=== PATIENT | male | born 1955 | race Caucasian/White ===

== ENCOUNTER 2021-07-05 13:22 | Outpatient (REF) | payer MEDICARE, OTHER, SELFPAY ==
--- NOTE | ~2021-07-05 | US_ITS ---
EXAMINATION: US RETROPERITONEAL LIMITED (AORTA) CLINICAL INFORMATION: History of nicotine dependence. COMPARISON: None TECHNIQUE: Hobbs-scale, color Doppler and spectral Doppler evaluation of the abdominal aorta. FINDINGS: There is atherosclerotic disease with vessel wall calcification. The abdominal aorta is normal in caliber. The measurements of the aorta in maximum AP and transverse dimensions respectively are as follows: Proximal: 2.9 x 3.0 cm. Mid: 2.3 x 2.5 cm. Distal: 2.1 x 2.1 cm. PSV: 111 cm/s. The measurements of the common iliac arteries in maximum AP and TRV dimensions are as follows: Right Common Iliac Artery: 1.5 x 1.7 cm. Left Common Iliac Artery: 1.3 x 1.3 cm. US/US aorta IMPRESSION: Normal caliber abdominal aorta.
== END 2021-07-05 13:23 | disposition home or self-care (01) ==
LOC: HO.HMGCX 13:22
PROVIDERS: Visit Provider Family Medicine
DX: Z87.891 Personal history of nicotine dependence (principal)
CPT/HCPCS: 76775

== ENCOUNTER → 2021-07-06 09:40 | Outpatient (BNVA) | payer MEDICARE, OTHER, SELFPAY | PROVIDERS: PCP Nurse Practitioner Family; Referring Provider Family Medicine; Visit Provider Nurse Practitioner Family | DX: Z12.11 Encounter for screening for malignant neoplasm of colon (principal) | CPT/HCPCS: 99202 ==

== ENCOUNTER 2021-07-30 13:39 | Inpatient (IN) | payer MEDICARE, OTHER, SELFPAY ==
--- NOTE | 2021-07-30 | ECG_ITS ---
Test Reason : AMS Blood Pressure : / mmHG Vent. Rate : 089 BPM Atrial Rate : 089 BPM P-R Int : 142 ms QRS Dur : 088 ms QT Int : 382 ms P-R-T Axes : 070 -28 038 degrees QTc Int : 464 ms Normal sinus rhythm Minimal voltage criteria for LVH, may be normal variant ( Sokolow-Plummer ) Abnormal ECG When compared with ECG of 16-JUN-2019 16:44, MA interval has decreased ST now depressed in Lateral leads Referred By: Generic ED Physician Electronically Signed By:Kedar Santoro
--- NOTE | ~2021-07-30 | CT_ITS ---
EXAMINATION: CT HEAD WITHOUT CONTRAST CLINICAL INFORMATION: Altered mental status COMPARISON: MRI brain 06/23/[address] brain 06/16/2019 TECHNIQUE: Contiguous axial imaging was performed from the skull base to vertex without intravenous administration of contrast. This CT examination was performed using dose optimization techniques as appropriate, variously including the following: *Automated exposure control *Adjustment of mA and/or kV according to patient size (this includes techniques or standardized protocols for targeted exams where dose is matched to indication/reason for exam; i.e. extremities or head) *Use of iterative reconstruction technique DLP: 845 mGy-cm FINDINGS: There is no evidence of acute intracranial hemorrhage or territorial infarction. No abnormal mass effect or midline shift is seen. [place] to white matter differentiation is well preserved. No extra-axial fluid collections are identified. The ventricles are normal in size. There is no abnormal attenuation within the brain parenchyma. The osseous structures and soft tissues are normal. The mastoid air cells and visualized portions of the paranasal sinuses are well aerated. Symmetric persistent prominence of the nasopharyngeal soft tissues bilaterally. CT/CT head/brain wo con IMPRESSION: No acute intracranial pathology.
--- NOTE | ~2021-07-30 | MR_ITS ---
EXAMINATION: MRI BRAIN WITHOUT CONTRAST CLINICAL INFORMATION: Confusion. COMPARISON: CT scan of the head 07/22/2021. TECHNIQUE: Multiplanar MR imaging of the brain was performed without contrast. FINDINGS: Patient motion degrades image quality therefore the diagnostic accuracy of this examination is limited. There are scattered nonspecific foci of T2 FLAIR signal hyperintensity within the periventricular white matter most likely represent a chronic manifestation of small vessel ischemia. No acute territorial infarct. There is a tiny focus of susceptibility artifact within the left cerebellar hemisphere. Intracranial vascular flow voids are grossly maintained. No intracranial mass effect or midline shift. No abnormal extra-axial collection. Lateral and third ventricles are normal. No hydrocephalus. Midline structures including the cervicomedullary junction are normal. No acute bone marrow signal changes. There is no mastoid or middle ear effusion. Mild to moderate paranasal sinus disease primarily affecting the ethmoid air cells and maxillary sinuses. Globes and orbits are symmetric. MR/MR head/brain wo con IMPRESSION: Patient motion degrades image quality therefore the diagnostic accuracy of this examination is limited. There is a tiny age-indeterminate hemorrhage located within the left cerebellar hemisphere. There are scattered chronic small vessel ischemic changes within the periventricular white matter. No evidence of acute territorial infarct.
--- NOTE | ~2021-07-30 | XR_ITS ---
EXAMINATION: XR CHEST CLINICAL INFORMATION: Acute mental status change COMPARISON: 06/16/2019 TECHNIQUE: Frontal view of the chest was obtained. FINDINGS: No significant abnormality is noted involving the heart, lungs, mediastinum, bony thorax or soft tissues. XR/XR chest 1V IMPRESSION: Unremarkable examination.
[2021-07-30 13:43] VITALS: BP 217/107; PULSE 92; RESP 18; TEMP 36.7; O2SAT 94; BMI 23.0
--- NOTE | 2021-07-30 13:57 | ED.AMS ---
HPI - Altered Mental Status General Chief Complaint: Altered Mental Status Stated Complaint: COVID + Confused Sweating Time Seen by Provider: 07/30/21 13:53 Source: patient, old records reviewed and other (friend) Mode of arrival: ambulatory Limitations: altered mental status History of Present Illness HPI narrative: 66 yo male hx of HTN, TIA, HTN encephalopathy back in 2019 requiring admission prior ETOH abuse, COVID positive at home 07/26 we just tested randomly per friend. Vaccinated x 3 per friend. Reports he was normal then found him confused and agitated today. No other history reported. They cannot give any other precipitating events. The patient is very agitated. MD complaint: altered mental status and confusion Onset (ago): unknown (friend notes they last spoke on and he was at baseline) Timing confirmed by: other (friend.) Severity: severe Consistency of symptoms: constant Context: other (recent COVID +) Associated symptoms: denies other symptoms Related Data Home Medications Medication Instructions Recorded Confirmed atorvastatin 80 mg tablet 80 mg PO DAILY 07/06/21 cholecalciferol (vitamin D3) 50 50 mcg PO DAILY 07/06/21 mcg (2,000 unit) tablet (Vitamin D3) citalopram 40 mg tablet 40 mg PO DAILY 07/06/21 doxepin 25 mg capsule 25 mg PO BEDTIME 07/06/21 gabapentin 300 mg capsule 300 mg PO TID 07/06/21 lurasidone 20 mg tablet (Latuda) 20 mg PO DAILY 07/06/21 metoprolol succinate 25 mg 12.5 mg PO DAILY 07/06/21 tablet,extended release 24 hr terazosin 1 mg capsule 1 mg PO DAILY 07/06/21 trazodone 50 mg tablet 50 mg PO BEDTIME 07/06/21 quetiapine 100 mg tablet 1 tab PO BEDTIME 07/30/21 Previous Rx's Medication Instructions Recorded bisacodyl 5 mg tablet,delayed 10 mg PO ONCE 1 Days #2 tab 07/06/21 release (Dulcolax (bisacodyl)) Allergies Allergy/AdvReac Type Severity Reaction Status Date / Time bee pollen [BEE STINGS] Allergy Unknown UNKNOWN Verified 07/06/21 09:45 Iodinated Contrast Media Allergy Unknown UNKNOWN Verified 07/06/21 09:45 [IV CONTRAST] zoster vaccine live Allergy Unknown UNKNOWN Verified 07/06/21 09:45 [SHINGLES VACCINE] codeine Allergy Unknown hives Uncoded 09/01/16 00:00 herpes zoster vaccine Allergy Unknown Unknown Uncoded 07/06/21 09:45 IV dye/contrast Allergy Unknown vomiting Uncoded 09/01/16 00:00 shellfish Allergy Unknown anaphylaxis Uncoded 09/01/16 00:00 Review of Systems Review of Systems: ROS unable to be obtained due to altered mental status [facility] Past Medical History Attestation statement: The following information was validated with the patient. Medical History Anxiety CAD (coronary artery disease) Hypertensive encephalopathy TIA (transient ischemic attack) Surgical History Hx of appendectomy Hx of colonoscopy Hx of left knee surgery Hx of tonsillectomy Family History Family History (Updated 07/06/21 @ 10:07 by Ashley Rajan) Mother Heart disease Father No problems noted. Social History Social History Household Members: None Alcohol intake: former Year quit: 1988 Patient Tobacco Use Status: Former Tobacco user Tobacco use type: Cigarette Substance Use Type: Marijuana Advance Directives: No Advance Directives Information Provided: Yes Physical Exam ED Vital Signs: Vital Signs - 24 hr 07/30/21 13:43 07/30/21 14:31 07/30/21 15:00 Temperature 98.1 F 98.3 F Pulse Rate 92 71 Respiratory Rate 18 18 Blood Pressure 217/107 H 203/94 H 181/93 H Pulse Oximetry 94 99 BMI result Body Mass Index 23.0 Appearance: Alert. Oriented only to self. Mild acute distress. Agitated, pulling at things Eyes: Pupils equal, round and reactive to light. ENT: Pharynx normal. Neck: Normal inspection. Neck supple. Good ROM CVS: tachycardic heart rate and rhythm. Pulses normal. Respiratory: No respiratory distress. Breath sounds normal. Abdomen: Soft and non-tender. Skin: Skin warm and dry. Normal skin color. Normal skin turgor. Extremities: No lower extremity edema. No calf ttp Neuro: Oriented X only self, follows commands, word finding difficulties, gets agitated, moves all extremities, strength intact. Course Course Course Narrative: patient restless and agitated cannot obtain scans - IV ativan ordered BP down 180/90 will hold further lowering and hold for now CT scan pending repeat trop ordered 415pm negative CRP and procalcitonin meningitis seems unlikely - hx of similar presentation back in 2019 dx with HTNive encephalopathy - BP is trending down at this time. signed out to Dr. Ledesma pending repeat troponin MDM - Altered Mental Status MDM Narrative Medical decision making narrative: 66 yo male with hx of HTN, TIA, hypertensive encephalopathy, anxiety, comes in with confusion last known well on per friend. Patient is HTNive and agitated - IV labetolol ordered no prior cocaine abuse. Labs for COVID, CXR, CT head for ICH ordered. Infectious, metabolic workup ordered. Dispo per results and findings. Lab Data Result diagrams: 07/30/21 14:16 07/30/21 14:16 Labs: Lab Results 07/30/21 07/30/21 07/30/21 Range/Units 14:16 14:16 14:16 WBC 11.8 H (4.8-10.8) X10*3/uL RBC 5.18 (4.60-5.80) X10*6/uL Hgb 14.9 (14.0-18.0) g/dl Hct 43.1 (42.0-52.0) % MCV 83.2 (80.0-98.0) fL MCH 28.8 (27.0-33.0) pg MCHC 34.6 (31.0-36.0) g/dl RDW 13.5 (11.0-16.0) % Plt Count 167 (160-400) X10*3/uL MPV 8.3 L (9.4-12.4) fL Immature Gran % (Auto) 0.3 (0.0-0.4) % Neut % (Auto) 88.2 H (45-73) % Lymph % (Auto) 7.4 L (20-40) % Eaton % (Auto) 3.8 (2-11) % Eos % (Auto) 0.1 (0-4) % Baso % (Auto) 0.2 (0-2) % Lymph # (Auto) 0.9 L (1.2-4.9) X10*3/uL [place]aton # (Auto) 0.5 (0.1-1.2) X10*3/uL Eos # (Auto) 0.0 (0.0-0.4) X10*3/uL Baso # (Auto) 0.0 (0.0-0.2) X10*3/uL Abs Immat Gran (auto) 0.04 H (0.00-0.03) X10*3/uL Absolute Neuts (auto) 10.4 H (2.0-8.3) x10*3/uL Absolute Nucleated RBC 0.000 (0.0-0.012) X10*3/uL Nucleated RBC % (auto) 0.0 (0.0-0.2) /100WBC PT (9.9-13.0) SEC INR (0.9-1.1) APTT (24.1-38.0) SEC D-Dimer High Sensitivty NG/ML VBG pH (7.32-7.43) VBG pCO2 mmHg VBG pO2 mmHg VBG HCO3 (22-26) mmol/L VBG O2 Saturation % VBG Base Excess mmol/L Sodium 140 (135-145) mmol/L Potassium 4.0 (3.3-5.1) mmol/L Chloride 106 (96-108) mmol/L Carbon Dioxide 16 L (22-29) mmol/L Anion Gap 22 H (12-20) BUN 19 H (9-16) mg/dL Creatinine 1.02 (0.5-1.4) mg/dL Estim Creat Clear Calc 75.5 Estimated GFR > 60 Random Glucose 136 H (60-115) mg/dL Lactic Acid (0.5-2.0) mmol/L Calcium 9.7 (8.4-10.2) mg/dL Magnesium 1.7 (1.6-2.6) mg/dL Ferritin (20-250) ng/mL Total Bilirubin 1.4 H (0.0-1.0) mg/dL Direct Bilirubin 0.5 (0.0-0.5) mg/dL AST 31 (5-37) U/L ALT 14 (0-40) U/L Alkaline Phosphatase 69 (39-117) U/L Ammonia 21 (13-55) umol/L Lactate Dehydrogenase 265 (118-273) U/L Total Creatine Kinase 932 H (38-174) U/L Troponin I High Sens (<3.5-35.0) ng/L C-Reactive Protein 0.06 (< or = 0.50) mg/dL B-Natriuretic Peptide (<100) pg/mL Total Protein 7.7 (6.5-8.0) g/dL Albumin 4.6 (3.5-5.0) g/dL Lipase 16 (8-78) U/L Procalcitonin ng/mL TSH (0.32-4.0) uIU/mL Ethyl Alcohol mg/dL COVID-19 (MALATHI) (Negative) COVID-19 Clin Com 07/30/21 07/30/21 07/30/21 Range/Units 14:16 14:16 14:16 WBC (4.8-10.8) X10*3/uL RBC (4.60-5.80) X10*6/uL Hgb (14.0-18.0) g/dl Hct (42.0-52.0) % MCV (80.0-98.0) fL MCH (27.0-33.0) pg MCHC (31.0-36.0) g/dl RDW (11.0-16.0) % Plt Count (160-400) X10*3/uL MPV (9.4-12.4) fL Immature Gran % (Auto) (0.0-0.4) % Neut % (Auto) (45-73) % Lymph % (Auto) (20-40) % Eaton % (Auto) (2-11) % Eos % (Auto) (0-4) % Baso % (Auto) (0-2) % Lymph # (Auto) (1.2-4.9) X10*3/uL [place]aton # (Auto) (0.1-1.2) X10*3/uL Eos # (Auto) (0.0-0.4) X10*3/uL Baso # (Auto) (0.0-0.2) X10*3/uL Abs Immat Gran (auto) (0.00-0.03) X10*3/uL Absolute Neuts (auto) (2.0-8.3) x10*3/uL Absolute Nucleated RBC (0.0-0.012) X10*3/uL Nucleated RBC % (auto) (0.0-0.2) /100WBC PT 12.2 (9.9-13.0) SEC INR 1.1 (0.9-1.1) APTT 29.3 (24.1-38.0) SEC D-Dimer High Sensitivty < 150 NG/ML VBG pH (7.32-7.43) VBG pCO2 mmHg VBG pO2 mmHg VBG HCO3 (22-26) mmol/L VBG O2 Saturation % VBG Base Excess mmol/L Sodium (135-145) mmol/L Potassium (3.3-5.1) mmol/L Chloride (96-108) mmol/L Carbon Dioxide (22-29) mmol/L Anion Gap (12-20) BUN (9-16) mg/dL Creatinine (0.5-1.4) mg/dL Estim Creat Clear Calc Estimated GFR Random Glucose (60-115) mg/dL Lactic Acid (0.5-2.0) mmol/L Calcium (8.4-10.2) mg/dL Magnesium (1.6-2.6) mg/dL Ferritin (20-250) ng/mL Total Bilirubin (0.0-1.0) mg/dL Direct Bilirubin (0.0-0.5) mg/dL AST (5-37) U/L ALT (0-40) U/L Alkaline Phosphatase (39-117) U/L Ammonia (13-55) umol/L Lactate Dehydrogenase (118-273) U/L Total Creatine Kinase (38-174) U/L Troponin I High Sens (<3.5-35.0) ng/L C-Reactive Protein (< or = 0.50) mg/dL B-Natriuretic Peptide 180 H (<100) pg/mL Total Protein (6.5-8.0) g/dL Albumin (3.5-5.0) g/dL Lipase (8-78) U/L Procalcitonin ng/mL TSH (0.32-4.0) uIU/mL Ethyl Alcohol mg/dL COVID-19 (MALATHI) Positive A (Negative) COVID-19 Clin Com See Note 07/30/21 07/30/21 07/30/21 Range/Units 14:16 14:16 14:16 WBC (4.8-10.8) X10*3/uL RBC (4.60-5.80) X10*6/uL Hgb (14.0-18.0) g/dl Hct (42.0-52.0) % MCV (80.0-98.0) fL MCH (27.0-33.0) pg MCHC (31.0-36.0) g/dl RDW (11.0-16.0) % Plt Count (160-400) X10*3/uL MPV (9.4-12.4) fL Immature Gran % (Auto) (0.0-0.4) % Neut % (Auto) (45-73) % Lymph % (Auto) (20-40) % Eaton % (Auto) (2-11) % Eos % (Auto) (0-4) % Baso % (Auto) (0-2) % Lymph # (Auto) (1.2-4.9) X10*3/uL [place]aton # (Auto) (0.1-1.2) X10*3/uL Eos # (Auto) (0.0-0.4) X10*3/uL Baso # (Auto) (0.0-0.2) X10*3/uL Abs Immat Gran (auto) (0.00-0.03) X10*3/uL Absolute Neuts (auto) (2.0-8.3) x10*3/uL Absolute Nucleated RBC (0.0-0.012) X10*3/uL Nucleated RBC % (auto) (0.0-0.2) /100WBC PT (9.9-13.0) SEC INR (0.9-1.1) APTT (24.1-38.0) SEC D-Dimer High Sensitivty NG/ML VBG pH (7.32-7.43) VBG pCO2 mmHg VBG pO2 mmHg VBG HCO3 (22-26) mmol/L VBG O2 Saturation % VBG Base Excess mmol/L Sodium (135-145) mmol/L Potassium (3.3-5.1) mmol/L Chloride (96-108) mmol/L Carbon Dioxide (22-29) mmol/L Anion Gap (12-20) BUN (9-16) mg/dL Creatinine (0.5-1.4) mg/dL Estim Creat Clear Calc Estimated GFR Random Glucose (60-115) mg/dL Lactic Acid (0.5-2.0) mmol/L Calcium (8.4-10.2) mg/dL Magnesium (1.6-2.6) mg/dL Ferritin 119 (20-250) ng/mL Total Bilirubin (0.0-1.0) mg/dL Direct Bilirubin (0.0-0.5) mg/dL AST (5-37) U/L ALT (0-40) U/L Alkaline Phosphatase (39-117) U/L Ammonia (13-55) umol/L Lactate Dehydrogenase (118-273) U/L Total Creatine Kinase (38-174) U/L Troponin I High Sens 25.7 (<3.5-35.0) ng/L C-Reactive Protein (< or = 0.50) mg/dL B-Natriuretic Peptide (<100) pg/mL Total Protein (6.5-8.0) g/dL Albumin (3.5-5.0) g/dL Lipase (8-78) U/L Procalcitonin < 0.02 ng/mL TSH 0.76 (0.32-4.0) uIU/mL Ethyl Alcohol mg/dL COVID-19 (MALATHI) (Negative) COVID-19 Clin Com 07/30/21 07/30/21 07/30/21 Range/Units 14:16 14:16 14:20 WBC (4.8-10.8) X10*3/uL RBC (4.60-5.80) X10*6/uL Hgb (14.0-18.0) g/dl Hct (42.0-52.0) % MCV (80.0-98.0) fL MCH (27.0-33.0) pg MCHC (31.0-36.0) g/dl RDW (11.0-16.0) % Plt Count (160-400) X10*3/uL MPV (9.4-12.4) fL Immature Gran % (Auto) (0.0-0.4) % Neut % (Auto) (45-73) % Lymph % (Auto) (20-40) % Eaton % (Auto) (2-11) % Eos % (Auto) (0-4) % Baso % (Auto) (0-2) % Lymph # (Auto) (1.2-4.9) X10*3/uL Eaton # (Auto) (0.1-1.2) X10*3/uL Eos # (Auto) (0.0-0.4) X10*3/uL Baso # (Auto) (0.0-0.2) X10*3/uL Abs Immat Gran (auto) (0.00-0.03) X10*3/uL Absolute Neuts (auto) (2.0-8.3) x10*3/uL Absolute Nucleated RBC (0.0-0.012) X10*3/uL Nucleated RBC % (auto) (0.0-0.2) /100WBC PT (9.9-13.0) SEC INR (0.9-1.1) APTT (24.1-38.0) SEC D-Dimer High Sensitivty NG/ML VBG pH 7.42 (7.32-7.43) VBG pCO2 23 mmHg VBG pO2 41 mmHg VBG HCO3 15 L (22-26) mmol/L VBG O2 Saturation 69.0 % VBG Base Excess -6.5 mmol/L Sodium (135-145) mmol/L Potassium (3.3-5.1) mmol/L Chloride (96-108) mmol/L Carbon Dioxide (22-29) mmol/L Anion Gap (12-20) BUN (9-16) mg/dL Creatinine (0.5-1.4) mg/dL Estim Creat Clear Calc Estimated GFR Random Glucose (60-115) mg/dL Lactic Acid 3.0 H* (0.5-2.0) mmol/L Calcium (8.4-10.2) mg/dL Magnesium (1.6-2.6) mg/dL Ferritin (20-250) ng/mL Total Bilirubin (0.0-1.0) mg/dL Direct Bilirubin (0.0-0.5) mg/dL AST (5-37) U/L ALT (0-40) U/L Alkaline Phosphatase (39-117) U/L Ammonia (13-55) umol/L Lactate Dehydrogenase (118-273) U/L Total Creatine Kinase (38-174) U/L Troponin I High Sens (<3.5-35.0) ng/L C-Reactive Protein (< or = 0.50) mg/dL B-Natriuretic Peptide (<100) pg/mL Total Protein (6.5-8.0) g/dL Albumin (3.5-5.0) g/dL Lipase (8-78) U/L Procalcitonin ng/mL TSH (0.32-4.0) uIU/mL Ethyl Alcohol < 10 mg/dL COVID-19 (MALATHI) (Negative) COVID-19 Clin Com ECG Data ECG #1: Attestation: I personally reviewed and interpreted this ECG as follows: ECG interpretation date: 07/30/21 ECG interpretation time: 13:59 Interpretation: Rate: 89 Rhythm: NSR [place]: left , LVH Normal P waves. Normal VASILE. Normal QRS complex. ST T wave : no RAMIRO, nonspecific subtle lateral ST depression I and aVL, V5-V6 qTC: normal prior studies: changed from 2019 The study has been interpreted contemporaneously by me. . Discharge Plan Discharge Clinical Impression: COVID-19, Encephalopathy acute, Acidosis, lactic Patient Disposition: Still a Patient Prescriptions: No Action quetiapine 100 mg tablet 1 tab PO BEDTIME 0RF doxepin 25 mg capsule 25 mg PO BEDTIME 0RF citalopram 40 mg tablet 40 mg PO DAILY 0RF trazodone 50 mg tablet 50 mg PO BEDTIME 0RF terazosin 1 mg capsule 1 mg PO DAILY 0RF atorvastatin 80 mg tablet 80 mg PO DAILY 0RF Latuda 20 mg tablet 20 mg PO DAILY 0RF cholecalciferol (vitamin D3) [Vitamin D3] 50 mcg (2,000 unit) tablet 50 mcg PO DAILY 0RF gabapentin 300 mg capsule 300 mg PO TID 0RF metoprolol succinate 25 mg tablet extended release 24 hr 12.5 mg PO DAILY 0RF bisacodyl [Dulcolax (bisacodyl)] 5 mg tablet,delayed release (DR/EC) 10 mg PO ONCE 1 Days Qty: 2 0RF Rx Instructions: take 2 tabs at noon the day before your colonoscopy
[2021-07-30 14:24] LABS: MANUAL DIFF FLAG NO
[2021-07-30 14:25] LABS: Basophils Percent Auto 0.2 % (0-2); Eosinophils Percent Auto 0.1 % (0-4); Hematocrit 43.1 % (42.0-52.0); Hemoglobin 14.9 g/dl (14.0-18.0); Imm Gran Abs Auto 0.04 X10*3/uL (0.00-0.03); Imm Gran Pct Auto 0.3 % (0.0-0.4); Lymphocytes Absolute Auto 0.9 X10*3/uL (1.2-4.9); Lymphocytes Percent Auto 7.4 % (20-40); Mean Corpuscular HGB Conc 34.6 g/dl (31.0-36.0); Mean Corpuscular Hemoglobin 28.8 pg (27.0-33.0); Mean Corpuscular Volume 83.2 fL (80.0-98.0); Mean Platelet Volume 8.3 fL (9.4-12.4); Monocytes Absolute Auto 0.5 X10*3/uL (0.1-1.2); Monocytes Percent Auto 3.8 % (2-11); Neutrophils Absolute Auto 10.4 x10*3/uL (2.0-8.3); Neutrophils Percent Auto 88.2 % (45-73); Platelet Count 167 X10*3/uL (160-400); Red Blood Count 5.18 X10*6/uL (4.60-5.80); Red Cell Distribution Width 13.5 % (11.0-16.0); White Blood Count 11.8 X10*3/uL (4.8-10.8)
[2021-07-30 14:27] LABS: Venous Blood Gas Refer to POC result
[2021-07-30 14:28] LABS: VBG Base Excess -6.5 mmol/L; VBG HCO3 15 mmol/L (22-26); VBG pCO2 23 mmHg; VBG pH 7.42 (7.32-7.43); VBG pO2 41 mmHg
[2021-07-30] MEDS: Labetalol HCL 100 MG/20 ML VIAL 10 MG IVPUSH ×2 (14:29→18:10)
[2021-07-30 14:31] VITALS: BP 203/94
[2021-07-30 14:32] LABS: COVID-19 Test Positive (Negative); IDNOW Serial# 9DB6401D
[2021-07-30 14:33] LABS: INTERNATIONAL NORM RATIO 1.1 (0.9-1.1); Prothrombin Time 12.2 SEC (9.9-13.0)
[2021-07-30 14:34] LABS: Ammonia 21 umol/L (13-55)
[2021-07-30 14:36] LABS: Partial Thromboplastin Time 29.3 SEC (24.1-38.0)
[2021-07-30 14:45] LABS: Ethanol < 10 mg/dL
[2021-07-30 14:46] LABS: Alanine Aminotransferase 14 U/L (0-40); Albumin Level 4.6 g/dL (3.5-5.0); Alkaline Phosphatase 69 U/L (39-117); Anion Gap 22 (12-20); Aspartate Amino Transferase 31 U/L (5-37); Bilirubin Direct 0.5 mg/dL (0.0-0.5); Bilirubin Total 1.4 mg/dL (0.0-1.0); Blood Urea Nitrogen 19 mg/dL (9-16); C Reactive Protein 0.06 mg/dL (< or = 0.50); Calcium 9.7 mg/dL (8.4-10.2); Carbon Dioxide 16 mmol/L (22-29); Chloride 106 mmol/L (96-108); Creatinine Clr Calc Pharmacy 75.5; Estimated Glomerular Filt Rate > 60; Glucose Random 136 mg/dL (60-115); Lipase 16 U/L (8-78); Magnesium 1.7 mg/dL (1.6-2.6); Sodium 140 mmol/L (135-145); Total Protein 7.7 g/dL (6.5-8.0)
[2021-07-30 14:47] LABS: B Type Natriuretic Peptide 180 pg/mL (<100); Troponin-I High Sensitivity 25.7 ng/L (<3.5-35.0)
[2021-07-30 14:50] LABS: D Dimer High Sensitivity < 150 NG/ML; Lactate Dehydrogenase 265 U/L (118-273)
[2021-07-30 15:00] VITALS: BP 181/93; PULSE 71; RESP 18; TEMP 36.8; O2SAT 99
[2021-07-30 15:00] LABS: Procalcitonin < 0.02 ng/mL
[2021-07-30 15:01] LABS: Ferritin 119 ng/mL (20-250); TSH reflex Free T4 0.76 uIU/mL (0.32-4.0)
[2021-07-30] MEDS: cefTRIAXone sodium 1 GM in 0.9 % Sodium Chloride 50 ML IV (16:02)
[2021-07-30] MEDS: 0.9 % Sodium Chloride 1,000 ML 999 ML IV (16:02)
[2021-07-30 16:08] VITALS: BP 190/100; PULSE 78
[2021-07-30 16:22] LABS: Reflex Lactate? Lactic Acid Added
--- NOTE | 2021-07-30 16:27 | PHA.MEDREC ---
Pharmacy Consult ? Medication Reconciliation Pharmacy has completed the medication reconciliation. Spoke to patient's primary contact Erlinda ([phone]) who confirmed medication list. Believes he at least took his medications yesterday but was unsure of today.
[2021-07-30] MEDS: Metoprolol Succinate ER 12.5 MG HALFTAB.ER.24H PO (16:28)
[2021-07-30] MEDS: LORazepam 2 MG/ML VIAL 1 MG IVPUSH (16:29)
[2021-07-30 16:52] LABS: ~Lactic Acid-LAB USE ONLY 2.3 mmol/L (0.5-2.0)
[2021-07-30 16:58] LABS: Troponin-I High Sensitivity 32.9 ng/L (<3.5-35.0)
[2021-07-30 17:20] LABS: Appearance Urine CLEAR; Color Urine YELLOW; Glucose Urine UA NEG (NEG); Leukocyte Esterase Urine NEG (NEG); Nitrite Urine NEG (NEG); Specific Gravity - Urine >= 1.030 (1.005-1.025); UACC Culture Trigger NO; Urine Blood 2+ (NEG); Urine Ketones 40 MG/DL (NEG); Urine Protein 1+ MG/DL (NEG-TRACE)
--- NOTE | 2021-07-30 17:21 | P.HPHOSP_ITS ---
History of Present Illness Date of Service: 07/30/21 Chief Complaint: ams 66M brought in by friend for AMS. patient is normally independent in aDLs, oriented times 3. about 4 days ptp, he had rhinorrhea and tested positive for covid. patient had minimal symptoms. on day of presentation he was seen by friend who noted patient was very confused. did not know where he was, his birthday, what year it was. she brought him to ED, his blood pressure was significantly elevated with sbp >200, in 2019 patient had a similar presentation with confusion and hypertension. it quickly resolved, he had refused mri at that point. friend states patient has remote history of ETOH, but does not currently drink ETOH or use drugs. Review of Systems Review of Systems: Yes Unobtainable due to mental condition PMFSH Medical History Anxiety CAD (coronary artery disease) Hypertensive encephalopathy TIA (transient ischemic attack) Family History Mother Heart disease Father No problems noted. Surgical History Hx of appendectomy Hx of colonoscopy Hx of left knee surgery Hx of tonsillectomy Social History Household Members: None Alcohol intake: former Year quit: 1988 Patient Tobacco Use Status: Former Tobacco user Tobacco use type: Cigarette Substance Use Type: Marijuana Advance Directives: No Advance Directives Information Provided: Yes Meds Allergies Allergy/AdvReac Type Severity Reaction Status Date / Time bee pollen [BEE STINGS] Allergy Unknown UNKNOWN Verified 07/06/21 09:45 Iodinated Contrast Media Allergy Unknown UNKNOWN Verified 07/06/21 09:45 [IV CONTRAST] zoster vaccine live Allergy Unknown UNKNOWN Verified 07/06/21 09:45 [SHINGLES VACCINE] codeine Allergy Unknown hives Uncoded 09/01/16 00:00 herpes zoster vaccine Allergy Unknown Unknown Uncoded 07/06/21 09:45 IV dye/contrast Allergy Unknown vomiting Uncoded 09/01/16 00:00 shellfish Allergy Unknown anaphylaxis Uncoded 09/01/16 00:00 Active Medications: Current Medications Atorvastatin Calcium (Atorvastatin Calcium 80 Mg Tablet) 80 mg PO DAILY [facility] Doxepin HCl (Doxepin Hcl 25 Mg Capsule) 25 mg PO BEDTIME [facility] Gabapentin (Gabapentin 300 Mg Capsule) 300 mg PO TID [facility] Hydralazine HCl (Hydralazine Hcl 20 Mg/Ml Vial) 5 mg IVPUSH Q6H PRN; Protocol PRN Reason: sbp>190 Lorazepam (Lorazepam 2 Mg/Ml Vial) 2 mg IVPUSH Q4H PRN PRN Reason: agitation Lurasidone HCl (Lurasidone Hcl 20 Mg Tablet) 20 mg PO DAILY [facility] Metoprolol Succinate (Metoprolol Succinate Er 12.5 Mg Halftab.Er.24h) 12.5 mg PO DAILY [facility]; Protocol Non-Formulary Medication (Citalopram) 40 mg PO DAILY [facility] Non-Formulary Medication (Terazosin) 1 mg PO DAILY [facility] Pharmacy Consult (Consult Rx Perform Med Rec) 1 each MISCELLANE ONCE PRN PRN Reason: Consult order Quetiapine Fumarate (Quetiapine Fumarate 100 Mg Tablet) 100 mg PO BEDTIME [facility] Vitamin D (Cholecalciferol (Vitamin D3) 25 Mcg Tablet) 50 mcg PO DAILY [facility] Home Medications Medication Instructions Recorded Confirmed Last Taken Type atorvastatin 80 mg tablet 80 mg PO DAILY 07/06/21 07/30/21 Unknown History cholecalciferol (vitamin D3) 50 50 mcg PO DAILY 07/06/21 07/30/21 Unknown History mcg (2,000 unit) tablet (Vitamin D3) citalopram 40 mg tablet 40 mg PO DAILY 07/06/21 07/30/21 Unknown History doxepin 25 mg capsule 25 mg PO BEDTIME 07/06/21 07/30/21 Unknown History gabapentin 300 mg capsule 300 mg PO TID 07/06/21 07/30/21 Unknown History lurasidone 20 mg tablet (Latuda) 20 mg PO DAILY 07/06/21 07/30/21 Unknown History metoprolol succinate 25 mg 12.5 mg PO DAILY 07/06/21 07/30/21 Unknown History tablet,extended release 24 hr terazosin 1 mg capsule 1 mg PO DAILY 07/06/21 07/30/21 Unknown History quetiapine 100 mg tablet 1 tab PO BEDTIME 07/30/21 07/30/21 Unknown History Physical Exam Vital Signs and Narrative: Vital Signs: Last Vital Signs Temp 98.3 F 07/30/21 15:00 Pulse 78 07/30/21 16:08 Resp 18 07/30/21 15:00 BP 190/100 H 07/30/21 16:08 Pulse Ox 99 07/30/21 15:00 BMI result Body Mass Index 23.0 General: restless HEENT: atraumatic Neck: normal to visual inspection CVS: S1, S2, RRR Resp: CTA bilateral Chest: non tender GI: soft, non tender, non distended : no CVA tenderness Skin: no rashes Extremities: no edema Neuro: Oriented X1, tremulous, confused, follows simple instructions Psych: cooperative, poor insight Results Labs CBC and Chem 7: 07/30/21 14:16 07/30/21 14:16 Labs: Laboratory Results - last 24 hr 07/30/21 07/30/21 07/30/21 14:16 14:16 14:16 MCV 83.2 MCH 28.8 MCHC 34.6 RDW 13.5 Plt Count 167 MPV 8.3 L Immature Gran % (Auto) 0.3 Neut % (Auto) 88.2 H Lymph % (Auto) 7.4 L [place] % (Auto) 3.8 Eos % (Auto) 0.1 Baso % (Auto) 0.2 Lymph # (Auto) 0.9 L [place] # (Auto) 0.5 Eos # (Auto) 0.0 Baso # (Auto) 0.0 Abs Immat Gran (auto) 0.04 H Absolute Neuts (auto) 10.4 H Absolute Nucleated RBC 0.000 Nucleated RBC % (auto) 0.0 PT INR APTT D-Dimer High Sensitivty VBG pH VBG pCO2 VBG pO2 VBG HCO3 VBG O2 Saturation VBG Base Excess Anion Gap 22 H Estim Creat Clear Calc 75.5 Estimated GFR > 60 Random Glucose 136 H Lactic Acid Lactic Acid F/U @ 2Hr Calcium 9.7 Magnesium 1.7 Ferritin Total Bilirubin 1.4 H Direct Bilirubin 0.5 AST 31 ALT 14 Alkaline Phosphatase 69 Ammonia 21 Lactate Dehydrogenase 265 Total Creatine Kinase 932 H Troponin I High Sens C-Reactive Protein 0.06 B-Natriuretic Peptide Total Protein 7.7 Albumin 4.6 Lipase 16 Procalcitonin TSH Urine Color Urine Appearance Urine pH Ur Specific [place] Urine Protein Urine Glucose (UA) Urine Ketones Urine Blood Urine Nitrite Ur Leukocyte Esterase Ethyl Alcohol COVID-19 ([facility]) COVID-19 Clin Com 07/30/21 07/30/2122 14:16 14:16 14:16 MCV MCH MCHC RDW Plt Count MPV Immature Gran % (Auto) Neut % (Auto) Lymph % (Auto) [place] % (Auto) Eos % (Auto) Baso % (Auto) Lymph # (Auto) [place] # (Auto) Eos # (Auto) Baso # (Auto) Abs Immat Gran (auto) Absolute Neuts (auto) Absolute Nucleated RBC Nucleated RBC % (auto) PT 12.2 INR 1.1 APTT 29.3 D-Dimer High Sensitivty < 150 VBG pH VBG pCO2 VBG pO2 VBG HCO3 VBG O2 Saturation VBG Base Excess Anion Gap Estim Creat Clear Calc Estimated GFR Random Glucose Lactic Acid Lactic Acid F/U @ 2Hr Calcium Magnesium Ferritin Total Bilirubin Direct Bilirubin AST ALT Alkaline Phosphatase Ammonia Lactate Dehydrogenase Total Creatine Kinase Troponin I High Sens C-Reactive Protein B-Natriuretic Peptide 180 H Total Protein Albumin Lipase Procalcitonin TSH Urine Color Urine Appearance Urine pH Ur Specific [place] Urine Protein Urine Glucose (UA) Urine Ketones Urine Blood Urine Nitrite Ur Leukocyte Esterase Ethyl Alcohol COVID-19 ([facility]I) Positive A [employer] See Note 07/30/21 07/30/21 07/30/21 14:16 14:16 14:16 MCV MCH MCHC RDW Plt Count MPV Immature Gran % (Auto) Neut % (Auto) Lymph % (Auto) [place] % (Auto) Eos % (Auto) Baso % (Auto) Lymph # (Auto) [place] # (Auto) Eos # (Auto) Baso # (Auto) Abs Immat Gran (auto) Absolute Neuts (auto) Absolute Nucleated RBC Nucleated RBC % (auto) PT INR APTT D-Dimer High Sensitivty VBG pH VBG pCO2 VBG pO2 VBG HCO3 VBG O2 Saturation VBG Base Excess Anion Gap Estim Creat Clear Calc Estimated GFR Random Glucose Lactic Acid Lactic Acid F/U @ 2Hr Calcium Magnesium Ferritin 119 Total Bilirubin Direct Bilirubin AST ALT Alkaline Phosphatase Ammonia Lactate Dehydrogenase Total Creatine Kinase Troponin I High Sens 25.7 C-Reactive Protein B-Natriuretic Peptide Total Protein Albumin Lipase Procalcitonin < 0.02 TSH 0.76 Urine Color Urine Appearance Urine pH Ur Specific [place] Urine Protein Urine Glucose (UA) Urine Ketones Urine Blood Urine Nitrite Ur Leukocyte Esterase Ethyl Alcohol COVID-19 ([facility]) COVID-19 [employer] Com 07/30/21 07/30/21 07/30/21 14:16 14:16 14:20 MCV MCH MCHC RDW Plt Count MPV Immature Gran % (Auto) Neut % (Auto) Lymph % (Auto) [place] % (Auto) Eos % (Auto) Baso % (Auto) Lymph # (Auto) [place] # (Auto) Eos # (Auto) Baso # (Auto) Abs Immat Gran (auto) Absolute Neuts (auto) Absolute Nucleated RBC Nucleated RBC % (auto) PT INR APTT D-Dimer High Sensitivty VBG pH 7.42 VBG pCO2 23 VBG pO2 41 VBG HCO3 15 L VBG O2 Saturation 69.0 VBG Base Excess -6.5 Anion Gap Estim Creat Clear Calc Estimated GFR Random Glucose Lactic Acid 3.0 H* Lactic Acid F/U @ 2Hr Calcium Magnesium Ferritin Total Bilirubin Direct Bilirubin AST ALT Alkaline Phosphatase Ammonia Lactate Dehydrogenase Total Creatine Kinase Troponin I High Sens C-Reactive Protein B-Natriuretic Peptide Total Protein Albumin Lipase Procalcitonin TSH Urine Color Urine Appearance Urine pH Ur Specific [place] Urine Protein Urine Glucose (UA) Urine Ketones Urine Blood Urine Nitrite Ur Leukocyte Esterase Ethyl Alcohol < 10 COVID-19 ([facility]) COVID-19 Clin [employer] 07/30/21 07/30/21 07/30/21 16:33 16:33 17:12 MCV MCH MCHC RDW Plt Count MPV Immature Gran % (Auto) Neut % (Auto) Lymph % (Auto) [place] % (Auto) Eos % (Auto) Baso % (Auto) Lymph # (Auto) [place] # (Auto) Eos # (Auto) Baso # (Auto) Abs Immat Gran (auto) Absolute Neuts (auto) Absolute Nucleated RBC Nucleated RBC % (auto) PT INR APTT D-Dimer High Sensitivty VBG pH VBG pCO2 VBG pO2 VBG HCO3 VBG O2 Saturation VBG Base Excess Anion Gap Estim Creat Clear Calc Estimated GFR Random Glucose Lactic Acid Lactic Acid F/U @ 2Hr 2.3 H* Calcium Magnesium Ferritin Total Bilirubin Direct Bilirubin AST ALT Alkaline Phosphatase Ammonia Lactate Dehydrogenase Total Creatine Kinase Troponin I High Sens 32.9 C-Reactive Protein B-Natriuretic Peptide Total Protein Albumin Lipase Procalcitonin TSH Urine Color YELLOW Urine Appearance CLEAR Urine pH 6.0 Ur Specific [place] >= 1.030 H Urine Protein 1+ H Urine Glucose (UA) NEG Urine Ketones 40 Urine Blood 2+ H Urine Nitrite NEG Ur Leukocyte Esterase NEG Ethyl Alcohol COVID-19 ([facility]) COVID-19 Clin Com Imaging Radiologist's Impressions: Impressions Chest X-Ray 07/30/21 14:40 IMPRESSION: Unremarkable examination. Head CT 07/30/21 15:26 IMPRESSION: No acute intracranial pathology. Assessment and Plan (1) Encephalopathy acute: Status: Acute Plan 66M presented with ams, htn metabolic encephalopathy differential includes hypertensive emergency with encephalopathy - hydralazine, monitor, goal SBP around 160-180 for now, MRI etoh or med withdrawal - denies etoh, but did respond to ativan, will continue ativan prn, check utox cad statin psych disorder seroquel, latuda, gabapentin, celexa dvt prophylaxis - lvoenox full code patient with ongoing encephalopahty and hypertensive emergency therefore will require atleast 2 midnights in hospital Quality Stroke Does the patient have a stroke diagnosis?: No VTE Prior VTE?: No VTE Risk Level:: Medical - moderate - high VTE Device Contraindication: Treatment Not Indicated VTE Drug Contraindication: N/A - Med Ordered
[2021-07-30 17:28] LABS: Squamous Epithelial Cell Urine TRACE /LPF
[2021-07-30 17:29] LABS: Mucus Urine TRACE /LPF
[2021-07-30 17:34] LABS: Amphetamine Screen Urine Not Detected (Not Detect); Barbiturates, Urine Not Detected (Not Detect); Benzodiazepines Screen Urine Not Detected (Not Detect); Cannabinoid Screen Urine POSITIVE (Not Detect); Cocaine Screen Urine Not Detected (Not Detect); Fentanyl, urine Not Detected (Not Detect); Opiate Screen Urine Not Detected (Not Detect); Phencyclidine Screen Urine Not Detected (Not Detect)
[2021-07-30] MEDS: LORazepam 2 MG/ML VIAL IVPUSH ×2 (18:17→21:04)
[2021-07-30 18:37] LABS: Reflex Lactate? 2 Y
[2021-07-30 19:48] LABS: ~Lactic Acid-LAB USE ONLY 2.4 mmol/L (0.5-2.0)
--- NOTE | 2021-07-30 19:53 | PC.NURSE ---
Notified Rico Braswell and Provider of critical lab for 2.4 lactic
[2021-07-30] MEDS: Gabapentin 300 MG CAPSULE PO (20:39)
[2021-07-30] MEDS: QUEtiapine Fumarate 100 MG TABLET PO (20:39)
[2021-07-30] MEDS: Doxepin HCl 25 MG CAPSULE PO (20:39)
--- NOTE | 2021-07-30 21:13 | PC.NURSE ---
PATIENT WAS PUT IN A HOSPITAL BED ,AND GIVEN A BEDSIDE CAMERA FOR SAFETY .
[2021-07-30 22:29] VITALS: BP 131/110; PULSE 89; RESP 16; TEMP 36.7; O2SAT 97
[2021-07-31 08:19] LABS: Hematocrit 38.2 % (42.0-52.0); Hemoglobin 13.2 g/dl (14.0-18.0); Mean Corpuscular HGB Conc 34.6 g/dl (31.0-36.0); Mean Corpuscular Hemoglobin 28.8 pg (27.0-33.0); Mean Corpuscular Volume 83.4 fL (80.0-98.0); Platelet Count 149 X10*3/uL (160-400); Red Blood Count 4.58 X10*6/uL (4.60-5.80); Red Cell Distribution Width 13.7 % (11.0-16.0); White Blood Count 9.7 X10*3/uL (4.8-10.8)
[2021-07-31 08:47] LABS: Anion Gap 11 (12-20); Blood Urea Nitrogen 15 mg/dL (9-16); Calcium 8.7 mg/dL (8.4-10.2); Carbon Dioxide 21 mmol/L (22-29); Chloride 111 mmol/L (96-108); Creatinine Clr Calc Pharmacy 98.8; Estimated Glomerular Filt Rate > 60; Glucose Fasting 85 mg/dL (60-99); Potassium 3.7 mmol/L (3.3-5.1); Sodium 139 mmol/L (135-145)
[2021-07-31 09:35] VITALS: BP 129/72; PULSE 71; RESP 20; TEMP 36.6; O2SAT 98
[2021-07-31] MEDS: Atorvastatin Calcium 80 MG TABLET PO (09:35)
[2021-07-31] MEDS: Escitalopram Oxalate 20 MG TABLET PO (09:35)
[2021-07-31] MEDS: Gabapentin 300 MG CAPSULE PO ×3 (09:35→22:58)
[2021-07-31] MEDS: Cholecalciferol (Vitamin D3) 25 MCG TABLET 50 MCG PO (09:35)
[2021-07-31 11:31] VITALS: BP 162/72; PULSE 65; RESP 20; O2SAT 98
[2021-07-31] MEDS: Metoprolol Succinate ER 12.5 MG HALFTAB.ER.24H PO (11:31)
[2021-07-31] MEDS: Lurasidone HCl 20 MG TABLET PO (11:32)
[2021-07-31] MEDS: Doxazosin Mesylate 1 MG TABLET PO (11:32)
--- NOTE | 2021-07-31 12:01 | P.PNIM_ITS ---
Subjective Subjective Date of Service: 07/31/21 Interval History: cc: ams interval history:improving mental status Cardiovascular Cardiovascular: Reports no additional cardiovascular complaints Respiratory Respiratory: Reports no additional respiratory complaints Physical Exam Vital Signs: Vital Signs: Last Vital Signs Temp 97.8 F 07/31/21 09:35 Pulse 65 07/31/21 11:31 Resp 20 07/31/21 11:31 BP 162/72 H 07/31/21 11:31 Pulse Ox 98 07/31/21 11:31 BMI result Body Mass Index 23.0 General: AO X 3, no acute distress Resp: CTA bilateral, no accessory muscles used CVS: S1,S2,RRR GI: soft, non tender, non distended Neuro: motor grossly intact, alert Psych: appropriate affect, appropriate insight Objective Data Active Medications Acetaminophen (Acetaminophen 325 Mg Tablet) 650 mg PO Q6H PRN PRN Reason: Pain, Mild (Pain Scale 1-3) Atorvastatin Calcium (Atorvastatin Calcium 80 Mg Tablet) 80 mg PO DAILY [facility] Last Admin: 07/31/21 09:35 Dose: 80 mg Documented by: DIRK Doxazosin Mesylate (Doxazosin Mesylate 1 Mg Tablet) 1 mg PO DAILY [facility] Last Admin: 07/31/21 11:32 Dose: 1 mg Documented by: DIRK Doxepin HCl (Doxepin Hcl 25 Mg Capsule) 25 mg PO BEDTIME [facility] Last Admin: 07/30/21 20:39 Dose: 25 mg Documented by: ABAD Escitalopram Oxalate (Escitalopram Oxalate 20 Mg Tablet) 20 mg PO DAILY [facility] Last Admin: 07/31/21 09:35 Dose: 20 mg Documented by: DIRK Gabapentin (Gabapentin 300 Mg Capsule) 300 mg PO TID [facility] Last Admin: 07/31/21 09:35 Dose: 300 mg Documented by: DIRK Hydralazine HCl (Hydralazine Hcl 20 Mg/Ml Vial) 5 mg IVPUSH Q6H PRN; Protocol PRN Reason: sbp>190 Lorazepam (Lorazepam 2 Mg/Ml Vial) 2 mg IVPUSH Q4H PRN PRN Reason: agitation Last Admin: 07/30/21 21:04 Dose: 2 mg Documented by: ABAD Lurasidone HCl (Lurasidone Hcl 20 Mg Tablet) 20 mg PO DAILY [facility] Last Admin: 07/31/21 11:32 Dose: 20 mg Documented by: DIRK Metoprolol Succinate (Metoprolol Succinate Er 12.5 Mg Halftab.Er.24h) 12.5 mg PO DAILY [facility]; Protocol Last Admin: 07/31/21 11:31 Dose: 12.5 mg Documented by: DIRK Ondansetron HCl (Ondansetron Hcl 4 Mg/2 Ml Vial) 4 mg IVPUSH Q6H PRN PRN Reason: [facility] Pharm[facility] Consult (Consult Rx Perform Med Rec) 1 each MISCELLANE ONCE PRN PRN Reason: Consult order Quetiapine Fumarate (Quetiapine Fumarate 100 Mg Tablet) 100 mg PO BEDTIME [facility] Last Admin: 07/30/21 20:39 Dose: 100 mg Documented by: ABAD Sodium Chloride (0.9 % Sodium Chloride Flush 3 Ml Syringe) 3 ml IVFLUSH QSHIFT [facility] Last Admin: 07/31/21 09:40 Dose: Not Given Documented by: DIRK Non-Admin Reason: Med Not Available Vitamin D (Cholecalciferol (Vitamin D3) 25 Mcg Tablet) 50 mcg PO DAILY [facility] Last Admin: 07/31/21 09:35 Dose: 50 mcg Documented by: DIRK Labs CBC & Chem 7: 07/31/21 07:28 07/31/21 07:28 Labs: Laboratory Results - last 24 hr 07/30/21 07/30/21 07/30/21 14:16 14:16 14:16 MCV 83.2 MCH 28.8 MCHC 34.6 RDW 13.5 Plt Count 167 MPV 8.3 L Immature Gran % (Auto) 0.3 Neut % (Auto) 88.2 H Lymph % (Auto) 7.4 L [place] % (Auto) 3.8 Eos % (Auto) 0.1 Baso % (Auto) 0.2 Lymph # (Auto) 0.9 L [place] # (Auto) 0.5 Eos # (Auto) 0.0 Baso # (Auto) 0.0 Abs Immat Gran (auto) 0.04 H Absolute Neuts (auto) 10.4 H Absolute Nucleated RBC 0.000 Nucleated RBC % (auto) 0.0 PT INR APTT D-Dimer High Sensitivty VBG pH VBG pCO2 VBG pO2 VBG HCO3 VBG O2 Saturation VBG Base Excess Anion Gap 22 H Estim Creat Clear Calc 75.5 Estimated GFR > 60 Random Glucose 136 H Fasting Glucose Lactic Acid Lactic Acid F/U @ 2Hr Lactic Acid F/U @ 4Hr Calcium 9.7 Magnesium 1.7 Ferritin Total Bilirubin 1.4 H Direct Bilirubin 0.5 AST 31 ALT 14 Alkaline Phosphatase 69 Ammonia 21 Lactate Dehydrogenase 265 Total Creatine Kinase 932 H Troponin I High Sens C-Reactive Protein 0.06 B-Natriuretic Peptide Total Protein 7.7 Albumin 4.6 Lipase 16 Procalcitonin TSH Urine Color Urine Appearance Urine pH Ur Specific [place] Urine Protein Urine Glucose (UA) Urine Ketones Urine Blood Urine Nitrite Ur Leukocyte Esterase Urine RBC Urine WBC Ur Squamous Epith Cells Urine Bacteria Urine Mucus Urine Opiates Screen Urine Fentanyl Screen Ur Barbiturates Screen Ur Phencyclidine Scrn Ur Amphetamines Screen U Benzodiazepines Scrn Urine Cocaine Screen U Marijuana (THC) Screen Ethyl Alcohol COVID-19 ([facility]) COVID-19 Clin Com 07/30/21 07/30/21 07/30/21 14:16 14:16 14:16 MCV MCH MCHC RDW Plt Count MPV Immature Gran % (Auto) Neut % (Auto) Lymph % (Auto) [place] % (Auto) Eos % (Auto) Baso % (Auto) Lymph # (Auto) [place] # (Auto) Eos # (Auto) Baso # (Auto) Abs Immat Gran (auto) Absolute Neuts (auto) Absolute Nucleated RBC Nucleated RBC % (auto) PT 12.2 INR 1.1 APTT 29.3 D-Dimer High Sensitivty < 150 VBG pH VBG pCO2 VBG pO2 VBG HCO3 VBG O2 Saturation VBG Base Excess Anion Gap Estim Creat Clear Calc Estimated GFR Random Glucose Fasting Glucose Lactic Acid Lactic Acid F/U @ 2Hr Lactic Acid F/U @ 4Hr Calcium Magnesium Ferritin Total Bilirubin Direct Bilirubin AST ALT Alkaline Phosphatase Ammonia Lactate Dehydrogenase Total Creatine Kinase Troponin I High Sens C-Reactive Protein B-Natriuretic Peptide 180 H Total Protein Albumin Lipase Procalcitonin TSH Urine Color Urine Appearance Urine pH Ur Specific [place] Urine Protein Urine Glucose (UA) Urine Ketones Urine Blood Urine Nitrite Ur Leukocyte Esterase Urine RBC Urine WBC Ur Squamous Epith Cells Urine Bacteria Urine Mucus Urine Opiates Screen Urine Fentanyl Screen Ur Barbiturates Screen Ur Phencyclidine Scrn Ur Amphetamines Screen U Benzodiazepines Scrn Urine Cocaine Screen U Marijuana (THC) Screen Ethyl Alcohol COVID-19 ([facility]ALATHI) Positive A COVID-19 Clin Com See Note 07/30/21 07/30/21 07/30/21 14:16 14:16 14:16 MCV MCH MCHC RDW Plt Count MPV Immature Gran % (Auto) Neut % (Auto) Lymph % (Auto) [place] % (Auto) Eos % (Auto) Baso % (Auto) Lymph # (Auto) [place] # (Auto) Eos # (Auto) Baso # (Auto) Abs Immat Gran (auto) Absolute Neuts (auto) Absolute Nucleated RBC Nucleated RBC % (auto) PT INR APTT D-Dimer High Sensitivty VBG pH VBG pCO2 VBG pO2 VBG HCO3 VBG O2 Saturation VBG Base Excess Anion Gap Estim Creat Clear Calc Estimated GFR Random Glucose Fasting Glucose Lactic Acid Lactic Acid F/U @ 2Hr Lactic Acid F/U @ 4Hr Calcium Magnesium Ferritin 119 Total Bilirubin Direct Bilirubin AST ALT Alkaline Phosphatase Ammonia Lactate Dehydrogenase Total Creatine Kinase Troponin I High Sens 25.7 C-Reactive Protein B-Natriuretic Peptide Total Protein Albumin Lipase Procalcitonin < 0.02 TSH 0.76 Urine Color Urine Appearance Urine pH Ur Specific [place] Urine Protein Urine Glucose (UA) Urine Ketones Urine Blood Urine Nitrite Ur Leukocyte Esterase Urine RBC Urine WBC Ur Squamous Epith Cells Urine Bacteria Urine Mucus Urine Opiates Screen Urine Fentanyl Screen Ur Barbiturates Screen Ur Phencyclidine Scrn Ur Amphetamines Screen U Benzodiazepines Scrn Urine Cocaine Screen U Marijuana (THC) Screen Ethyl Alcohol COVID-19 ([facility]I) COVID-19 Clin Com 07/30/21 07/30/21 07/30/21 14:16 14:16 14:20 MCV MCH MCHC RDW Plt Count MPV Immature Gran % (Auto) Neut % (Auto) Lymph % (Auto) [place] % (Auto) Eos % (Auto) Baso % (Auto) Lymph # (Auto) [place] # (Auto) Eos # (Auto) Baso # (Auto) Abs Immat Gran (auto) Absolute Neuts (auto) Absolute Nucleated RBC Nucleated RBC % (auto) PT INR APTT D-Dimer High Sensitivty VBG pH 7.42 VBG pCO2 23 VBG pO2 41 VBG HCO3 15 L VBG O2 Saturation 69.0 VBG Base Excess -6.5 Anion Gap Estim Creat Clear Calc Estimated GFR Random Glucose Fasting Glucose Lactic Acid 3.0 H* Lactic Acid F/U @ 2Hr Lactic Acid F/U @ 4Hr Calcium Magnesium Ferritin Total Bilirubin Direct Bilirubin AST ALT Alkaline Phosphatase Ammonia Lactate Dehydrogenase Total Creatine Kinase Troponin I High Sens C-Reactive Protein B-Natriuretic Peptide Total Protein Albumin Lipase Procalcitonin TSH Urine Color Urine Appearance Urine pH Ur Specific [place] Urine Protein Urine Glucose (UA) Urine Ketones Urine Blood Urine Nitrite Ur Leukocyte Esterase Urine RBC Urine WBC Ur Squamous Epith Cells Urine Bacteria Urine Mucus Urine Opiates Screen Urine Fentanyl Screen Ur Barbiturates Screen Ur Phencyclidine Scrn Ur Amphetamines Screen U Benzodiazepines Scrn Urine Cocaine Screen U Marijuana (THC) Screen Ethyl Alcohol < 10 COVID-19 ([facility]ALATHI) COVID-19 Rated People 07/30/21 07/30/21 07/30/21 16:33 16:33 17:12 MCV MCH MCHC RDW Plt Count MPV Immature Gran % (Auto) Neut % (Auto) Lymph % (Auto) [place] % (Auto) Eos % (Auto) Baso % (Auto) Lymph # (Auto) [place] # (Auto) Eos # (Auto) Baso # (Auto) Abs Immat Gran (auto) Absolute Neuts (auto) Absolute Nucleated RBC Nucleated RBC % (auto) PT INR APTT D-Dimer High Sensitivty VBG pH VBG pCO2 VBG pO2 VBG HCO3 VBG O2 Saturation VBG Base Excess Anion Gap Estim Creat Clear Calc Estimated GFR Random Glucose Fasting Glucose Lactic Acid Lactic Acid F/U @ 2Hr 2.3 H* Lactic Acid F/U @ 4Hr Calcium Magnesium Ferritin Total Bilirubin Direct Bilirubin AST ALT Alkaline Phosphatase Ammonia Lactate Dehydrogenase Total Creatine Kinase Troponin I High Sens 32.9 C-Reactive Protein B-Natriuretic Peptide Total Protein Albumin Lipase Procalcitonin TSH Urine Color Urine Appearance Urine pH Ur Specific [place] Urine Protein Urine Glucose (UA) Urine Ketones Urine Blood Urine Nitrite Ur Leukocyte Esterase Urine RBC Urine WBC Ur Squamous Epith Cells Urine Bacteria Urine Mucus Urine Opiates Screen Not Detected Urine Fentanyl Screen Not Detected Ur Barbiturates Screen Not Detected Ur Phencyclidine Scrn Not Detected Ur Amphetamines Screen Not Detected U Benzodiazepines Scrn Not Detected Urine Cocaine Screen Not Detected U Marijuana (THC) Screen POSITIVE H Ethyl Alcohol COVID-19 (MALATHI) COVID-19 Rated People 07/30/21 07/30/21 07/31/21 17:12 19:27 07:28 MCV 83.4 MCH 28.8 MCHC 34.6 RDW 13.7 Plt Count 149 L MPV 9.0 L Immature Gran % (Auto) Neut % (Auto) Lymph % (Auto) [place] % (Auto) Eos % (Auto) Baso % (Auto) Lymph # (Auto) [place] # (Auto) Eos # (Auto) Baso # (Auto) Abs Immat Gran (auto) Absolute Neuts (auto) Absolute Nucleated RBC 0.000 Nucleated RBC % (auto) 0.0 PT INR APTT D-Dimer High Sensitivty VBG pH VBG pCO2 VBG pO2 VBG HCO3 VBG O2 Saturation VBG Base Excess Anion Gap Estim Creat Clear Calc Estimated GFR Random Glucose Fasting Glucose Lactic Acid Lactic Acid F/U @ 2Hr Lactic Acid F/U @ 4Hr 2.4 H* Calcium Magnesium Ferritin Total Bilirubin Direct Bilirubin AST ALT Alkaline Phosphatase Ammonia Lactate Dehydrogenase Total Creatine Kinase Troponin I High Sens C-Reactive Protein B-Natriuretic Peptide Total Protein Albumin Lipase Procalcitonin TSH Urine Color YELLOW Urine Appearance CLEAR Urine pH 6.0 Ur Specific [place] >= 1.030 H Urine Protein 1+ H Urine Glucose (UA) NEG Urine Ketones 40 Urine Blood 2+ H Urine Nitrite NEG Ur Leukocyte Esterase NEG Urine RBC 1-4 Urine WBC 1-4 Ur Squamous Epith Cells TRACE Urine Bacteria NONE Urine Mucus TRACE Urine Opiates Screen Urine Fentanyl Screen Ur Barbiturates Screen Ur Phencyclidine Scrn Ur Amphetamines Screen U Benzodiazepines Scrn Urine Cocaine Screen U Marijuana (THC) Screen Ethyl Alcohol COVID-19 ([facility]) COVID-19 Clin Com 07/31/21 07:28 MCV MCH MCHC RDW Plt Count MPV Immature Gran % (Auto) Neut % (Auto) Lymph % (Auto) [place] % (Auto) Eos % (Auto) Baso % (Auto) Lymph # (Auto) [place] # (Auto) Eos # (Auto) Baso # (Auto) Abs Immat Gran (auto) Absolute Neuts (auto) Absolute Nucleated RBC Nucleated RBC % (auto) PT INR APTT D-Dimer High Sensitivty VBG pH VBG pCO2 VBG pO2 VBG HCO3 VBG O2 Saturation VBG Base Excess Anion Gap 11 L Estim Creat Clear Calc 98.8 Estimated GFR > 60 Random Glucose Fasting Glucose 85 Lactic Acid Lactic Acid F/U @ 2Hr Lactic Acid F/U @ 4Hr Calcium 8.7 D Magnesium Ferritin Total Bilirubin Direct Bilirubin AST ALT Alkaline Phosphatase Ammonia Lactate Dehydrogenase Total Creatine Kinase Troponin I High Sens C-Reactive Protein B-Natriuretic Peptide Total Protein Albumin Lipase Procalcitonin TSH Urine Color Urine Appearance Urine pH Ur Specific [place] Urine Protein Urine Glucose (UA) Urine Ketones Urine Blood Urine Nitrite Ur Leukocyte Esterase Urine RBC Urine WBC Ur Squamous Epith Cells Urine Bacteria Urine Mucus Urine Opiates Screen Urine Fentanyl Screen Ur Barbiturates Screen Ur Phencyclidine Scrn Ur Amphetamines Screen U Benzodiazepines Scrn Urine Cocaine Screen U Marijuana (THC) Screen Ethyl Alcohol COVID-19 ([facility]) COVID-19 Clin Com Microbiology Microbiology Results: Microbiology 07/30/21 14:16 Blood Culture - Preliminary Blood - Venous Prelim: GPC Gram Stain only Assessment and Plan (1) Encephalopathy acute: Status: Acute Plan 66M presented with ams, htn metabolic encephalopathy differential includes hypertensive emergency with encephalopathy - much improved, continue prn hydralazine, monitor, goal SBP around 160-180 for now, MRI, c.w home meds of metoprolol, terazosin, will check plasma and urine metanephrines etoh or med withdrawal - denies etoh, but did respond well to ativan, will continue ativan prn, utox with marijuana only ? cad statin psych disorder seroquel, latuda, gabapentin, celexa dvt prophylaxis - lvoenox full code reason for continued hospitalization:improving, but would continue monitoring bp closely as had hypertensive emergency yesterday Quality Stroke Does the patient have a stroke diagnosis?: No VTE Prior VTE?: No VTE Risk Level:: Medical - moderate - high VTE Device Contraindication: Treatment Not Indicated VTE Drug Contraindication: N/A - Med Ordered
[2021-07-31] MEDS: LORazepam 2 MG/ML VIAL IVPUSH (12:14)
--- NOTE | 2021-07-31 12:15 | PC.NURSE ---
Pt agitated, and unwilling to get MRI done without something for anxiety. PRN ativan given. Med not scanned due to pt being in MRI at the time.
[2021-07-31 16:13] VITALS: BP 157/79; PULSE 74; RESP 18; O2SAT 98
[2021-07-31] MEDS: QUEtiapine Fumarate 100 MG TABLET PO (22:57)
[2021-07-31] MEDS: Doxepin HCl 25 MG CAPSULE PO (22:58)
[2021-08-01] VITALS: BP 122/76; PULSE 83; RESP 20; TEMP 36.8; O2SAT 97
[2021-08-01 04:00] VITALS: BP 132/88; PULSE 66; RESP 18; TEMP 37.2; O2SAT 97
[2021-08-01 06:59] LABS: Hematocrit 40.1 % (42.0-52.0); Hemoglobin 13.8 g/dl (14.0-18.0); Mean Corpuscular HGB Conc 34.4 g/dl (31.0-36.0); Mean Corpuscular Hemoglobin 28.9 pg (27.0-33.0); Mean Corpuscular Volume 83.9 fL (80.0-98.0); Mean Platelet Volume 8.7 fL (9.4-12.4); Platelet Count 151 X10*3/uL (160-400); Red Blood Count 4.78 X10*6/uL (4.60-5.80); Red Cell Distribution Width 13.5 % (11.0-16.0); White Blood Count 8.5 X10*3/uL (4.8-10.8)
[2021-08-01 07:24] LABS: Anion Gap 13 (12-20); Blood Urea Nitrogen 16 mg/dL (9-16); Calcium 8.8 mg/dL (8.4-10.2); Carbon Dioxide 21 mmol/L (22-29); Chloride 110 mmol/L (96-108); Estimated Glomerular Filt Rate > 60; Glucose Fasting 85 mg/dL (60-99); Potassium 3.7 mmol/L (3.3-5.1); Sodium 140 mmol/L (135-145)
[2021-08-01 09:35] VITALS: BP 143/78; PULSE 79; RESP 18; TEMP 36.9; O2SAT 98
--- NOTE | 2021-08-01 09:59 | P.CNNE_ITS ---
History of Present Illness Data of Consult Service Date: 08/01/21 Primary Care Provider: Eileen Yu MD [facility] Reason for consult: Cerebellar hemorrhag 66 years old man with underlying history of hypertension came to hospital change in mental status or confusion. He was also having rhinorrhea type of symptoms and was found positive for COVID infection. At this time he was comfortable without any distress or pain. He was noted to be somewhat confused on presentation. His brain CT scan did not reveal any significant abnormality but MRI of brain, according to radiologist, suggested a small left cerebellar hemorrhage prompting this consultation Review of Systems Review of Systems: recent cold or flu-like symptoms as report [facility] Past Medical History Medical History Anxiety CAD (coronary artery disease) Hypertensive encephalopathy TIA (transient ischemic attack) Family History Family History Mother Heart disease Father No problems noted. Surgical History Surgical History Hx of appendectomy Hx of colonoscopy Hx of left knee surgery Hx of tonsillectomy Social History Social History Household Members: None Alcohol intake: former Year quit: 1988 Patient Tobacco Use Status: Former Tobacco user Tobacco use type: Cigarette Substance Use Type: Marijuana Advance Directives: No Advance Directives Information Provided: Yes Meds Allergies Allergy/AdvReac Type Severity Reaction Status Date / Time bee pollen [BEE STINGS] Allergy Unknown UNKNOWN Verified 07/06/21 09:45 Iodinated Contrast Media Allergy Unknown UNKNOWN Verified 07/06/21 09:45 [IV CONTRAST] zoster vaccine live Allergy Unknown UNKNOWN Verified 07/06/21 09:45 [SHINGLES VACCINE] codeine Allergy Unknown hives Uncoded 09/01/16 00:00 herpes zoster vaccine Allergy Unknown Unknown Uncoded 07/06/21 09:45 IV dye/contrast Allergy Unknown vomiting Uncoded 09/01/16 00:00 shellfish Allergy Unknown anaphylaxis Uncoded 09/01/16 00:00 Active Medications: Current Medications Acetaminophen (Acetaminophen 325 Mg Tablet) 650 mg PO Q6H PRN PRN Reason: Pain, Mild (Pain Scale 1-3) Atorvastatin Calcium (Atorvastatin Calcium 80 Mg Tablet) 80 mg PO DAILY [facility] Last Admin: 07/31/21 09:35 Dose: 80 mg Documented by: Doxazosin Mesylate (Doxazosin Mesylate 1 Mg Tablet) 1 mg PO DAILY [facility] Last Admin: 07/31/21 11:32 Dose: 1 mg Documented by: Doxepin HCl (Doxepin Hcl 25 Mg Capsule) 25 mg PO BEDTIME [facility] Last Admin: 07/31/21 22:58 Dose: 25 mg Documented by: Escitalopram Oxalate (Escitalopram Oxalate 20 Mg Tablet) 20 mg PO DAILY [facility] Last Admin: 07/31/21 09:35 Dose: 20 mg Documented by: Gabapentin (Gabapentin 300 Mg Capsule) 300 mg PO TID [facility] Last Admin: 07/31/21 22:58 Dose: 300 mg Documented by: Hydralazine HCl (Hydralazine Hcl 20 Mg/Ml Vial) 5 mg IVPUSH Q6H PRN; Protocol PRN Reason: sbp>190 Lorazepam (Lorazepam 2 Mg/Ml Vial) 2 mg IVPUSH Q4H PRN PRN Reason: agitation Last Admin: 07/31/21 12:14 Dose: 2 mg Documented by: Lurasidone HCl (Lurasidone Hcl 20 Mg Tablet) 20 mg PO DAILY [facility] Last Admin: 07/31/21 11:32 Dose: 20 mg Documented by: Metoprolol Succinate (Metoprolol Succinate Er 12.5 Mg Halftab.Er.24h) 12.5 mg PO DAILY [facility]; Protocol Last Admin: 07/31/21 11:31 Dose: 12.5 mg Documented by: Ondansetron HCl (Ondansetron Hcl 4 Mg/2 Ml Vial) 4 mg IVPUSH Q6H PRN PRN Reason: [email or web address]acy Consult (Consult Rx Perform Med Rec) 1 each MISCELLANE ONCE PRN PRN Reason: Consult order Quetiapine Fumarate (Quetiapine Fumarate 100 Mg Tablet) 100 mg PO BEDTIME [facility] Last Admin: 07/31/21 22:57 Dose: 100 mg Documented by: Sodium Chloride (0.9 % Sodium Chloride Flush 3 Ml Syringe) 3 ml IVFLUSH QSHIFT [facility] Last Admin: 08/01/21 00:00 Dose: 3 ml Documented by: Vitamin D (Cholecalciferol (Vitamin D3) 25 Mcg Tablet) 50 mcg PO DAILY [facility] Last Admin: 07/31/21 09:35 Dose: 50 mcg Documented by: Home Medications Medication Instructions Recorded Confirmed Last Taken Type atorvastatin 80 mg tablet 80 mg PO DAILY 07/06/21 07/30/21 Unknown History cholecalciferol (vitamin D3) 50 50 mcg PO DAILY 07/06/21 07/30/21 Unknown History mcg (2,000 unit) tablet (Vitamin D3) citalopram 40 mg tablet 40 mg PO DAILY 07/06/21 07/30/21 Unknown History doxepin 25 mg capsule 25 mg PO BEDTIME 07/06/21 07/30/21 Unknown History gabapentin 300 mg capsule 300 mg PO TID 07/06/21 07/30/21 Unknown History lurasidone 20 mg tablet (Latuda) 20 mg PO DAILY 07/06/21 07/30/21 Unknown History metoprolol succinate 25 mg 12.5 mg PO DAILY 07/06/21 07/30/21 Unknown History tablet,extended release 24 hr terazosin 1 mg capsule 1 mg PO DAILY 07/06/21 07/30/21 Unknown History quetiapine 100 mg tablet 1 tab PO BEDTIME 07/30/21 07/30/21 Unknown History Physical Exam Vital Signs: Vital Signs: Last Vital Signs Temp 98.4 F 08/01/21 09:35 Pulse 79 08/01/21 09:35 Resp 18 08/01/21 09:35 BP 143/78 H 08/01/21 09:35 Pulse Ox 98 08/01/21 09:35 BMI result Body Mass Index 23.0 Neuro: Other: he was alert and awake with normal spontaneity of speech fluency comprehension and affect. Face was symmetrical. Visual marin are full to threat. Fin tamar-to-nose testing did not reveal any significant abnormality. Plantars were flexors. Deep tendon reflexes were absent. Speech was normal. Results Labs CBC & Chem 7: 08/01/21 06:52 08/01/21 06:52 Labs: Short CBC 08/01/21 Range/Units 06:52 WBC 8.5 (4.8-10.8) X10*3/uL Hgb 13.8 L (14.0-18.0) g/dl Hct 40.1 L (42.0-52.0) % Plt Count 151 L (160-400) X10*3/uL BMP 08/01/21 06:52 Sodium 140 Potassium 3.7 Chloride 110 H Carbon Dioxide 21 L BUN 16 Creatinine 0.82 Calcium 8.[address] did not reveal any significant abnormality. MRI of brain was somewhat degraded by motion but revealed areas of hyperintensity on FLAIR in bilateral posterior white matter and cerebellum. I tiny area of hypo intensity was noted on gradient echo in left cerebellum Microbiology Microbiology Results: Microbiology 07/30/21 14:16 Blood - Venous Blood Culture - Final Coag negative Staphylococcus 07/30/21 14:28 Blood - Venous Blood Culture - Preliminary No growth after 24 hours. Assessment and Plan (1) Hypertensive encephalopathy: Status: Acute 66 years old man who presented with confusion and was also having rhinorrhea. His initial systolic blood pressure was 217. His clinical presentation and brain imaging, mostly white matter signal abnormalities, can be explained based upon hypertensive encephalopathy and reversible vasoconstrictive syndrome. 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 Mainstay of management is blood pressure control. Procedures Date of Service Date of Service: 08/01/21
--- NOTE | 2021-08-01 10:17 | P.DS_ITS ---
DS: Providers Provider Date of Service: 08/01/21 Date of admission: 07/30/21 17:20 Primary care physician: Eileen Yu MD Consults: 08/01/21 08:16 Consult to Neurology Routine Consulting Provider: [facility] Reason for consultation: cerebellar hemmorhage DS: Diagnosis Discharge Diagnosis (1) Hypertensive encephalopathy: Status: Acute DS: Summary Hospital Course Hospital Course: from initial hpi: Chief Complaint: ams 66M brought in by friend for AMS. patient is normally independent in aDLs, oriented times 3. about 4 days ptp, he had rhinorrhea and tested positive for c ovid. patient had minimal symptoms. on day of presentation he was seen by friend who noted patient was very confused. did not know where he was, his birthday, what year it was. she brought him to ED, his blood pressure was significantly elevated with sbp >200, in 2019 patient had a similar presentation with confusion and hypertension. it quickly resolved, he had refused mri at that point. friend states patient has remote history of ETOH, but does not currently drink ETOH or use drugs. hospital course: Patient was admitted for metabolic encephalopathy likely due to hypertensive emergency. He was given labetalol, hydralazine and restarted on his home metoprolol and terazosin. His blood pressure improved over the next couple days and his mental status returned to baseline. He states his blood pressure is usually well controlled, and these hypertensive episodes are rare and episodic. Plasma and urine metanephrines were sent and are still pending, they should be followed up as outpatient. 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 First coronary disease he will continue on statin, for psychiatric disorder continue on Seroquel, Latuda, gabapentin, Celexa. Firs COVID infection, patient has generalized fatigue and myalgias, however, is not hypoxic, he is not in the window to benefit from antiviral so. He will continue his recovery at home. Time Spent with Patient Time attestation: Total time spent providing and/or coordinating discharge services: Discharge coordination time: Greater than 30 minutes Quality: Safe Use of Opioids Does Pt have an Active Cancer Diagnosis on the Problem List?: No Quality: Stroke Does the patient have a stroke diagnosis?: No Physical Exam Vital Signs: Vital Signs: Last Vital Signs Temp 98.4 F 08/01/21 09:35 Pulse 79 08/01/21 09:35 Resp 18 08/01/21 09:35 BP 143/78 H 08/01/21 09:35 Pulse Ox 98 08/01/21 09:35 BMI result Body Mass Index 23.0 General: AO X 3, weak appearing Resp: CTA bilateral, no accessory muscles used CVS: S1,S2,RRR GI: soft, non tender, non distended Neuro: motor grossly intact, alert Psych: appropriate affect, appropriate insight DS: Data Data Completed and Pending Labs on day of discharge: Laboratory Results - last 24 hr 08/01/21 08/01/21 06:52 06:52 WBC 8.5 RBC 4.78 Hgb 13.8 L Hct 40.1 L MCV 83.9 MCH 28.9 MCHC 34.4 RDW 13.5 Plt Count 151 L MPV 8.7 L Absolute Nucleated RBC 0.000 Nucleated RBC % (auto) 0.0 Sodium 140 Potassium 3.7 Chloride 110 H Carbon Dioxide 21 L Anion Gap 13 BUN 16 Creatinine 0.82 Estim Creat Clear Calc 94.0 Estimated GFR > 60 Fasting Glucose 85 Calcium 8.8 Preliminary micro results at discharge 07/30/21 14:28 Blood Culture - Preliminary Blood - Venous No growth after 24 hours. Discharge Plan Discharge Patient Disposition: Home, Self-Care Discharge Diagnosis: hypertensive encephalopathy, covid Referrals: Eileen Yu MD [Primary Care Provider] - 1 Week Discharge Medications: Continued quetiapine 100 mg tablet 1 tab PO BEDTIME 0RF doxepin 25 mg capsule 25 mg PO BEDTIME 0RF citalopram 40 mg tablet 40 mg PO DAILY 0RF terazosin 1 mg capsule 1 mg PO DAILY 0RF atorvastatin 80 mg tablet 80 mg PO DAILY 0RF Latuda 20 mg tablet 20 mg PO DAILY 0RF cholecalciferol (vitamin D3) [Vitamin D3] 50 mcg (2,000 unit) tablet 50 mcg PO DAILY 0RF gabapentin 300 mg capsule 300 mg PO TID 0RF metoprolol succinate 25 mg tablet extended release 24 hr 12.5 mg PO DAILY 0RF Discharge Orders: Discharge Order (Routine); Ordered 08/01/21 Ordered By: Guzman Alaniz Diet: low salt diet Activity on Discharge: As tolerated Stand Alone Forms: Patient Portal Discharge page Care Plan Goals: avoid repeat epsidoes Health Concerns: hypertension, covid Plan of Treatment: take meds as prescribed, follow up labs for pheochromcocytoma pending from hospital, isolation for covid Assessment: see above
[2021-08-01] MEDS: Gabapentin 300 MG CAPSULE PO (10:29)
[2021-08-01] MEDS: Atorvastatin Calcium 80 MG TABLET PO (10:29)
[2021-08-01] MEDS: Lurasidone HCl 20 MG TABLET PO (10:29)
[2021-08-01] MEDS: Cholecalciferol (Vitamin D3) 25 MCG TABLET 50 MCG PO (10:29)
[2021-08-01] MEDS: 0.9 % Sodium Chloride Flush 3 ML SYRINGE IVFLUSH ×2 (10:30)
[2021-08-01] MEDS: Metoprolol Succinate ER 12.5 MG HALFTAB.ER.24H PO (10:30)
[2021-08-01] MEDS: Doxazosin Mesylate 1 MG TABLET PO (10:30)
[2021-08-01] MEDS: Escitalopram Oxalate 20 MG TABLET PO (10:37)
--- NOTE | 2021-08-01 12:31 | HO.PM.IMPN ---
Subjective Subjective Date of Service: 08/01/21 Interval History: cc: ams interval history:achy from covid, but mental status back to baseline Cardiovascular Cardiovascular: Reports no additional cardiovascular complaints Respiratory Respiratory: Reports no additional respiratory complaints Physical Exam Vital Signs: Vital Signs: Last Vital Signs Temp 98.4 F 08/01/21 09:35 Pulse 79 08/01/21 09:35 Resp 18 08/01/21 09:35 BP 143/78 H 08/01/21 09:35 Pulse Ox 98 08/01/21 09:35 BMI result Body Mass Index 23.0 General: AO X 3, weak appearing Resp:? CTA bilateral, no accessory muscles used CVS: S1,S2,RRR GI: soft, non tender, non distended Neuro:? motor grossly intact, alert Psych: appropriate affect, appropriate insight? Objective Data Active Medications Acetaminophen (Acetaminophen 325 Mg Tablet) 650 mg PO Q6H PRN PRN Reason: Pain, Mild (Pain Scale 1-3) Atorvastatin Calcium (Atorvastatin Calcium 80 Mg Tablet) 80 mg PO DAILY [facility] Last Admin: 08/01/21 10:29 Dose: 80 mg Documented by: JT Doxazosin Mesylate (Doxazosin Mesylate 1 Mg Tablet) 1 mg PO DAILY [facility] Last Admin: 08/01/21 10:30 Dose: 1 mg Documented by: JT Doxepin HCl (Doxepin Hcl 25 Mg Capsule) 25 mg PO BEDTIME [facility] Last Admin: 07/31/21 22:58 Dose: 25 mg Documented by: HARVEY Escitalopram Oxalate (Escitalopram Oxalate 20 Mg Tablet) 20 mg PO DAILY [facility] Last Admin: 08/01/21 10:37 Dose: 20 mg Documented by: JT Gabapentin (Gabapentin 300 Mg Capsule) 300 mg PO TID [facility] Last Admin: 08/01/21 10:29 Dose: 300 mg Documented by: JT Hydralazine HCl (Hydralazine Hcl 20 Mg/Ml Vial) 5 mg IVPUSH Q6H PRN; Protocol PRN Reason: sbp>190 Lorazepam (Lorazepam 2 Mg/Ml Vial) 2 mg IVPUSH Q4H PRN PRN Reason: agitation Last Admin: 07/30/21 21:04 Dose: 2 mg Documented by: ABAD Lurasidone HCl (Lurasidone Hcl 20 Mg Tablet) 20 mg PO DAILY [facility] Last Admin: 08/01/21 10:29 Dose: 20 mg Documented by: JT Metoprolol Succinate (Metoprolol Succinate Er 12.5 Mg Halftab.Er.24h) 12.5 mg PO DAILY [facility]; Protocol Last Admin: 08/01/21 10:30 Dose: 12.5 mg Documented by: JT Ondansetron HCl (Ondansetron Hcl 4 Mg/2 Ml Vial) 4 mg IVPUSH Q6H PRN PRN Reason: [facility] Pharm[facility] Consult (Consult Rx Perform Med Rec) 1 each MISCELLANE ONCE PRN PRN Reason: Consult order Quetiapine Fumarate (Quetiapine Fumarate 100 Mg Tablet) 100 mg PO BEDTIME [facility] Last Admin: 07/31/21 22:57 Dose: 100 mg Documented by: HARVEY Sodium Chloride (0.9 % Sodium Chloride Flush 3 Ml Syringe) 3 ml IVFLUSH QSHIFT [facility] Last Admin: 08/01/21 10:30 Dose: 3 ml Documented by: JT Vitamin D (Cholecalciferol (Vitamin D3) 25 Mcg Tablet) 50 mcg PO DAILY [facility] Last Admin: 08/01/21 10:29 Dose: 50 mcg Documented by: JT Labs CBC & Chem 7: 08/01/21 06:52 08/01/21 06:52 Labs: Laboratory Results - last 24 hr 08/01/21 08/01/21 06:52 06:52 MCV 83.9 MCH 28.9 MCHC 34.4 RDW 13.5 Plt Count 151 L MPV 8.7 L Absolute Nucleated RBC 0.000 Nucleated RBC % (auto) 0.0 Anion Gap 13 Estim Creat Clear Calc 94.0 Estimated GFR > 60 Fasting Glucose 85 Calcium 8.8 Microbiology Microbiology Results: Microbiology 07/30/21 14:16 Blood Culture - Final Blood - Venous Coag negative Staphylococcus 07/30/21 14:28 Blood Culture - Preliminary Blood - Venous No growth after 24 hours. Assessment and Plan (1) Encephalopathy acute: Status: Acute Plan 66M presented with ams, htn metabolic encephalopathy likely hypertensive emergency with encephalopathy - resolved continue prn hydralazine c.w home meds of metoprolol, terazosin, will check plasma and urine metanephrines neuro appreciated - mri findings chronic, not clinically significant covid symptomatic treatment, not in window for antivirals, not hypoxic cad statin psych disorder seroquel, latuda, gabapentin, celexa dvt prophylaxis - lovenox full code reason for continued hospitalization:safe dispo planning Quality Stroke Does the patient have a stroke diagnosis?: No VTE Prior VTE?: No VTE Risk Level:: Medical - moderate - high VTE Device Contraindication: Treatment Not Indicated VTE Drug Contraindication: N/A - Med Ordered
[2021-08-04 06:28] LABS: Metanephrine, Free 55 pg/mL (<=57); Normetanephrines, Free 58 pg/mL (<=148); Total Metanephrine, Free 113 pg/mL (<=205)
[2021-08-05 11:26] LABS: Creatinine Random Urine 123 mg/dL (20-320); Metanephrine, Free Rand Ur 157 mcg/g cr (21-153); Normetanephrine, Free Rand Ur 271 mcg/g cr (108-524); Total Metanephrine, Free RU 428 mcg/g cr (149-603)
== END 2021-08-01 15:38 | disposition home or self-care (01) | DRG 177 ==
LOC: HO.ED 16:46 → HO.EDOVER 17:24
PROVIDERS: Emergency Medicine; Admitting Provider Internal Medicine; Emergency Provider Emergency Medicine Emergency Medical Services; PCP Family Medicine; Visit Provider Internal Medicine
DX: U07.1 COVID-19 (principal); G93.41 Metabolic encephalopathy; E87.2 Acidosis; I16.1 Hypertensive emergency; I25.10 Atherosclerotic heart disease of native coronary artery without angina pectoris; F41.9 Anxiety disorder, unspecified; Z86.73 Personal history of transient ischemic attack (TIA), and cerebral infarction without residual deficits; Z87.891 Personal history of nicotine dependence; Z91.041 Radiographic dye allergy status; Z91.013 Allergy to seafood; Z91.030 Bee allergy status; Z88.5 Allergy status to narcotic agent; Z79.899 Other long term (current) drug therapy
CPT/HCPCS: 36415; 70450; 70551; 71045; 80048; 80076; 80307; 81001; 82077; 82140; 82550; 82728; 82803; 83605; 83615; 83690; 83735; 83835; 83880; 84145; 84443; 84484; 85025; 85027; 85379; 85610; 85730; 86140; 87040; 87147; 87205; 87635; 93005; 96361; 96374; 96375; 96376; 99284; 99285; J0696; J2060

== ENCOUNTER 2021-09-26 16:06 | Outpatient (REF) | payer MEDICARE, OTHER, SELFPAY ==
[2021-09-26 18:18] LABS: Anion Gap 12 (12-20); Blood Urea Nitrogen 21 mg/dL (9-16); Calcium 8.7 mg/dL (8.4-10.2); Carbon Dioxide 23 mmol/L (22-29); Chloride 110 mmol/L (96-108); Estimated Glomerular Filt Rate 55; Glucose Random 91 mg/dL (60-115); Potassium 4.6 mmol/L (3.3-5.1); Sodium 140 mmol/L (135-145)
[2021-09-26 18:20] LABS: Creatinine Urine 312.92 mg/dL; Protein/Creatinine Ratio, Ur 0.05 (<0.2); Total Protein Urine Random 17 mg/dL (<12)
== END 2021-09-26 16:07 | disposition home or self-care (01) ==
LOC: HO.LAB 16:06
PROVIDERS: PCP Family Medicine; Visit Provider Internal Medicine Hypertension Specialist
DX: I10 Essential (primary) hypertension (principal)
CPT/HCPCS: 36415; 80048; 84156

== ENCOUNTER → 2021-10-04 09:43 | Outpatient (BNVA) | payer MEDICARE, OTHER, SELFPAY | PROVIDERS: PCP Family Medicine; Visit Provider Urology | DX: C61 Malignant neoplasm of prostate (principal); N40.1 Benign prostatic hyperplasia with lower urinary tract symptoms; N13.8 Other obstructive and reflux uropathy; R33.9 Retention of urine, unspecified | CPT/HCPCS: 99212 ==

== ENCOUNTER 2021-11-04 12:09 | Day surgery (SDC) | payer MEDICARE, OTHER, SELFPAY ==
--- NOTE | 2021-11-03 13:06 | P.CONAN_ITS ---
Documented by User: Clare Brito NP 11/03/21 13:09 HPI - Anesthesia Eval Consult details Narrative: 66yo M for Colonoscopy Cardiac cleared 07/2021 [facility] admission with COVID/htn urgency. Incidental finding of a small left cerebellar hemorrhage. Per neuro consult His clinical presentation and brain imaging, mostly white matter signal abnormalities, can be explained based upon hypertensive encephalopathy and reversible vasoconstrictive syndrome.? As far as the tiny area of abnormality in left cerebellum, I believe it is chronic punctate hemorrhage not contributing to his illness and an incidental finding.? Mainstay of management is blood pressure control. Per tele-eval 11/03/21, pt reports no neuro symptoms, htn better controlled. [facility] Active Problems Active Problems: All Active Problems (Updated 10/19/21 @ 08:45 by Deja Ann RN) COVID-19 (Acute) Encephalopathy acute (Acute) Acidosis, lactic (Acute) Hypertensive encephalopathy (Acute) Prostate cancer (Acute) Past Medical History Medical History (Updated 11/04/21 @ 13:21 by Swapna Mckeon RN) Anxiety CAD (coronary artery disease) Elevated cholesterol Elevated PSA History of prostate cancer HTN (hypertension) Hx of hepatitis C Hx of non-ST elevation myocardial infarction (NSTEMI) Hx of renal calculi Hypertensive encephalopathy PTSD (post-traumatic stress disorder) TIA (transient ischemic attack) Family History Family History Mother Heart disease Father No problems noted. Surgical History Surgical History (Updated 10/19/21 @ 08:57 by Deja Ann RN) H/O heart artery stent History of surgery on wrist Hx of appendectomy Hx of cardiac catheterization Hx of colonoscopy Hx of left knee surgery Hx of tonsillectomy Social History Social History Household Members: None Are you a primary aged or disabled care worker to a significant other at home: No Do you presently have visiting nurse or other home services: No Alcohol intake: former Year quit: 1988 Patient Tobacco Use Status: Former Tobacco user Quit Date: 30 yrs ago Tobacco use type: Cigarette Use of substances other than those prescribed or required for medical reasons: Yes Substance Use Type: Marijuana Substance Use Frequency: Daily Are you DNR?: No Advance Directives: No Advance Directives Information Provided: Yes Meds Allergies Allergy/AdvReac Type Severity Reaction Status Date / Time bee pollen [BEE STINGS] Allergy Severe Anaphylaxis Verified 11/04/21 13:21 Iodinated Contrast Media Allergy Severe Anaphylaxis Verified 11/04/21 13:21 [IV CONTRAST] zoster vaccine live Allergy Intermediate Shortness Verified 11/04/21 13:21 [SHINGLES VACCINE] of Breath codeine Allergy Severe Itching,hiv Uncoded 10/18/21 12:05 es shellfish Allergy Severe anaphylaxis Uncoded 10/18/21 12:05 Home Medications Medication Instructions Recorded Confirmed Last Taken Type atorvastatin 80 mg tablet 80 mg PO DAILY 07/06/21 10/18/21 Unknown History citalopram 40 mg tablet 40 mg PO BEDTIME depressive 07/06/21 10/18/21 Unknown History disorder doxepin 25 mg capsule 25 mg PO BEDTIME 07/06/21 07/30/21 Unknown History gabapentin 300 mg capsule 600 mg PO DAILY@0730 07/06/21 10/18/21 Unknown History lurasidone 20 mg tablet (Latuda) 20 mg PO DAILY 07/06/21 10/18/21 Unknown History metoprolol succinate 25 mg 25 mg PO DAILY 07/06/21 10/18/21 Unknown History tablet,extended release 24 hr terazosin 1 mg capsule 1 mg PO DAILY 07/06/21 10/18/21 Unknown History quetiapine 100 mg tablet 1 tab PO BEDTIME 07/30/21 10/18/21 Unknown History Epi E-Z Pen 10/18/21 Unknown History aspirin 81 mg chewable tablet 81 mg PO DAILY 10/18/21 10/18/21 Unknown History gabapentin 300 mg capsule 900 mg PO BEDTIME 10/18/21 10/18/21 Unknown History Exam Exam Date and Time: November 03, 2021 1306 Pertinent Lab Results Pertinent Lab Results: Laboratory Tests 08/01/21 09/26/21 06:52 16:19 WBC 8.5 Hgb 13.8 L Hct 40.1 L Plt Count 151 L Sodium 140 Potassium 4.6 D Chloride 110 H Carbon Dioxide 23 BUN 21 H Creatinine 1.30 Narrative Narrative: EKG 07/2021 Vent. Rate : 089 BPM ? ? Atrial Rate : 089 BPM ?? P-R Int : 142 ms? QRS Dur : 088 ms ? ? QT Int : 382 ms ? ? ? P-R-T Axes : 070 -28 038 degrees ?? QTc Int : 464 ms ? Normal sinus rhythm Minimal voltage criteria for LVH, may be normal variant ( Sokolow-Plummer ) Abnormal ECG When compared with ECG of 16-JUN-2019 16:44, ID interval has decreased ST now depressed in Lateral leads Assessment and Plan Assessment Anesthesia Assessment: Chart Reviewed Documented by User: Laisha Fisher MD 11/04/21 13:31 [facility] Past Medical History Medical History (Updated 11/04/21 @ 13:21 by Swapna Mckeon RN) Anxiety CAD (coronary artery disease) Elevated cholesterol Elevated PSA History of prostate cancer HTN (hypertension) Hx of hepatitis C Hx of non-ST elevation myocardial infarction (NSTEMI) Hx of renal calculi Hypertensive encephalopathy PTSD (post-traumatic stress disorder) TIA (transient ischemic attack) Family History Family History Mother Heart disease Father No problems noted. Family history of problems with anesthesia: No Surgical History Surgical History (Updated 10/19/21 @ 08:57 by Deja Ann RN) H/O heart artery stent History of surgery on wrist Hx of appendectomy Hx of cardiac catheterization Hx of colonoscopy Hx of left knee surgery Hx of tonsillectomy History of Problems with Anesthesia: No Social History Social History Household Members: None Are you a primary aged or disabled care worker to a significant other at home: No Do you presently have visiting nurse or other home services: No Alcohol intake: former Year quit: 1988 Patient Tobacco Use Status: Former Tobacco user Quit Date: 30 yrs ago Tobacco use type: Cigarette Use of substances other than those prescribed or required for medical reasons: Yes Substance Use Type: Marijuana Substance Use Frequency: Daily Are you DNR?: No Advance Directives: No Advance Directives Information Provided: Yes Meds Allergies Allergy/AdvReac Type Severity Reaction Status Date / Time bee pollen [BEE STINGS] Allergy Severe Anaphylaxis Verified 11/04/21 13:21 Iodinated Contrast Media Allergy Severe Anaphylaxis Verified 11/04/21 13:21 [IV CONTRAST] zoster vaccine live Allergy Intermediate Shortness Verified 11/04/21 13:21 [SHINGLES VACCINE] of Breath codeine Allergy Severe Itching,hiv Uncoded 10/18/21 12:05 es shellfish Allergy Severe anaphylaxis Uncoded 10/18/21 12:05 Home Medications Medication Instructions Recorded Confirmed Last Taken Type atorvastatin 80 mg tablet 80 mg PO DAILY 07/06/21 10/18/21 Unknown History citalopram 40 mg tablet 40 mg PO BEDTIME depressive 07/06/21 10/18/21 Unknown History disorder doxepin 25 mg capsule 25 mg PO BEDTIME 07/06/21 07/30/21 Unknown History gabapentin 300 mg capsule 600 mg PO DAILY@0730 07/06/21 10/18/21 Unknown History lurasidone 20 mg tablet (Latuda) 20 mg PO DAILY 07/06/21 10/18/21 Unknown History metoprolol succinate 25 mg 25 mg PO DAILY 07/06/21 10/18/21 Unknown History tablet,extended release 24 hr terazosin 1 mg capsule 1 mg PO DAILY 07/06/21 10/18/21 Unknown History quetiapine 100 mg tablet 1 tab PO BEDTIME 07/30/21 10/18/21 Unknown History Epi E-Z Pen 10/18/21 Unknown History aspirin 81 mg chewable tablet 81 mg PO DAILY 10/18/21 10/18/21 Unknown History gabapentin 300 mg capsule 900 mg PO BEDTIME 10/18/21 10/18/21 Unknown History Exam Airway Mallampati Class: II TM Dist: >3cm Neck ROM: Full Heart: rrr Lungs: cta Assessment and Plan Assessment Anesthesia Assessment: Anesthesia Plan Discussed and Chart Reviewed Final Anesthetic Review Family History of Problems with Anesthesia: No History of Problems with Anesthesia: No NPO: Yes ASA Class: III Final Preanesthetic Review: No Changes in Pt Med Stat, Meds/Allgs Chart Reviewed and Consent Obtained/Reviewed Patient Risk: Intermediate Procedure Risk: Intermediate Anesthetic Plan Anesthetic Plan: MAC: Disposition: Standard PACU
[2021-11-04 13:09] VITALS: BMI 24.7
--- NOTE | 2021-11-04 13:09 | MHC.SHP ---
Pre-Procedural Eval Section A Date of Service: 11/04/21 The patient is an INPATIENT: No The History & Physical has been completed within 30 days and I have reviewed it.: No Section B Chief Complaint: screening Details of Present Illness: Colon cancer screening Relevant Family History (Specify if Yes): No Relevant Social History: Tobacco Use (former smoker) Present Medications: see Short Stay Collaborative assessment Medical History: Significant History (CAD, hx of prostate cancer) History of Previous Operations: Relevant previous surgery/procedure and date(s) (Hx of appendectomy Hx of colonoscopy Hx of left knee surgery Hx of tonsillectomy) Allergies: Allergies Allergy/AdvReac Type Severity Reaction Status Date / Time bee pollen [BEE STINGS] Allergy Severe Anaphylaxis Verified 10/18/21 12:05 Iodinated Contrast Media Allergy Severe Anaphylaxis Verified 10/18/21 12:05 [IV CONTRAST] zoster vaccine live Allergy Intermediate Shortness Verified 10/18/21 12:05 [SHINGLES VACCINE] of Breath codeine Allergy Severe Itching,hiv Uncoded 10/18/21 12:05 es shellfish Allergy Severe anaphylaxis Uncoded 10/18/21 12:05 Review of Systems Sugical H&P ROS: Negative: Constitution, Cardiovascular, Respiratory and Gastrointestinal Exam Surgical H&P Exam: Normal: Heart, Normal: Lungs, Normal: Extremities and Normal: Abdomen Plan Diagnosis/Plan: Unchanged I have reviewed the history and physical and performed a pertinent physical examination on my patient. No changes have occurred unless specified.
--- NOTE | 2021-11-04 13:23 | P.BOP_ITS ---
Brief Operative Note Date of Service: 11/04/21 Pre-op diagnosis: Colon cancer screening, history of colon polyps Post-op diagnosis: other (Colon polyps, diverticulosis, hemorrhoids) Procedure: COLONOSCOPY TILL CECUM WITH BIOPSIES AND SNARE POLYPECTOMY Consent: Indications for the procedure and potential complications of bleeding, perforation, reaction to medications and missed diagnosis were discussed with the patient and informed consent was obtained. Instrument: Olympus PCF H 190 L variable stiffness pediatric colonoscope Monitoring: Vital signs and clinical assessment, intermittent blood pressure monitoring, continuous EKG monitoring, Pulse oximetry and Carbon Dioxide monitoring were done throughout the procedure. Colon withdrawl time was 19 minutes. Procedure: The patient was placed in the left lateral decubitis position and pre-procedure medications were administered. After a digital rectal examination of the ano-rectum, the video colonoscope was inserted into the rectum and advanced through the colon to the cecum. The colonoscope was slowly withdrawn in a retrograde panoramic fashion and the colon mucosa was carefully examined including a retroflexed view of the rectum. Findings and interventions are described below. Procedure Difficulty: Without difficulty Findings: Terminal Ileum: Not evaluated Cecum: Normal Ascending Colon: Normal Transverse Colon: A 6-7 mm sessile polyp removed by a cold bx. Descending Colon: Normal Sigmoid Colon: A 12-15 mm sessile polyp removed with a hot snare. Moderate diverticulosis Rectum: A few 5-8 mm dimiutive appearing polyps - one removed with a cold bx. Ano-rectum: Small internal hemorrhoids Colon preparation: Good Fair Impression and Post Procedure Diagnosis: Colonoscopy Findings: Three small to medium sized polyps removed Moderate diverticulosis seen in the sigmoid colon Small hemorrhoids on retroflexed exam. Plan: Await pathology results Patient has an appointment on 11/18/21 in the GI Clinic with Wendy Casarez FNP- [facility] . Repeat Colonoscopy interval based on path results - in 3-5 years if polyps are adenomatous and 10 years if polyps are hyperplastic. Above findings were reviewed with the patient and colon polyps and diverticu losis handouts were given in the discharge area Surgeon: Isaiah Noe MD Anesthesia: MAC Was an Lining Cleaner used for this Procedure?: No Lining Cleaner: Amber Butcher Estimated blood loss (mL): 0 Pathology: other ( A. transverse colon polyp B. sigmoid polyp at 22 cm C. rectal polyp) Condition: stable Disposition: PACU
[2021-11-04 13:34] VITALS: BP 137/80; PULSE 62; RESP 17; TEMP 37.2; O2SAT 97
[2021-11-04] MEDS: Lactated Ringers 1,000 ML 100 ML IVCONT (13:36)
--- NOTE | 2021-11-04 13:37 | W.PM.OPN ---
Operative Note Operative Note Date of Service: 11/04/21 Narrative: Pre-op diagnosis: Colon cancer screening, history of colon polyps Post-op diagnosis:?other (Colon polyps, diverticulosis, hemorrhoids) Procedure: COLONOSCOPY TILL CECUM WITH BIOPSIES AND SNARE POLYPECTOMY Consent: Indications for the procedure and potential complications of bleeding, perforation, reaction to medications and missed diagnosis were discussed with the patient and informed consent was obtained. Instrument: Olympus PCF H 190 L variable stiffness pediatric colonoscope Monitoring: Vital signs and clinical assessment, intermittent blood pressure monitoring, continuous EKG monitoring, Pulse oximetry and Carbon Dioxide monitoring were done throughout the procedure. Colon withdrawl time was 19 minutes. Procedure: The patient was placed in the left lateral decubitis position and pre-procedure medications were administered. After a digital rectal examination of the ano-rectum, the video colonoscope was inserted into the rectum and advanced through the colon to the cecum. The colonoscope was slowly withdrawn in a retrograde panoramic fashion and the colon mucosa was carefully examined including a retroflexed view of the rectum. Findings and interventions are described below. Procedure Difficulty: Without difficulty Findings: Terminal Ileum: Not evaluated Cecum:? Normal Ascending Colon:? Normal Transverse Colon:? A 6-7 mm sessile polyp removed by a cold bx. Descending Colon:? Normal Sigmoid Colon:? A 12-15 mm sessile polyp removed with a hot snare.? Moderate diverticulosis Rectum:? A few 5-8 mm dimiutive appearing polyps - one removed with a cold bx. Ano-rectum:? Small internal hemorrhoids Colon preparation:? Good Fair Impression and Post Procedure Diagnosis: Colonoscopy Findings: Three small to medium sized polyps removed Moderate diverticulosis seen in the sigmoid colon Small hemorrhoids on retroflexed exam. Plan: Await pathology results Patient has an appointment on 11/18/21 in the GI Clinic with Wendy Casarez FNP-BC . Repeat Colonoscopy interval based on path results - in 3-5 years if polyps are adenomatous and 10 years if polyps are hyperplastic. Above findings were reviewed with the patient and colon polyps and diverticulosis handouts were given in the discharge area Surgeon: Isaiah Noe MD Anesthesia:?MAC Was an Resident Hall Director used for this Procedure?:?No Resident Hall Director:?Amber Butcher Estimated blood loss (mL):?0 Pathology:?other ( A. transverse colon polyp? B. sigmoid polyp at 22 cm? C. rectal polyp) Condition:?stable Disposition:?PACU
[2021-11-04 14:12] VITALS: BP 143/102; PULSE 83; RESP 16; TEMP 36.3; O2SAT 98
[2021-11-04 14:27] VITALS: BP 165/88; PULSE 79; RESP 20; TEMP 36.3; O2SAT 99
== END 2021-11-04 14:42 | disposition home or self-care (01) ==
PROVIDERS: PCP Family Medicine; Visit Provider Internal Medicine Gastroenterology
PROC: 0DJD8ZZ Inspection of Lower Intestinal Tract, Via Natural or Artificial Opening Endoscopic (ICD-10-PCS; CPT 45378; principal; 2021-11-04 13:50)
DX: Z12.11 Encounter for screening for malignant neoplasm of colon (principal); Z86.010 Personal history of colon polyps; D12.5 Benign neoplasm of sigmoid colon; K63.5 Polyp of colon; K62.1 Rectal polyp; K57.30 Diverticulosis of large intestine without perforation or abscess without bleeding; K64.8 Other hemorrhoids; I25.10 Atherosclerotic heart disease of native coronary artery without angina pectoris; Z98.61 Coronary angioplasty status; I10 Essential (primary) hypertension; Z79.899 Other long term (current) drug therapy; Z79.82 Long term (current) use of aspirin; Z91.041 Radiographic dye allergy status; Z88.8 Allergy status to other drugs, medicaments and biological substances; Z88.7 Allergy status to serum and vaccine; Z85.46 Personal history of malignant neoplasm of prostate; Z86.19 Personal history of other infectious and parasitic diseases; Z87.891 Personal history of nicotine dependence; F12.90 Cannabis use, unspecified, uncomplicated; Z86.16 Personal history of COVID-19
CPT/HCPCS: 45385; 45380; 88305

== ENCOUNTER → 2021-11-29 12:05 | Outpatient (BNVA) | payer MEDICARE, OTHER, SELFPAY | PROVIDERS: PCP Family Medicine; Referring Provider Family Medicine; Visit Provider Nurse Practitioner Family | DX: D36.9 Benign neoplasm, unspecified site (principal); K57.90 Diverticulosis of intestine, part unspecified, without perforation or abscess without bleeding; Z98.890 Other specified postprocedural states | CPT/HCPCS: 99212 ==

== ENCOUNTER 2022-09-20 13:13 | Inpatient (IN) | payer MEDICARE, OTHER, SELFPAY ==
[2022-09-20] VITALS (11 sets, daily range): BP systolic 112–142; BP diastolic 51–96; PULSE 54–82; RESP 15–18; TEMP 36–37; O2SAT 95–99; BMI 27.7
--- NOTE | 2022-09-20 | EEG_ITS ---
This is a 16-channel EEG with an EKG lead. The patient is reported awake and restless during the tracing. Background EEG rhythm is 6 to 7 hertz or slower 10 to 50 microvolt with similar type of pattern seen in anterior and posterior leads. Frequent muscle and lead artifacts were noted. No definite sharp wave spikes or paroxysmal tendency noted. Photic stimulation and hyperventilation were not performed. IMPRESSION: Abnormal EEG suggestive of bihemispheric dysfunction, probably of metabolic etiology with no epileptic discharges noted. MD TATYANA Gray/ABDIRAHMAN / [id number]
--- NOTE | ~2022-09-20 | CT_ITS ---
EXAMINATION: CT HEAD WITHOUT CONTRAST CT CERVICAL SPINE WITHOUT CONTRAST CLINICAL INFORMATION: Fall. Head strike. COMPARISON: CT head 07/30/2021. TECHNIQUE: Cruise Staff Member images were obtained. CT imaging of the head and cervical spine was performed without contrast. Data was reformatted into multiplanar images at the acquisition workstation. This CT examination was performed using dose optimization techniques as appropriate, including one or more of the following: Automated exposure control, iterative reconstruction, and adjustment of technique factors (mA and/or kVp) according to patient size (this includes techniques or standardized protocols for targeted exams where dose is matched to indication/reason for exam). Fleischner Society criteria for the followup of incidental pulmonary nodules was implemented if appropriate. DLP: 1327 mGy-cm. FINDINGS: Head: There is no acute intracranial hemorrhage or abnormal extra-axial collection. There are scattered nonspecific foci of hypoattenuation within the periventricular white matter that most likely represent a chronic manifestation of small vessel ischemia. Hobbs-white matter differentiation is otherwise preserved and there is no evidence of acute territorial infarct. The calvarium and skull base are intact. Mastoid air cells and middle ear cavities are well aerated. No active paranasal sinus disease. Cervical spine: Alignment is normal. Vertebral heights are preserved. No acute cervical spinal fracture. No abnormal prevertebral soft tissue swelling. There is loss of intervertebral disc height with associated sclerotic degenerative endplate changes and hypertrophic disc osteophyte spurring at multiple levels. Advanced degenerative arthrosis of the atlantodental joint. Grossly no canal compromise. There are partially calcified nodules within both lobes of the thyroid gland. The dominant nodule within the left thyroid lobe measures up to 1.8 cm in diameter. Soft tissues of the neck are otherwise unremarkable. Visualized lung apices are clear. CT/CT head/brain wo IV con IMPRESSION: Head: No acute intracranial hemorrhage. There are scattered chronic small vessel ischemic changes within the periventricular white matter. Grossly no evidence of acute territorial infarct. Cervical spine: No acute cervical spine fracture and no posttraumatic spinal subluxation. There is advanced multilevel degenerative spondylosis of the cervical spine. Grossly no evidence of canal compromise. There is a calcified nodule within the left lobe of the thyroid gland that measures up to 1.8 cm in diameter. Based on the recommendations of the ACR Incidental Thyroid Findings Committee (JACR 2015 Feb; 12(2):143-50), further evaluation by thyroid ultrasound is recommended for solitary incidental thyroid nodules greater than or equal to 1.5 cm in largest axial dimension in patients age 35 years and older who do not have limited life expectancy or significant morbidities, unless clinically warranted.
--- NOTE | ~2022-09-20 | CT_ITS ---
EXAMINATION: CT foot left without IV contrast CLINICAL INFORMATION: Better evaluation of complex left foot fracture COMPARISON: Previous x-ray from earlier the same day TECHNIQUE: Axial images through the left foot without IV contrast. Sagittal and coronal reconstructions on the technologist workstation were performed. This CT examination was performed using dose optimization techniques as appropriate, variously including the following: *Automated exposure control *Adjustment of mA and/or kV according to patient size (this includes techniques or standardized protocols for targeted exams where dose is matched to indication/reason for exam; i.e. extremities or head) *Use of iterative reconstruction technique DLP 1 7 2 mg/cm FINDINGS: There is a minimally displaced fracture of the lateral first cuneiform bone intra-articular with the first MTT joint. There may be subluxation at the first MTT joint with slight lateral displacement of the first metatarsal bone with respect to the first cuneiform. There is a Lisfranc fracture dislocation of the second through fifth metatarsal bones. There are comminuted fracture of the base of the second, third and fourth metatarsal bones. These are intra-articular with the MTT joints. There is lateral and slight dorsal subluxation of the second, third and fourth metatarsal bone with respect to the cuneiform bones. There is lateral dislocation of the fifth metatarsal bone with respect to the cuboid bone. There are small ossified densities are questionable for a small avulsion fracture fragments, exact donor site uncertain. There is surrounding soft tissue swelling. No other acute fracture or dislocation. CT/CT foot LT wo IV con IMPRESSION: Lisfranc fracture dislocation of the second through fifth metatarsal bones and MTT joints. Minimally displaced fracture of the first cuneiform bone intra-articular with the first MTT joint and mild subluxation at the first MTT joint .
--- NOTE | ~2022-09-20 | XR_ITS ---
EXAMINATION: XR KNEE, RIGHT CLINICAL INFORMATION: Pain, fall. COMPARISON: None available. TECHNIQUE: Four views of the right knee. FINDINGS: No acute fractures or subluxation. Moderate tricompartmental joint space narrowing with subcortical sclerosis reflecting degenerative osteoarthritis. Moderate chondrocalcinosis. Small joint effusion. Scattered atherosclerotic XR/XR knee RT 4V IMPRESSION: 1. No acute fractures or subluxation. 2. Moderate tricompartmental degenerative osteoarthritis. 3. Moderate chondrocalcinosis. 4. Small joint effusion.
--- NOTE | ~2022-09-20 | CT_ITS ---
EXAMINATION: CT HEAD WITHOUT CONTRAST CT CERVICAL SPINE WITHOUT CONTRAST CLINICAL INFORMATION: Fall. Head strike. COMPARISON: CT head 07/30/2021. TECHNIQUE: Internet Manager images were obtained. CT imaging of the head and cervical spine was performed without contrast. Data was reformatted into multiplanar images at the acquisition workstation. This CT examination was performed using dose optimization techniques as appropriate, including one or more of the following: Automated exposure control, iterative reconstruction, and adjustment of technique factors (mA and/or kVp) according to patient size (this includes techniques or standardized protocols for targeted exams where dose is matched to indication/reason for exam). Fleischner Society criteria for the followup of incidental pulmonary nodules was implemented if appropriate. DLP: 1327 mGy-cm. FINDINGS: Head: There is no acute intracranial hemorrhage or abnormal extra-axial collection. There are scattered nonspecific foci of hypoattenuation within the periventricular white matter that most likely represent a chronic manifestation of small vessel ischemia. Hobbs-white matter differentiation is otherwise preserved and there is no evidence of acute territorial infarct. The calvarium and skull base are intact. Mastoid air cells and middle ear cavities are well aerated. No active paranasal sinus disease. Cervical spine: Alignment is normal. Vertebral heights are preserved. No acute cervical spinal fracture. No abnormal prevertebral soft tissue swelling. There is loss of intervertebral disc height with associated sclerotic degenerative endplate changes and hypertrophic disc osteophyte spurring at multiple levels. Advanced degenerative arthrosis of the atlantodental joint. Grossly no canal compromise. There are partially calcified nodules within both lobes of the thyroid gland. The dominant nodule within the left thyroid lobe measures up to 1.8 cm in diameter. Soft tissues of the neck are otherwise unremarkable. Visualized lung apices are clear. CT/CT cervical spine wo IV con IMPRESSION: Head: No acute intracranial hemorrhage. There are scattered chronic small vessel ischemic changes within the periventricular white matter. Grossly no evidence of acute territorial infarct. Cervical spine: No acute cervical spine fracture and no posttraumatic spinal subluxation. There is advanced multilevel degenerative spondylosis of the cervical spine. Grossly no evidence of canal compromise. There is a calcified nodule within the left lobe of the thyroid gland that measures up to 1.8 cm in diameter. Based on the recommendations of the ACR Incidental Thyroid Findings Committee (JACR 2014; 12(2):143-50), further evaluation by thyroid ultrasound is recommended for solitary incidental thyroid nodules greater than or equal to 1.5 cm in largest axial dimension in patients age 35 years and older who do not have limited life expectancy or significant morbidities, unless clinically warranted.
--- NOTE | ~2022-09-20 | XR_ITS ---
EXAMINATION: XR FOOT, LEFT CLINICAL INFORMATION: Fall. COMPARISON: None available. TECHNIQUE: 3 views of the left foot. FINDINGS: Multiple fractures of the metatarsals and metatarsal tarsal joint with lateral dislocation of the second through fifth metatarsals. Lisfranc ligament disruption. There are are comminuted fractures of the proximal second through fourth metatarsals. Avulsion fracture of the medial proximal first metatarsal. Possible fracture of the cuneiforms at the metatarsal tarsal joint as well. Fractures can be further defined with CT. XR/XR foot LT min 3V IMPRESSION: Lisfranc injury with multiple fractures of the foot and lateral dislocation of the second through fifth metatarsals at the metatarsal tarsal joints. Fracture of the proximal lateral first metatarsal. CT can be helpful for further evaluation.
--- NOTE | 2022-09-20 13:24 | ED_ITS ---
HPI - Extremity Injury (Lower) General Chief Complaint: Fall Stated Complaint: ? Fx R Foot S/P Fall Time Seen by Provider: 09/20/22 15:35 Source: patient and other (friend) Mode of arrival: wheelchair Limitations: no limitations History of Present Illness HPI Narrative: Patient is a 67 year old assigned male at with a history of HTN, CAD, hepatitis C, REBECA, depression, NSTEMI, and prostate cancer presenting to the emergency department today with left foot pain after a syncope episode. Patient states that last night he was sitting on the toilet to urinate, stood up quickly, got light headed, and syncopized. Patient states that when he came to on the floor, he felt a lot of pain in his left foot and right knee. Patient states that he does not remember hitting his head. Patient denies any current dizziness, lightheadedness, abdominal pain, nausea, vomiting, fever, chills, blurry vision, double vision, loss of vision, chest pain, difficulty breathing, shortness of breath, back pain, night sweats, pain with urination, increased urinary frequency, increased urinary urgency, blood in his urine or stool, bowel incontinence, bladder incontinence, bowel retention, bladder retention, or any other complaints at this time. MD complaint: other (right foot injury, left knee injury, syncope) Place: home Severity scale (1-10): 3 Relieving factors: nothing Exacerbating factors: weight bearing and movement Context: fall Other symptoms: none Related Data Home Medications Medication Instructions Recorded Confirmed atorvastatin 80 mg tablet 80 mg PO DAILY 07/06/21 09/20/22 citalopram 40 mg tablet 40 mg PO BEDTIME depressive 07/06/21 09/20/22 disorder doxepin 25 mg capsule 25 mg PO BEDTIME 07/06/21 09/20/22 gabapentin 300 mg capsule 600 mg PO DAILY 07/06/21 09/20/22 metoprolol succinate 25 mg 25 mg PO DAILY 07/06/21 09/20/22 tablet,extended release 24 hr quetiapine 100 mg tablet 1 tab PO BEDTIME 07/30/21 09/20/22 divalproex 500 mg tablet,delayed 500 mg PO BID 09/20/22 09/20/22 release epinephrine 0.3 mg/0.3 mL 0.3 mg IM DAILY PRN Allergic 09/20/22 09/20/22 injection, auto-injector Reaction finasteride 5 mg tablet 5 mg PO DAILY 09/20/22 09/20/22 gabapentin 400 mg capsule 800 mg PO BEDTIME 09/20/22 09/20/22 mirtazapine 45 mg tablet 45 mg PO BEDTIME 09/20/22 09/20/22 Allergies Allergy/AdvReac Type Severity Reaction Status Date / Time bee pollen [BEE STINGS] Allergy Severe Anaphylaxis Verified 09/20/22 13:24 Iodinated Contrast Media Allergy Severe Anaphylaxis Verified 09/20/22 13:24 [IV CONTRAST] zoster vaccine live Allergy Intermediate Shortness Verified 09/20/22 13:24 [SHINGLES VACCINE] of Breath codeine Allergy Severe Itching,hiv Uncoded 10/18/21 12:05 es shellfish Allergy Severe anaphylaxis Uncoded 10/18/21 12:05 Review of Systems Constitutional: Constitutional: Reports no additional constitutional complaints, Denies chills, Denies fever(s) and Denies night sweats Eyes: Eyes: Reports no additional eye complaints, Denies blurry vision, Denies change in vision, Denies diplopia, Denies eye discharge, Denies loss of vision and Denies eye pain ENT: Denies dizziness Cardiovascular: Cardiovascular: Reports no additional cardiovascular complaints, Denies chest pain, Reports syncope (last night), Denies lightheadedness, Denies Loss of Consciousness and Denies dyspnea Respiratory: Respiratory: Reports no additional respiratory complaints and Denies dyspnea Gastrointestinal: Gastrointestinal: Reports no additional gastrointestinal complaints, Denies abdominal pain, Denies melena, Denies hematochezia, Denies change in bowel habits and Denies change in stool character Genitourinary: Genitourinary: Reports no additional male genitourinary complaints, Denies hematuria, Denies oliguria, Denies difficulty urinating, Denies dysuria, Denies urinary frequency, Denies urinary hesitancy, Denies urinary incontinence and Denies urinary urgency Musculoskeletal: Musculoskeletal: Reports no additional musculoskeletal complaints, Denies numbness and Denies tingling Comments: left foot pain, right knee pain Neurologic: Denies dizziness, Reports syncope (last night), Denies loss of vision, Denies numbness and Denies tingling Psychiatric: Psychiatric: Reports no additional psychiatric complaints Endocrine: Endocrine: Reports no additional endocrine complaints Hematologic/Lymphatic: Hematologic/Lymphatic: Reports no additional hematologic/lymphatic complaints Allergic/Immunologic: Allergic/Immunologic: Reports no additional allergic/immunologic complaints PMFSH Past Medical History Attestation statement: The following information was validated with the patient. Source: old records reviewed and nursing notes reviewed Medical History Acidosis, lactic Anxiety BPH without obstruction/lower urinary tract symptoms CAD (coronary artery disease) CAD (coronary artery disease) COVID-19 Depression Diverticulosis Elevated cholesterol Elevated PSA Encephalopathy acute REBECA (generalized anxiety disorder) Hepatitis C History of prostate cancer HLD (hyperlipidemia) HTN (hypertension) HTN (hypertension) Hx of hepatitis C Hx of non-ST elevation myocardial infarction (NSTEMI) Hx of renal calculi Hypertensive encephalopathy Hypertensive encephalopathy NSTEMI (non-ST elevated myocardial infarction) Prostate cancer PTSD (post-traumatic stress disorder) TIA (transient ischemic attack) Tubulovillous adenoma Surgical History H/O heart artery stent History of surgery on wrist Hx of appendectomy Hx of cardiac catheterization Hx of colonoscopy Hx of left knee surgery Hx of tonsillectomy Family History Family History Mother Heart disease Father No problems noted. Social History Social History Household Members: None Are you a primary pet caregiver to a significant other at home: No Do you presently have visiting nurse or other home services: No Alcohol intake: former Year quit: 1988 Patient Tobacco Use Status: Former Tobacco user Quit Date: 30 yrs ago Tobacco use type: Cigarette Substance Use Type: Marijuana Advance Directives: No Advance Directives Information Provided: Yes Physical Exam Vital Signs: Vital Signs: Last Vital Signs Temp 97.2 F 09/20/22 16:34 Pulse 65 09/20/22 16:34 Resp 18 09/20/22 16:50 BP 112/68 09/20/22 16:34 Pulse Ox 97 09/20/22 16:34 O2 Del Method Room Air 09/20/22 16:34 BMI result Body Mass Index 27.7 Const: General: cooperative, no acute distress, alert and awake Nutritional Appearance: well nourished Orientation/consciousness: patient oriented x3 Limitations: no limitations HEENT: Head: Yes normal to inspection and Yes atraumatic Ears: hearing grossly normal bilaterally and external ears normal General nose exam: Normal external nose present, no nasal discharge noted and no epistaxis Face and sinus: Yes normal facial exam, No abrasion and No laceration Mouth: Normal oral and palatal mucosa present, no drooling and no muffled voice Eyes: General: appearance normal, both eyes and all related structures Periorbital: periorbital findings normal Eyelids: Yes eyelids normal Conjunctivae: conjunctivae normal Pupils: Equal, round and reactive pupils present EOM: EOMs intact bilaterally Neck: Neck: Yes normal visual inspection, Yes full ROM and Yes no lymphadenopathy Chest: Chest palpation & inspection: normal inspection of the chest Resp: Effort & Inspection: normal respiratory effort and able to speak in complete sentences GI: Inspection: Yes normal to inspection Neuro: General: patient oriented x3 and moves all extremities Cranial nerves: Yes Equal, round and reactive pupils present Cognition (Neuro): normal cognition Motor exam (neuro): 5/5 motor strength present throughout Sensory Exam: Normal double simultaneous stimulation for sensation Coordination: [id number] test normal Extrem: Other: significant bruising present to the left dorsal foot General: Yes full ROM and Yes capillary refill normal Psych: Appearance: grossly normal Mental Status: mental status grossly normal Affect: normal affect Attitude: cooperative Thought process: Normal thought process present Thought content: Normal thought content present Insight: Good insight present (Psych) Course Course Course Narrative: RME: 67 year old male patient with history of prostate cancer, early stage pancreatic cancer and hypertension presents today after falling this morning at 1am on left foot on way to the bathroom after syncopal episode, unsure of head strike. recurrent syncope for the past 6 months. Left foot, right knee pain. rates pain 8/10. Plan: left foot xray, basic labs, EKG, and orthostatics Medications Administered Discontinued Medications Generic Name Dose Route Start Last Admin Trade Name Freq PRN Reason Stop Dose Admin Sodium Chloride 1,000 mls @ 999 mls/hr 09/20/22 16:00 09/20/22 17:28 Ns IV 09/20/22 17:00 Infused .Q1H1M SHARRI Infusion Morphine Sulfate 4 mg 09/20/22 15:55 09/20/22 16:14 Morphine Sulfate 4 Mg/Ml Cartridge IVPUSH 09/20/22 15:56 4 mg ONCE ONE Administration Protocol Morphine Sulfate 4 mg 09/20/22 18:33 09/20/22 18:40 Morphine Sulfate 4 Mg/Ml Cartridge IVPUSH 09/20/22 18:34 4 mg ONCE ONE Administration Protocol Ondansetron HCl 4 mg 09/20/22 15:55 09/20/22 16:15 Ondansetron Hcl 4 Mg/2 Ml Vial IVPUSH 09/20/22 15:56 4 mg ONCE ONE Administration Medical Decision Making Medical Decision Making [facility] Narrative: Patient is a 67 year old assigned male at with a history of HTN, CAD, hepatitis C, REBECA, depression, NSTEMI, and prostate cancer presenting to the emergency department today after a syncopal episode with left foot pain and right knee pain. Patient's physical exam was as noted in the physical exam portion of this chart. Patient's blood work showed an elevated CR of 2.10 and an elevated BUN of 42. The rest of the patient's labs were grossly unremarkable. Patient's left foot x-ray showed a lisfranc injury with multiple fractures of the foot and lateral dislocation of the 2nd-5th metatarsal as the metatarsal tarsal joint and fracture of the proximal lateral first metatarsal, the radiologist recommended a left foot CT to further evaluate the injury. The left foot CT showed a lisfranc fracture dislocation of the second through fifth metatarsal bones and MTT joints. Minimally displaced fracture of the first cuneiform bone intra-articular with the first MTT joint and mild subluxation at the first MTT joint. Patient's head CT showed no acute process. Patient's C- Spine CT showed no acute process but did show a 1.8cm thyroid nodule that will need outpatient follow up. Patient's right knee XR showed no acute process. I spoke to orthopedics who recommended a posterior short leg splint for the left foot fractures and they will follow up with him in the morning. I spoke to the hospitalist team who agreed to admission. Patient's left foot was splinted with a posterior short leg splint, without incident. Patient's PMS was intact prior to and after splint placement. Patient was given IV fluids and IV morphine while in the department. I explained my physical exam findings as well as all test results to the patient. I answered all questions asked by the patient. Patient verbalized agreement and understanding with this treatment plan and admission. Differential Diagnosis Differential Diagnoses: The differential diagnosis associated with the presentation includes Left foot fracture Right knee injury Fall Syncope Electrolyte abnormality Subdural bleed - ruled out on head CT Epidural bleed - ruled out on head CT Admission/Observation Consideration of admission/observation: Escalation of care including admission/observation considered Patient to be admitted. Consult Healthcare Provider Management of the patient was discussed with: Hospitalist (agreed to admission.) and Hand Hide Stretcher (spoke to the orthopedic team as noted in the MDM portion of this note.) Lab Data [facility] Lab Attestation statement: I reviewed the patient's lab results. My interpretation of the patient's lab results are listed in the MDM portion of this chart. 09/20/22 13:53 09/20/22 13:53 Labs: Lab Results 09/20/22 09/20/22 Range/Units 13:53 13:53 WBC 10.4 (4.8-10.8) X10*3/uL RBC 4.62 (4.60-5.80) X10*6/uL Hgb 13.0 L (14.0-18.0) g/dl Hct 40.0 L (42.0-52.0) % MCV 86.6 (80.0-98.0) fL MCH 28.1 (27.0-33.0) pg MCHC 32.5 (31.0-36.0) g/dl RDW 17.4 H (11.0-16.0) % Plt Count 126 L (160-400) X10*3/uL MPV 8.9 L (9.4-12.4) fL Immature Gran % (Auto) 0.4 (0.0-0.4) % Neut % (Auto) 63.5 (45-73) % Lymph % (Auto) 21.3 (20-40) % Desha % (Auto) 12.8 H (2-11) % Eos % (Auto) 1.5 (0-4) % Baso % (Auto) 0.5 (0-2) % Lymph # (Auto) 2.2 (1.2-4.9) X10*3/uL Desha # (Auto) 1.3 H (0.1-1.2) X10*3/uL Eos # (Auto) 0.2 (0.0-0.4) X10*3/uL Baso # (Auto) 0.1 (0.0-0.2) X10*3/uL Abs Immat Gran (auto) 0.04 H (0.00-0.03) X10*3/uL Absolute Neuts (auto) 6.6 (2.0-8.3) x10*3/uL Absolute Nucleated RBC 0.000 (0.0-0.012) X10*3/uL Nucleated RBC % (auto) 0.0 (0.0-0.2) /100WBC Sodium 142 (135-145) mmol/L Potassium 4.2 (3.3-5.1) mmol/L Chloride 111 H (96-108) mmol/L Anion Gap TNP BUN 42 H (9-16) mg/dL Creatinine 2.10 H (0.5-1.4) mg/dL Estim Creat Clear Calc 37.5 Estimated GFR 31 Random Glucose 105 (60-115) mg/dL Calcium 9.0 (8.4-10.2) mg/dL Magnesium 2.1 (1.6-2.6) mg/dL Total Bilirubin 0.5 (0.0-1.0) mg/dL Direct Bilirubin 0.2 (0.0-0.5) mg/dL AST 41 H (5-37) U/L ALT 34 (0-40) U/L Alkaline Phosphatase 51 (39-117) U/L Total Protein 6.5 (6.5-8.0) g/dL Albumin 3.7 (3.5-5.0) g/dL Independent Interpretation I performed an independent interpretation of an: Plain X-Ray and CT Scan Interpretation: My interpretation is in agreement with the radiologist's impression of these imaging studies. EXAMINATION: XR FOOT, LEFT CLINICAL INFORMATION: Fall.? COMPARISON: None available.? TECHNIQUE: 3 views of the left foot. FINDINGS: Multiple fractures of the metatarsals and metatarsal tarsal joint with lateral dislocation of the second through fifth metatarsals. Lisfranc ligament disruption. There are are comminuted fractures of the proximal second through fourth metatarsals. Avulsion fracture of the medial proximal first metatarsal. Possible fracture of the cuneiforms at the metatarsal tarsal joint as well. Fractures can be further defined with CT. XR/XR foot LT min 3V IMPRESSION: Lisfranc injury with multiple fractures of the foot and lateral dislocation of the second through fifth metatarsals at the metatarsal tarsal joints. Fracture of the proximal lateral first metatarsal. CT can be helpful for further evaluation. Dictated By: Manuelito Aldridge MD Signed By: Electronically signed by Manuelito Aldridge MD 09/20/22 1521 EXAMINATION: XR KNEE, RIGHT? CLINICAL INFORMATION: Pain, fall.? COMPARISON: None available.? TECHNIQUE: Four views of the right knee. FINDINGS: No acute fractures or subluxation. Moderate tricompartmental joint space narrowing with subcortical sclerosis reflecting degenerative osteoarthritis. Moderate chondrocalcinosis. Small joint effusion. Scattered atherosclerotic? XR/XR knee RT 4V IMPRESSION: 1.? No acute fractures or subluxation. 2.? Moderate tricompartmental degenerative osteoarthritis. 3.? Moderate chondrocalcinosis. 4.? Small joint effusion. Dictated By: Margret Qiu Signed By: Electronically signed by Ruben 09/20/22 1709 ------ EXAMINATION: CT HEAD WITHOUT CONTRAST CT CERVICAL SPINE WITHOUT CONTRAST CLINICAL INFORMATION: Fall. Head strike. COMPARISON: CT head 07/30/2021. TECHNIQUE: Footwear Sales Leader images were obtained. CT imaging of the head and cervical spine was performed without contrast. Data was reformatted into multiplanar images at the acquisition workstation. This CT examination was performed using dose optimization techniques as appropriate, including one or more of the following: Automated exposure control, iterative reconstruction, and adjustment of technique factors (mA and/or kVp) according to patient size (this includes techniques or standardized protocols for targeted exams where dose is matched to indication/reason for exam). Fleischner Society criteria for the followup of incidental pulmonary nodules was implemented if appropriate. DLP: 1327 mGy-cm. FINDINGS: Head: There is no acute intracranial hemorrhage or abnormal extra-axial collection. There are scattered nonspecific foci of hypoattenuation within the periventricular white matter that most likely represent a chronic manifestation of small vessel ischemia. Hobbs-white matter differentiation is otherwise preserved and there is no evidence of acute territorial infarct. The calvarium and skull base are intact. Mastoid air cells and middle ear cavities are well aerated. No active paranasal sinus disease. Cervical spine: Alignment is normal. Vertebral heights are preserved. No acute cervical spinal fracture. No abnormal prevertebral soft tissue swelling. There is loss of intervertebral disc height with associated sclerotic degenerative endplate changes and hypertrophic disc osteophyte spurring at multiple levels. Advanced degenerative arthrosis of the atlantodental joint. Grossly no canal compromise. There are partially calcified nodules within both lobes of the thyroid gland. The dominant nodule within the left thyroid lobe measures up to 1.8 cm in diameter. Soft tissues of the neck are otherwise unremarkable. Visualized lung apices are clear. CT/CT cervical spine wo IV con IMPRESSION: Head: No acute intracranial hemorrhage. There are scattered chronic small vessel ischemic changes within the periventricular white matter. Grossly no evidence of acute territorial infarct. ? Cervical spine: No acute cervical spine fracture and no posttraumatic spinal subluxation. There is advanced multilevel degenerative spondylosis of the cervical spine. Grossly no evidence of canal compromise. There is a calcified nodule within the left lobe of the thyroid gland that measures up to 1.8 cm in diameter. Based on the recommendations of the ACR Incidental Thyroid Findings Committee (JACR 2014; 12(2):143-50),? further evaluation by thyroid ultrasound is recommended for solitary incidental thyroid nodules greater than or equal to 1.5 cm in largest axial dimension in patients age 35 years and older who do not have limited life expectancy or significant morbidities, unless clinically warranted. Dictated By: Huey Monroe MD Signed By: Electronically signed by Huey Monroe MD 09/20/22 1817 EXAMINATION: CT foot left without IV contrast CLINICAL INFORMATION: Better evaluation of complex left foot fracture? COMPARISON: Previous x-ray from earlier the same day? TECHNIQUE: Axial images through the left foot without IV contrast. Sagittal and coronal reconstructions on the technologist workstation were performed. This CT examination was performed using dose optimization techniques as appropriate, variously including the following: *Automated exposure control *Adjustment of mA and/or kV according to patient size (this includes techniques or standardized protocols for targeted exams where dose is matched to indication/reason for exam; i.e. extremities or head) *Use of iterative reconstruction technique DLP 1 7 2 mg/cm? FINDINGS: There is a minimally displaced fracture of the lateral first cuneiform bone intra-articular with the first MTT joint. There may be subluxation at the first MTT joint with slight lateral displacement of the first metatarsal bone with respect to the first cuneiform. There is a Lisfranc fracture dislocation of the second through fifth metatarsal bones. There are comminuted fracture of the base of the second, third and fourth metatarsal bones. These are intra-articular with the MTT joints. There is lateral and slight dorsal subluxation of the second, third and fourth metatarsal bone with respect to the cuneiform bones. There is lateral dislocation of the fifth metatarsal bone with respect to the cuboid bone. There are small ossified densities are questionable for a small avulsion fracture fragments, exact donor site uncertain. There is surrounding soft tissue swelling. No other acute fracture or dislocation. CT/CT foot LT wo IV con IMPRESSION: Lisfranc fracture dislocation of the second through fifth metatarsal bones and MTT joints. Minimally displaced fracture of the first cuneiform bone intra-articular with the first MTT joint and mild subluxation at the first MTT joint . Dictated By: Jailyn Melara MD Signed By: Electronically signed by aJilyn Melara MD 09/20/22 5298 Radiology Impression Discussion of test interpretation with radiology: I have reviewed the radiologist's reading. Independent Historian Clinical information obtained from an independent historian. History obtained from or confirmed by: Other (patient's friend at the bed side provided addition al history and confirmed the history provided by the patient.) Procedures Orthopedic Splinting/Casting Injury #1: Side: left Lower Extremity Injury Location: foot Lower Extremity Immobilizer: posterior splint Critical Care Time Critical Care Time Critical Care Time: Yes Total Critical Care Time: 45 Attestation: I spent 45 minutes of Critical Care Time with this patient. This does not i nclude time spent on separately reported billable procedures. Discharge Plan Discharge Clinical Impression: Foot fracture, left, Syncope, Acute kidney injury Patient Disposition: Admitted As Inpatient
--- NOTE | 2022-09-20 13:33 | ECG_ITS ---
Test Reason : SYNCOPE Blood Pressure : / mmHG Vent. Rate : 075 BPM Atrial Rate : 075 BPM P-R Int : 146 ms QRS Dur : 094 ms QT Int : 386 ms P-R-T Axes : 061 -34 068 degrees QTc Int : 431 ms Sinus rhythm with frequent Premature ventricular complexes Left axis deviation Minimal voltage criteria for LVH, may be normal variant ( R in aVL ) Abnormal ECG When compared with ECG of 30-JUL-2021 13:42, Premature ventricular complexes are now Present Referred By: Amber Swenson Electronically Signed By:Kedar Santoro
[2022-09-20 13:58] LABS: MANUAL DIFF FLAG NO
[2022-09-20 13:59] LABS: Basophils Absolute Auto 0.1 X10*3/uL (0.0-0.2); Basophils Percent Auto 0.5 % (0-2); Eosinophils Absolute Auto 0.2 X10*3/uL (0.0-0.4); Eosinophils Percent Auto 1.5 % (0-4); Imm Gran Abs Auto 0.04 X10*3/uL (0.00-0.03); Imm Gran Pct Auto 0.4 % (0.0-0.4); Lymphocytes Absolute Auto 2.2 X10*3/uL (1.2-4.9); Lymphocytes Percent Auto 21.3 % (20-40); Mean Corpuscular HGB Conc 32.5 g/dl (31.0-36.0); Mean Corpuscular Hemoglobin 28.1 pg (27.0-33.0); Mean Corpuscular Volume 86.6 fL (80.0-98.0); Mean Platelet Volume 8.9 fL (9.4-12.4); Monocytes Absolute Auto 1.3 X10*3/uL (0.1-1.2); Monocytes Percent Auto 12.8 % (2-11); Neutrophils Absolute Auto 6.6 x10*3/uL (2.0-8.3); Neutrophils Percent Auto 63.5 % (45-73); Platelet Count 126 X10*3/uL (160-400); Red Blood Count 4.62 X10*6/uL (4.60-5.80); Red Cell Distribution Width 17.4 % (11.0-16.0); White Blood Count 10.4 X10*3/uL (4.8-10.8)
[2022-09-20 14:28] LABS: Alanine Aminotransferase 34 U/L (0-40); Albumin Level 3.7 g/dL (3.5-5.0); Alkaline Phosphatase 51 U/L (39-117); Aspartate Amino Transferase 41 U/L (5-37); Bilirubin Direct 0.2 mg/dL (0.0-0.5); Bilirubin Total 0.5 mg/dL (0.0-1.0); Blood Urea Nitrogen 42 mg/dL (9-16); Chloride 111 mmol/L (96-108); Creatinine Clr Calc Pharmacy 37.5; Estimated Glomerular Filt Rate 31; Glucose Random 105 mg/dL (60-115); Magnesium 2.1 mg/dL (1.6-2.6); Potassium 4.2 mmol/L (3.3-5.1); Sodium 142 mmol/L (135-145); Total Protein 6.5 g/dL (6.5-8.0)
--- OUTSIDE RECORDS SUMMARY | 2022-09-20 16:00 | XMS_ITS | Continuity of Care Document ---
Author Name Unknown Organization [facility] Address [address], [address], [address] [place] [address]- Care Team Providers Care Welding Machine Operator Submerged Arc Name Role Phone Gigi SMITH, Eileen Primary Care Physician Encounter [facility] Date(s): 06/27/22 - 07/27/22 [facility] [address], [address] Floor, [address] [place] [address]- Attending Physician: AdmJose uriostgeui Admitting Physician: Admtr, Ar8 Referring Physician: Admtr, Ar8 Allergies, Adverse Reactions, Alerts Substance Reaction Severity Status codeine Active shellfish Active Contrast Dye Anaphylaxis Active zoster vaccines Active Immunizations Given and Recorded Vaccine Date Status Refusal Reason [id number] bivalent booster vax 01/24/22 Recorded influenza virus vaccine, inactivated 10/18/21 Rafael rded influenza virus vaccine, inactivated 11/30/20 Rafael rded influenza virus vaccine, inactivated 10/16/19 Rafael rded influenza virus vaccine, inactivated 12/23/18 Rafael rded influenza virus vaccine, inactivated 12/11/18 Rafael rded influenza virus vaccine, inactivated 12/10/17 Rafael rded influenza virus vaccine, inactivated 12/08/16 Rafael rded influenza virus vaccine, inactivated 10/11/16 Rafael rded influenza virus vaccine, inactivated 11/22/15 Rafael rded influenza virus vaccine, inactivated 12/25/14 Rafael rded influenza virus vaccine, inactivated 02/20/12 Rafael rded influenza virus vaccine, inactivated 12/30/10 Rafael rded SARS-CoV-2 (COVID-19) mRNA-1273 vaccine 10/18/21 R ecorded SARS-CoV-2 (COVID-19) mRNA-1273 vaccine 10/17/20 R ecorded SARS-CoV-2 (COVID-19) mRNA-1273 vaccine 06/10/20 R ecorded SARS-CoV-2 (COVID-19) mRNA-1273 vaccine 05/13/20 R ecorded pneumococcal 23-valent vaccine 04/23/19 Recorded pneumococcal 23-valent vaccine 04/12/18 Recorded pneumococcal 13-valent vaccine 02/19/17 Recorded tetanus/diphtheria/pertussis, acel(Tdap) 10/11/16 Recorded tetanus/diphtheria/pertussis, acel(Tdap) 12/30/10 Recorded Zoster Vaccine Live 07/28/11 Recorded Medications amLODIPine 10 mg oral tablet 5 mg, 0.5, tablet, By Mouth, Daily, # 15 tablet, Refills 0, Tot. Refills 0, Maintenance, 06/03/22 9:14:00 EDT, Route to Pharmacy Electronically, [facility]/pharmacy #[id number], Partial fill upon patient request if the prescription is for a schedule II opioid drug... Start Date: 06/03/22 Stop Date: 07/03/22 Status: Ordered aspirin 81 mg oral delayed release tablet 81 mg, 1, tablet, By Mouth, Daily, # 30 tablet, Refills 0, Maintenance, 02/03/22 16:05:00 EST, Partial fill upon patient request if the prescription is for a schedule II opioid drug. Start Date: 02/03/22 Status: Ordered atorvastatin 80 mg oral tablet = 80 mg, By Mouth, Daily at bedtime, # 30 tablet, 3 Refills, Maintenance, Tablet, Route to PharmacyElectronically, [id number], [facility] 3 Start Date: 09/11/16 Stop Date: 01/09/17 Status: Ordered citalopram 40 mg oral tablet 20 mg, 0.5, tablet, By Mouth, Daily, # 30 tablet, Refills 0, Maintenance, 09/08/16 12:28:30 EDT Start Date: 09/08/16 Status: Ordered divalproex sodium 500 mg oral enteric coated tablet = 500 mg, By Mouth, Every 12 hours, # 60 tablet, 0 Refills, Maintenance, 06/03/22 9:14:00 EDT, Tablet, [facility]/pharmacy #[id number], Partial fill upon patient request if the prescription is for a schedule II opioid drug., 182, cm, 06/02/22 20:29:00 EDT, Height,... Start Date: 06/03/22 Stop Date: 07/03/22 Status: Ordered gabapentin 300 mg oral capsule 300 mg, 1, capsule, By Mouth, 3 times a day, Refills 0, Maintenance, 06/03/22 8:24:00 EDT, Partial fill upon patient request if the prescription is for a schedule II opioid drug. Start Date: 06/03/22 Status: Ordered metoprolol 25 mg oral tablet, extended release 25 mg, 1, tablet, By Mouth, Daily, # 30 tablet, Refills 11, Tot. Refills 11, Maintenance, 09/16/21 9:39:00 EDT, Route to Pharmacy Electronically, [facility]/pharmacy #[id number], 188, cm, 09/16/21 9:18:00 EDT, Height Start Date: 09/16/21 Stop Date: 09/11/22 Status: Ordered mirtazapine 45 mg oral tablet 1 tablet = 45 mg, By Mouth, Daily at bedtime, # 30 tablet, 0 Refills, Maintenance, 05/30/22 19:53:00 EDT, Tablet, Partial fill upon patient request if the prescription is for a schedule II opioid drug. Start Date: 05/30/22 Status: Ordered QUEtiapine 100 mg oral tablet 100 mg, 1, tablet, By Mouth, Daily at bedtime Start Date: 05/30/22 Status: Ordered Problem List Condition Confirmation Course Effective Dates Status Health St atus Informant NSTEMI (non-ST elevated myocardial infarction) Confirmed Active BPH without obstruction/lower urinary tract symptoms Confirmed Active CAD in [place] artery Confirmed Active Depression Confirmed Active REBECA (generalized anxiety disorder) Confirmed Active HLD (hyperlipidemia) Confirmed Active HTN (hypertension) Confirmed Active Hepatitis C 1 Confirmed Active 1s/p interferon treatment Social History Social History Type Response Smoking Status Former smoker; Other : quit 1988, 1.5-2ppd x 10y; entered on: 01/10/17 Sex Patient Care team information Care Team Personnel Name: Lenny Busch RN Position: [facility] RN Member Role: Primary Care Nurse Name: Humera Guthrie RN Position: [facility] Hospital Cuff Setter Lockstitch Member Role: Primary Care Nurse Name: Amy Aguilar RN Position: [facility] RN Member Role: Primary Care Nurse Name: Macy Monique RN Position: [facility] RN Member Role: Primary Care Nurse Name: Eileen Yu MD Position: Reference Physician Member Role: PCP Address: Address: [address] [place] [address]- Care Team Related Persons Name: COLEMAN GIRALDO Address: home [address] [place] [address] Name: DIAMOND BROOKS Address: [address] [place] [address]
--- OUTSIDE RECORDS SUMMARY | 2022-09-20 16:00 | XMS_ITS | Continuity of Care Document ---
Author Name Unknown Organization [facility] Address [address] [place] [address]- Care Team Providers Care Front Office Representative Name Role Phone Christy WILSON, Melissa Jenkins Primary Care Physician Encounter [facility] [place] Date(s): 06/02/20 - 07/02/20 [facility] [address] [place] [id number] Allergies, Adverse Reactions, Alerts Substance Reaction Severity Status codeine Active shellfish Active Contrast Dye Anaphylaxis Active zoster vaccines Active Medications aspirin 81 mg oral delayed release tablet 81 mg, By Mouth, Daily, # 30 tablet, Refills 11, Tot. Refills 11, Maintenance, 09/11/16 9:48:21, Route to Pharmacy Electronically, [id number], [facility] 3 Start Date: 09/11/16 Stop Date: 09/06/17 Status: Ordered atorvastatin 80 mg oral tablet = 80 mg, By Mouth, Daily at bedtime, # 30 tablet, 3 Refills, Maintenance, Tablet, Route to PharmacyElectronically, [id number], [facility] 3 Start Date: 09/11/16 Stop Date: 01/09/17 Status: Ordered citalopram 40 mg oral tablet 40 mg, 1, tablet, By Mouth, Daily, # 30 tablet, Refills 0, Maintenance, 09/08/16 12:28:30 Start Date: 09/08/16 Status: Ordered gabapentin 300 mg oral capsule 300 mg, 1, capsule, By Mouth, 3 times a day, # 270 capsule, Refills 0, Maintenance, 09/08/16 12:27:57 Start Date: 09/08/16 Status: Ordered Latuda 20 mg oral tablet 1 tablet = 20 mg, By Mouth, Daily, # 30 tablet, 0 Refills, Maintenance, 05/09/19 15:38:00 EST, Tablet, [facility]/pharmacy #[id number], 188, cm, 05/09/19 14:57:00 EST, Height Start Date: 05/09/19 Status: Ordered metoprolol 25 mg oral tablet, extended release 12.5 mg, 0.5, tablet, By Mouth, Daily, pls fill for pt he is out of medication, # 45 tablet, Refills 3, Tot. Refills 3, Maintenance, 04/01/20 13:44:00 EST, Route to Pharmacy Electronically, [facility]/pharmacy #[id number], 188, cm, 05/09/19 14:57:00 EST, Height Start Date: 04/01/20 Stop Date: 03/27/21 Status: Ordered terazosin 1 mg oral capsule 1 mg, 1, capsule, By Mouth, Daily at bedtime, # 30 capsule, Refills 0, Maintenance, 09/08/16 12:28:05 Start Date: 09/08/16 Status: Ordered Problem List Condition Effective Dates Status Health Status Inform ant NSTEMI (non-ST elevated myoc ardial infarction)(Confirmed) Active CAD (coronary artery disease)(Confirmed) Active Hepatitis C(Confirmed) 1 Active 1s/p interferon treatment Social History Social History Type Response Smoking Status Former smoker; Other : quit 1988, 1.5-2ppd x 10y; entered on: 01/10/17 Sex
--- OUTSIDE RECORDS SUMMARY | 2022-09-20 16:00 | XMS_ITS | Continuity of Care Document ---
Author Name Unknown Organization [facility] Address [address] [place] [phone]- Care Team Providers Care Green Marketing Analyst Name Role Phone Christy WILSON, Melissa Jenkisn Primary Care Physician [place] [facility] [id number] Date(s): 01/16/20 - 03/14/20 [facility] [address] [place] [id number] Attending Physician: Gallito Ambriz MD Admitting Physician: Gallito Ambriz MD Referring Physician: Christy WILSON, Melissa Jenkins Allergies, Adverse Reactions, Alerts Substance Reaction Severity Status codeine Active shellfish Active Contrast Dye Anaphylaxis Active zoster vaccines Active Medications aspirin 81 mg oral delayed release tablet 81 mg, By Mouth, Daily, # 30 tablet, Refills 11, Tot. Refills 11, Maintenance, 09/11/16 9:48:21, Route to Pharmacy Electronically, [id number], [facility] 3 Start Date: 09/11/16 Stop Date: 09/06/17 Status: Ordered atorvastatin 80 mg oral tablet = 80 mg, By Mouth, Daily at bedtime, # 30 tablet, 3 Refills, Maintenance, Tablet, Route to PharmacyElectronically, [id number], [facility] 3 Start Date: 09/11/16 Stop [...] 0 Refills, Maintenance, 05/09/19 15:38:00 EST, Tablet, [facility]/pharmacy #[id number], 188, cm, 05/09/19 14:57:00 EST, Height Start Date: 05/09/19 Status: Ordered Melatonin = 20 mg, By Mouth, Daily at bedtime, 0 Refills, Maintenance, 02/13/18 12:00:35 EST Start Date: 02/13/18 Status: Ordered melatonin 3 mg oral tablet 1 tablet = 3 mg, By Mouth, Daily at bedtime, PRN for insomnia, # 60 tablet, 0 Refills, Maintenance,01/10/17 15:29:44, Tablet Start Date: 01/10/17 Status: Ordered metoprolol 25 mg oral tablet, extended release 12.5 mg, 0.5, tablet, By Mouth, Daily, # 45 tablet, Refills 3, Tot. Refills 3, Maintenance, 07/08/19 8:48:00 EDT, Route to Pharmacy Electronically, [facility]/pharmacy #[id number], 188, cm, 05/09/19 14:57:00 EST,Height Start Date: 07/08/19 Stop Date: 07/02/20 Status: Ordered terazosin 1 mg oral capsule [...]
--- OUTSIDE RECORDS SUMMARY | 2022-09-20 16:01 | XMS_ITS | Continuity of Care Document ---
Author Name Unknown Organization [facility] Address [address] [place] [address]- Care Team Providers Care Rod Puller Name Role Phone Eileen Yu MD Primary Care Physician Encounter [facility] ACCT R [id number] Date(s): 09/16/21 - 10/16/21 [facility] [address] [place] [address]- Attending Physician: Jose Tong Admitting Physician: AdmJose uriostegui Referring Physician: Jose Tong Allergies, Adverse Reactions, Alerts Substance Reaction Severity Status codeine Active shellfish Active Contrast Dye Anaphylaxis Active zoster vaccines Active Medications aspirin 81 mg oral delayed release tablet 81 mg, By Mouth, Daily, # 30 tablet, Refills 11, Tot. Refills 11, Maintenance, 09/11/16 9:48:21, Route to Pharmacy Electronically, [id number], [facility] 3 Start Date: 09/11/16 Stop Date: 09/06/17 Status: Ordered atorvastatin 80 mg oral tablet = 80 mg, By Mouth, Daily at bedtime, # 30 tablet, 3 Refills, Maintenance, Tablet, Route to PharmacyElectronically, [id number], [facility] 3 Start Date: 09/11/16 Stop [...] 0 Refills, Maintenance, 05/09/19 15:38:00 EST, Tablet, [facility]/pharmacy #2025, 188, cm, 05/09/19 14:57:00 EST, Height Start Date: 05/09/19 Status: Ordered metoprolol 25 mg oral tablet, extended release 25 mg, 1, tablet, By Mouth, Daily, # 30 tablet, Refills 11, Tot. Refills 11, Maintenance, 09/16/21 9:39:00 EDT, Route to Pharmacy Electronically, [facility]/pharmacy #[id number], 188, cm, 09/16/21 9:18:00 EDT, Height Start Date: 09/16/21 Stop Date: 09/11/22 Status: Ordered terazosin 1 mg oral capsule [...]
--- OUTSIDE RECORDS SUMMARY | 2022-09-20 16:01 | XMS_ITS | Continuity of Care Document ---
Author Name Unknown Organization [facility] Address [address] [place] [address]- Care Team Providers Care Casting Sorter Name Role Phone Christy WILSON, Melissa Jenkins Primary Care Physician Encounter [facility] Date(s): 04/22/21 - 05/22/21 [facility] [address] [place] [address]- [place] Allergies, Adverse Reactions, Alerts Substance Reaction Severity Status codeine Active shellfish Active Contrast Dye Anaphylaxis Active zoster vaccines Active Medications aspirin 81 mg oral delayed release tablet 81 mg, By Mouth, Daily, # 30 tablet, Refills 11, Tot. Refills 11, Maintenance, 09/11/16 9:48:21, Route to Pharmacy Electronically, [id number], [facility] 3 Start Date: 09/11/16 Stop Date: 09/06/17 Status: Ordered atorvastatin 80 mg oral tablet = 80 mg, By Mouth, Daily at bedtime, # 30 tablet, 3 Refills, Maintenance, Tablet, Route to PharmacyElectronically, [id number], [facility] 3 Start Date: 09/11/16 Stop [...] 0 Refills, Maintenance, 05/09/19 15:38:00 EST, Tablet, [facility]/pharmacy #[id number], 188, cm, 05/09/19 14:57:00 EST, Height Start Date: 05/09/19 Status: Ordered metoprolol 25 mg oral tablet, extended release 12.5 mg, 0.5, tablet, By Mouth, Daily, # 45 tablet, Refills 3, Tot. Refills 3, Maintenance, 07/16/20 12:09:00 EDT, Route to Pharmacy Electronically, [facility]/pharmacy #[id number], 188, cm, 06/02/20 12:16:00 EDT, Height Start Date: 07/16/20 Stop Date: 07/11/21 Status: Ordered terazosin 1 mg oral capsule [...]
--- OUTSIDE RECORDS SUMMARY | 2022-09-20 16:01 | XMS_ITS | Continuity of Care Document ---
Author Name Unknown Organization [facility] Address [address] [place] [address]- Care Team Providers Care Electronics Utility Worker Name Role Phone Eileen Yu MD Primary Care Physician Encounter [facility] [place] Date(s): 10/18/21 - 11/17/21 [facility] [address] [place] [address]- Allergies, Adverse Reactions, Alerts Substance Reaction Severity Status codeine Active shellfish Active Contrast Dye Anaphylaxis Active zoster vaccines Active Medications aspirin 81 mg oral delayed release tablet 81 mg, By Mouth, Daily, # 30 tablet, Refills 11, Tot. Refills 11, Maintenance, 09/11/16 9:48:21, Route to Pharmacy Electronically, [id number], [facility] 3 Start Date: 09/11/16 Stop Date: 09/06/17 Status: Ordered atorvastatin 80 mg oral tablet = 80 mg, By Mouth, Daily at bedtime, # 30 tablet, 3 Refills, Maintenance, Tablet, Route to PharmacyElectronically, [id number], [facility] 3 Start Date: 09/11/16 Stop [...] 0 Refills, Maintenance, 05/09/19 15:38:00 EST, Tablet, [facility]/pharmacy #2025, 188, cm, 05/09/19 14:57:00 EST, Height Start Date: 05/09/19 Status: Ordered metoprolol 25 mg oral tablet, extended release 25 mg, 1, tablet, By Mouth, Daily, # 30 tablet, Refills 11, Tot. Refills 11, Maintenance, 09/16/21 9:39:00 EDT, Route to Pharmacy Electronically, [facility]/pharmacy #[id number], 188, cm, 09/16/21 9:18:00 EDT, Height [...] 1.5-2ppd x 10y; entered on: 01/10/17 Sex Care Team Personnel Name: Eileen Yu MD Address: [address] [place] [address]
--- OUTSIDE RECORDS SUMMARY | 2022-09-20 16:01 | XMS_ITS | Continuity of Care Document ---
Author Name Unknown Organization [facility] Address [address] [place] [address]- Care Team Providers Care Incoming Freight Clerk Name Role Phone Christy WILSON, Melissa Jenkins Primary Care Physician Encounter [id number] Date(s): 02/13/20 - 03/14/20 [facility] [address] [place] [id number] Attending Physician: AdmJose uriostegui Admitting Physician: Admtr, Ar8 Referring Physician: Admtr, Ar8 Allergies, Adverse Reactions, Alerts Substance Reaction Severity Status codeine Active shellfish Active Contrast Dye Anaphylaxis Active zoster vaccines Active Medications aspirin 81 mg oral delayed release tablet 81 mg, By Mouth, Daily, # 30 tablet, Refills 11, Tot. Refills 11, Maintenance, 09/11/16 9:48:21, Route to Pharmacy Electronically, [id number], [facility] 3 Start Date: 09/11/16 Stop Date: 09/06/17 Status: Ordered atorvastatin 80 mg oral tablet = 80 mg, By Mouth, Daily at bedtime, # 30 tablet, 3 Refills, Maintenance, Tablet, Route to PharmacyElectronically, [id number], [facility] 3 Start Date: 09/11/16 Stop [...] 0 Refills, Maintenance, 05/09/19 15:38:00 EST, Tablet, [facility]/pharmacy #2025, 188, cm, 05/09/19 14:57:00 EST, [...] 07/08/19 8:48:00 EDT, Route to Pharmacy Electronically, [facility]/pharmacy #2025, 188, cm, 05/09/19 14:57:00 EST,Height [...]
--- OUTSIDE RECORDS SUMMARY | 2022-09-20 16:01 | XMS_ITS | Continuity of Care Document ---
Author Name Unknown Organization [facility] Address [address] [place] [address]- Care Team Providers Care Customer Service And Sales Consultant Name Role Phone Christy WILSON, Melissa Jenkins Primary Care Physician Encounter [facility] [place] Date(s): 06/27/21 - 07/27/21 [facility] [address] [place] [address]- Attending Physician: Jose Tong Admitting Physician: Jose Tong Referring Physician: Jose Tong Allergies, Adverse Reactions, Alerts Substance Reaction Severity Status codeine Active shellfish Active Contrast Dye Anaphylaxis Active zoster vaccines Active Medications aspirin 81 mg oral delayed release tablet 81 mg, By Mouth, Daily, # 30 tablet, Refills 11, Tot. Refills 11, Maintenance, 09/11/16 9:48:21, Route to Pharmacy Electronically, [id number], [facility] 3 Start Date: 09/11/16 Stop Date: 09/06/17 Status: Ordered atorvastatin 80 mg oral tablet = 80 mg, By Mouth, Daily at bedtime, # 30 tablet, 3 Refills, Maintenance, Tablet, Route to PharmacyElectronically, [id number], [facility] 3 Start Date: 09/11/16 Stop Date: [...] 0 Refills, Maintenance, 05/09/19 15:38:00 EST, Tablet, [facility]/pharmacy #2025, 188, cm, 05/09/19 14:57:00 EST, Height Start Date: 05/09/19 Status: Ordered metoprolol 25 mg oral tablet, extended release 12.5 mg, 0.5, tablet, By Mouth, Daily, # 15 tablet, Refills 2, Tot. Refills 2, Maintenance, 07/25/21 13:33:00 EDT, Route to Pharmacy Electronically, [facility]/pharmacy #[id number], 188, cm, 04/07/21 12:23:00 EST, Height Start Date: 07/25/21 Stop Date: 10/23/21 Status: Ordered terazosin 1 mg oral capsule [...]
--- OUTSIDE RECORDS SUMMARY | 2022-09-20 16:01 | XMS_ITS | Continuity of Care Document ---
Author Name Unknown Organization [facility] Address [address] [place] [address]- Care Team Providers Care Shaker Repairer Name Role Phone Eileen Yu MD Primary Care Physician Encounter [facility] [place] ACCT R [id number] Date(s): 09/08/21 - 10/08/21 [facility] [address] [place] [address]- [place] Allergies, Adverse Reactions, Alerts Substance Reaction Severity Status codeine Active shellfish Active Contrast Dye Anaphylaxis Active zoster vaccines Active Medications aspirin 81 mg oral delayed release tablet 81 mg, By Mouth, Daily, # 30 tablet, Refills 11, Tot. Refills 11, Maintenance, 09/11/16 9:48:21, Route to Pharmacy Electronically, [id number], [facility] 3 Start Date: 09/11/16 Stop Date: 09/06/17 Status: Ordered atorvastatin 80 mg oral tablet = 80 mg, By Mouth, Daily at bedtime, # 30 tablet, 3 Refills, Maintenance, Tablet, Route to PharmacyElectronically, [id number], [facility] 3 Start Date: 09/11/16 Stop [...] Refills, Maintenance, 05/09/19 15:38:00 EST, Tablet, [facility]/pharmacy #2025, 188, cm, 05/09/19 14:57:00 EST, Height Start Date: 05/09/19 Status: Ordered metoprolol 25 mg oral tablet, extended release 25 mg, 1, tablet, By Mouth, Daily, # 30 tablet, Refills 11, Tot. Refills 11, Maintenance, 09/16/21 9:39:00 EDT, Route to Pharmacy Electronically, [facility]/pharmacy #[id number], 188, cm, 09/16/21 9:18:00 EDT, [...]
--- OUTSIDE RECORDS SUMMARY | 2022-09-20 16:01 | XMS_ITS | Continuity of Care Document ---
Author Name Unknown Organization [facility] Address [address] [place] [address]- Care Team Providers Care Insurance Healthcare Consultant Name Role Phone Christy WILSON, Melissa Jenkins Primary Care Physician Encounter [facility]CT R [id number] Date(s): 11/06/19 - 03/05/20 [facility] [address] [place] [id number] Attending Physician: Gallito Ambriz MD Admitting Physician: Gallito Ambriz MD Referring Physician: Darshan Solis MD Allergies, Adverse Reactions, Alerts Substance Reaction Severity Status codeine Active shellfish Active Contrast Dye Anaphylaxis Active zoster vaccines Active Medications aspirin 81 mg oral delayed release tablet 81 mg, By Mouth, Daily, # 30 tablet, Refills 11, Tot. Refills 11, Maintenance, 09/11/16 9:48:21, Route to Pharmacy Electronically, [id number], [facility] 3 Start Date: 09/11/16 Stop Date: 09/06/17 Status: Ordered atorvastatin 80 mg oral tablet = 80 mg, By Mouth, Daily at bedtime, # 30 tablet, 3 Refills, Maintenance, Tablet, Route to PharmacyElectronically, [id number], [facility] 3 Start Date: 09/11/16 Stop Date: [...] 0 Refills, Maintenance, 05/09/19 15:38:00 EST, Tablet, [facility]/pharmacy #2025, 188, cm, 05/09/19 14:57:00 EST, Height [...] 07/08/19 8:48:00 EDT, Route to Pharmacy Electronically, [facility]/pharmacy #2025, 188, cm, 05/09/19 14:57:00 EST,Height Start [...]
--- OUTSIDE RECORDS SUMMARY | 2022-09-20 16:01 | XMS_ITS | Continuity of Care Document ---
Author Name Unknown Organization [facility] Address [address] [place] [id number]- Care Team Providers Care Requirements Manager Name Role Phone Christy WILSON, Meilssa Jenkins Primary Care Physician Encounter [facility] ACCT R [id number] Date(s): 01/07/20 - 03/05/20 [facility] [address] [place] [id number] Attending Physician: Gallito Ambriz MD Admitting Physician: Gallito Ambriz MD Referring Physician: Christy WILSON, Melissa Jenkins Allergies, Adverse Reactions, Alerts Substance Reaction Severity Status codeine Active shellfish Active Contrast Dye Anaphylaxis Active zoster vaccines Active Medications aspirin 81 mg oral delayed release tablet 81 mg, By Mouth, Daily, # 30 tablet, Refills 11, Tot. Refills 11, Maintenance, 09/11/16 9:48:21, Route to Pharmacy Electronically, [id number], [facility] Start Date: 09/11/16 Stop Date: 09/06/17 Status: Ordered atorvastatin 80 mg oral tablet = 80 mg, By Mouth, Daily at bedtime, # 30 tablet, 3 Refills, Maintenance, Tablet, Route to PharmacyElectronically, [id number], [facility] Start Date: 09/11/16 Stop [...] 0 Refills, Maintenance, 05/09/19 15:38:00 EST, Tablet, [facility]/pharmacy #[id number], 188, cm, 05/09/19 14:57:00 EST, [...] 07/08/19 8:48:00 EDT, Route to Pharmacy Electronically, [facility]/pharmacy #[id number], 188, cm, 05/09/19 14:57:00 EST,Height [...]
--- OUTSIDE RECORDS SUMMARY | 2022-09-20 16:01 | XMS_ITS | Continuity of Care Document ---
Author Name Unknown Organization [facility] Address [address] [place] [phone]- Care Team Providers Care Business Banker Name Role Phone Christy WILSON, Melissa Jenkins Primary Care Physician Encounter [facility] Date(s): 07/16/20 - 08/15/20 [facility] [address] [place] [id number] Allergies, Adverse Reactions, Alerts Substance Reaction Severity Status codeine Active shellfish Active Contrast Dye Anaphylaxis Active zoster vaccines Active Medications aspirin 81 mg oral delayed release tablet 81 mg, By Mouth, Daily, # 30 tablet, Refills 11, Tot. Refills 11, Maintenance, 09/11/16 9:48:21, Route to Pharmacy Electronically, [id number], [facility] Start Date: 09/11/16 Stop Date: 09/06/17 Status: Ordered atorvastatin 80 mg oral tablet = 80 mg, By Mouth, Daily at bedtime, # 30 tablet, 3 Refills, Maintenance, Tablet, Route to PharmacyElectronically, [id number], [facility] Start Date: 09/11/16 [...] Refills, Maintenance, 05/09/19 15:38:00 EST, Tablet, [facility]/pharmacy #5, 188, cm, 05/09/19 14:57:00 EST, Height Start Date: 05/09/19 Status: Ordered metoprolol 25 mg oral tablet, extended release 12.5 mg, 0.5, tablet, By Mouth, Daily, # 45 tablet, Refills 3, Tot. Refills 3, Maintenance, 07/16/20 12:09:00 EDT, Route to Pharmacy Electronically, [facility]/pharmacy #5, 188, cm, 06/02/20 12:16:00 EDT, Height Start [...]
--- OUTSIDE RECORDS SUMMARY | 2022-09-20 16:01 | XMS_ITS | Continuity of Care Document ---
Author Name Unknown Organization [facility] Address [address] [place] [phone]- Care Team Providers Care Greige Goods Marker Name Role Phone Eileen Yu MD Primary Care Physician Encounter [facility] Date(s): 02/03/22 - 03/05/22 [facility] [address] [place] [id number]- Attending Physician: Jose Tong Admitting Physician: Jose Tong Referring Physician: Jose Tong Allergies, Adverse Reactions, Alerts Substance Reaction Severity Status codeine Active shellfish Active zoster vaccines Active Contrast Dye Anaphylaxis Active Medications aspirin 81 mg oral delayed release tablet 81 mg, By Mouth, Daily, # 30 tablet, Refills 11, Tot. Refills 11, Maintenance, 09/11/16 9:48:21, Route to Pharmacy Electronically, [id number], [facility] Start Date: 09/11/16 Stop Date: 09/06/17 Status: Ordered aspirin 81 mg oral delayed [...] 3 Refills, Maintenance, Tablet, Route to PharmacyElectronically, [id number], [facility] Start Date: [...] 0 Refills, Maintenance, 05/09/19 15:38:00 EST, Tablet, [facility]/pharmacy #2025, 188, cm, 05/09/19 14:57:00 EST, Height Start Date: 05/09/19 Status: Ordered metoprolol 25 mg oral tablet, extended release 25 mg, 1, tablet, By Mouth, Daily, # 30 tablet, Refills 11, Tot. Refills 11, Maintenance, 09/16/21 9:39:00 EDT, Route to Pharmacy Electronically, [facility]/pharmacy #[id number], 188, cm, 09/16/21 9:18:00 EDT, Height Start Date: 09/16/21 Stop Date: 09/11/22 Status: Ordered terazosin 1 mg oral capsule 1 mg, 1, capsule, By Mouth, Daily at bedtime, # 30 capsule, Refills 0, Maintenance, 09/08/16 12:28:05 Start Date: 09/08/16 Status: Ordered Problem List Condition Confirmation Course Effective Dates Status Health St atus Informant NSTEMI (non-ST elevated myocardial infarction) Confirmed Active CAD (coronary artery disease) Confirmed Active Hepatitis C 1 Confirmed Active 1s/p interferon treatment Social History Social History Type Response Smoking Status Former smoker; Other : quit 1988, 1.5-2ppd x 10y; entered on: 01/10/17 Sex Note * Event Display: EKG Non BH Authored Date: * Event Display: MRI Head, Non- BH Authored Date: * Gallito Ambriz MD: PERFORM Event Display: MRI Head, Non- BH Authored Date: [id number] brain mri - no CVA * Event Display: Non BH Cardiovascular Results Authored Date: * Event Display: Non Cardiovascular Results Authored Date: Patient Care team information Care Team Personnel Name: Humera Guthrie RN Position: [facility] Hospital Statistical Assistant Member Role: Primary Care Nurse Name: Macy Monique RN Position: [facility] RN Member Role: Primary Care Nurse Name: Eileen Yu MD Position: Reference Physician Member Role: PCP Address: Address: [address] [place] [address]- Care Team Related Persons Name: COLEMAN GIRALDO Address: [address] [address]
--- OUTSIDE RECORDS SUMMARY | 2022-09-20 16:01 | XMS_ITS | Continuity of Care Document ---
Author Name Unknown Organization [facility] Address [address] [place] [id number]- Care Team Providers Care Instructional Support Assistant Name Role Phone Christy WILSON, Melissa Jenkins Primary Care Physician [place] [facility]s): 06/02/20 - 07/02/20 [facility] [address] [place] [id number] Attending Physician: Admtr, Jose Admitting Physician: Admtr, Ar8 Referring Physician: Admtr, Ar8 Allergies, Adverse Reactions, Alerts Substance Reaction Severity Status codeine Active shellfish Active Contrast Dye Anaphylaxis Active zoster vaccines Active Medications aspirin 81 mg oral delayed release tablet 81 mg, By Mouth, Daily, # 30 tablet, Refills 11, Tot. Refills 11, Maintenance, 09/11/16 9:48:21, Route to Pharmacy Electronically, [id number], [facility] Start Date: 09/11/16 Stop Date: 09/06/17 Status: Ordered atorvastatin 80 mg oral tablet = 80 mg, By Mouth, Daily at bedtime, # 30 tablet, 3 Refills, Maintenance, Tablet, Route to PharmacyElectronically, [id number], [facility] Start Date: 09/11/16 Stop Date: [...] 0 Refills, Maintenance, 05/09/19 15:38:00 EST, Tablet, [facility]/pharmacy #2025, 188, cm, 05/09/19 14:57:00 EST, Height Start Date: 05/09/19 Status: Ordered metoprolol 25 mg oral tablet, extended release 12.5 mg, 0.5, tablet, By Mouth, Daily, pls fill for pt he is out of medication, # 45 tablet, Refills 3, Tot. Refills 3, Maintenance, 04/01/20 13:44:00 EST, Route to Pharmacy Electronically, [facility]/pharmacy #[id number], 188, cm, 05/09/19 [...]
--- OUTSIDE RECORDS SUMMARY | 2022-09-20 16:01 | XMS_ITS | Continuity of Care Document ---
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 Name Role Phone Eileen Yu MD Primary Care Physician [place] [facility] 05[place]22 - 06/03/[address] [id number]- Encounter Diagnosis Altered mental status(Final) - 05/31/22 History of stroke(Final) - 05/31/22 Hypertension(Final) - 05/31/22 Discharge Disposition: A-D/C Home Attending Physician: Maicol Martinez MD Admitting Physician: Dameon Linda MD Referring Physician: Not on Staff, Referring MD Allergies, Adverse Reactions, Alerts Substance Reaction Severity Status codeine Active shellfish Active zoster vaccines Active Contrast Dye Anaphylaxis Active Immunizations Given and Recorded Vaccine Date Status Refusal Reason [id number] bivalent booster vax 01/24/22 Recorded influenza virus [...] amLODIPine 10 mg oral tablet 5 mg, Tablet, By Mouth, 06/03/22 9:00:00 EDT Start Date: 06/03/22 Stop Date: 06/03/22 Status: Completed amLODIPine 10 mg oral tablet 5 mg, 0.5, tablet, By Mouth, Daily, # 15 tablet, Refills 0, Tot. Refills 0, Maintenance, 06/03/22 9:14:00 EDT, Route to Pharmacy Electronically, [facility]/pharmacy #[id number], Partial fill upon patient request [...] 3 Refills, Maintenance, Tablet, Route to PharmacyElectronically, [id number], [facility] 3 Start Date: 09/11/16 Stop Date: 01/09/17 Status: Ordered citalopram 40 mg oral tablet 20 mg, 0.5, tablet, By Mouth, Daily, # 30 tablet, Refills 0, Maintenance, 09/08/16 12:28:30 EDT Start Date: 09/08/16 Status: Ordered divalproex sodium 500 mg oral enteric coated tablet = 500 mg, By Mouth, Every 12 hours, # 60 tablet, 0 Refills, Maintenance, 06/03/22 9:14:00 EDT, Tablet, [facility]/pharmacy #[id number], Partial fill upon patient request [...] opioid drug. Start Date: 06/03/22 Status: Ordered gabapentin 300 mg oral capsule 300 mg, Capsule, By Mouth, 06/03/22 9:00:00 EDT Start Date: 06/03/22 Stop Date: 06/03/22 Status: Completed metoprolol 25 mg oral tablet, extended release 25 mg, 1, tablet, By Mouth, Daily, # 30 tablet, Refills 11, Tot. Refills 11, Maintenance, 09/16/21 9:39:00 EDT, Route to Pharmacy Electronically, [facility]/pharmacy #[id number], 188, cm, 09/16/21 9:18:00 EDT, Height Start Date: 09/16/21 Stop Date: 09/11/22 Status: Ordered metoprolol 25 mg oral tablet, extended release 25 mg, ER Tablet, By Mouth, 06/03/22 9:00:00 EDT Start Date: 06/03/22 Stop Date: 06/03/22 Status: Completed mirtazapine 45 mg oral tablet 1 tablet [...] urinary tract symptoms Confirmed Active CAD in tuscarora artery Confirmed Active Depression Confirmed Active REBECA (generalized anxiety disorder) Confirmed Active HLD (hyperlipidemia) Confirmed Active HTN (hypertension) Confirmed Active Hepatitis C 1 Confirmed Active 1s/p interferon treatment Results Radiology Reports * Exam Date Time Procedure Performing Provider Status 06/01/22 12:[address] Head/Brain W/O Contrast Hemal Viera; Auth (Verified) Notes: (CT Head/Brain W/O Contrast) Reason For Exam: stroke cannot tolerate mri;Aphasia RESULT: CT Head/Brain W/O Contrast CT Head/Brain W/O Contrast INDICATION: Reason: Aphasia; stroke cannot tolerate mri; Clinical Question(s): Infarction; stroke evolution?; TECHNIQUE: Noncontrast head CT using axial technique and reconstructed in axial and coronal planes.Iterative reconstruction techniques are used to optimize dose and image quality. CTDIvol Head: 48.00 mGy, DLP Head: 773 mGy*cm. COMPARISON: 05/30/2022 FINDINGS: Shop Clerk view findings, lines and tubes: None. BRAIN AND EXTRA-AXIAL SPACES: No parenchymal hemorrhage, midline shift, or mass effect. Hobbs-white matter differentiation is wellpreserved. No acute infarct. Negative insular ribbon sign. Atherosclerotic vascular calcification of the carotid arteries but negative hyperdense vessel sign. Mild prominence of the ventricles and sulci consistent with parenchymal volume loss. Mild low-density white matter changes. No subarachnoid hemorrhage. No subdural or epidural collection. CALVARIUM, SKULL BASE, AND SOFT TISSUES: No fractures or suspicious bony lesions. The paranasal sinuses and mastoid air cells are clear. Visualized orbits and globes are intact. The extracranial soft tissues are unremarkable. IMPRESSION: No evidence of acute intracranial abnormality. WSN: [id number] Ordering Physician: Josef Luciano Dictated By: Archie Duran MD Dictated Date/Time: 06/01/22 12:59 p Reviewed By: Archie Duran MD Signed By: Archie Duran MD Signed Date/Time: 06/01/22 12:59 pm Transcribed By: CSBoston Transcribed Date/Time: 06/01/22 12:56 pm * Exam Date Time Procedure Performing Provider Status 05/30/22 5:06 PM Chest Portable Melvin Mills; Caitie (Ve rified) Notes: (Chest Portable) Reason For Exam: Stroke;Other: RESULT: Chest Portable Chest Portable Hx of Present Illness: from urgent care with word finding difficulties, left sided facial droop; Reason: Other:; Stroke; Clinical Question(s): CHF COMPARISON: 09/08/2016. FINDINGS: AP upright, 2 radiographs. LUNGS AND PLEURA: Clear lungs. Normal pulmonary vascularity. No pleural effusion. No pneumothorax. HEART, MEDIASTINUM AND SHYANN: Heart is normal in size. Normal mediastinal and hilar contour. BONES AND SOFT TISSUES: No acute abnormality. IMPRESSION: No acute abnormality. WSN: [id number] Ordering Physician: Nishant De La Garza Dictated By: Sandor Diaz MD Dictated Date/Time: 05/30/22 5:08 pm Reviewed By: Sandor Diaz MD Signed By: Sandor Diaz MD Signed Date/Time: 05/30/22 5:08 pm Transcribed By: BINTA Transcribed Date/Time: 05/30/22 5:07 pm * Exam Date Time Procedure Performing Provider Status 05/30/22 4:[address] Head-Hyper Acute Stroke Ly Bailey; Caitie (Verified) Notes: (CT Head-Hyper Acute Stroke) Reason For Exam: Neuro deficit, acute, stroke suspected;Other: RESULT: CT Head-Hyper Acute Stroke CT Head-Hyper Acute Stroke INDICATION: Neuro deficit, acute, stroke suspected; Clinical Question(s): Hematoma Infarction TECHNIQUE: Noncontrast head CT using axial technique and reconstructed in axial and coronal planes.Iterative reconstruction techniques are used to optimize dose and image quality. COMPARISON: None. FINDINGS: Exam is severely limited by motion artifact. In particular, the images of the lower half of the brain and the posterior fossa are essentially nondiagnostic. Shop Clerk view findings, lines and tubes: None. BRAIN AND EXTRA-AXIAL SPACES: No parenchymal hemorrhage, midline shift, or mass effect. Hobbs-white matter differentiation is wellpreserved. No acute infarct. Mild prominence of the ventricles and sulci consistent with parenchymal volume loss. Mild low-density white matter changes. No subarachnoid hemorrhage. No subdural or epidural collection. CALVARIUM, SKULL BASE, AND SOFT TISSUES: No fractures or suspicious bony lesions. The paranasal sinuses and mastoid air cells are clear. Visualized orbits and globes are intact. The extracranial soft tissues are unremarkable. IMPRESSION: No intracranial hemorrhage is identified, but the exam is severely limited due to motion artifact as above, with the inferior portion of the brain inadequately evaluated. WSN: [id number] Ordering Physician: Nishant De La Garza Dictated By: Archie Duran MD Dictated Date/Time: 05/30/22 4:39 pm Reviewed By: Archie Duran MD Signed By: Archie Duran MD Signed Date/Time: 05/30/22 4:39 pm Transcribed By: BINTA Transcribed Date/Time: 05/30/22 4:38 pm Vital Signs Most recent to oldest [Reference Range]: 1 2 3 Height 182 cm (06/02/22 8:29 PM) 182 cm (05/31/22 3:23 AM) Weight 84.9 kg (05/31/22 3:23 AM) Oxygen Saturation [94-100 %] 99 % (06/03/22 11:00 AM) 97 % (06/03/22 8:00 AM) 100 % (06/03/22 4:00 AM) Pulse Rate [55-90 bpm] 90 bpm (06/03/22 11:00 AM) 92 bpm *H* (06/03/22 9:00 AM) 92 bpm *H* (06/03/22 8:00 AM) Body Mass Index [18.5-24.99 kg/m2] 25.63 kg/m2 *H* (05/31/22 3:23 AM) Blood Pressure [90-138/55-84 mm Hg] 123/72mm Hg (06/03/22 11:00 AM) 114/56mm Hg (06/03/22 10:28 AM) 114/56mm Hg (06/03/22 9:00 AM) Respiratory Rate [16-30 br/min] 18 br/min (06/03/22 11:28 AM) 18 br/min (06/03/22 11:00 AM) 18 br/min (06/03/22 10:28 AM) Temperature [96.8-100.4 DegF] 97.8 DegF (06/03/22 11:00 AM) 98.1 DegF (06/03/22 8:00 AM) 98.4 DegF (06/03/22 4:00 AM) Mode of Delivery (Oxygen) Room air (06/03/22 11:00 AM) Room air (06/03/22 8:00 AM) Room air (06/02/22 5:00 PM) Blood pressure sites Arm, left (06/03/22 11:00 AM) Arm, left (06/03/22 8:00 AM) Arm, left (06/03/22 4:00 AM) Temperature Route Oral (06/03/22 11:00 AM) Oral (06/03/22 8:00 AM) Temporal (06/03/22 4:00 AM) Dry Weight 84.9 kg (05/31/22 3:23 AM) Social History Social History Type Response Smoking Status Former smoker; Other : quit 1988, 1.5-2ppd x 10y; entered on: 01/10/17 Sex History and physical note * Alexei SMITH, Dameon: PERFORM Event Display: History and Physical Hospital Authored Date: Patient: ??LEXUS ALCALA ? Age:??67 Years?Sex:??Male?:??1955?? Chief Complaint/Reason for Consultation Pt is coming from [facility] ,friend reported pt not acting right around 5pm yesterday. Pt w/ + facial droop , speech changes, left sided weakness. History of Present Illness 67-year-old male with past medical history significant for hepatitis C achieving sustained viral response, coronary artery disease with NSTEMI status post drug- eluting stent to distal RCA, hypertension, hyperlipidemia, BPH and depression ?? Last known well time: 5:30 PM 1 day prior to admission 10:30 AM on the day of admission, his friend found him with left-sided weakness. He was brought in urgent care where EMS was immediately activated.,?? Systolic blood pressure peaked in the 240s, POC glucose 149. ?? Acute stroke evaluation in the ER Vital signs: Afebrile, heart rate in the upper limit of normal, hypertensive with peak systolic blood pressure 191, nontachypneic, nonhypoxic Exam: Confused and agitated, aphasic, positive left facial droop His agitation cause delay in getting a CT scan.?? CT angiogram could not be performed due to a dye allergy. ?? Work-up: EKG Normal sinus rhythm Possible Left atrial enlargement Left axis deviation Left ventricular hypertrophy Abnormal ECG When compared with ECG of 10-SEP-2016 14:14, Vent. rate has increased BY?? 34 BPM T wave inversion no longer evident in Inferior leads ?? CBC: Mild leukocytosis Chemistry: Mild metabolic acidosis AST: Normal High-sensitivity troponin: 31???41 Urinalysis: Mild hematuria, no UTI ?? Chest Portable No acute abnormality. ?? CT head hyperacute Pending official read Unofficial read:limited by motion but no large acute findings (?right temporal stroke, difficult toassess??given motion) ?? Interventions performed: Labetalol 10 mg IV x2 Depakote 500 mg p.o. x1 scheduled for every 8 hours Lorazepam 1 mg IV x2 ?? Neurology was able to evaluate the patient and noted that the patient is not a TNK candidate due tobeing outside of the window. Patient admitted to [facility] ?? On my evaluation in the emergency room: Vital signs: Normal except for hypertension 175/87 Patient is currently verbal, answer simple questions, still with limited cognition,??able to followcommands She does have a left facial droop, left arm and leg weakness He is less agitated than reported.?? He is trying to get out of bed.?? When asked why, he says he is not comfortable with his current bed.?? He seemed to feel better I told him that he will have his own bed soon. Review of Systems Unable to complete a 12 point review of systems given the patient's acute??encephalopathy: Limited cognition Objective ? Vital Signs?? Temperature: 98.8 DegF (05/30/22 22:16:00) Temperature Route: Oral (05/30/22 22:16:00) Pulse Rate: 78 bpm (05/30/22 22:16:00) Respiratory Rate: 18 br/min (05/30/22 22:16:00) Systolic Blood Pressure:??175 mm Hg??High (05/30/22 22:16:00) Diastolic Blood Pressure:??87 mm Hg??High (05/30/22 22:16:00) Blood pressure sites: Arm, right (05/30/22 22:16:00) Mean Arterial Pressure: 116 mm Hg (05/30/22 22:16:00) Pulse Pressure: 88 mm Hg (05/30/22 22:16:00) Oxygen Saturation: 99 % (05/30/22 22:16:00) Mode of Delivery (Oxygen): Room air (05/30/22 22:16:00) Early Warning Score: 0 (05/30/22 22:17:26) ? Physical Exam GENERAL:?? Mildly ill-appearing, no acute cardiorespiratory distress HEAD: Normocephalic, atraumatic. EYES: No conjunctival injection. No scleral icterus.?? E. Lopez conjunctiva EARS: No tenderness, no discharge. NOSE: No asymmetry. MOUTH AND THROAT: No oral thrush.?? Moist mucous membranes NECK: No JVP elevation, No masses. Range of motion full. HEART: Regular?rate and regular rhythm, no murmurs, no clicks, no rubs , no gallops. CHEST: Symmetric with respirations. No accessory muscle use, No wheezes, crackles. ABDOMEN: Normoactive bowel sounds. No tenderness or guarding. No increase in liver or spleen size. No masses palpable. GENITOURINARY: No CV angle tenderness. No suprapubic tenderness. No Carlton catheter in place. Rectal exam is deferred. MUSCULOSKELETAL: Range of motion full in all extremities , no obvious deformity , no increased warmth , no effusion VASCULAR: All pulses brisk and equal, Capillary refill time < 2sec LYMPHATIC: No cervical, axillary or inguinal adenopathy. Skin: Dry and thin. No evidence of cellulitis, no other major skin lesions NEUROLOGIC: No deficit on gross motor and sensory exam Alert and oriented to person, place Unable to name objects Able to follow commands Left facial droop EOMs intact Pupils equal reactive to light Left upper extremity/left lower extremity positive drift: Decreased strength Right upper extremity/right lower extremity no drift: Normal strength Withdraws to noxious stimuli Psychiatric: Unable to obtain, agitated but redirectable Assessment/Plan Assessment:??67-year-old male with past medical history significant for hepatitis C achieving sustained viral response, coronary artery disease with NSTEMI status post drug-eluting stent to distal RCA, hypertension, hyperlipidemia, BPH and depression. Greater than 24 hours from his last known well time, he presents with left-sided weakness, left facial droop, aphasia and agitation ?? Stroke (I63.9):??.? Hypertensive urgency (I16.0):? Seizure (R56.9):? Admitted to [facility] with telemetry monitoring No thrombolytic interventions planned per neuro considering patient [place] window Q2h neuro monitoring and BP check for next 24 hours. Ordered MRI brain without contrast.??Ordered for 2 mg IV lorazepam premedication (may??give a second dose )?? If unable to tolerate MRI, repeat CT head in the morning Stat CT head for decline in mental function Ordered ECHO In addition to morning labs: Add lipid panel, A1c Depakote started in the ER Continue 300 mg rectal ASA Keep on aspiration precautions , Seizure precautions Keep the BP on the higher side and only to treat if systolic >180. As needed IV labetalol ordered Hold anticoagulation pending finding out stroke burden size Appreciate neurology consultation PMNR, PT,??speech consult??requested ?? CAD in tuscarora artery (I25.10):? Elevated troponin (R77.8):? Able to say that he has no chest pain EKG without evidence of acute TX Will trend troponin Echocardiogram ordered Continue aspirin ?? Leucocytosis (D72.829):? Likely reactive, without evidence of infection Continue to monitor off antimicrobials ?? Hematuria (R31.9):?? Unclear clinical significance, no evidence of UTI Continue to observe ?? HLD (hyperlipidemia) (E78.5):?? Target LDL less than 70 Continue statin, restart once??able to take p.o.'s ?? BPH without obstruction/lower urinary tract symptoms (N40.0):?? Finasteride + terazosin??restart once able to take p.o.'s ?? REBECA (generalized anxiety disorder) (F41.1):? Depression (F32.A):?? Citalopram + gabapentin + quetiapine + mirtazapine on hold but should restart once able to take p.o.'s Lorazepam??1 mg IV as needed for severe agitation ?? VTE Prophylaxis:?? Pneumoboots pending further imaging ?VTE Prophylaxis Assessment:??VTE Prophylaxis Ordered ?? Code Status:??Full code ?Order Code Status:??Code Status Ordered ?? Ongoing Medical Necessity:?? Neurology work-up ?? Discharge Planning: Anticipate at least 2 night hospital stay ?The above document was completed by performing history, physical examination, reconciling multiple medications, review of laboratory, imaging . ??All assessment and plan could not be discussed with the patient given patient encephalopathy ??This medical encounter is with multiple high complexity comorbidities requiring approximately 70 minutes to complete. ? Histories Allergies Allergies ?(Active and Proposed Allergies Only) Contrast Dye? (Severity: Unknown severity, Onset: Unknown) ?Reactions: Anaphylaxis zoster vaccines? (Severity: Unknown severity, Onset: Unknown) codeine? (Severity: Unknown severity, Onset: Unknown) shellfish? (Severity: Unknown severity, Onset: Unknown) ? Past Medical History/Problem List Active Problems??(8) BPH without obstruction/lower urinary tract symptoms CAD in tus[place]ora artery Depression REBECA (generalized anxiety disorder) Hepatitis C HLD (hyperlipidemia) HTN (hypertension) NSTEMI (non-ST elevated myocardial infarction) ? Past Surgical History No surgery history documented. ? Social History Alcohol Details:??Use: Past. ??Other: quit 1988. 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 Substance Abuse Details:??Use: Current. ??Type: Marijuana. Tobacco Details:??Former smoker, Other: quit 1988, 1.5-2ppd x 10y. ? Family History Mother: Mitral regurgitation Mat. Grandmother: CAD - Coronary artery disease ? Medications Home Medications Aspirin (aspirin 81 mg oral delayed release tablet)?81?Milligram?1?tablet?By Mouth?Daily Atorvastatin (atorvastatin 80 mg oral tablet)?80?Milligram?By Mouth?Daily at bedtime?for 30?Days Citalopram (citalopram 40 mg oral tablet)?40?Milligram?1?tablet?By Mouth?Daily Finasteride (finasteride 5 mg oral tablet)?1?tab(s)?5?Milligram?By Mouth?Daily Gabapentin (gabapentin 300 mg oral capsule)?300?Milligram?1?capsule?By Mouth?3 times a day lurasidone (Latuda 20 mg oral tablet)?1?tab(s)?20?Milligram?By Mouth?Daily Metoprolol (metoprolol 25 mg oral tablet, extended release)?25?Milligram?1?tablet?ByMouth?Daily?for 30?Days Mirtazapine (mirtazapine 45 mg oral tablet)?1?tab(s)?45?Milligram?By Mouth?Daily at bedtime Quetiapine (QUEtiapine 100 mg oral tablet)?100?Milligram?1?tablet?By Mouth?Daily at bedtime?TAKE 1 TABLET BY MOUTH EVERYDAY AT BEDTIME Terazosin (terazosin 1 mg oral capsule)?1?Milligram?1?capsule?By Mouth?Daily at bedtime ? Results ?? Test Name Test Result Date/TimeWBC 12.3 k/mm3 (High) 05/30/2022 16:45 EDT Hgb 13.8 Gm/dL 05/30/2022 16:45 EDT Hct 42.3 % 05/30/2022 16:45 EDT Platelet Count 230 k/mm3 05/30/2022 16:45 EDT Sodium 141 mmol/L 05/30/2022 16:45 EDT Potassium 5.2 mmol/L 05/30/2022 16:45 EDT Chloride 104 mmol/L 05/30/2022 16:45 EDT Bicarbonate Level 20 mmol/L (Low) 05/30/2022 16:45 EDT Anion Gap 17 05/30/2022 16:45 EDT Glucose Level 124 mg/dL (High) 05/30/2022 16:45 EDT BUN 14 mg/dL 05/30/2022 16:45 EDT Creatinine-Blood 1.0 mg/dL 05/30/2022 16:45 EDT Estimated GFR Creatinine 82 ML/MIN/1.73 M2 05/30/2022 16:45 EDT Calcium 10.0 mg/dL 05/30/2022 16:45 EDT AST (SGOT) 18 units/L 05/30/2022 16:45 EDT High Sensitivity Troponin (HSTnT) 41 ng/L (High) 05/30/2022 18:41 EDT High Sensitivity Troponin (HSTnT) 31 ng/L (High) 05/30/2022 16:45 EDT WBC's, Urine NONE SEEN 05/30/2022 18:41 EDT RBC's, Urine 26 /HPF (High) 05/30/2022 18:41 EDT Squamous Epith <1 /HPF 05/30/2022 18:41 EDT EKG study * Event Display: ECG 12-Lead Authored Date: Please click on pdf link to open report * Event Display: ECG 12-Lead Authored Date: Ventricular Rate: 88 BPM Atrial Rate: 88 BPM P-R Interval: 168 ms QRS Duration: 96 ms Q-T Interval: 376 ms QTC Calculation(Bazett): 454 ms P Campton: 56 degrees R Campton: -43 degrees T Campton: 49 degrees Normal sinus rhythm Possible Left atrial enlargement Left axis deviation Left ventricular hypertrophy Abnormal ECG When compared with ECG of 10-SEP-2016 14:14, Vent. rate has increased BY 34 BPM T wave inversion no longer evident in Inferior leads Confirmed by HUMERA KYLE ([id number]) on 05/31/2022 6:24:30 AM [place]: ANABELLA,HUMERA US Heart * Event Display: Echocardiogram - Complete Authored Date: [id number] Transthoracic Echocardiography Report (TTE) Patient Demographics Patient Name LEXUS ALCALA Date of Study 05/31/2022 Corporate Gender Male Facility Race Ethnicity Date of 1955 Height: 71.65 inches Age 67 year(s) Weight: 187.39 pounds Accession Number [id number] BSA: 2.07 m2 Room Number [id number] BMI: 25.66 kg/m2 Referring Physician Dameon Linda MD Interpreting Elzbieta Tom MD Not on Staff Physician Referring MD Mixer Helper Yeimi MARQUEZ Indications CVA. Clinical History Coronary artery disease. NSTEMI Hypertension. Hyperlipidemia. Study Data Type of Study TTE procedure:Echo Complete-Doppler, Colorflow, M-Mode. Study Date05/31/2022 Start Time: 10:16 AM Study [place] [facility] [place] Study Status: ICU/CCU Patient Status: Routine Technical Quality: Technically difficult due to patient terminated exam. Blood Pressure:164/98 mmHg EKG: Normal sinus rhythm Allergies - IV contrast dye. 2D Measurements LV Diastolic Dimension: 4.7 cm LV Systolic Dimension: 4 cm LV Septum Diastolic: 1.54 cm LV PW Diastolic: 1.66 cm AO Root Dimension: 3.6 cm LA ESV (BP):69.5 ml LA ESV Index: 34 ml/m2 LVOT: 2.4 cm Ascending Aorta:3.4 cm Doppler Measurements MV Peak E-Wave: 49.7 cm/s MV Peak A-Wave: 108 cm/s MV E/A Ratio: 0.46 MV P1/2t: 38 msec MV Deceleration Time: 129 msec E' Septal Velocity: 4.13 cm/s MV Area (PHT): 5.79 cm2 E' Lateral Velocity: 9.46 cm/s E/Med E':12.0339 E/Lat E':5.2537 Cardiac Anatomy Left Ventricle/Interventricular Septum Study is incomplete. The left ventricular size is normal. There is moderate concentric left ventricular hypertrophy. Normal LV systolic function in limited images. Ejection fraction is 55-65%. No obvious wall motion abnormalities seen on limited views. Left Atrium/Interatrial Septum The left atrium is mildly dilated. Aortic Valve The aortic valve is poorly visualized. The aortic valve appears mildly calcified. Mitral Valve The mitral valve appears mildly thickened. Aorta The ascending aorta and aortic root are normal in size. Right Ventricle The right ventricle is poorly visualized. Right Atrium The right atrium is poorly visualized. Pulmonic Valve The pulmonic valve is poorly visualized. Tricuspid Valve The tricuspid valve is poorly visualized. Pumonary Artery An accurate pulmonary artery pressure could not be obtained. Venous Structures The inferior vena cava is poorly visualized. Pericardium/Extracardiac There is a small pericardial effusion anteriorly this is not well evaluated due to limited study. Summary Study is incomplete. The left ventricular size is normal. There is moderate concentric left ventricular hypertrophy. Normal LV systolic function in limited images. Ejection fraction is 55-60%. No obvious wall motion abnormalities seen on limited views. There is a small pericardial effusion anteriorly this is not well evaluated due to limited study. Comparison Comparison is made to the study of September 08, 2016. Images not available for review. Signature * Event Display: Echocardiogram - Complete Authored Date: Hospital Progress note * Marycruz Hardwick RN: PERFORM, MODIFY, MODIFY, SIGN, VERIFY Event Display: Progress Note Hospital Authored Date: Patient: LEXUS ALCALA Age: 67 years Sex: Male : 1955 Associated Diagnoses: None Author: Marycruz Hardwick RN Findings Problem Related to Alteration in Neurological : Alteration in Neurological Function/new 06/03/2022 10:00 EDT Alteration in Neuro status Related to Acute Stroke (CVA), Other: ? PRES Syndrome Goals & Outcomes, Neurological Pt is safe with transfers & activities, Pt will be hemodynamically stable, Pt will be Neurologically stable, Pt will become pain free with appropriate intervention, Pt will maintain intact skin integrity, Pt will remain free from injury, Pt will demonstrate safe transfers Interventions, Neurological Assess/monitor neurologic status, Assess/monitor VS per unit standards & prn, Call/Report variances in assessments to provider, Collaborate w/ provider to implement appropriate guidelines, Collaborate with Nutrition, Collaborate with provider re: medication regime, Identify psychosocial issues related to diagnosis/illness, If no bowel movement in 3 days activate bowel regime, [place] alternate means of communication, Keep patient's head & body in good alignment, Maintain HOB at least 30 deg, Maintain patient safety if unsteady gait, Physical assessment per unit standards, Provide emotional support to Pt/caregiver, Assess & monitor for seizure activity BH Goals/Interventions, Neurological Yes Neurological, Problem Start 05/31/2022 19:00 Reviewed plan with, Neurological Patient Patient Progression, Neurological Pt progressing according to plan . Evaluation AO 4. Speech clear. PERRLA. Denies pain, ANTUNEZ, dizziness, visual changes, numbness, tingling. FIGUEROA 5/5. Tele 3, SR. On RA, satting 97-99%. Lungs clear. Abd SNT. LBM 03-31. Voiding in urinal. Can ambulate to BR w/ standby. Gait unsteady. Tele 3, SR. Tele removed for discharge to home. IV removed. Tip intact, dsg applied. D/C'd via wheelchair to home. Left hospital in company of family.. * Cassandra MEDINA, Vandana Hearn: SIGN, VERIFY, PERFORM Event Display: Progress Note Hospital Authored Date: [id number] Patient: LEXUS ALCALA Age: 67 years Sex: Male : 1955 Associated Diagnoses: None Author: Cassandra MEDINA, Vandana Hearn Findings Evaluation The patient is aaox4, forgetful, occasionally anxious, impulsive, voiding with assist to the bathroom, able to reposition self in bed, vss, safety maintained.. Discharge Information Rehabilitation Discharge : Rehab Discharge Index 05/31/2022 17:12 EDT Comments on treatment indicated 67yo M with h/o CAD, Hep C, PTSD per report admitted with reported left sided weakness, AMS, left droop. PT for strength, endurance, balance, and functional mobility. Rec home c services Full chart review completed Yes Hospital course Hospital course Other findings see comment Plan of care PT Gait training, Transfer training, Therapeutic exercise, Functional Activities, Balance training * Michelle SMITH, Maicol: PERFORM Event Display: Progress Note Hospital Authored Date: Patient: ??LEXUS ALCALA ? Age:??67 Years?Sex:??Male?:??1955?? Subjective ??Patient is seen and examined at the bedside Denies any chest pain or any shortness of breath Neurology team has been following up Review of Systems All systems reviewed, negative except for as mentioned above.?? Objective Vital Signs?? Temperature: 97.7 DegF (06/02/22 11:00:00) Temperature Route: Temporal (06/02/22 11:00:00) Heart Rate Monitored: 90 bpm (06/02/22 12:00:00) Respiratory Rate:??14 br/min??Low (06/02/22 12:00:00) Vented: No (06/02/22 12:00:00) Systolic Blood Pressure: 127 mm Hg (06/02/22 10:00:00) Diastolic Blood Pressure: 81 mm Hg (06/02/22 10:00:00) Blood pressure sites: Arm, left (06/02/22 06:00:00) Pulse Pressure: 46 mm Hg (06/02/22 10:00:00) Oxygen Saturation: 98 % (06/02/22 12:00:00) Mode of Delivery (Oxygen): Room air (06/02/22 12:00:00) Early Warning Score: 2 (06/02/22 15:25:15) ? Physical Exam Constitutional: Alert, in no acute distress. Mental Status: Oriented to person, place and time. Head: Normocephalic. Eyes: Pupils are equal, round and reactive to light.?? Ear, Nose and Throat: Oropharynx clear, mucous membranes moist.?? Respiratory: Clear to auscultation and percussion. No wheezing, rales or rhonchi. Cardiovascular: S1 S2 regular. No murmurs, rubs or gallops. Gastrointestinal: Abdomen soft, non-tender, non-distended. Normal bowel sounds.?? Genitourinary: No costovertebral angle tenderness. Neurologic: Cranial nerves II-XII grossly intact. No focal neurological deficits Skin: No rashes or lesions. No petechiae or purpura. Musculoskeletal: No cyanosis or clubbing. No gross deformities. Normal range of motion. No Leg edema?? _ Inpatient Medications Medications (18) Active SCHEDULED: (10) Amlodipine 5 mg Tablet (amLODIPine 10 mg oral tablet) ??7.5 mg, By Mouth, Daily Aspirin 81 mg EC Tablet (aspirin 81 mg oral delayed release tablet) ??81 mg, By Mouth, Daily Citalopram 20 mg Tablet (citalopram 20 mg oral tablet) ??20 mg, By Mouth, Daily Divalproex 500 mg Tablet (Depakote Tablet) ??500 mg, By Mouth, Every 12 hours Enoxaparin 40 mg Inj (Enoxaparin Inj) ??40 mg 0.4 mL, Subcutaneous Injection, Daily Gabapentin 300 mg Capsule (gabapentin 300 mg oral capsule) ??300 mg, By Mouth, 3 times a day Mirtazapine 15 mg Tablet (mirtazapine 15 mg oral tablet) ??45 mg, By Mouth, Daily at bedtime NaCl 0.9% Flush 3ml (NaCL 0.9% Flush) ??3 mL, IV Push, Every 8 hours Quetiapine 100 mg Tablet (QUEtiapine 100 mg oral tablet) ??100 mg, By Mouth, Daily at bedtime Terazosin 1 mg Capsule (terazosin 1 mg oral capsule) ??1 mg, By Mouth, Daily at bedtime CONTINUOUS: (1) NaCL 0.9% (1000 mL) Cont IV 1000 mL (NaCL 0.9% 1000 mL) ??1,000 mL, IV Infusion, 125 mL/hr PRN: (7) Acetaminophen 650 mg Suppository (Acetaminophen Supp) ??650 mg, Rectally, Every 4 hours Bisacodyl 10 mg Suppository (Bisacodyl Supp) ??10 mg 1 supp, Rectally, Daily Labetalol 5 mg/mL Inj (20 mL) (Labetalol Inj) ??10 mg, IV Push Slowly, Every 4 hours Lorazepam 2 mg Inj Syringe (LORazepam Inj) ??1 mg, IV Push Slowly, Every 4 hours Lorazepam 2 mg Inj Syringe (Ativan Inj) ??1 mg, IV Push Slowly, Once NaCl 0.9% Flush 3ml (NaCL 0.9% Flush) ??3 mL, IV Push, Every 8 hours Ondansetron 2mg/mL Inj (2mL Vial) (Ondansetron Inj) ??4 mg, IV Push, Every 6 hours ? Results Abnormal Labs ?? BLOOD COUNT & DIFF ??Abs. Imm Gran ??0.0 k/mm3 () ??06/02/2022 05:49 ??Abs. NRBC ??0.0 k/mm3 () ??06/02/2022 05:49 ??Hgb ??13.4 Gm/dL (Low) ??06/02/2022 05:49 ??Imm Gran ??0.3 % () ??06/02/2022 05:49 ??Lymph % ??13.9 % (Low) ??06/02/2022 05:49 ??MCH ??26.7 pg (Low) ??06/02/2022 05:49 ??MCHC ??32.0 g/dL (Low) ??06/02/2022 05:49 ??MPV ??9.0 femtoliters (Low) ??06/02/2022 05:49 ??Nucleated RBC (Automated) ??0.0 #/100 WBC'S () ??06/02/2022 05:49 ??RDW-SD ??44.2 femtoliters () ??06/02/2022 05:49 ? CARDIAC ??CK, Total ??646 units/L (High) ??06/02/2022 05:49 ? CHEM GENERAL ??Bicarbonate Level ??21 mmol/L (Low) ??06/02/2022 05:49 ??Chloride ??108 mmol/L (High) ??06/02/2022 05:49 ??Creatinine-Blood ??1.4 mg/dL (High) ??06/02/2022 05:49 ??Estimated GFR Creatinine ??53 ML/MIN/1.73 M2 () ??06/02/2022 05:49 ??Magnesium ??2.5 mg/dL (High) ??06/02/2022 05:49 ? Note: Critical results are displayed in red. ? Assessment/Plan Diagnoses Altered mental status ??(R41.82) History of stroke ??(Z86.73) Hypertension ??(I10) 1. ??Stroke ??(I63.9) 2. ??Hypertensive urgency ??(I16.0) 3. ??Seizure ??(R56.9) 4. ??CAD in [place] artery ??(I25.10) 5. ??Elevated troponin ??(R77.8) 6. ??Leucocytosis ??(D72.829) 7. ??Hematuria ??(R31.9) 8. ??HLD (hyperlipidemia) ??(E78.5) 9. ??BPH without obstruction/lower urinary tract symptoms ??(N40.0) 10. ??REBECA (generalized anxiety disorder) ??(F41.1) 11. ??Depression ??(F32.A) ?? 67-year-old male with medical history significant for HTN, HLD, CAD (not on antiplatelets per EMS records), Hep C, NSTEMI, PSTD, and??prostate cancer, who presented??05/30??for evaluation of left weakness, confusion/agitation, and word finding difficulty.??LKW 5:30 PM 05/29?? NIHSS 10.?? CT Head?? non-acute,??though it was??limited by motion (?Right temporal hypodensity).?? OOW for TNK. ECHO demonstrating moderate concentric LV hypertrophy. LVEF: 55-65%. Left atrium mildly dilated. Small pericardial effusion. Neurology team is following up. ? PRES -??hypertensive encephalopathy Need to rule out stroke, Seizure.?? No neuro deficit. Has orthostatic hypotension. Initial CT head and repeat CT head 06/01??negative Patient not able to tolerate MRI Pendin ?? Target SBP less than 160 Continue aspirin, home??atorvastatin Decrease Depakote to 500 mg twice daily?? Reduce Celexa to 20 mg for??suspicion for serotonin syndrome Because of orthostatic hypotension, will give some IV fluid Follow-up with the neurology team for further recommendation Continue neuro checks every 2 hourly for now in the [facility] STAT CT Head for any acute changes Stroke education?? Continue to control??vascular risks: A1c <7.0/ Statin therapy for LDL >70 or >100 with only one vascular risk. prison BP control Follow up with Dr. Luciano? TELEMED ??06/27/22 AT 3PM ? Acute kidney injury We will give some IV fluid Encourage oral hydration Continue to monitor lites, renal function Adjustment of medication per renal function ?? PTSD/Anxiety Seroquel, Celexa and mirtazapine Reduced??dose of Celexa If tolerated may increase gabapentin back to 600 mg dose tomorrow and add back Latuda, QTc 454 ms ?? Mild neutrophilic leukocytosis Improving clinically no evidence of sepsis or infection, can be reactive, monitor for now ?? HTN, uncontrolled Amlodipine with IV labetalol prn to keep SBP<160 mmHg ?? CAD s/p HANNAH to RCA ASA and statin, recent stress test showed old infarction without ischemia ?? BPH Microscopic hematuria Outpatient workup, add CK to rule out other source of hemo-/myoglobinuria ? VTE Prophylaxis:??Lovenox Code Status:??Full Ongoing Medical Necessity:??EYAL, medication adjustment. Dispo: Pending PT, EYAL. ??Likely discharge in next 24 to 48 hours ? (This document has been dictated using Ph[employer] dictation software. Please do not hesitate to contactthe author for clarification of any unintentional errors should it be needed.) ? Note * Marycruz Hardwick RN: PERFORM Event Display: Discharge/Transfer Note Hospital Authored Date: [id number] Nursing Discharge Note Entered On: 06/03/2022 16:59 EDT Performed On: 06/03/2022 13:00 EDT by Marycruz Hardwick RN Nursing Discharge Note 2 Discharge Time : 06/03/2022 12:59 EDT Discharge Level of Care at Discharge : Home/Long-Term/Foster Care Patient Left Unit Via : Wheelchair Patient Accompanied Off Unit with : Responsible adult DC Instructions Provided & Signed by Pt : Yes Patient Understands D/C Instructions : Yes Patient Instructions Discharge Signed : Yes Did Pt have Specialty Bed or Wound Vac : No Mulu MEDINA, Marycruz - 06/03/2022 16:59 EDT * Maicol Martinez MD: PERFORM Event Display: Discharge/Transfer Note Hospital Authored Date: [id number] Patient: ??LEXUS ALCALA ? Age:??67 Years?Sex:??Male?:??1955?? Patient Information Discharge Location: A Primary Care Physician: Eileen Yu MD Admit Date/Time: 05/30/22 19:40 Discharge Disposition Discharge Disposition: Home with Home Health Discharge Diagnosis Stroke (I63.9) Hypertensive urgency (I16.0) Seizure (R56.9) CAD in [place] artery (I25.10) Elevated troponin (R77.8) Leucocytosis (D72.829) Hematuria (R31.9) HLD (hyperlipidemia) (E78.5) BPH without obstruction/lower urinary tract symptoms (N40.0) REBECA (generalized anxiety disorder) (F41.1) Depression (F32.A) Altered mental status (R41.82) History of stroke (Z86.73) Hypertension (I10) _ Discharge Medications Amlodipine (amLODIPine 10 mg oral tablet)?5?Milligram?0.5?tablet?By Mouth?Daily?for 30?Days Aspirin (aspirin 81 mg oral delayed release tablet)?81?Milligram?1?tablet?By Mouth?Daily Atorvastatin (atorvastatin 80 mg oral tablet)?80?Milligram?By Mouth?Daily at bedtime?for 30?Days Citalopram (citalopram 40 mg oral tablet)?20?Milligram?0.5?tablet?By Mouth?Daily Divalproex Sodium (divalproex sodium 500 mg oral enteric coated tablet)?500?Milligram?By Mouth?Every 12 hours?for 30?Days Gabapentin (gabapentin 300 mg oral capsule)?300?Milligram?1?capsule?By Mouth?3 times a day Metoprolol (metoprolol 25 mg oral tablet, extended release)?25?Milligram?1?tablet?ByMouth?Daily?for 30?Days Mirtazapine (mirtazapine 45 mg oral tablet)?1?tab(s)?45?Milligram?By Mouth?Daily at bedtime Quetiapine (QUEtiapine 100 mg oral tablet)?100?Milligram?1?tablet?By Mouth?Daily at bedtime ? Quality Measures Stroke Quality Measures:?? Medications Started Amlodipine (amLODIPine 10 mg oral tablet)?5?Milligram?0.5?tablet?By Mouth?Daily?for 30?Days Divalproex Sodium (divalproex sodium 500 mg oral enteric coated tablet)?500?Milligram?By Mouth?Every 12 hours?for 30?Days ?? Medications Discontinued Latuda Doses Changed Citalopram (citalopram 40 mg oral tablet)?20?Milligram?0.5?tablet?By Mouth?Daily Gabapentin (gabapentin 300 mg oral capsule)?300?Milligram?1?capsule?By Mouth?3 times a day Future Appointments Sunday 3:00 PM EDT ?? With: Josef Luciano MD Where: [facility] Neurology [address] [facility] [address] Floor, [address] [place] [phone] Objective 67-year-old male with medical history significant for HTN, HLD, CAD (not on antiplatelets per EMS records), Hep C, NSTEMI, PSTD, and??prostate cancer, who presented??05/30??for evaluation of left weakness, confusion/agitation, and word finding difficulty.??LKW 5:30 PM 05/29?? NIHSS 10.?? CT Head?? non-acute,??though it was??limited by motion (?Right temporal hypodensity).?? OOW for TNK. ECHO demonstrating moderate concentric LV hypertrophy. LVEF: 55-65%. Left atrium mildly dilated. Small pericardial effusion. Neurology team evaluated during hospital stay. ? PRES -??hypertensive encephalopathy Suspected seizure Suspected serotonin syndrome No neuro deficit. Had orthostatic hypotension. Received IV fluid, now improved. Initial CT head and repeat CT head 06/01??negative Patient not able to tolerate MRI ?? Continue aspirin, home??atorvastatin Depakote 500 mg twice daily?? Reduced Celexa to 20 mg, stopped Latuda??for??suspicion for serotonin syndrome Stroke education?? Continue to control??vascular risks: A1c <7.0/ Statin therapy for LDL >70 or >100 with only one vascular risk. 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 Luciano? TELEMED ??06/27/22 AT 3PM ? Acute kidney injury Patients baseline s. creatinine is around 1-1.1. Had S. creatinine of 1.4. Stable now. Encourage oral hydration PLEASE MONITOR RENAL FUNCTION?? OUTPATIENT. ?? PTSD/Anxiety Seroquel, Celexa and mirtazapine Reduced??dose of Celexa ?? Mild neutrophilic leukocytosis Improved. ?? HTN, uncontrolled Home Metoprolol XL 25 mg Added on Amlodipine 5 mg Please monitor BP as outpatient and adjust BP meds as needed ?? CAD s/p HANNAH to RCA ASA and statin, recent stress test showed old infarction without ischemia ?? BPH Microscopic hematuria Outpatient work-up Continue home finasteride Measurements?? Height: 182 cm (06/02/22) Weight: 84.9 kg (05/31/22) Dry Weight: 84.9 kg (05/31/22) Body Mass Index:??25.63 kg/m2??High (05/31/22) ? Vital Signs?? Temperature: 98.4 DegF (06/03/22 04:00:00) Temperature Route: Temporal (06/03/22 04:00:00) Pulse Rate: 77 bpm (06/03/22 04:00:00) Heart Rate Monitored: 90 bpm (06/02/22 12:00:00) Respiratory Rate: 18 br/min (06/03/22 04:00:00) Vented: No (06/02/22 12:00:00) Systolic Blood Pressure: 128 mm Hg (06/03/22 04:00:00) Diastolic Blood Pressure: 74 mm Hg (06/03/22 04:00:00) Blood pressure sites: Arm, left (06/03/22 04:00:00) Mean Arterial Pressure: 99 mm Hg (06/02/22 20:29:00) Pulse Pressure: 36 mm Hg (06/02/22 20:29:00) Oxygen Saturation: 100 % (06/03/22 04:00:00) Mode of Delivery (Oxygen): Room air (06/02/22 17:00:00) Early Warning Score: 0 (06/03/22 05:06:06) ? . Physical Exam Constitutional: Alert, in no acute distress. Mental Status: Oriented to person, place and time. Head: Normocephalic. Eyes: Pupils are equal, round and reactive to light.?? Ear, Nose and Throat: Oropharynx clear, mucous membranes moist.?? Neck: Supple, Full range of motion. Respiratory: Clear to auscultation and percussion. No wheezing, rales or rhonchi. Cardiovascular: S1 S2 regular. No murmurs, rubs or gallops. Gastrointestinal: Abdomen soft, non-tender, non-distended. Normal bowel sounds.?? Genitourinary: No costovertebral angle tenderness. Neurologic: Cranial nerves II-XII grossly intact. No focal neurological deficits Moves all extremities spontaneously. Sensation intact bilaterally. Skin: No rashes or lesions. No petechiae or purpura. Musculoskeletal: No cyanosis or clubbing. No gross deformities. Normal range of motion. No Leg edema?? Consultants Neurology team Pending Results Add On Lab Order ordered on 05/31/2022 Add On Lab Order ordered on 06/01/2022 Cannabinoid Urine Screen ordered on 05/31/2022 Cocaine Urine Screen ordered on 05/31/2022 Opiate Screen Urine ordered on 05/31/2022 Patient Education Titles Valproate Delayed Release Oral Tablet?? Amlodipine Oral Tablet?? The F.A.S.T. Way to Diagnose a Stroke?? Anatomy of the Brain?? Altered Level of Consciousness?? Follow-Up Appointments Added Follow Up ?Time Frame ?Comments Eileen Yu?1 week Josef Luciano?06/27/2022 15:00?PHONE FOLLOW UP-MD WILL CALL YOU-PLEASE DO NOT COME TO THE OFFICE Patient Instructions During this hospitalization you were??treated for: Suspected seizure Suspected serotonin syndrome ? You will go home with the following NEW medications: Amlodipine (amLODIPine 10 mg oral tablet)?5?Milligram?0.5?tablet?By Mouth?Daily?for 30?Days Divalproex Sodium (divalproex sodium 500 mg oral enteric coated tablet)?500?Milligram?By Mouth?Every 12 hours?for 30?Days ? The following medications were CHANGED : ??Citalopram (citalopram 40 mg oral tablet)?20?Milligram?0.5?tablet?By Mouth?Daily Gabapentin (gabapentin 300 mg oral capsule)?300?Milligram?1?capsule?By Mouth?3 times a day? The following medications were?? STOPPED: ??Latuda ? Activity changes: -?As tolerated. ? Who to follow up with after being discharged from the hospital: -??Please follow up at your primary??care doctor's office in 1 week. Please make appointment with the clinic. - Please follow up with neurologist as outpatient. Please follow-up as scheduled. - Please?? ask your primary care provider??to check your kidney function as outpatient. - I have sent prescription for medications??for??1 month, please??ask your provider to send prescription for further refill as appropriate. ?? Reasons to immediately return to the emergency room or call 911: - You pass out or faint. - You develop any acute weakness or numbness in any part of the body. - You develop any acute??speech difficulty, swallowing problem,??vision problem.?? - You have any other concerns that you think require emergency management. Post Discharge Care Diet: Cardiac diet Code Status: ?? Full Resuscitation Discharge ?06/03/22 9:26:00 EDT Discharge Prescriptions ?ePrescribed, ??06/03/22 9:26:00 EDT Home Health Face to Face *Denotes mandatory marin ?? *I certify that this patient is under my care and that I or an allowed non- physician working with me had a face to face encounter with the patient on this date:??06/03/2022 09:26 ?? *The encounter with the patient was in whole, or in part, for the following medical condition, which is the primary diagnosis(es) for home health care:??Stroke (I63.9) Hypertensive urgency (I16.0) Seizure (R56.9) CAD in [place] artery (I25.10) Elevated troponin (R77.8) Leucocytosis (D72.829) Hematuria (R31.9) HLD (hyperlipidemia) (E78.5) BPH without obstruction/lower urinary tract symptoms (N40.0) REBECA (generalized anxiety disorder) (F41.1) Depression (F32.A) Altered mental status (R41.82) History of stroke (Z86.73) Hypertension (I10) ? *Select the indications for the discipline/s that are being arranged for this patient. Nursing (select all that apply): [_] None [_] Medication management (reconciliation, teaching)?? [_] Chronic disease management?? [_] Wound care and treatment?? [_] Home safety evaluation [_] Administer SQ/IM/IV medications?? [_] Cath care?? [_] Drain care?? [_] Trach or GT care?? Other _ Occupation Therapy (select all that apply): [_] None [_] ADL Management [_] Fall prevention training [_] Energy conservation [_] Cognitive training Other _ Physical Therapy (select all that apply): [_] None [_] Functional mobility training [_] Home exercise program to strengthen [_] Increase ROM?? [x_] Falls prevention training [x_] Home maintenance program for chronic disease Other _ Speech Therapy (select all that apply): [_] None [_] Swallow evaluation and training [_] Speech and language training [_] Cognitive training to process, organize, and/or recall information Other _ ?? *Homebound due to (select all that apply): [x_] Inability to leave home without assistance/supervision [x_] Inability to ambulate without assistance [_] Pain [_] Decreased strength and endurance [_] Unsteady gait [_] Severe SOB and fatigue [_] Impaired transfers [_] Inability to negotiate stairs [_] Limited weight bearing [_] Mental status change? *Physician Signature: Maicol Martinez MD? Results Discharge Labs BLOOD BANK Blood Type A Positive ()?? 05/30/2022 16:11 Antibody Screen Negative ()?? 05/30/2022 16:11 ?? BLOOD COUNT & DIFF WBC 9.1 k/mm3 ()?? 06/02/2022 05:49 RBC 5.01 m/mm3 ()?? 06/02/2022 05:49 Hgb 13.4 Gm/dL (Low)?? 06/02/2022 05:49 Hct 41.9 % ()?? 06/02/2022 05:49 MCV 83.6 femtoliters ()?? 06/02/2022 05:49 MCH 26.7 pg (Low)?? 06/02/2022 05:49 MCHC 32.0 g/dL (Low)?? 06/02/2022 05:49 Platelet Count 178 k/mm3 ()?? 06/02/2022 05:49 RDW-SD 44.2 femtoliters ()?? 06/02/2022 05:49 MPV 9.0 femtoliters (Low)?? 06/02/2022 05:49 Nucleated RBC (Automated) 0.0 #/100 WBC'S ()?? 06/02/2022 05:49 Abs. NRBC 0.0 k/mm3 ()?? 06/02/2022 05:49 Abs. Neut 6.7 k/mm3 ()?? 06/02/2022 05:49 Abs. Lymph 1.3 k/mm3 ()?? 06/02/2022 05:49 Abs. [place] 0.9 k/mm3 ()?? 06/02/2022 05:49 Abs. Eo 0.1 k/mm3 ()?? 06/02/2022 05:49 Abs. Baso 0.0 k/mm3 ()?? 06/02/2022 05:49 Neut % 73.9 % ()?? 06/02/2022 05:49 Lymph % 13.9 % (Low)?? 06/02/2022 05:49 [place] % 10.3 % ()?? 06/02/2022 05:49 Eos % 1.2 % ()?? 06/02/2022 05:49 Baso % 0.4 % ()?? 06/02/2022 05:49 Imm Gran 0.3 % ()?? 06/02/2022 05:49 Abs. Imm Gran 0.0 k/mm3 ()?? 06/02/2022 05:49 ?? CARDIAC CK, Total 646 units/L (High)?? 06/02/2022 05:49 CK MB Confirmation - Quant 13.0 ng/mL (High)?? 06/01/2022 07:36 High Sensitivity Troponin (HSTnT) 35 ng/L (High)?? 05/31/2022 01:39 ? CHEM GENERAL Sodium 139 mmol/L ()?? 06/03/2022 00:18 Potassium 3.6 mmol/L ()?? 06/03/2022 00:18 Chloride 105 mmol/L ()?? 06/03/2022 00:18 Bicarbonate Level 19 mmol/L (Low)?? 06/03/2022 00:18 Anion Gap 15 ()?? 06/03/2022 00:18 Glucose Level 96 mg/dL ()?? 06/01/2022 07:36 Glucose, POC 133 mg/dL (High)?? 05/30/2022 16:09 Hemoglobin A1C (Monitoring) 5.9 % (High)?? 05/31/2022 05:39 BUN 28 mg/dL (High)?? 06/01/2022 07:36 Creatinine-Blood 1.4 mg/dL (High)?? 06/03/2022 00:18 Estimated GFR Creatinine 55 ML/MIN/1.73 M2 ()?? 06/03/2022 00:18 Calcium 9.4 mg/dL ()?? 06/01/2022 07:36 Phosphorus 4.1 mg/dL ()?? 06/02/2022 05:49 Magnesium 2.5 mg/dL (High)?? 06/02/2022 05:49 Protein, Total 6.9 Gm/dL ()?? 06/01/2022 07:36 Albumin 4.6 Gm/dL ()?? 06/01/2022 07:36 AG Ratio 2.0 ()?? 06/01/2022 07:36 Alkaline Phosphatase 63 units/L ()?? 06/01/2022 07:36 AST (SGOT) 46 units/L (High)?? 06/01/2022 07:36 ALT (SGPT) 16 units/L ()?? 06/01/2022 07:36 Bilirubin, Total 0.6 mg/dL ()?? 06/01/2022 07:36 ? LIPID STUDIES Cholesterol 132 mg/dL ()?? 05/31/2022 05:42 Triglycerides 107 mg/dL ()?? 05/31/2022 05:42 HDL Cholesterol 34 mg/dL (Low)?? 05/31/2022 05:42 LDL Cholesterol 77 mg/dL ()?? 05/31/2022 05:42 Non HDL Cholesterol 98 mg/dL ()?? 05/31/2022 05:42 ? TOXICOLOGY/TDM Valproic Level 71.4 mg/L ()?? 06/01/2022 07:36 ? UA/URINALYSIS Appear/Color, Urine YELLOW ()?? 05/30/2022 18:41 Specific [place], Urine 1.027 ()?? 05/30/2022 18:41 pH, Urine 6.5 ()?? 05/30/2022 18:41 Albumin, Urine 2+ (Abnormal)?? 05/30/2022 18:41 Glucose, Urine TRACE (Abnormal)?? 05/30/2022 18:41 Ketones, Urine 3+ (Abnormal)?? 05/30/2022 18:41 Bilirubin, Urine NEGATIVE ()?? 05/30/2022 18:41 Hemoglobin, Urine 2+ (Abnormal)?? 05/30/2022 18:41 Nitrite, Urine NEGATIVE ()?? 05/30/2022 18:41 Leukocyte, Urine NEGATIVE ()?? 05/30/2022 18:41 Urobilinogen NORMAL mg/dL ()?? 05/30/2022 18:41 WBC's, Urine NONE SEEN /HPF ()?? 05/30/2022 18:41 RBC's, Urine 26 /HPF (High)?? 05/30/2022 18:41 Squamous Epith <1 /HPF ()?? 05/30/2022 18:41 Mucus SLIGHT /LPF ()?? 05/30/2022 18:41 Hold Urine Culture Testing available 48 hours from time of collection. ()?? 05/30/2022 18:41 ?? VIROLOGY COVID-19 by RT-PCR NEGATIVE ()?? 05/30/2022 22:11 COVID-19 PCR Specimen Source NASAL ()?? 06/01/2022 05:35 COVID-19 PCR Result NEGATIVE ()?? 06/01/2022 05:35 ? Microbiology ?? COVID-19 (Novel Coronavirus), Rapid PCR?? Completed?? Source: Nasal Body Site: Nose Collected Dt/Tm: 05/30/2022 19:37 Last Updated Dt/Tm: 05/31/2022 00:01 COVID-19 (2019 Novel Coronavirus) PCR?? Completed?? Source: Nasal Body Site: Nose Collected Dt/Tm: 06/01/2022 05:35 Last Updated Dt/Tm: 06/01/2022 14:35 ? 35 minutes spent on discharge * Marycruz Hardwick RN: PERFORM Event Display: Patient Education/Instruction Authored Date: [id number] Inpatient Adult Discharge Instructions [address] [address] Name: LEXUS ALCALA : 1955 Visit: 05/30/2022 19:40:00 Current Date: 06/03/2022 12:13 Account: [id number] Inpatient Adult Discharge Instructions We would like to thank you for allowing us to assist you with your healthcare needs. The following includes patient education materials and information regarding your injury/illness. Our entire staffstrives to provide an excellent experience for our patients and their families. PLEASE ENSURE YOU FOLLOW-UP PER THE INSTRUCTIONS BELOW! ?? YOUR OPINION IS IMPORTANT TO US! Please complete the survey you may receive by mail or email. Your feedback will be used to make improvements to the healthcare experiences of our patients and their families. Surveys are administered by [employer] ?? If further treatment with your primary care physician or another doctor is recommended, it is important for you to keep the appointment. Call your primary care physician or return to the Emergency Department immediately if your condition worsens, fails to improve, or new symptoms develop. If you need to find a doctor, you can call [facility] for a referral at [phone] or toll free at [phone] or log in to [email or web address].. ?? You can view and manage your care through the patient portal or by using a health care bogdan of your choosing. [employer] is a website that allows you to securely view your medical information including your hospital discharge summary, office visit summaries, medications and follow-up visits. You can also request appointments, renew medications, and request access to your medical information using a health care bogdan of your choosing, or just ask a question. You can enroll at [email or web address] or register during your next office visit. You have been discharged from [facility], Patient Care Unit: D5A. If you have any questions regarding these instructions after you leave, please call us and we will be happy to assist you. [facility] Your Care Team Attending Physician Michelle SMITH, Maicol Consulting Providers Aleena SMITH, Lalito; Ayden SMITH, Miya; Lee SMITH, Jude Pavon MD, Maxine Discharging Providers Michelle SMITH, Maicol Reason for Admission Stroke Your Diagnosis Stroke Hematuria Hypertensive urgency Seizure Leucocytosis Elevated troponin CAD in tus[place] artery HLD (hyperlipidemia) BPH without obstruction/lower urinary tract symptoms Depression REBECA (generalized anxiety disorder) Altered mental status History of stroke Hypertension Tests Performed Below is a partial list of the tests performed during your hospitalization. You may have had other tests and procedures not included in this list. Please discuss all test results with your provider. ALT AST Basic Metabolic Panel BUN CBC CBC w/ Differential CK (CREATINE KINASE) CK Total Only CKMB CONFIRMATION/QUANT Comprehensive Metabolic Panel COVID-19 (2019 Novel Coronavirus) PCR COVID-19 (Novel Coronavirus), Rapid PCR Creatinine Electrolytes GLUCOSE POC Hemoglobin A1c, (Diagnostic) High??Sensitivity??Troponin T Lipid Panel Magnesium Level Phosphorus Level Troponin T, High Sensitivity Type and Screen Urinalysis w/hold for Urine Culture Valproic Acid Level CT Head-Hyper Acute Stroke CT Head/Brain W/O Contrast XR Chest Portable Primary Care Provider Eileen Yu MD Advance Directive Health Care Proxy on File No Patient refuses to discuss Discharge Vitals Temperature: 98.1 DegF Height: 182 cm Pulse Rate:??92 bpm??High Weight: 84.9 kg Respiratory Rate: 18 br/min Body Mass Index:??25.63 kg/m2??High Systolic Blood Pressure: 114 mm Hg Body surface area: 2.07 Diastolic Blood Pressure: 56 mm Hg ?? Oxygen Saturation: 97 % ?? Studies Pending All tests and labs ordered during this hospital stay have been completed unless listed below. Please discuss all pending results with your provider listed above in these instructions. ?? Add On Lab Order Cannabinoid Urine Screen Cocaine Urine Screen Opiate Screen Urine What to do next Instructions From Your Doctor During this hospitalization you were??treated for: Suspected seizure Suspected serotonin syndrome ? You will go home with the following NEW medications: Amlodipine (amLODIPine 10 mg oral tablet)?5?Milligram?0.5?tablet?By Mouth?Daily?for 30?Days Divalproex Sodium (divalproex sodium 500 mg oral enteric coated tablet)?500?Milligram?By Mouth?Every 12 hours?for 30?Days ? The following medications were CHANGED : ??Citalopram (citalopram 40 mg oral tablet)?20?Milligram?0.5?tablet?By Mouth?Daily Gabapentin (gabapentin 300 mg oral capsule)?300?Milligram?1?capsule?By Mouth?3 times a day? The following medications were?? STOPPED: ??Latuda ? Activity changes: -?As tolerated. ? Who to follow up with after being discharged from the hospital: -??Please follow up at your primary??care doctor's office in 1 week. Please make appointment with the clinic. - Please follow up with neurologist as outpatient. Please follow-up as scheduled. - Please?? ask your primary care provider??to check your kidney function as outpatient. - I have sent prescription for medications??for??1 month, please??ask your provider to send prescription for further refill as appropriate. ?? Reasons to immediately return to the emergency room or call 911: - You pass out or faint. - You develop any acute weakness or numbness in any part of the body. - You develop any acute??speech difficulty, swallowing problem,??vision problem.?? - You have any other concerns that you think require emergency management. Discharge Orders Diet:??Cardiac diet Code Status:?? Full Resuscitation Scheduled Follow-Up Appointments Sunday 3:00 PM EDT ?? With: Josef Luciano MD Where: [facility] [address] [facility] 3rd Floor, [address] [place] [id number]- You Need to Schedule the Following Appointments Follow Up with??Josef Luciano When??06/27/2022 03:00 PM EDT Why: PHONE FOLLOW UP- WILL CALL YOU-PLEASE DO NOT COME TO THE OFFICE Follow Up with??Eileen Yu When??Within 1 week Where: [address] [place], [place] [id number]- Business (1) Discharge Medications LEXUS ALCALA :1955 Visit Date:05/30/2022 Medications: Please continue your medications until treatment is completed or stopped by your provider. Medications not listed below should be discontinued. Discuss any questions related to medications with your provider. What How Much When Instructions Next Dose New Amlodipine (amLODIPine 10 mg oral tablet) 0.5 tab(s) Oral Daily Duration: 30 Days Pickup at [facility]/pharmacy #[id number] 06-04-22 9AM New Divalproex Sodium (divalproex sodium 500 mg oral enteric coated tablet) 500 Milligram Oral Every 12 hours Duration: 30 Days Pickup at [facility]/pharmacy #[id number] 06-03-22, 9PM Changed Aspirin (aspirin 81 mg oral delayed release tablet) 1 tab(s) Oral Daily 06-04-22 9AM Changed Citalopram (citalopram 40 mg oral tablet) 0.5 tab(s) Oral Daily 06-04-22 9AM Changed Quetiapine (QUEtiapine 100 mg oral tablet) 1 tab(s) Oral Daily at Bedtime 06-03-22, 9PM Unchanged Atorvastatin (atorvastatin 80 mg oral tablet) 80 Milligram Oral Daily at Bedtime Duration: 30 Days 06-03-22 9PM Unchanged Gabapentin (gabapentin 300 mg oral capsule) 1 capsule Oral 3 times a day 06-03-22, 3PM Unchanged Metoprolol (metoprolol 25 mg oral tablet, extended release) 1 tab(s) Oral Daily Duration: 30 Days 06-04-22, 9AM Unchanged Mirtazapine (mirtazapine 45 mg oral tablet) 1 tab(s) Oral Daily at Bedtime 06-03-22, 9PM Pharmacy Information [facility]/pharmacy #[id number]: [address], [place] [id number] [phone] ?? What How Much When Comments Stop Taking Finasteride (finasteride 5 mg oral tablet) 1 tab(s) Oral Daily Stop Taking lurasidone (Latuda 20 mg oral tablet) 1 tab(s) Oral Daily Stop Taking Terazosin (terazosin 1 mg oral capsule) 1 capsule Oral Daily at Bedtime Test Results Below is a partial list of the most recent Laboratory test results done prior to this discharge. You may have had other tests and procedures not included in this list. Please discuss all test resultswith your provider. ALT (05/31/2022) ???ALT (SGPT) - 10 units/L AST (05/31/2022) ???AST (SGOT) - 40 units/L Basic Metabolic Panel (05/30/2022) ???Sodium - 141 mmol/L???Potassium - 5.2 mmol/L???Chloride - 104 mmol/L???Bicarbonate Level - 20 mmol/L???Anion Gap - 17???Glucose Level - 124 mg/dL???BUN - 14 mg/dL???Creatinine-Blood - 1.0 mg/dL???Estimated GFR Creatinine - 82 ML/MIN/1.73 M2???Calcium - 10.0 mg/dL BUN (05/31/2022) ???BUN - 19 mg/dL CBC (06/01/2022) ???WBC - 8.9 k/mm3???RBC - 5.04 m/mm3???Hgb - 13.3 Gm/dL???Hct - 41.9 %???MCV - 83.1 femtoliters???MCH - 26.4 pg???MCHC - 31.7 g/dL???Platelet Count - 206 k/mm3???RDW-SD - 43.9 femtoliters???MPV - 9.1 femtoliters???Nucleated RBC (Automated) - 0.0 #/100 WBC'S???Abs. NRBC - 0.0 k/mm3 CBC w/ Differential (06/02/2022) ???WBC - 9.1 k/mm3???RBC - 5.01 m/mm3???Hgb - 13.4 Gm/dL???Hct - 41.9 %???MCV - 83.6 femtoliters???MCH - 26.7 pg???MCHC - 32.0 g/dL???Platelet Count - 178 k/mm3???RDW-SD - 44.2 femtoliters???MPV - 9.0 femtoliters???Nucleated RBC (Automated) - 0.0 #/100 WBC'S???Abs. NRBC - 0.0 k/mm3???Abs. Neut - 6.7 k/mm3???Abs. Lymph - 1.3 k/mm3???Abs. [place] - 0.9 k/mm3???Abs. Eo - 0.1 k/mm3???Abs. Baso - 0.0 k/mm3???Neut % - 73.9 %???Lymph % - 13.9 %???[place]oke % - 10.3 %???Eos % - 1.2 %???Baso % - 0.4 %???Imm Gran - 0.3 %???Abs. Imm Gran - 0.0 k/mm3 CK (CREATINE KINASE) (06/01/2022) ???CK, Total - 1152 units/L CK Total Only (06/02/2022) ???CK, Total - 646 units/L CKMB CONFIRMATION/QUANT (06/01/2022) ???CK MB Confirmation - Quant - 13.0 ng/mL Comprehensive Metabolic Panel (06/01/2022) ???Sodium - 143 mmol/L???Potassium - 4.7 mmol/L???Chloride - 109 mmol/L???Bicarbonate Level - 22 mmol/L???Anion Gap - 12???Glucose Level - 96 mg/dL???BUN - 28 mg/dL???Creatinine-Blood - 1.1 mg/dL???Estimated GFR Creatinine - 74 ML/MIN/1.73 M2???Calcium - 9.4 mg/dL???Protein, Total - 6.9 Gm/dL???Albu min - 4.6 Gm/dL???AG Ratio - 2.0???Alkaline Phosphatase - 63 units/L???AST (SGOT) - 46 units/L???ALT (SGPT) - 16 units/L???Bilirubin, Total - 0.6 mg/dL COVID-19 (2019 Novel Coronavirus) PCR (06/01/2022) ???COVID-19 PCR Specimen Source - NASAL???COVID-19 PCR Result - NEGATIVE COVID-19 (Novel Coronavirus), Rapid PCR (05/30/2022) ???COVID-19 by RT-PCR - NEGATIVE Creatinine (06/03/2022) ???Creatinine-Blood - 1.4 mg/dL???Estimated GFR Creatinine - 55 ML/MIN/1.73 M2 Electrolytes (06/03/2022) ???Sodium - 139 mmol/L???Potassium - 3.6 mmol/L???Chloride - 105 mmol/L???Bicarbonate Level - 19 mmol/L???Anion Gap - 15 GLUCOSE POC (05/30/2022) ???Glucose, POC - 133 mg/dL Hemoglobin A1c, (Diagnostic) (05/31/2022) ???Hemoglobin A1C (Monitoring) - 5.9 % High??Sensitivity??Troponin T (05/30/2022) ???High Sensitivity Troponin (HSTnT) - 41 ng/L Lipid Panel (05/31/2022) ???Cholesterol - 132 mg/dL???Triglycerides - 107 mg/dL???HDL Cholesterol - 34 mg/dL???LDL Cholesterol - 77 mg/dL???Non HDL Cholesterol - 98 mg/dL Magnesium Level (06/02/2022) ???Magnesium - 2.5 mg/dL Phosphorus Level (06/02/2022) ???Phosphorus - 4.1 mg/dL Troponin T, High Sensitivity (05/31/2022) ???High Sensitivity Troponin (HSTnT) - 35 ng/L Type and Screen (05/30/2022) ???Blood Type - A Positive???Antibody Screen - Negative Urinalysis w/hold for Urine Culture (05/30/2022) ???Appear/Color, Urine - YELLOW???Specific [place], Urine - 1.027???pH, Urine - 6.5???Albumin, Urine - 2+???Glucose, Urine - TRACE???Ketones, Urine - 3+???Bilirubin, Urine - NEGATIVE???Hemoglobin, Urine - 2+???Nitrite, Urine - NEGATIVE???Leukocyte, Urine - NEGATIVE???Urobilinogen - NORMAL???WBC's, Urine - NONE SEEN? ?RBC's, Urine - 26 /HPF? ?Squamous Epith - <1 /HPF? ?Mucus - SLIGHT? ?Hold Urine Culture - Testing available 48 hours from time of collection. Valproic Acid Level (06/01/2022) ???Valproic Level - 71.4 mg/L Allergies (NKA means No Known Allergies) Contrast Dye??(Anaphylaxis) codeine shellfish zoster vaccines Problems Active Problems??(8) BPH without obstruction/lower urinary tract symptoms?? CAD in tus[place]ora artery?? Depression?? REBECA (generalized anxiety disorder)?? Hepatitis C?? HLD (hyperlipidemia)?? HTN (hypertension)?? NSTEMI (non-ST elevated myocardial infarction)?? Education Materials Below is the list of Educational Leaflet Providered with your Discharge Instructions. Valproate Delayed Release Oral Tablet?? Amlodipine Oral Tablet?? The F.A.S.T. Way to Diagnose a Stroke?? Anatomy of the Brain?? Altered Level of Consciousness?? Valuables and Belongings I fully understand and agree that [facility] accepts no responsibility for all my personal property including clothing, toilet articles, radios, jewelry, dentures, hearing aids, rings, money, or any other property that is in my possession or is brought to me after admission. I understand certain valuables may be placed in a hospital safe for a short period of time. I understand that the hospital is not liable for loss or damage due to accident, fire, or other natural occurrence while said property is in the safe. I accept full responsibility for any personal property that I keep with me, and will not hold the hospital responsible in case of loss or disappearance. I acknowledge that i have been encouraged to send valuables and belongings home. ?? No Valuables/Belongings: No valuables/belongings present Review of Valuable and Belonging List: With patient Date for Pt to Sign Valuables/Belongings: 06/02/22 17:38:00 ?? Other Discharge Information ? Pulmonary Rehab Status?? Pulmonary Rehab Discharge Status?? Respiratory Rate: 18 br/min ? Common Emergency Awareness Tips IS IT A STROKE? Act FAST and Check for these signs: FACE Does the face look uneven? ARM Does one arm drift down? SPEECH Does their speech sound strange? TIME Call at any sign of stroke ?? Heart Attack Signs Chest discomfort: Most heart attacks involve discomfort in the center of the chest and lasts more than a few minutes, or goes away and comes back. It can feel like uncomfortable pressure, squeezing, fullness or pain. Discomfort in upper body: Symptoms can include pain or discomfort in one or both arms, back, neck, jaw or stomach. Shortness of breath: With or without discomfort. Other signs: Breaking out in a cold sweat, nausea, or lightheaded. Remember, MINUTES DO MATTER. If you experience any of these heart attack warning signs, call to get immediate medical attention! ?? Smoking can increase your chances of developing chronic health problems and can cause harmful effects to other family members in your house. If you smoke, you are strongly encouraged to quit. Please call [facility] [employer] [facility] at [phone] or [phone] ([phone]) or log in to [email or web address] for referrals to smoking cessation programs. ?? The National Suicide Prevention Hotline is available 25/09 if you or someone you know needs to find a reason to keep living. By calling 2-379-547-Family [employer] (4749) you'll be connected to a skilled, trained counselor at a crisis center in your area. INPATIENT DISCHARGE INSTRUCTIONS SIGNATURE PAGE LEXUS ALCALA Location:[facility] Registration Date and Time:05/30/2022 19:40 EDT Primary Care Physician: Eileen Yu MD, I LEXUS ALCALA, have received the above patient education materials/instructions and have verbalized understanding. If ambulance or transport services are being used I further acknowledge being given a choice of service. ?? If you need to contact me, please call me at this number: . Patient/Mortgage Protection Specialist Name: Patient/Mortgage Protection Specialist Signature: Relationship to Patient: Witness Name/Signature: Date: * Maicol Martinez MD: PERFORM Event Display: Patient Education Leaflets Authored Date: [id number] Valproate Delayed Release Oral Tablet ?? [id number] Valproate Delayed Release Oral Tablet Brands: Depakote Uses This medicine is used for the following purposes: ??? bipolar disorder ??? prevent migraine headaches ??? seizures ?? Instructions Swallow the medicine without crushing or chewing it. You may take with food to prevent stomach upset. It is very important that you take the medicine at about the same time every day. It will work bestif you do this. Store at room temperature away from heat, light, and moisture. Do not keep in the bathroom. It is important that you keep taking each dose of this medicine on time even if you are feeling well. If you forget to take a dose on time, take it as soon as you remember. If it is almost time for thenext dose, do not take the missed dose. Return to your normal schedule. Do not take 2 doses at one time. Drug interactions can change how medicines work or increase risk for side effects. Tell your healthcare providers about all medicines taken. Include prescription and pxel-jym-rxkjwov medicines, vitamins, and herbal medicines. Speak with your doctor or pharmacist before starting or stopping any medicine. Tell your doctor if symptoms do not get better or if they get worse. Parts of this medicine may come out in the stool. This is normal. Keep all appointments for medical exams and tests while on this medicine. ?? Cautions Tell your doctor and pharmacist if you ever had an allergic reaction to a medicine. This medicine is associated with a rare, but serious problem of the liver. Speak to your doctor about the early signs of liver problems and the benefits and risks of using this medicine. Do not use the medication any more than instructed. If possible, avoid using with alcohol, marijuana, or other medicines that can cause dizziness or drowsiness. These include allergy/cold products, muscle relaxers, sleep aids, and pain relievers. Your ability to stay alert or to react quickly may be impaired by this medicine. Do not drive or operate machinery until you know how this medicine will affect you. Family should check on the patient often. Call the doctor if patient becomes more depressed, has thoughts of suicide, or shows changes in behavior. This medicine passes into breast milk. Ask your doctor before . This medicine can cause defects. Speak with your doctor about control methods that should be used while on this medicine. This medicine can hurt a new baby in the womb. If you become while on this medicine, tell your doctor immediately. Your doctor may switch you to a different medicine. Do not share this medicine with anyone who has not been prescribed this medicine. Some patients have serious side effects from this medicine. Ask your pharmacist to show you the information from the Food and Drug Administration (FDA) and discuss it with you. Always refill this medicine before it runs out. ?? Side Effects The following is a list of some common side effects from this medicine. Please speak with your doctor about what you should do if you experience these or other side effects. ??? change in appetite ??? blurry vision ??? diarrhea ??? dizziness or drowsiness ??? hair loss ???nausea ??? ringing in the ears ??? shakiness ??? stomach upset or abdominal pain ??? unsteadiness while walking ??? weight gain ??? weight loss If you have any of the following side effects, you may be getting too much medicine. Please contactyour doctor to let them know about these side effects. ??? difficulty concentrating ??? confusion ??? increased eye blinking or twitching ??? slow heartbeat Call your doctor or get medical help right away if you notice any of these more serious side effects: ??? decreased awareness or responsiveness ??? unusual bruising or discoloration on skin ??? swelling of the legs, feet, and hands ??? fainting ??? fever ??? swelling in the neck or throat ??? hallucinations (unusual thoughts, seeing or hearing things that are not real) ??? fast or irregular heart beats ??? signs of liver damage (such as yellowing of eye or skin, dark urine, or unusual tiredness) ??? shortness of breath ??? red, peeling or blistering skin ??? light colored stool ??? suicidal thoughts ??? severe or persistent vomiting A few people may have an allergic reaction to this medicine. Symptoms can include difficulty breathing, skin rash, itching, swelling, or severe dizziness. If you notice any of these symptoms, seek medical help quickly. ?? Extra Please speak with your doctor, nurse, or pharmacist if you have any questions about this medicine. ?? [email or web address] IMPORTANT NOTE: This document tells you briefly how to take your medicine, but it does not tell youall there is to know about it. Your doctor or pharmacist may give you other documents about your medicine. Please talk to them if you have any questions. Always follow their advice. There is a more complete description of this medicine available in Nauruan. Scan this code on your smartphone or tablet or use the web address below. You can also ask your pharmacist for a printout. If you have any questions, please ask your pharmacist. The display and use of this drug information is subject to Terms of Use. Copyright(c) 2022 [employer]. ?? [employer]. All rights reserved. This information is not intended as a substitute for professional medical care. Always follow your healthcare professional's instructions. ?? * Maicol Martinez MD: PERFORM Event Display: Patient Education Leaflets Authored Date: [id number] Amlodipine Oral Tablet ?? [id number] Amlodipine Oral Tablet Brands: Cint Uses This medicine is used for the following purposes: ??? angina ??? high blood pressure ??? Raynaud's disease ?? Instructions This medicine may be taken with or without food. It is very important that you take the medicine at about the same time every day. It will work bestif you do this. Keep the medicine at room temperature. Avoid heat and direct light. It is important that you keep taking each dose of this medicine on time even if you are feeling well. If you forget to take a dose on time, take it as soon as you remember. If it is almost time for thenext dose, do not take the missed dose. Return to your normal schedule. Do not take 2 doses at one time. Tell your doctor and pharmacist about all your medicines. Include prescription and erkp-lav-moqwhcklckcunbnw, vitamins, and herbal medicines. Keep all appointments for medical exams and tests while on this medicine. ?? Cautions Do not use the medication any more than instructed. If possible, avoid using with marijuana or other medicines that can cause dizziness or drowsiness. These include allergy/cold products, muscle relaxers, sleep aids, and pain relievers. Your ability to stay alert or to react quickly may be impaired by this medicine. Do not drive or operate machinery until you know how this medicine will affect you. Please check with your doctor before drinking alcohol while on this medicine. Tell the doctor or pharmacist if you are , planning to be , or . Do not start or stop any other medicines without first speaking to your doctor or pharmacist. Do not share this medicine with anyone who has not been prescribed this medicine. ?? Side Effects The following is a list of some common side effects from this medicine. Please speak with your doctor about what you should do if you experience these or other side effects. ??? dizziness ??? swelling of the legs, feet, and hands ??? lack of energy and tiredness ??? feeling of heat or flushing ??? low blood pressure Call your doctor or get medical help right away if you notice any of these more serious side effects: ??? worsening chest pain or crushing feeling ??? fainting ??? fast or irregular heart beats ??? jawpain ??? shortness of breath A few people may have an allergic reaction to this medicine. Symptoms can include difficulty breathing, skin rash, itching, swelling, or severe dizziness. If you notice any of these symptoms, seek medical help quickly. ?? Extra Please speak with your doctor, nurse, or pharmacist if you have any questions about this medicine. ?? [email or web address] IMPORTANT NOTE: This document tells you briefly how to take your medicine, but it does not tell youall there is to know about it. Your doctor or pharmacist may give you other documents about your medicine. Please talk to them if you have any questions. Always follow their advice. There is a more complete description of this medicine available in Nauruan. Scan this code on your smartphone or tablet or use the web address below. You can also ask your pharmacist for a printout. If you have any questions, please ask your pharmacist. The display and use of this drug information is subject to Terms of Use. Copyright(c) 2022 [employer]. ?? The [employer]. All rights reserved. This information is not intended as a substitute for professional medical care. Always follow your healthcare professional's instructions. ?? * Maicol Martinez MD: PERFORM Event Display: Patient Education Leaflets Authored Date: [id number] to Diagnose a Stroke ?? The F.A.S.T. Way to Diagnose a Stroke - Video One person dies of stroke every four minutes in the [place]. Will you be prepared to take action in an emergency? Dr. Fei Mahoney teaches you the F.A.S.T. way to diagnose a stroke. To view the video go to this web address: https://bit.Deckerton/7pHo0XC Or, scan this QR code with your smart phone ?? The [employer]. All rights reserved. This information is not intended as a substitute for professional medical care. Always follow your healthcare professional's instructions. ?? * Mary Meyer RN: PERFORM, SIGN, VERIFY Event Display: Patient Education Handout Authored Date: [id number] * WALKER Irvin S: TRANSCRIArchie Gill MD: VERIFY Event Display: Result: Authored Date: [id number] CT Head-Hyper Acute Stroke INDICATION: Neuro deficit, acute, stroke suspected; Clinical Question(s): Hematoma Infarction TECHNIQUE: Noncontrast head CT using axial technique and reconstructed in axial and coronal planes.Iterative reconstruction techniques are used to optimize dose and image quality. COMPARISON: None. FINDINGS: Exam is severely limited by motion artifact. In particular, the images of the lower half of the brain and the posterior fossa are essentially nondiagnostic. Shop Clerk view findings, lines and tubes: None. BRAIN AND EXTRA-AXIAL SPACES: No parenchymal hemorrhage, midline shift, or mass effect. Hobbs-white matter differentiation is wellpreserved. No acute infarct. Mild prominence of the ventricles and sulci consistent with parenchymal volume loss. Mild low-density white matter changes. No subarachnoid hemorrhage. No subdural or epidural collection. CALVARIUM, SKULL BASE, AND SOFT TISSUES: No fractures or suspicious bony lesions. The paranasal sinuses and mastoid air cells are clear. Visualized orbits and globes are intact. The extracranial soft tissues are unremarkable. IMPRESSION: No intracranial hemorrhage is identified, but the exam is severely limited due to motion artifact as above, with the inferior portion of the brain inadequately evaluated. WSN: [id number] Ordering Physician: Nishant De La Garza Dictated By: Archie Duran MD Dictated Date/Time: 05/30/22 4:39 pm Reviewed By: Archie Duran MD Signed By: Archie Duran MD Signed Date/Time: 05/30/22 4:39 pm Transcribed By: BINTA Transcribed Date/Time: 05/30/22 4:38 pm Portable XR Chest Views * WALKER Irvin S: Sandor Gan MD: VERIFY Event Display: Result: Authored Date: [id number] Chest Portable Hx of Present Illness: from urgent care with word finding difficulties, left sided facial droop; Reason: Other:; Stroke; Clinical Question(s): CHF COMPARISON: 09/08/2016. FINDINGS: AP upright, 2 radiographs. LUNGS AND PLEURA: Clear lungs. Normal pulmonary vascularity. No pleural effusion. No pneumothorax. HEART, MEDIASTINUM AND SHYANN: Heart is normal in size. Normal mediastinal and hilar contour. BONES AND SOFT TISSUES: No acute abnormality. IMPRESSION: No acute abnormality. WSN: [id number] Ordering Physician: Nishant De La Garza Dictated By: Sandor Diaz MD Dictated Date/Time: 05/30/22 5:08 pm Reviewed By: Sandor Diaz MD Signed By: Sandor Diaz MD Signed Date/Time: 05/30/22 5:08 pm Transcribed By: BINTA Transcribed Date/Time: 05/30/22 5:[address] Head WO contrast * BHSPowerscribe , CIS S: TRANSCRIBE Archie Duran MD S: VERIFY Event Display: Result: Authored Date: [id number] CT Head/Brain W/O Contrast INDICATION: Reason: Aphasia; stroke cannot tolerate mri; Clinical Question(s): Infarction; stroke evolution?; TECHNIQUE: Noncontrast head CT using axial technique and reconstructed in axial and coronal planes.Iterative reconstruction techniques are used to optimize dose and image quality. CTDIvol Head: 48.00 mGy, DLP Head: 773 mGy*cm. COMPARISON: 05/30/2022 FINDINGS: Shop Clerk view findings, lines and tubes: None. BRAIN AND EXTRA-AXIAL SPACES: No parenchymal hemorrhage, midline shift, or mass effect. Hobbs-white matter differentiation is wellpreserved. No acute infarct. Negative insular ribbon sign. Atherosclerotic vascular calcification of the carotid arteries but negative hyperdense vessel sign. Mild prominence of the ventricles and sulci consistent with parenchymal volume loss. Mild low-density white matter changes. No subarachnoid hemorrhage. No subdural or epidural collection. CALVARIUM, SKULL BASE, AND SOFT TISSUES: No fractures or suspicious bony lesions. The paranasal sinuses and mastoid air cells are clear. Visualized orbits and globes are intact. The extracranial soft tissues are unremarkable. IMPRESSION: No evidence of acute intracranial abnormality. WSN: [id number] Ordering Physician: Josef Luciano Dictated By: Archie Duran MD Dictated Date/Time: 06/01/22 12:59 p Reviewed By: Archie Duran MD Signed By: Archie Duran MD Signed Date/Time: 06/01/22 12:59 pm Transcribed By: BINTA Transcribed Date/Time: 06/01/22 12:56 pm Patient Care team information Care Team Personnel Name: Lenny Busch RN Position: [facility] RN Member Role: Primary Care Nurse Name: Humera Guthrie RN Position: [facility] Hospital Refinery Superintendent Member Role: Primary Care Nurse Name: Gabbi Martinez RN Position: [facility] RN Member Role: Primary Care Nurse Name: Amy Aguilar RN Position: [facility] RN Member Role: Primary Care Nurse Name: Macy Monique RN Position: [facility] SN RN Member Role: Primary Care Nurse Name: Eileen Yu MD Position: Reference Physician Member Role: PCP Address: Address: [address] [place] [address]- Name: *Melonie WINTERS Attending Position: [facility] ED Medicine MD Name: Marium Gillis RN Position: [facility] ED RN W/OE and Tasks Member Role: Patient Care Provider Name: Darshan Syed RN Position: [facility] ED RN W/OE and Tasks Member Role: Patient Care Provider Name: Marie George Position: [facility] ED OA Charge Member Role: ED Associate Name: Shanda Peters Position: [facility] ED TA [facility] Member Role: Patient Care Provider Name: Shanti Mcdonald MD Position: [facility] Resident Member Role: ED Resident Address: Address: [address] [place] [address] [place] [address]- Care Team Related Persons Name: COLEMAN GIRALDO Address: home [address] [place] [address] Name: DIAMOND BROOKS Address: [address] [place] [address]
--- OUTSIDE RECORDS SUMMARY | 2022-09-20 16:01 | XMS_ITS | Continuity of Care Document ---
Author Name Unknown Organization [facility] Address [address] [place] [address]- Care Team Providers Care Clinical Research Manager Name Role Phone Eileen Yu MD Primary Care Physician Encounter [facility] Date(s): 06/29/22 - 07/29/22 [facility] [address] [place] [address]- Attending Physician: Jose Tong Admitting Physician: AdmtrJose Referring Physician: trJose Allergies, Adverse Reactions, Alerts Substance Reaction Severity Status codeine Active shellfish Active Contrast Dye Anaphylaxis Active zoster vaccines Active Immunizations Given and Recorded Vaccine Date Status Refusal Reason [id number] bivalent booster vax 01/24/22 Recorded influenza virus [...] 06/03/22 9:14:00 EDT, Route to Pharmacy Electronically, [facility]/pharmacy #[id number], Partial fill upon patient request if [...] 3 Refills, Maintenance, Tablet, Route to PharmacyElectronically, [id number], [facility] 3 Start Date: 09/11/16 Stop Date: 01/09/17 Status: Ordered citalopram 40 mg oral tablet 20 mg, 0.5, tablet, By Mouth, Daily, # 30 tablet, Refills 0, Maintenance, 09/08/16 12:28:30 EDT Start Date: 09/08/16 Status: Ordered divalproex sodium 500 mg oral enteric coated tablet = 500 mg, By Mouth, Every 12 hours, # 60 tablet, 0 Refills, Maintenance, 06/03/22 9:14:00 EDT, Tablet, [facility]/pharmacy #[id number], Partial fill upon patient request if [...] 09/16/21 9:39:00 EDT, Route to Pharmacy Electronically, [facility]/pharmacy #[id number], 188, cm, 09/16/21 9:18:00 EDT, [...] urinary tract symptoms Confirmed Active CAD in [place] artery Confirmed Active Depression Confirmed Active REBECA (generalized anxiety disorder) Confirmed Active HLD (hyperlipidemia) Confirmed Active HTN (hypertension) Confirmed Active Hepatitis C 1 Confirmed Active 1s/p interferon treatment Social History Social History Type Response Smoking Status Former smoker; Other : quit 1988, 1.5-2ppd x 10y; entered on: 01/10/17 Sex Cardiology * Event Display: EKG Non BH Authored Date: * Event Display: Non BH Cardiovascular Results Authored Date: * Event Display: Non BH Cardiovascular Results Authored Date: Laboratory * Event Display: Non BH Lab Results Authored Date: * Event Display: Non BH Lab Results Authored Date: * Event Display: Non BH Lab Results Authored Date: Radiology * Event Display: MRI Head, Non- BH Authored Date: * Katina SMITH, Gallito Y: PERFORM Event Display: MRI Head, Non- BH Authored Date: brain mri - no CVA Patient Care team information Care Team Personnel Name: Lenny Busch RN Position: [facility] RN Member Role: Primary Care Nurse Name: Humera Guthrie RN Position: [facility] Insulation Blower Member Role: Primary Care Nurse Name: Amy Aguilar RN Position: [facility] RN Member Role: Primary Care Nurse Name: Macy Monique RN Position: [facility] SN RN Member Role: Primary Care Nurse Name: Eileen Yu MD Position: Reference Physician Member Role: PCP Address: Address: [address] [place] [address]- Care Team Related Persons Name: COLEMAN GIRALDO Address: home [address] [place] [address] Name: DIAMOND BROOSK Address: home [address] [place] [address]
--- OUTSIDE RECORDS SUMMARY | 2022-09-20 16:01 | XMS_ITS | Continuity of Care Document ---
Author Name Unknown Organization [facility] Address [address] [place] [address]- Care Team Providers Care Certified Ophthalmic Surgical Assistant Name Role Phone Christy WILSON, Melissa Jenkins Primary Care Physician Encounter [facility] Date(s): 04/07/21 - 07/27/21 [facility] [address] [place] [address]- Attending Physician: Yudelka Tamez NP Admitting Physician: Yudelka Tamez NP Allergies, Adverse Reactions, Alerts Substance Reaction Severity Status codeine Active shellfish Active Contrast Dye Anaphylaxis Active zoster vaccines Active Medications aspirin 81 mg oral delayed release tablet 81 mg, By Mouth, Daily, # 30 tablet, Refills 11, Tot. Refills 11, Maintenance, 09/11/16 9:48:21, Route to Pharmacy Electronically, [id number], [facility] 3 Start Date: 09/11/16 Stop Date: 09/06/17 Status: Ordered atorvastatin 80 mg oral tablet = 80 mg, By Mouth, Daily at bedtime, # 30 tablet, 3 Refills, Maintenance, Tablet, Route to PharmacyElectronically, [id number], [facility] 3 Start Date: 09/11/16 Stop [...] 0 Refills, Maintenance, 05/09/19 15:38:00 EST, Tablet, [facility]/pharmacy #[id number], 188, cm, 05/09/19 14:57:00 EST, Height Start Date: 05/09/19 Status: Ordered metoprolol 25 mg oral tablet, extended release 12.5 mg, 0.5, tablet, By Mouth, Daily, # 15 tablet, Refills 2, Tot. Refills 2, Maintenance, 07/25/21 13:33:00 EDT, Route to Pharmacy Electronically, [facility]/pharmacy #[id number], 188, cm, 04/07/21 12:23:00 EST, Height [...]
--- OUTSIDE RECORDS SUMMARY | 2022-09-20 16:01 | XMS_ITS | Continuity of Care Document ---
Author Name Unknown Organization [facility] Address [address] [place] [address]- Care Team Providers Care Dental Service Technician Name Role Phone Christy WILSON, Melissa Jenkins Primary Care Physician [place] [facility]/01[place]20 - 05/01/20 [facility] [address] [place] [id number] Allergies, Adverse Reactions, Alerts Substance Reaction Severity Status codeine Active shellfish Active Contrast Dye Anaphylaxis Active zoster vaccines Active Medications aspirin 81 mg oral delayed release tablet 81 mg, By Mouth, Daily, # 30 tablet, Refills 11, Tot. Refills 11, Maintenance, 09/11/16 9:48:21, Route to Pharmacy Electronically, [id number], [facility] 3 Start Date: 09/11/16 Stop Date: 09/06/17 Status: Ordered atorvastatin 80 mg oral tablet = 80 mg, By Mouth, Daily at bedtime, # 30 tablet, 3 Refills, Maintenance, Tablet, Route to PharmacyElectronically, [id number], [facility] 3 Start Date: 09/11/16 [...] 0 Refills, Maintenance, 05/09/19 15:38:00 EST, Tablet, [facility]/pharmacy #[id number], 188, cm, 05/09/19 14:57:00 EST, [...] 04/01/20 13:44:00 EST, Route to Pharmacy Electronically, [facility]/pharmacy #[id number], 188, cm, 05/09/19 14:57:00 EST, [...]
--- OUTSIDE RECORDS SUMMARY | 2022-09-20 16:01 | XMS_ITS | Continuity of Care Document ---
Author Name Unknown Organization [facility] Address [address] [place] [address]- Care Team Providers Care Verify Rep Name Role Phone Gigi SMITH, Eileen Primary Care Physician Encounter [facility] Date(s): 08/09/22 - 09/08/22 [facility] [address] [place] [address]- Attending Physician: AdmJose uriostegui Admitting Physician: Admtr, Jose Referring Physician: Admtr, Ar8 Allergies, Adverse Reactions, Alerts Substance Reaction Severity Status codeine Active shellfish Active Contrast Dye Anaphylaxis Active zoster vaccines Active Immunizations Given and Recorded Vaccine Date Status Refusal Reason [id number] bivalent booster vax 01/24/22 Recorded influenza virus [...] 06/03/22 9:14:00 EDT, Route to Pharmacy Electronically, [facility]/pharmacy #[id number], Partial fill upon patient request if [...] 3 Refills, Maintenance, Tablet, Route to PharmacyElectronically, [id number], [facility] 3 Start Date: 09/11/16 Stop Date: 01/09/17 Status: Ordered citalopram 40 mg oral tablet 20 mg, 0.5, tablet, By Mouth, Daily, # 30 tablet, Refills 0, Maintenance, 09/08/16 12:28:30 EDT Start Date: 09/08/16 Status: Ordered divalproex sodium 500 mg oral enteric coated tablet = 500 mg, By Mouth, Every 12 hours, # 60 tablet, 0 Refills, Maintenance, 06/03/22 9:14:00 EDT, Tablet, [facility]/pharmacy #[id number], Partial fill upon patient request if [...] 09/16/21 9:39:00 EDT, Route to Pharmacy Electronically, [facility]/pharmacy #[id number], 188, cm, 09/16/21 9:18:00 EDT, Height [...] urinary tract symptoms Confirmed Active CAD in [place] artery Confirmed Active Depression Confirmed Active REBECA [...] Team Personnel Name: Lenny Busch RN Position: [facility] RN Member Role: Primary Care Nurse Name: Humera Guthrie RN Position: [facility] Hospital Cooky Packer Member Role: Primary Care Nurse Name: Amy Aguilar RN Position: [facility] RN Member Role: Primary Care Nurse Name: Macy Monique RN Position: [facility] SN RN Member Role: Primary Care Nurse Name: Eileen Yu MD Position: Reference Physician Member Role: PCP Address: Address: [address] [place] [address]- [place] Care Team Related Persons Name: COLEMAN GIRALDO Address: [address] [place] [address] Name: DIAMOND BROOKS Address: [address] [place] [address]
--- OUTSIDE RECORDS SUMMARY | 2022-09-20 16:01 | XMS_ITS | Continuity of Care Document ---
Author Name Unknown Organization [facility] ter Address [address] [place] [address]- Care Team Providers Care Mica Miner Name Role Phone Eileen Yu MD Primary Care Physician Encounter [facility] Date(s): 06/03/22 - 07/03/[address] [address] Attending Physician: Not on Staff, Attending MD Admitting Physician: Not on Staff, Admitting MD Referring Physician: Not on Staff, Referring MD Allergies, Adverse Reactions, Alerts Substance Reaction Severity Status codeine Active shellfish Active Contrast Dye Anaphylaxis Active zoster vaccines Active Immunizations Given and Recorded Vaccine Date Status Refusal Reason [id number] bivalent booster vax 01/24/22 Recorded influenza virus [...] 06/03/22 9:14:00 EDT, Route to Pharmacy Electronically, [facility]/pharmacy #[id number], Partial fill upon patient request [...] 3 Refills, Maintenance, Tablet, Route to PharmacyElectronically, [id number], [facility] 3 Start Date: 09/11/16 Stop Date: 01/09/17 Status: Ordered citalopram 40 mg oral tablet 20 mg, 0.5, tablet, By Mouth, Daily, # 30 tablet, Refills 0, Maintenance, 09/08/16 12:28:30 EDT Start Date: 09/08/16 Status: Ordered divalproex sodium 500 mg oral enteric coated tablet = 500 mg, By Mouth, Every 12 hours, # 60 tablet, 0 Refills, Maintenance, 06/03/22 9:14:00 EDT, Tablet, [facility]/pharmacy #[id number], Partial fill upon patient request [...] 09/16/21 9:39:00 EDT, Route to Pharmacy Electronically, [facility]/pharmacy #[id number], 188, cm, 09/16/21 9:18:00 EDT, [...] urinary tract symptoms Confirmed Active CAD in [place] artery Confirmed Active Depression Confirmed Active REBECA (generalized anxiety disorder) Confirmed Active HLD (hyperlipidemia) Confirmed Active HTN (hypertension) Confirmed Active Hepatitis C 1 Confirmed Active 1s/p interferon treatment Social History Social History Type Response Smoking Status Former smoker; Other : quit 1988, 1.5-2ppd x 10y; entered on: 01/10/17 Sex Patient Care team information Care Team Personnel Name: Lenny Busch RN Position: [facility] RN Member Role: Primary Care Nurse Name: Humera Guthrie RN Position: [facility] Hospital Principal Database Developer Member Role: Primary Care Nurse Name: Amy Aguilar RN Position: [facility] RN Member Role: Primary Care Nurse Name: Macy Monique RN Position: [facility] RN Member Role: Primary Care Nurse Name: Eileen Yu MD Position: Reference Physician Member Role: PCP Address: Address: [address] [place] [address]- Care Team Related Persons Name: COLEMAN GIRALDO Address: home [address] [place] [address] Name: DIAMOND BROOKS Address: [address] [place] [address]
--- OUTSIDE RECORDS SUMMARY | 2022-09-20 16:01 | XMS_ITS | Continuity of Care Document ---
Author Name Unknown Organization [facility] Address [address] [place] [address]- Care Team Providers Care Sugar Boiler Name Role Phone Christy WILSON, Melissa Jenkins Primary Care Physician [place] [facility] [place] - 04/28/20 [facility] [address] [place] [id number] Allergies, Adverse Reactions, Alerts Substance Reaction Severity Status codeine Active shellfish Active Contrast Dye Anaphylaxis Active zoster vaccines Active Medications aspirin 81 mg oral delayed release tablet 81 mg, By Mouth, Daily, # 30 tablet, Refills 11, Tot. Refills 11, Maintenance, 09/11/16 9:48:21, Route to Pharmacy Electronically, [id number], [facility] 3 Start Date: 09/11/16 Stop Date: 09/06/17 Status: Ordered atorvastatin 80 mg oral tablet = 80 mg, By Mouth, Daily at bedtime, # 30 tablet, 3 Refills, Maintenance, Tablet, Route to PharmacyElectronically, [id number], [facility] 3 Start Date: 09/11/16 [...] 0 Refills, Maintenance, 05/09/19 15:38:00 EST, Tablet, [facility]/pharmacy #[id number], 188, cm, 05/09/19 14:57:00 EST, [...] 04/01/20 13:44:00 EST, Route to Pharmacy Electronically, [facility]/pharmacy #[id number], 188, cm, 05/09/19 14:57:00 EST, [...]
--- OUTSIDE RECORDS SUMMARY | 2022-09-20 16:01 | XMS_ITS | Continuity of Care Document ---
Author Name Unknown Organization [facility] ter Address [address] [place] [address]- Care Team Providers Care Top Waddy Name Role Phone Christy WILSON, Melissa Jenkins Primary Care Physician Encounter [facility] [id number] Date(s): 05/30/21 - 07/09/[address] [address] Attending Physician: Gallito Ambriz MD Admitting Physician: Gallito Ambriz MD Referring Physician: Gallito Ambriz MD Allergies, Adverse Reactions, Alerts Substance Reaction Severity Status codeine Active shellfish Active Contrast Dye Anaphylaxis Active zoster vaccines Active Medications aspirin 81 mg oral delayed release tablet 81 mg, By Mouth, Daily, # 30 tablet, Refills 11, Tot. Refills 11, Maintenance, 09/11/16 9:48:21, Route to Pharmacy Electronically, [id number], [facility] 3 Start Date: 09/11/16 Stop Date: 09/06/17 Status: Ordered atorvastatin 80 mg oral tablet = 80 mg, By Mouth, Daily at bedtime, # 30 tablet, 3 Refills, Maintenance, Tablet, Route to PharmacyElectronically, [id number], [facility] 3 Start Date: 09/11/16 Stop Date: [...] 0 Refills, Maintenance, 05/09/19 15:38:00 EST, Tablet, [facility]/pharmacy #[id number], 188, cm, 05/09/19 14:57:00 EST, Height Start Date: 05/09/19 Status: Ordered metoprolol 25 mg oral tablet, extended release 12.5 mg, 0.5, tablet, By Mouth, Daily, # 45 tablet, Refills 3, Tot. Refills 3, Maintenance, 07/16/20 12:09:00 EDT, Route to Pharmacy Electronically, [facility]/pharmacy #[id number], 188, cm, 06/02/20 12:16:00 EDT, Height [...]
[2022-09-20] MEDS: Morphine Sulfate 4 MG/ML CARTRIDGE IVPUSH ×2 (16:14→18:40)
[2022-09-20] MEDS: 0.9 % Sodium Chloride 1,000 ML 999 ML IV (16:14)
[2022-09-20] MEDS: ondansetron HCL 4 MG/2 ML VIAL IVPUSH (16:15)
--- NOTE | 2022-09-20 16:38 | PC.NURSE ---
to xray/ct scan. aox4.
--- NOTE | 2022-09-20 16:38 | PHA.MEDREC ---
Pharmacy Consult ? Medication Reconciliation Pharmacy has completed the medication reconciliation.
--- NOTE | 2022-09-20 19:09 | PM.IMHP ---
History of Present Illness Date of Service: 09/20/22 Attending physician on admission: Gian Whipple Chief Complaint: syncope 67-year-old male with history depression/anxiety, PTSD, prostate cancer currently under surveillance, history TIA, history of hepatitis-C treated with interferon, hyperlipidemia, hypertension, coronary artery disease H/O NSTEMI, chronic resting tremor, and BPH presents to the ED earlier today for evaluation of right knee and left foot pain ongoing since the syncopal episode occurred in the middle of the night. The patient states he has had multiple syncopal episodes that occur about monthly ongoing since February after having COVID-19. States he woke up in the middle of the night to urinate and when he turned around he collapsed with loss of consciousness for unknown duration. He was able to crawl to bed and called his friend this morning. He states prior to this syncopal episodes he felt shaky and when he awoke he was confused, stating he felt foggy and had a frontal headache. Denies any nausea or vomiting. Denies any prodrome including visual changes, palpitations, lightheadedness, shortness of breath, or chest pain. No focal weakness or paresthesias. Denies any known history of seizures. He does report he does not drink much water. On arrival, vital stable, no hypotension or tachycardia. No leukocytosis, mild normocytic anemia with H/H 13.0/40.0%. Creatinine 2.10 (baseline 1.3-1.4), BUN 42, electrolytes largely within normal limits. Head CT is negative for any acute intracranial abnormality but shows scattered chronic small vessel ischemic changes in the periventricular white matter. Cervical spine CT is negative for any acute cervical spine fracture or subluxation however does show multilevel advanced degenerative spondylosis of the cervical spine with no canal compromise. Incidentally found 1.8 cm calcified thyroid nodule within the left lobe of the thyroid gland. X-ray of the right knee shows moderate osteoarthritis but no acute fractures or subluxation. There is a small joint effusion. X-ray of the left foot shows Lisfranc injury with multiple fractures of the foot and lateral dislocation of the 2nd through 5th metatarsals at the metatarsal tarsal joint space. Follow-up for CT of the left foot with similar findings as well as showing a minimally displaced fracture of the 1st cuneiform bone intra-articular with the 1st MTP joint and mild subluxation at the 1st MTP joint. In the ED, he has been treated with 1 L IV NS, 4 mg ondansetron, and morphine. ED provider did discuss case with orthopedics recommending posterior short-leg splint which has been applied and will follow in the morning. Review of Systems Review of Systems: General: No fevers, malaise, unintentional weight loss HEENT: No blurred vision, diplopia. Cardiovascular: No chest pain, palpitations, or leg edema Respiratory: No shortness of breath, wheezing, cough GI: No abdominal pain, nausea, vomiting, diarrhea, constipation, melena, hematochezia : No dysuria, hematuria, increased urinary frequency, decreased urinary output MSK: No myalgia, back pain. +right knee pain, +left foot pain Neuro: No headaches, weakness, paresthesias, lightheadedness. +syncope Skin: No rashes or lesions [facility] Medical History Acidosis, lactic Anxiety BPH without obstruction/lower urinary tract symptoms CAD (coronary artery disease) CAD (coronary artery disease) COVID-19 Depression Diverticulosis Elevated cholesterol Elevated PSA Encephalopathy acute REBECA (generalized anxiety disorder) Hepatitis C History of prostate cancer HLD (hyperlipidemia) HTN (hypertension) HTN (hypertension) Hx of hepatitis C Hx of non-ST elevation myocardial infarction (NSTEMI) Hx of renal calculi Hypertensive encephalopathy Hypertensive encephalopathy NSTEMI (non-ST elevated myocardial infarction) Prostate cancer PTSD (post-traumatic stress disorder) TIA (transient ischemic attack) Tubulovillous adenoma Family History Mother Heart disease Father No problems noted. Surgical History H/O heart artery stent History of surgery on wrist Hx of appendectomy Hx of cardiac catheterization Hx of colonoscopy Hx of left knee surgery Hx of tonsillectomy Social History Household Members: None Are you a primary healthcare receptionist to a significant other at home: No Do you presently have visiting nurse or other home services: No Alcohol intake: former Year quit: 1988 Patient Tobacco Use Status: Former Tobacco user Quit Date: 30 yrs ago Tobacco use type: Cigarette Substance Use Type: Marijuana Advance Directives: No Advance Directives Information Provided: Yes Meds Allergies Allergy/AdvReac Type Severity Reaction Status Date / Time bee pollen [BEE STINGS] Allergy Severe Anaphylaxis Verified 09/20/22 13:24 Iodinated Contrast Media Allergy Severe Anaphylaxis Verified 09/20/22 13:24 [IV CONTRAST] zoster vaccine live Allergy Intermediate Shortness Verified 09/20/22 13:24 [SHINGLES VACCINE] of Breath codeine Allergy Severe Itching,hiv Uncoded 10/18/21 12:05 es shellfish Allergy Severe anaphylaxis Uncoded 10/18/21 12:05 Active Medications: Current Medications Acetaminophen (Acetaminophen 325 Mg Tablet) 650 mg PO Q6H PRN PRN Reason: Pain, Mild (Pain Scale 1-3) Docusate Sodium (Docusate Sodium 100 Mg Capsule) 100 mg PO DAILY PRN PRN Reason: Constipation Enoxaparin Sodium (Enoxaparin Sodium 40 Mg/0.4 Ml Syringe) 40 mg SUBCUT Q24H SHARRI Sodium Chloride (Ns) 1,000 mls @ 100 mls/hr IVCONT .Q10H SHARRI Ondansetron HCl (Ondansetron Hcl 4 Mg/2 Ml Vial) 4 mg IVPUSH Q8H PRN PRN Reason: Nausea and Vomiting Pharmacy Consult (Consult Rx Perform Med Rec) 1 each MISCELLANE ONCE PRN PRN Reason: Consult order Home Medications Medication Instructions Recorded Confirmed Last Taken Type atorvastatin 80 mg tablet 80 mg PO DAILY 07/06/21 09/20/22 09/19/22 History citalopram 40 mg tablet 40 mg PO BEDTIME depressive 07/06/21 09/20/22 09/19/22 History disorder doxepin 25 mg capsule 25 mg PO BEDTIME 07/06/21 09/20/22 09/19/22 History gabapentin 300 mg capsule 600 mg PO DAILY 07/06/21 09/20/22 09/20/22 History metoprolol succinate 25 mg 25 mg PO DAILY 07/06/21 09/20/22 09/20/22 History tablet,extended release 24 hr quetiapine 100 mg tablet 1 tab PO BEDTIME 07/30/21 09/20/22 09/19/22 History divalproex 500 mg tablet,delayed 500 mg PO BID 09/20/22 09/20/22 09/20/22 History release epinephrine 0.3 mg/0.3 mL 0.3 mg IM DAILY PRN Allergic 09/20/22 09/20/22 Unknown History injection, auto-injector Reaction finasteride 5 mg tablet 5 mg PO DAILY 09/20/22 09/20/22 09/20/22 History gabapentin 400 mg capsule 800 mg PO BEDTIME 09/20/22 09/20/22 09/19/22 History mirtazapine 45 mg tablet 45 mg PO BEDTIME 09/20/22 09/20/22 09/19/22 History Physical Exam Vital Signs and Narrative: Vital Signs: Last Vital Signs Temp 97.2 F 09/20/22 16:34 Pulse 65 09/20/22 16:34 Resp 18 09/20/22 16:50 BP 112/68 09/20/22 16:34 Pulse Ox 97 09/20/22 16:34 O2 Del Method Room Air 09/20/22 16:34 BMI result Body Mass Index 27.7 Constitutional - Awake and Alert, No apparent distress Eyes - PERRLA, EOMI Neck- no midline or paraspinal ttp. Thyroid feels symmetric without palpable nodules Cardiovascular - S1S2, RRR, No edema Respiratory - Normal lung expansion, Normal respiratory effort, No respiratory distress, CTA bilaterally Gastrointestinal - NT / ND; +BS; No rebound or guarding Extremities - no calf tenderness bilaterally, no swelling Musculoskeletal - Significant swelling and ecchymosis left foot Skin - Warm/Dry Neurological - Alert & oriented x3, CN II-XII in tact, 5/5 strength BUE and BLE Psychological - Appropriate affect Results Labs 09/20/22 13:53 09/20/22 13:53 Labs: Laboratory Results - last 24 hr 09/20/22 09/20/22 13:53 13:53 MCV 86.6 MCH 28.1 MCHC 32.5 RDW 17.4 H Plt Count 126 L MPV 8.9 L Immature Gran % (Auto) 0.4 Neut % (Auto) 63.5 Lymph % (Auto) 21.3 Coal % (Auto) 12.8 H Eos % (Auto) 1.5 Baso % (Auto) 0.5 Lymph # (Auto) 2.2 Coal # (Auto) 1.3 H Eos # (Auto) 0.2 Baso # (Auto) 0.1 Abs Immat Gran (auto) 0.04 H Absolute Neuts (auto) 6.6 Absolute Nucleated RBC 0.000 Nucleated RBC % (auto) 0.0 Anion Gap TNP Estim Creat Clear Calc 37.5 Estimated GFR 31 Random Glucose 105 Calcium 9.0 Magnesium 2.1 Total Bilirubin 0.5 Direct Bilirubin 0.2 AST 41 H ALT 34 Alkaline Phosphatase 51 Total Protein 6.5 Albumin 3.7 Imaging Radiologist's Impressions: Impressions Foot X-Ray 09/20/22 14:00 IMPRESSION: Lisfranc injury with multiple fractures of the foot and lateral dislocation of the second through fifth metatarsals at the metatarsal tarsal joints. Fracture of the proximal lateral first metatarsal. CT can be helpful for further evaluation. Knee X-Ray 09/20/22 16:35 IMPRESSION: 1. No acute fractures or subluxation. 2. Moderate tricompartmental degenerative osteoarthritis. 3. Moderate chondrocalcinosis. 4. Small joint effusion. Cervical Spine CT 09/20/22 17:07 IMPRESSION: Head: No acute intracranial hemorrhage. There are scattered chronic small vessel ischemic changes within the periventricular white matter. Grossly no evidence of acute territorial infarct. Cervical spine: No acute cervical spine fracture and no posttraumatic spinal subluxation. There is advanced multilevel degenerative spondylosis of the cervical spine. Grossly no evidence of canal compromise. There is a calcified nodule within the left lobe of the thyroid gland that measures up to 1.8 cm in diameter. Based on the recommendations of the ACR Incidental Thyroid Findings Committee (JACR 2014; 12(2):143-50), further evaluation by thyroid ultrasound is recommended for solitary incidental thyroid nodules greater than or equal to 1.5 cm in largest axial dimension in patients age 35 years and older who do not have limited life expectancy or significant morbidities, unless clinically warranted. Foot CT 09/20/22 17:07 IMPRESSION: Lisfranc fracture dislocation of the second through fifth metatarsal bones and MTT joints. Minimally displaced fracture of the first cuneiform bone intra-articular with the first MTT joint and mild subluxation at the first MTT joint . Head CT 09/20/22 17:07 IMPRESSION: Head: No acute intracranial hemorrhage. There are scattered chronic small vessel ischemic changes within the periventricular white matter. Grossly no evidence of acute territorial infarct. Cervical spine: No acute cervical spine fracture and no posttraumatic spinal subluxation. There is advanced multilevel degenerative spondylosis of the cervical spine. Grossly no evidence of canal compromise. There is a calcified nodule within the left lobe of the thyroid gland that measures up to 1.8 cm in diameter. Based on the recommendations of the ACR Incidental Thyroid Findings Committee (JACR 2014; 12(2):143-50), further evaluation by thyroid ultrasound is recommended for solitary incidental thyroid nodules greater than or equal to 1.5 cm in largest axial dimension in patients age 35 years and older who do not have limited life expectancy or significant morbidities, unless clinically warranted. Assessment and Plan (1) Syncope: Status: Acute (2) Foot fracture, left: Status: Acute (3) Acute kidney injury: Status: Acute Plan 67-year-old male with history depression/anxiety, PTSD, prostate cancer currently under surveillance, history TIA, history of hepatitis-C treated with interferon, hyperlipidemia, hypertension, coronary artery disease H/O NSTEMI, chronic resting tremor, and BPH admitted for syncope with EYAL. #Syncope -Recurrent syncopal episodes since having COVID-19 in 02/23 -Check EEG -Neuro consult -Consider MRI pending neuro recommendation -seizure precautions -Also check orthostatics given EYAL and dehydration -hold finasteride -EKG showed NSR, rate 75, with PVCs -Monitor on telemetry # acute kidney injury -pre renal likely related to poor oral fluids -given 1 L IVF, continue IV NS -avoid nephrotoxins -follow BMP #Acute left foot fracture -Lisfranc injury with multiple fractures -Immobilize in splint in ED -Pain management using pain scale -Ortho consult # depression/anxiety/PTSD -continue home meds # hypertension -blood pressure soft -hold metoprolol, resume as appropriate -Hold gabapentin, resume as appropriate # BPH -hold finasteride # hyperlipidemia/CAD -no anginal chest pain -continue statin, hold metoprolol as above #Thyroid nodule -Large 1.8cm calcified nodule left thyroid lobe -TSH pending -Needs outpt follow up DVT prophylaxis-Lovenox Full code Patient requires inpatient stay at least 2 midnights for management of EYAL with syncopal episode requiring IV fluid resuscitation, close monitoring of renal function and electrolyte levels and expert consultation Time Spent With Patient Time: Total time managing care of this patient today ____ minutes. Quality Stroke Does the patient have a stroke diagnosis?: No VTE Prior VTE?: No VTE Risk Level:: Medical - moderate - high VTE Device Contraindication: Treatment Not Indicated VTE Drug Contraindication: N/A - Med Ordered
--- NOTE | 2022-09-20 19:48 | PC.NURSE ---
machine error for bp/heart rate- repeated immediately, vs stable, hr 70s on tele. deedee mcgarry made aware pt having frequent pac's- no intervention ordered. denies cp/sob/dizziness. fully conscious- no seizure activity or syncopal episode- resting in bed. reports morphine earlier helped pain decrease.
--- NOTE | 2022-09-20 19:55 | PC.NURSE ---
report given to berto coon.
[2022-09-20 20:07] LABS: TSH reflex Free T4 0.63 uIU/mL (0.32-4.0)
[2022-09-20] MEDS: 0.9 % Sodium Chloride 1,000 ML 100 ML IVCONT (20:08)
[2022-09-20] MEDS: Morphine Sulfate 2 MG/ML CARTRIDGE IVPUSH (20:16)
[2022-09-20] MEDS: Enoxaparin Sodium 40 MG/0.4 ML SYRINGE SUBCUT (21:23)
[2022-09-20] MEDS: Mirtazapine 15 MG TABLET 45 MG PO (21:23)
[2022-09-20] MEDS: QUEtiapine Fumarate 100 MG TABLET PO (21:23)
[2022-09-20] MEDS: oxyCODONE HCl Immed Release 5 MG TABLET PO (21:24)
[2022-09-20] MEDS: Escitalopram Oxalate 20 MG TABLET PO (21:26)
[2022-09-20] MEDS: Divalproex Sodium 500 MG TABLET.DR PO (21:27)
[2022-09-20 21:40] LABS: Carbon Dioxide 17 mmol/L (22-29)
[2022-09-21] VITALS (10 sets, daily range): BP systolic 154–198; BP diastolic 63–78; PULSE 68–83; RESP 14–20; TEMP 36.2–37.4; O2SAT 92–98
[2022-09-21] MEDS: 0.9 % Sodium Chloride 1,000 ML 100 ML IVCONT ×2 (06:01→15:03)
[2022-09-21] MEDS: oxyCODONE HCl Immed Release 5 MG TABLET PO ×2 (06:16→11:43)
[2022-09-21 06:38] LABS: Basophils Absolute Auto 0.1 X10*3/uL (0.0-0.2); Basophils Percent Auto 0.5 % (0-2); Eosinophils Absolute Auto 0.4 X10*3/uL (0.0-0.4); Eosinophils Percent Auto 2.8 % (0-4); Hematocrit 41.8 % (42.0-52.0); Hemoglobin 13.2 g/dl (14.0-18.0); Imm Gran Abs Auto 0.04 X10*3/uL (0.00-0.03); Imm Gran Pct Auto 0.3 % (0.0-0.4); Lymphocytes Percent Auto 44.6 % (20-40); MANUAL DIFF FLAG SCAN; Mean Corpuscular HGB Conc 31.6 g/dl (31.0-36.0); Mean Corpuscular Hemoglobin 28.3 pg (27.0-33.0); Mean Corpuscular Volume 89.7 fL (80.0-98.0); Mean Platelet Volume 9.5 fL (9.4-12.4); Monocytes Absolute Auto 1.6 X10*3/uL (0.1-1.2); Monocytes Percent Auto 10.7 % (2-11); Neutrophils Absolute Auto 6.3 x10*3/uL (2.0-8.3); Neutrophils Percent Auto 41.1 % (45-73); Platelet Count 131 X10*3/uL (160-400); Red Blood Count 4.66 X10*6/uL (4.60-5.80); Red Cell Distribution Width 17.6 % (11.0-16.0); SCAN SMEAR FLAG 1; White Blood Count 15.2 X10*3/uL (4.8-10.8)
[2022-09-21 06:45] LABS: Lymphocytes Absolute Auto 6.8 X10*3/uL (1.2-4.9)
[2022-09-21 07:01] LABS: Anion Gap 13 (12-20); Blood Urea Nitrogen 28 mg/dL (9-16); Calcium 8.3 mg/dL (8.4-10.2); Carbon Dioxide 21 mmol/L (22-29); Chloride 113 mmol/L (96-108); Creatinine Clr Calc Pharmacy 62.5; Estimated Glomerular Filt Rate 57; Glucose Random 87 mg/dL (60-115); Potassium 4.5 mmol/L (3.3-5.1); Sodium 142 mmol/L (135-145)
[2022-09-21 07:31] LABS: SLIDE REVIEW VERIFIED
--- NOTE | 2022-09-21 08:46 | P.PNIM_ITS ---
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 Physical Exam Vital Signs: Vital Signs: Last Vital Signs Temp 97.4 F 09/21/22 07:54 Pulse 72 09/21/22 07:54 Resp 20 09/21/22 07:54 BP 158/71 H 09/21/22 07:54 Pulse Ox 96 09/21/22 07:54 O2 Del Method Room Air 09/21/22 07:54 BMI result Body Mass Index 27.7 Objective Data Active Medications Acetaminophen (Acetaminophen 325 Mg Tablet) 650 mg PO Q6H PRN PRN Reason: Pain, Mild (Pain Scale 1-3) Atorvastatin Calcium (Atorvastatin Calcium 80 Mg Tablet) 80 mg PO DAILY [facility] Divalproex Sodium (Divalproex Sodium 500 Mg Tablet.Dr) 500 mg PO BID [facility] Last Admin: 09/20/22 21:27 Dose: 500 mg Documented By: SERG Docusate Sodium (Docusate Sodium 100 Mg Capsule) 100 mg PO DAILY PRN PRN Reason: Constipation Doxepin HCl (Doxepin Hcl 25 Mg Capsule) 25 mg PO BEDTIME [facility] Last Admin: 09/20/22 21:29 Dose: Not Given Documented By: SERG Non-Admin Reason: Patient Refused Enoxaparin Sodium (Enoxaparin Sodium 40 Mg/0.4 Ml Syringe) 40 mg SUBCUT Q24H [facility] Last Admin: 09/20/22 21:23 Dose: 40 mg Documented By: SERG Escitalopram Oxalate (Escitalopram Oxalate 20 Mg Tablet) 20 mg PO BEDTIME [facility] Last Admin: 09/20/22 21:26 Dose: 20 mg Documented By: SERG Sodium Chloride (Ns) 1,000 mls @ 100 mls/hr IVCONT .Q10H [facility] Last Admin: 09/21/22 06:01 Dose: 100 mls/hr Documented By: SERG Mirtazapine (Mirtazapine 15 Mg Tablet) 45 mg PO BEDTIME [facility] Last Admin: 09/20/22 21:23 Dose: 45 mg Documented By: SERG Morphine Sulfate (Morphine Sulfate 2 Mg/Ml Cartridge) 2 mg IVPUSH Q4H PRN; Pr otocol PRN Reason: Pain, Severe (Pain Scale 7-10) Last Admin: 09/20/22 20:16 Dose: 2 mg Documented By: SERA Ondansetron HCl (Ondansetron Hcl 4 Mg/2 Ml Vial) 4 mg IVPUSH Q8H PRN PRN Reason: Nausea and Vomiting Oxycodone HCl (Oxycodone Hcl Immed Release 5 Mg Tablet) 5 mg PO Q6H PRN PRN Reason: Pain, Moderate(Pain Scale 4-6) Last Admin: 09/21/22 06:16 Dose: 5 mg Documented By: SERG Pharmacy Consult (Consult Rx Perform Med Rec) 1 each MISCELLANE ONCE PRN PRN Reason: Consult order Quetiapine Fumarate (Quetiapine Fumarate 100 Mg Tablet) 100 mg PO BEDTIME [facility] Last Admin: 09/20/22 21:23 Dose: 100 mg Documented By: SERG Labs 09/21/22 06:15 09/21/22 06:15 Labs: Laboratory Results - last 24 hr 09/20/22 09/20/22 09/21/22 13:53 13:53 06:15 MCV 86.6 89.7 MCH 28.1 28.3 MCHC 32.5 31.6 RDW 17.4 H 17.6 H Plt Count 126 L 131 L MPV 8.9 L 9.5 Immature Gran % (Auto) 0.4 0.3 Neut % (Auto) 63.5 41.1 L Lymph % (Auto) 21.3 44.6 H [place] % (Auto) 12.8 H 10.7 Eos % (Auto) 1.5 2.8 Baso % (Auto) 0.5 0.5 Lymph # (Auto) 2.2 6.8 H [place] # (Auto) 1.3 H 1.6 H Eos # (Auto) 0.2 0.4 Baso # (Auto) 0.1 0.1 Abs Immat Gran (auto) 0.04 H 0.04 H Absolute Neuts (auto) 6.6 6.3 Absolute Nucleated RBC 0.000 0.000 Nucleated RBC % (auto) 0.0 0.0 Smear Tech's Comments VERIFIED Anion Gap TNP Estim Creat Clear Calc 37.5 Estimated GFR 31 Random Glucose 105 Calcium 9.0 Magnesium 2.1 Total Bilirubin 0.5 Direct Bilirubin 0.2 AST 41 H ALT 34 Alkaline Phosphatase 51 Total Protein 6.5 Albumin 3.7 TSH 0.63 09/21/22 06:15 MCV MCH MCHC RDW Plt Count MPV Immature Gran % (Auto) Neut % (Auto) Lymph % (Auto) [place] % (Auto) Eos % (Auto) Baso % (Auto) Lymph # (Auto) [place] # (Auto) Eos # (Auto) Baso # (Auto) Abs Immat Gran (auto) Absolute Neuts (auto) Absolute Nucleated RBC Nucleated RBC % (auto) Smear Tech's Comments Anion Gap 13 Estim Creat Clear Calc 62.5 Estimated GFR 57 Random Glucose 87 Calcium 8.3 L D Magnesium Total Bilirubin Direct Bilirubin AST ALT Alkaline Phosphatase Total Protein Albumin TSH Assessment and Plan (1) Syncope: Status: Acute (2) Foot fracture, left: Status: Acute (3) Acute kidney injury: Status: Acute Plan 67-year-old male with history depression/anxiety, PTSD, prostate cancer currently under surveillance, history TIA, history of hepatitis-C treated with interferon, hyperlipidemia, hypertension, coronary artery disease H/O NSTEMI, chronic resting tremor, and BPH admitted for syncope with EYAL. # recurrent Syncopes now believed to be likely micturation related to avoid voi ding in standing position -EEG result pending, Cervical spein MRI when MRI is available # acute kidney injury, improved with iVF 1.26 from 2 -avoid nephrotoxins -follow BMP #Acute left foot fracture -Lisfranc injury with multiple fractures -Immobilize in splint in ED -Pain management using pain scale -Ortho recommend splint, no surgery at this time # depression/anxiety/PTSD -continue home meds # hypertension--BP soft, hold meds -blood pressure soft # BPH -hold finasteride # hyperlipidemia/CAD -no anginal chest pain -continue statin, hold metoprolol as above #Thyroid nodule -Large 1.8cm calcified nodule left thyroid lobe -TSH pending -Needs outpt follow up DVT prophylaxis-Lovenox Full code PT is recommending STR Time Spent With Patient Time: Total time managing care of this patient today ____ minutes. Quality Stroke Does the patient have a stroke diagnosis?: No VTE Prior VTE?: No VTE Risk Level:: Medical - moderate - high VTE Device Contraindication: Treatment Not Indicated VTE Drug Contraindication: N/A - Med Ordered
--- NOTE | 2022-09-21 09:10 | P.HPOP_ITS ---
History of Present Illness History of Present Illness Date of Service: 09/21/22 Chief complaint: syncope,eyal,foot fracture Narrative: Gallito Gong is a 67 year old male depression/anxiety, PTSD, prostate cancer currently under surveillance, history TIA, history of hepatitis-C treated with interferon, hyperlipidemia, hypertension, coronary artery disease H/O NSTEMI, chronic resting tremor, and BPH presents to the ED yesterday for right knee and left foot pain ongoing since the syncopal episode occurred in the middle of the night. X-rays obtained as well as a CT in the ED reveals a left foot Lisfranc injury. The patient was also found to have an EYAL. He was admitted to the medica l service with orthopedic consult for further evaluation and treatment. ? Review of Systems Review of Systems: Yes all other systems are reviewed and are negative PMFSH Past Medical History Medical History Acidosis, lactic Anxiety BPH without obstruction/lower urinary tract symptoms CAD (coronary artery disease) CAD (coronary artery disease) COVID-19 Depression Diverticulosis Elevated cholesterol Elevated PSA Encephalopathy acute REBECA (generalized anxiety disorder) Hepatitis C History of prostate cancer HLD (hyperlipidemia) HTN (hypertension) HTN (hypertension) Hx of hepatitis C Hx of non-ST elevation myocardial infarction (NSTEMI) Hx of renal calculi Hypertensive encephalopathy Hypertensive encephalopathy NSTEMI (non-ST elevated myocardial infarction) Prostate cancer PTSD (post-traumatic stress disorder) TIA (transient ischemic attack) Tubulovillous adenoma Family History Family History Mother Heart disease Father No problems noted. Surgical History Surgical History H/O heart artery stent History of surgery on wrist Hx of appendectomy Hx of cardiac catheterization Hx of colonoscopy Hx of left knee surgery Hx of tonsillectomy Social History Social History Household Members: None Housing: Apartment Are you a primary day care teacher to a significant other at home: No Do you presently have visiting nurse or other home services: No Alcohol intake: former Year quit: 1988 Patient Tobacco Use Status: Former Tobacco user Quit Date: 30 yrs ago Tobacco use type: Cigarette Substance Use Type: Marijuana service: No Meds Allergies Allergy/AdvReac Type Severity Reaction Status Date / Time bee pollen [BEE STINGS] Allergy Severe Anaphylaxis Verified 09/20/22 13:24 Iodinated Contrast Media Allergy Severe Anaphylaxis Verified 09/20/22 13:24 [IV CONTRAST] zoster vaccine live Allergy Intermediate Shortness Verified 09/20/22 13:24 [SHINGLES VACCINE] of Breath codeine Allergy Severe Itching,hiv Uncoded 10/18/21 12:05 es shellfish Allergy Severe anaphylaxis Uncoded 10/18/21 12:05 Active Medications: Current Medications Acetaminophen (Acetaminophen 325 Mg Tablet) 650 mg PO Q6H PRN PRN Reason: Pain, Mild (Pain Scale 1-3) Atorvastatin Calcium (Atorvastatin Calcium 80 Mg Tablet) 80 mg PO DAILY [facility] Divalproex Sodium (Divalproex Sodium 500 Mg Tablet.Dr) 500 mg PO BID [facility] Last Admin: 09/20/22 21:27 Dose: 500 mg Docusate Sodium (Docusate Sodium 100 Mg Capsule) 100 mg PO DAILY PRN PRN Reason: Constipation Doxepin HCl (Doxepin Hcl 25 Mg Capsule) 25 mg PO BEDTIME [facility] Last Admin: 09/20/22 21:29 Dose: Not Given Enoxaparin Sodium (Enoxaparin Sodium 40 Mg/0.4 Ml Syringe) 40 mg SUBCUT Q24H [facility] Last Admin: 09/20/22 21:23 Dose: 40 mg Escitalopram Oxalate (Escitalopram Oxalate 20 Mg Tablet) 20 mg PO BEDTIME [facility] Last Admin: 09/20/22 21:26 Dose: 20 mg Sodium Chloride (Ns) 1,000 mls @ 100 mls/hr IVCONT .Q10H [facility] Last Admin: 09/21/22 06:01 Dose: 100 mls/hr Mirtazapine (Mirtazapine 15 Mg Tablet) 45 mg PO BEDTIME [facility] Last Admin: 09/20/22 21:23 Dose: 45 mg Morphine Sulfate (Morphine Sulfate 2 Mg/Ml Cartridge) 2 mg IVPUSH Q4H PRN; Protocol PRN Reason: Pain, Severe (Pain Scale 7-10) Last Admin: 09/20/22 20:16 Dose: 2 mg Ondansetron HCl (Ondansetron Hcl 4 Mg/2 Ml Vial) 4 mg IVPUSH Q8H PRN PRN Reason: Nausea and Vomiting Oxycodone HCl (Oxycodone Hcl Immed Release 5 Mg Tablet) 5 mg PO Q6H PRN PRN Reason: Pain, Moderate(Pain Scale 4-6) Last Admin: 09/21/22 06:16 Dose: 5 mg Pharmacy Consult (Consult Rx Perform Med Rec) 1 each MISCELLANE ONCE PRN PRN Reason: Consult order Quetiapine Fumarate (Quetiapine Fumarate 100 Mg Tablet) 100 mg PO BEDTIME [facility] Last Admin: 09/20/22 21:23 Dose: 100 mg Home Medications Medication Instructions Recorded Confirmed Last Taken Type atorvastatin 80 mg tablet 80 mg PO DAILY 07/06/21 09/20/22 09/19/22 History citalopram 40 mg tablet 40 mg PO BEDTIME depressive 07/06/21 09/20/22 09/19/22 History disorder doxepin 25 mg capsule 25 mg PO BEDTIME 07/06/21 09/20/22 09/19/22 History gabapentin 300 mg capsule 600 mg PO DAILY 07/06/21 09/20/22 09/20/22 History metoprolol succinate 25 mg 25 mg PO DAILY 07/06/21 09/20/22 09/20/22 History tablet,extended release 24 hr quetiapine 100 mg tablet 1 tab PO BEDTIME 07/30/21 09/20/22 09/19/22 History divalproex 500 mg tablet,delayed 500 mg PO BID 09/20/22 09/20/22 09/20/22 History release epinephrine 0.3 mg/0.3 mL 0.3 mg IM DAILY PRN Allergic 09/20/22 09/20/22 Unknown History injection, auto-injector Reaction finasteride 5 mg tablet 5 mg PO DAILY 09/20/22 09/20/22 09/20/22 History gabapentin 400 mg capsule 800 mg PO BEDTIME 09/20/22 09/20/22 09/19/22 History mirtazapine 45 mg tablet 45 mg PO BEDTIME 09/20/22 09/20/22 09/19/22 History Physical Exam Vital Signs: Vital Signs: Last Vital Signs Temp 97.4 F 09/21/22 07:54 Pulse 72 09/21/22 07:54 Resp 20 09/21/22 07:54 BP 158/71 H 09/21/22 07:54 Pulse Ox 96 09/21/22 07:54 O2 Del Method Room Air 09/21/22 07:54 BMI result Body Mass Index 27.7 Const: General: cooperative, healthy appearing and no acute distress Resp: Effort & Inspection: normal respiratory effort and able to speak in complete sentences Cardio: Rate: regular rate Peripheral pulses: Peripheral pulses 2+ throughout GI: Palpation (GI): Soft to palpation Skin: Lesions: no lesions Rashes: no rashes Extrem: Other: Left lower extremity is in a posterior short leg splint. Able to move all digits. Reports sensation is intact. Capillary refill is brisk. Results Labs 09/21/22 06:15 09/21/22 06:15 Labs: Abnormal lab results 09/20/22 09/20/22 09/21/22 Range/Units 13:53 13:53 06:15 WBC 15.2 H (4.8-10.8) X10*3/uL Hgb 13.0 L 13.2 L (14.0-18.0) g/dl Hct 40.0 L 41.8 L (42.0-52.0) % RDW 17.4 H 17.6 H (11.0-16.0) % Plt Count 126 L 131 L (160-400) X10*3/uL MPV 8.9 L (9.4-12.4) fL Neut % (Auto) 41.1 L (45-73) % Lymph % (Auto) 44.6 H (20-40) % [place] % (Auto) 12.8 H (2-11) % Lymph # (Auto) 6.8 H (1.2-4.9) X10*3/uL [place] # (Auto) 1.3 H 1.6 H (0.1-1.2) X10*3/uL Abs Immat Gran (auto) 0.04 H 0.04 H (0.00-0.03) X10*3/uL Chloride 111 H (96-108) mmol/L Carbon Dioxide 17 L (22-29) mmol/L BUN 42 H (9-16) mg/dL Creatinine 2.10 H (0.5-1.4) mg/dL Calcium (8.4-10.2) mg/dL AST 41 H (5-37) U/L 09/21/22 Range/Units 06:15 WBC (4.8-10.8) X10*3/uL Hgb (14.0-18.0) g/dl Hct (42.0-52.0) % RDW (11.0-16.0) % Plt Count (160-400) X10*3/uL MPV (9.4-12.4) fL Neut % (Auto) (45-73) % Lymph % (Auto) (20-40) % [place] % (Auto) (2-11) % Lymph # (Auto) (1.2-4.9) X10*3/uL [place] # (Auto) (0.1-1.2) X10*3/uL Abs Immat Gran (auto) (0.00-0.03) X10*3/uL Chloride 113 H (96-108) mmol/L Carbon Dioxide 21 L (22-29) mmol/L BUN 28 H (9-16) mg/dL Creatinine (0.5-1.4) mg/dL Calcium 8.3 L D (8.4-10.2) mg/dL AST (5-37) U/L H & H 09/20/22 09/21/22 Range/Units 13:53 06:15 Hgb 13.0 L 13.2 L (14.0-18.0) g/dl Hct 40.0 L 41.8 L (42.0-52.0) % All other labs normal. Assessment and Plan (1) Syncope: Status: Acute (2) Foot fracture, left: Status: Acute NWB LLE Keep splint c/d/i. followup outpatient with [facility] foot and ankle specialists once discharged No additional orthopedic intervention needed at this time (3) Acute kidney injury: Status: Acute Time Spent With Patient Time: Total time managing care of this patient today ____ minutes. Quality Stroke Does the patient have a stroke diagnosis?: No VTE Prior VTE?: No VTE Risk Level:: Medical - moderate - high VTE Device Contraindication: Treatment Not Indicated VTE Drug Contraindication: N/A - Med Ordered Procedures Date of Service Date of Service: 09/21/22
[2022-09-21] MEDS: Atorvastatin Calcium 80 MG TABLET PO (09:51)
[2022-09-21] MEDS: Divalproex Sodium 500 MG TABLET.DR PO ×2 (09:51→21:28)
[2022-09-21] MEDS: Morphine Sulfate 2 MG/ML CARTRIDGE IVPUSH (09:51)
--- NOTE | 2022-09-21 12:33 | MHC.CM.PN ---
IMM 09/21. Pt admitted with syncope, EYAL, and L foot fx. Pt lives alone, is independent/self-care. D/C plan pending further eval, but likely return home with new VNA vs STR. Pts friend can transport. No HCP on file, declined one at this time. PCP: Eileen Bagley vax: x 3 moderna
[2022-09-21] MEDS: HYDROmorphone HCl 0.5 MG/0.5 ML SYRINGE IVPUSH ×2 (12:59→21:35)
--- NOTE | 2022-09-21 14:11 | P.CNNE_ITS ---
History of Present Illness Data of Consult Service Date: 09/21/22 Primary Care Provider: Eileen Yu MD [facility] Reason for consult: Syncope 67 years old man who usually has uncontrolled significantly high hypertension, has been using significant amount of marijuana every day for decades, was brought to hospital after he fell down at home. He said that he woke up in the middle of night, walked over to the restroom and urinated in a standing position. After that he felt dizzy fell down and injured his foot. There was no history of convulsion. Review of Systems Review of Systems: Trauma as described above [facility] Past Medical History Medical History Acidosis, lactic Anxiety BPH without obstruction/lower urinary tract symptoms CAD (coronary artery disease) CAD (coronary artery disease) COVID-19 Depression Diverticulosis Elevated cholesterol Elevated PSA Encephalopathy acute REBECA (generalized anxiety disorder) Hepatitis C History of prostate cancer HLD (hyperlipidemia) HTN (hypertension) HTN (hypertension) Hx of hepatitis C Hx of non-ST elevation myocardial infarction (NSTEMI) Hx of renal calculi Hypertensive encephalopathy Hypertensive encephalopathy NSTEMI (non-ST elevated myocardial infarction) Prostate cancer PTSD (post-traumatic stress disorder) TIA (transient ischemic attack) Tubulovillous adenoma Family History Family History Mother Heart disease Father No problems noted. Surgical History Surgical History H/O heart artery stent History of surgery on wrist Hx of appendectomy Hx of cardiac catheterization Hx of colonoscopy Hx of left knee surgery Hx of tonsillectomy Social History Social History Household Members: None Housing: Apartment Are you a primary primary health care nurse to a significant other at home: No Do you presently have visiting nurse or other home services: No Alcohol intake: former Year quit: 1988 Patient Tobacco Use Status: Former Tobacco user Quit Date: 30 yrs ago Tobacco use type: Cigarette Substance Use Type: Marijuana service: No Meds Allergies Allergy/AdvReac Type Severity Reaction Status Date / Time bee pollen [BEE STINGS] Allergy Severe Anaphylaxis Verified 09/20/22 13:24 Iodinated Contrast Media Allergy Severe Anaphylaxis Verified 09/20/22 13:24 [IV CONTRAST] zoster vaccine live Allergy Intermediate Shortness Verified 09/20/22 13:24 [SHINGLES VACCINE] of Breath codeine Allergy Severe Itching,hiv Uncoded 10/18/21 12:05 es shellfish Allergy Severe anaphylaxis Uncoded 10/18/21 12:05 Active Medications: Current Medications Acetaminophen (Acetaminophen 325 Mg Tablet) 650 mg PO Q6H PRN PRN Reason: Pain, Mild (Pain Scale 1-3) Atorvastatin Calcium (Atorvastatin Calcium 80 Mg Tablet) 80 mg PO DAILY [facility] Last Admin: 09/21/22 09:51 Dose: 80 mg Divalproex Sodium (Divalproex Sodium 500 Mg Tablet.Dr) 500 mg PO BID [facility] Last Admin: 09/21/22 09:51 Dose: 500 mg Docusate Sodium (Docusate Sodium 100 Mg Capsule) 100 mg PO DAILY PRN PRN Reason: Constipation Doxepin HCl (Doxepin Hcl 25 Mg Capsule) 25 mg PO BEDTIME [facility] Last Admin: 09/20/22 21:29 Dose: Not Given Enoxaparin Sodium (Enoxaparin Sodium 40 Mg/0.4 Ml Syringe) 40 mg SUBCUT Q24H [facility] Last Admin: 09/20/22 21:23 Dose: 40 mg Escitalopram Oxalate (Escitalopram Oxalate 20 Mg Tablet) 20 mg PO BEDTIME [facility] Last Admin: 09/20/22 21:26 Dose: 20 mg Hydromorphone HCl (Hydromorphone Hcl 0.5 Mg/0.5 Ml Syringe) 0.5 mg IVPUSH Q4H PRN; Protocol PRN Reason: Pain, Severe (Pain Scale 7-10) Last Admin: 09/21/22 12:59 Dose: 0.5 mg Sodium Chloride (Ns) 1,000 mls @ 100 mls/hr IVCONT .Q10H [facility] Last Admin: 09/21/22 06:01 Dose: 100 mls/hr Mirtazapine (Mirtazapine 15 Mg Tablet) 45 mg PO BEDTIME [facility] Last Admin: 09/20/22 21:23 Dose: 45 mg Ondansetron HCl (Ondansetron Hcl 4 Mg/2 Ml Vial) 4 mg IVPUSH Q8H PRN PRN Reason: Nausea and Vomiting Oxycodone HCl (Oxycodone Hcl Immed Release 5 Mg Tablet) 5 mg PO Q6H PRN PRN Reason: Pain, Moderate(Pain Scale 4-6) Last Admin: 09/21/22 11:43 Dose: 5 mg Pharmacy Consult (Consult Rx Perform Med Rec) 1 each MISCELLANE ONCE PRN PRN Reason: Consult order Quetiapine Fumarate (Quetiapine Fumarate 100 Mg Tablet) 100 mg PO BEDTIME [facility] Last Admin: 09/20/22 21:23 Dose: 100 mg Home Medications Medication Instructions Recorded Confirmed Last Taken Type atorvastatin 80 mg tablet 80 mg PO DAILY 07/06/21 09/20/22 09/19/22 History citalopram 40 mg tablet 40 mg PO BEDTIME depressive 07/06/21 09/20/22 09/19/22 History disorder doxepin 25 mg capsule 25 mg PO BEDTIME 07/06/21 09/20/22 09/19/22 History gabapentin 300 mg capsule 600 mg PO DAILY 07/06/21 09/20/22 09/20/22 History metoprolol succinate 25 mg 25 mg PO DAILY 07/06/21 09/20/22 09/20/22 History tablet,extended release 24 hr quetiapine 100 mg tablet 1 tab PO BEDTIME 07/30/21 09/20/22 09/19/22 History divalproex 500 mg tablet,delayed 500 mg PO BID 09/20/22 09/20/22 09/20/22 History release epinephrine 0.3 mg/0.3 mL 0.3 mg IM DAILY PRN Allergic 09/20/22 09/20/22 Unknown History injection, auto-injector Reaction finasteride 5 mg tablet 5 mg PO DAILY 09/20/22 09/20/22 09/20/22 History gabapentin 400 mg capsule 800 mg PO BEDTIME 09/20/22 09/20/22 09/19/22 History mirtazapine 45 mg tablet 45 mg PO BEDTIME 09/20/22 09/20/22 09/19/22 History Physical Exam Vital Signs: Vital Signs: Last Vital Signs Temp 97.2 F 09/21/22 11:19 Pulse 75 09/21/22 11:19 Resp 20 09/21/22 11:19 BP 165/77 H 09/21/22 11:19 Pulse Ox 98 09/21/22 11:19 O2 Del Method Room Air 09/21/22 11:19 BMI result Body Mass Index 27.7 Neuro: Other: he is alert and awake with normal spontaneity of speech fluency comprehension and somewhat euphoric affect. Face is symmetrical. Visual marin are full. Deep tendon reflexes are on the brisker side specially in his knees. Ankle and foot reflexes could not be tested. Results Labs 09/21/22 06:15 09/21/22 06:15 Labs: Short CBC 09/21/22 Range/Units 06:15 WBC 15.2 H (4.8-10.8) X10*3/uL Hgb 13.2 L (14.0-18.0) g/dl Hct 41.8 L (42.0-52.0) % Plt Count 131 L (160-400) X10*3/uL BMP 09/20/22 09/21/22 13:53 06:15 Sodium 142 142 Potassium 4.2 4.5 Chloride 111 H 113 H Carbon Dioxide 17 L 21 L BUN 42 H 28 H Creatinine 2.10 H 1.26 Calcium 9.0 8.3 L D Liver Function 09/20/22 Range/Units 13:53 Total Bilirubin 0.5 (0.0-1.0) mg/dL Direct Bilirubin 0.2 (0.0-0.5) mg/dL AST 41 H (5-37) U/L ALT 34 (0-40) U/L Alkaline Phosphatase 51 (39-117) U/L Albumin 3.7 (3.5-5.0) g/dL Assessment and Plan (1) Syncope: Status: Acute 67 years old man who probably had micturition syncope resulting from significant drop in blood pressure from his baseline, which usually was quite high. He was educated that he should avoid urinating in a standing position. Otherwise adjustment of blood pressure medicines are recommended with proper treatment for uncontrolled hypertension. Appropriate hydration is recommended as he was also dehydrated when he arrived. (2) Cervical spondylitic cord compression: Status: Acute His examination suggest cord compression probably at cervical level as reported by radiologist on his head CT. If possible, MRI of cervical spine is recommended without contrast. Time Spent With Patient Time: Total time managing care of this patient today ____ minutes. Procedures Date of Service Date of Service: 09/21/22
--- NOTE | 2022-09-21 15:21 | P.CONCA_ITS ---
History of Present Illness History of Present Illness Date of Service: 09/21/22 Requesting physician: Pete Us Chief complaint: syncope,gustavo,foot fracture Narrative: 67-year-old gentleman presenting with syncope and formal leading to left foot fracture. He said he has had multiple episodes since he had COVID-19 infection a year ago. He had neurological issues after that with memory problems and does not remember anything now. He thinks this is related to COVID-19. He has seen Cardiology at [facility] Dr Gallito Ambriz but does not remember what sort of workup he had done before. He is now presenting again with syncope. He is saying he sometimes feels somewhat hot and flushed before he passes out but overall his history is quite weak and limited. He said previously he did have urinary incontinence on occasion or 2. Never had a tongue bite. He is definitely more confused after syncopal episodes. No chest discomfort shortness of breath. EKG reviewed which is showing frequent premature ventricular complexes. He also had acute kidney injury on admission which is recovering. [facility] Past Medical History Medical History Acidosis, lactic Anxiety BPH without obstruction/lower urinary tract symptoms CAD (coronary artery disease) CAD (coronary artery disease) COVID-19 Depression Diverticulosis Elevated cholesterol Elevated PSA Encephalopathy acute REBECA (generalized anxiety disorder) Hepatitis C History of prostate cancer HLD (hyperlipidemia) HTN (hypertension) HTN (hypertension) Hx of hepatitis C Hx of non-ST elevation myocardial infarction (NSTEMI) Hx of renal calculi Hypertensive encephalopathy Hypertensive encephalopathy NSTEMI (non-ST elevated myocardial infarction) Prostate cancer PTSD (post-traumatic stress disorder) TIA (transient ischemic attack) Tubulovillous adenoma Family History Family History Mother Heart disease Father No problems noted. Surgical History Surgical History H/O heart artery stent History of surgery on wrist Hx of appendectomy Hx of cardiac catheterization Hx of colonoscopy Hx of left knee surgery Hx of tonsillectomy Social History Social History Household Members: None Housing: Apartment Are you a primary personal care attendant to a significant other at home: No Do you presently have visiting nurse or other home services: No Alcohol intake: former Year quit: 1988 Patient Tobacco Use Status: Former Tobacco user Quit Date: 30 yrs ago Tobacco use type: Cigarette Substance Use Type: Marijuana service: No Meds Allergies Allergy/AdvReac Type Severity Reaction Status Date / Time bee pollen [BEE STINGS] Allergy Severe Anaphylaxis Verified 09/20/22 13:24 Iodinated Contrast Media Allergy Severe Anaphylaxis Verified 09/20/22 13:24 [IV CONTRAST] zoster vaccine live Allergy Intermediate Shortness Verified 09/20/22 13:24 [SHINGLES VACCINE] of Breath codeine Allergy Severe Itching,hiv Uncoded 10/18/21 12:05 es shellfish Allergy Severe anaphylaxis Uncoded 10/18/21 12:05 Active Medications: Current Medications Acetaminophen (Acetaminophen 325 Mg Tablet) 650 mg PO Q6H PRN PRN Reason: Pain, Mild (Pain Scale 1-3) Atorvastatin Calcium (Atorvastatin Calcium 80 Mg Tablet) 80 mg PO DAILY [facility] Last Admin: 09/21/22 09:51 Dose: 80 mg Divalproex Sodium (Divalproex Sodium 500 Mg Tablet.Dr) 500 mg PO BID [facility] Last Admin: 09/21/22 09:51 Dose: 500 mg Docusate Sodium (Docusate Sodium 100 Mg Capsule) 100 mg PO DAILY PRN PRN Reason: Constipation Doxepin HCl (Doxepin Hcl 25 Mg Capsule) 25 mg PO BEDTIME [facility] Last Admin: 09/20/22 21:29 Dose: Not Given Enoxaparin Sodium (Enoxaparin Sodium 40 Mg/0.4 Ml Syringe) 40 mg SUBCUT Q24H [facility] Last Admin: 09/20/22 21:23 Dose: 40 mg Escitalopram Oxalate (Escitalopram Oxalate 20 Mg Tablet) 20 mg PO BEDTIME [facility] Last Admin: 09/20/22 21:26 Dose: 20 mg Hydromorphone HCl (Hydromorphone Hcl 0.5 Mg/0.5 Ml Syringe) 0.5 mg IVPUSH Q4H PRN; Protocol PRN Reason: Pain, Severe (Pain Scale 7-10) Last Admin: 09/21/22 12:59 Dose: 0.5 mg Sodium Chloride (Ns) 1,000 mls @ 100 mls/hr IVCONT .Q10H [facility] Last Admin: 09/21/22 15:03 Dose: 100 mls/hr Mirtazapine (Mirtazapine 15 Mg Tablet) 45 mg PO BEDTIME [facility] Last Admin: 09/20/22 21:23 Dose: 45 mg Ondansetron HCl (Ondansetron Hcl 4 Mg/2 Ml Vial) 4 mg IVPUSH Q8H PRN PRN Reason: Nausea and Vomiting Oxycodone HCl (Oxycodone Hcl Immed Release 5 Mg Tablet) 5 mg PO Q6H PRN PRN Reason: Pain, Moderate(Pain Scale 4-6) Last Admin: 09/21/22 11:43 Dose: 5 mg Pharmacy Consult (Consult Rx Perform Med Rec) 1 each MISCELLANE ONCE PRN PRN Reason: Consult order Quetiapine Fumarate (Quetiapine Fumarate 100 Mg Tablet) 100 mg PO BEDTIME [facility] Last Admin: 09/20/22 21:23 Dose: 100 mg Home Medications Medication Instructions Recorded Confirmed Last Taken Type atorvastatin 80 mg tablet 80 mg PO DAILY 07/06/21 09/20/22 09/19/22 History citalopram 40 mg tablet 40 mg PO BEDTIME depressive 07/06/21 09/20/22 09/19/22 History disorder doxepin 25 mg capsule 25 mg PO BEDTIME 07/06/21 09/20/22 09/19/22 History gabapentin 300 mg capsule 600 mg PO DAILY 07/06/21 09/20/22 09/20/22 History metoprolol succinate 25 mg 25 mg PO DAILY 07/06/21 09/20/22 09/20/22 History tablet,extended release 24 hr quetiapine 100 mg tablet 1 tab PO BEDTIME 07/30/21 09/20/22 09/19/22 History divalproex 500 mg tablet,delayed 500 mg PO BID 09/20/22 09/20/22 09/20/22 History release epinephrine 0.3 mg/0.3 mL 0.3 mg IM DAILY PRN Allergic 09/20/22 09/20/22 Unknown History injection, auto-injector Reaction finasteride 5 mg tablet 5 mg PO DAILY 09/20/22 09/20/22 09/20/22 History gabapentin 400 mg capsule 800 mg PO BEDTIME 09/20/22 09/20/22 09/19/22 History mirtazapine 45 mg tablet 45 mg PO BEDTIME 07/09/20/22 09/19/22 History Physical Exam Vital Signs: Vital Signs: Last Vital Signs Temp 98.1 F 09/21/22 15:15 Pulse 80 09/21/22 15:15 Resp 18 09/21/22 15:15 BP 171/77 H 09/21/22 15:15 Pulse Ox 95 09/21/22 15:15 O2 Del Method Room Air 09/21/22 15:15 BMI result Body Mass Index 27.7 GENERAL APPEARANCE: in no acute distress, pleasant. NECK: no carotid bruit, no jugular venous distention. SKIN: no suspicious lesions, warm and dry. HEART: no murmurs, regular rate and rhythm. LUNGS: clear to auscultation bilaterally. ABDOMEN: soft, nontender. EXTREMITIES: no edema. PERIPHERAL PULSES: equal. NEUROLOGIC: No gross deficits, AAO X 3 Objective Labs and Meds 09/21/22 06:15 09/21/22 06:15 Lab results: Laboratory Results - last 24 hr 09/20/22 09/21/22 09/21/22 13:53 06:15 06:15 WBC 15.2 H RBC 4.66 Hgb 13.2 L Hct 41.8 L MCV 89.7 MCH 28.3 MCHC 31.6 RDW 17.6 H Plt Count 131 L MPV 9.5 Immature Gran % (Auto) 0.3 Neut % (Auto) 41.1 L Lymph % (Auto) 44.6 H [place] % (Auto) 10.7 Eos % (Auto) 2.8 Baso % (Auto) 0.5 Lymph # (Auto) 6.8 H [place] # (Auto) 1.6 H Eos # (Auto) 0.4 Baso # (Auto) 0.1 Abs Immat Gran (auto) 0.04 H Absolute Neuts (auto) 6.3 Absolute Nucleated RBC 0.000 Nucleated RBC % (auto) 0.0 Smear Tech's Comments VERIFIED Smear Path Review Sodium 142 Potassium 4.5 Chloride 113 H Carbon Dioxide 17 L 21 L Anion Gap 13 BUN 28 H Creatinine 1.26 Estim Creat Clear Calc 62.5 Estimated GFR 57 Random Glucose 87 Calcium 8.3 L D TSH 0.63 Imaging Radiologist's impression: Impressions Foot X-Ray 09/20/22 14:00 IMPRESSION: Lisfranc injury with multiple fractures of the foot and lateral dislocation of the second through fifth metatarsals at the metatarsal tarsal joints. Fracture of the proximal lateral first metatarsal. CT can be helpful for further evaluation. Knee X-Ray 09/20/22 16:35 IMPRESSION: 1. No acute fractures or subluxation. 2. Moderate tricompartmental degenerative osteoarthritis. 3. Moderate chondrocalcinosis. 4. Small joint effusion. Cervical Spine CT 09/20/22 17:07 IMPRESSION: Head: No acute intracranial hemorrhage. There are scattered chronic small vessel ischemic changes within the periventricular white matter. Grossly no evidence of acute territorial infarct. Cervical spine: No acute cervical spine fracture and no posttraumatic spinal subluxation. There is advanced multilevel degenerative spondylosis of the cervical spine. Grossly no evidence of canal compromise. There is a calcified nodule within the left lobe of the thyroid gland that measures up to 1.8 cm in diameter. Based on the recommendations of the ACR Incidental Thyroid Findings Committee (JACR 2014; 12(2):143-50), further evaluation by thyroid ultrasound is recommended for solitary incidental thyroid nodules greater than or equal to 1.5 cm in largest axial dimension in patients age 35 years and older who do not have limited life expectancy or significant morbidities, unless clinically warranted. Foot CT 09/20/22 17:07 IMPRESSION: Lisfranc fracture dislocation of the second through fifth metatarsal bones and MTT joints. Minimally displaced fracture of the first cuneiform bone intra-articular with the first MTT joint and mild subluxation at the first MTT joint . Head CT 09/20/22 17:07 IMPRESSION: Head: No acute intracranial hemorrhage. There are scattered chronic small vessel ischemic changes within the periventricular white matter. Grossly no evidence of acute territorial infarct. Cervical spine: No acute cervical spine fracture and no posttraumatic spinal subluxation. There is advanced multilevel degenerative spondylosis of the cervical spine. Grossly no evidence of canal compromise. There is a calcified nodule within the left lobe of the thyroid gland that measures up to 1.8 cm in diameter. Based on the recommendations of the ACR Incidental Thyroid Findings Committee (JACR 2014; 12(2):143-50), further evaluation by thyroid ultrasound is recommended for solitary incidental thyroid nodules greater than or equal to 1.5 cm in largest axial dimension in patients age 35 years and older who do not have limited life expectancy or significant morbidities, unless clinically warranted. Assessment and Plan (1) Syncope: Status: Acute Plan 67-year-old gentleman presenting for syncope. He has had multiple syncopal episode in the past. He has some memory problems and confusion afterwards but has been experiencing memory problems at baseline. Overall story appears to be related to vasovagal syncope. Given PVCs recommend checking echocardiogram to rule out any cardiomyopathy. Neurology should weigh in about ? seizures. Check orthostatic vital signs and document them. Blood pressure is elevated probably due to pain. He has left foot fracture. Thank you for allowing me to participate in the care of your patient. Please f eel free to contact me if you have any questions. Time Spent With Patient Time: Total time managing care of this patient today ____ minutes. Procedures Date of Service Date of Service: 09/21/22
[2022-09-21 17:58] LABS: Glucose, Whole Blood 100 mg/dL (60-115)
[2022-09-21] MEDS: LORazepam 0.5 MG TABLET PO (18:11)
--- NOTE | 2022-09-21 18:38 | P.EN_ITS ---
Event Note Date of Service: 09/21/22 Event Note: Nursing notified provider of increased tremulousness early this evening and reported word finding difficulty. He has numbness in the toes bilaterally. These symptoms were reported last night on admission and have been longstanding. No focal weakness or paresthesias. No slurred speech or facial droop. Patient is anxious appearing with tremulousness in the upper>lower extremities. He is a&ox3. Does report he has not felt right . He had EEG earlier today that is not yet read. Orthostatics were repeated and were negative. Stop IVF. Low concern for acute CVA as symptoms are not new and there are no focal deficits observed on exam. Tremors have been chronic and patient is not observed to be confused indicative of post ictal state. Pt is notably anxious and lorazepam 0.5mg PO is ordered. Will check vitamin b12 and folic acid given ble neuropathy that is long standing and can follow up outpt for EMG as needed. TSH was normal. Time Spent With Patient Time: Total time managing care of this patient today ____ minutes.
[2022-09-21] MEDS: Mirtazapine 15 MG TABLET 45 MG PO (21:27)
[2022-09-21] MEDS: Escitalopram Oxalate 20 MG TABLET PO (21:28)
[2022-09-21] MEDS: Enoxaparin Sodium 40 MG/0.4 ML SYRINGE SUBCUT (21:28)
[2022-09-21] MEDS: QUEtiapine Fumarate 100 MG TABLET PO (21:28)
[2022-09-21] MEDS: Metoprolol Tartrate 25 MG TABLET PO (21:28)
[2022-09-21] MEDS: Doxepin HCl 25 MG CAPSULE PO (21:28)
[2022-09-22] VITALS (9 sets, daily range): BP systolic 120–200; BP diastolic 72–95; PULSE 56–98; RESP 20; TEMP 36–36.7; O2SAT 94–99
[2022-09-22] MEDS: oxyCODONE HCl Immed Release 5 MG TABLET PO ×2 (00:18→09:03)
--- NOTE | 2022-09-22 04:40 | PC.NURSE ---
Patient had a manual blood pressure of 200/72 at 04:30. Reports no dizziness, lightheadedness, no headache or blurred vision. Patient is awake, alert and oriented x4, calm demeanor and reports minimal pain or denies need for pain medicine. Left lower extremity elevated on pillow. Pedal present by doppler to left dorsal pedal pulse. Doctor Sarabjit notified at 04:32. Ordered to recheck blood pressure in 2 hours.
[2022-09-22] MEDS: HYDROmorphone HCl 0.5 MG/0.5 ML SYRINGE IVPUSH ×2 (06:20→10:49)
--- NOTE | 2022-09-22 06:38 | PC.NURSE ---
BP was retaken at 06:25. BP was 178/78, Dr. Whipple notified. Denies any lightheadedness, headache or blurred vision.
[2022-09-22 07:35] LABS: Folate 10.7 ng/mL (> or = 4.0); Vitamin B12 669 pg/mL (200-900)
[2022-09-22] MEDS: Divalproex Sodium 500 MG TABLET.DR PO ×2 (09:01→19:45)
[2022-09-22] MEDS: Atorvastatin Calcium 80 MG TABLET PO (09:01)
--- NOTE | 2022-09-22 14:24 | MHC.CM.PN ---
PT W/RECURRENT SYNCOPE, LEFT FOOT FX, EYAL RECOMMENDED STR, CM MET WPT WHO PREFERS [facility] [place] IN [place], REFERRAL SENT AND CM WILL CONT TO FOLLOW D/C NEEDS.
[2022-09-22] MEDS: cloNIDine HCL 0.1 MG TABLET PO ×2 (14:45→19:44)
[2022-09-22] MEDS: LORazepam 1 MG TABLET PO (15:00)
--- NOTE | 2022-09-22 16:13 | MHC.CM.PN ---
PREFERRED [facility] OFF[facility] BED FOR SATURDAY 09/23. CM MET W/PT TO COMPLETE A HCP, PT NAMED NAYLA GIRALDO HIS [facility] AND NO ALTERNATE CHOSEN, PT RECEIVED EDUCATIONAL HANDOUT/ORIGINAL AND 2 COPIES, COPY UPLOADED TO [facility] AND PLACED IN CHART W/PT PERMISSION.
[2022-09-22] MEDS: Doxepin HCl 25 MG CAPSULE PO (19:44)
[2022-09-22] MEDS: Mirtazapine 15 MG TABLET 45 MG PO (19:45)
[2022-09-22] MEDS: Enoxaparin Sodium 40 MG/0.4 ML SYRINGE SUBCUT (19:45)
[2022-09-22] MEDS: Escitalopram Oxalate 20 MG TABLET PO (19:45)
[2022-09-22] MEDS: QUEtiapine Fumarate 100 MG TABLET PO (19:45)
[2022-09-23] VITALS (8 sets, daily range): BP systolic 143–194; BP diastolic 80–91; PULSE 66–96; RESP 13–20; TEMP 36.1–36.7; O2SAT 96–99
--- NOTE | 2022-09-23 08:30 | P.DS_ITS ---
DS: Providers Provider Date of Service: 10/28/22 Date of admission: 09/20/22 18:59 Primary care physician: Eileen Yu MD Consults: 09/20/22 19:04 Consult to Neurology Routine Consulting Provider: [facility] Reason for consultation: sycope, ?seizure 09/20/22 19:21 Consult to Orthopedics Routine Consulting Provider: [facility] Reason for consultation: lisfranc injury with multiple fractures left foot 09/21/22 08:44 Consult to Cardiology Routine Consulting Provider: [facility] Cardiovascular Services Reason for consultation: recurrent syncopes, eval before surgery Has provider been notified: Yes DS: Diagnosis Discharge Diagnosis (1) Syncope: Status: Resolved (2) Foot fracture, left: Status: Acute (3) Acute kidney injury: Status: Resolved DS: Summary Hospital Course Hospital Course: Chief complaint: syncope,gustavo,foot fracture Chief Complaint: syncope 67-year-old male with history depression/anxiety, PTSD, prostate cancer currently under surveillance, history TIA, history of hepatitis-C treated with interferon, hyperlipidemia, hypertension, coronary artery disease H/O NSTEMI, chronic resting tremor, and BPH presents to the ED earlier today for evaluation of right knee and left foot pain ongoing since the syncopal episode occurred in the middle of the night.? The patient states he has had multiple syncopal episodes that occur about monthly ongoing since February after having COVID-19.? States he woke up in the middle of the night to urinate and when he turned around he collapsed with loss of consciousness for unknown duration.? He was able to crawl to bed and called his friend this morning.? He states prior to this syncopal episodes he felt shaky and when he awoke he was confused, stating he felt foggy and had a frontal headache.? Denies any nausea or vomiting.? Denies any prodrome including visual changes, palpitations, lightheadedness, shortness of breath, or chest pain.? No focal weakness or paresthesias. Denies any known history of seizures. He does report he does not drink much water. On arrival, vital stable, no hypotension or tachycardia.? No leukocytosis, mild normocytic anemia with H/H 13.0/40.0%.? Creatinine 2.10 (baseline 1.3-1.4), BUN 42, electrolytes largely within normal limits.? Head CT is negative for any acute intracranial abnormality but shows scattered chronic small vessel ischemic changes in the periventricular white matter.? Cervical spine CT is negative for any acute cervical spine fracture or subluxation however does show multilevel advanced degenerative spondylosis of the cervical spine with no canal compromise.? Incidentally found 1.8 cm calcified thyroid nodule within the left lobe of the thyroid gland.? X-ray of the right knee shows moderate osteoarthritis but no acute fractures or subluxation.? There is a small joint effusion.? X-ray of the left foot shows Lisfranc injury with multiple fractures of the foot and lateral dislocation of the 2nd through 5th metatarsals at the metatarsal tarsal joint space.? Follow-up for CT of the left foot with similar findings as well as showing a minimally displaced fracture of the 1st cuneiform bone intra-articular with the 1st MTP joint and mild subluxation at the 1st MTP joint.? In the ED, he has been treated with 1 L IV NS, 4 mg ondansetron, and morphine.? ED provider did discuss case with orthopedics recommending posterior short-leg splint which has been applied and will follow in the morning. Hospital course: # Recurrent Syncopes believed to be likely micturation related, and dehydration related. Neurology is recommending for him to avoid standing to void, and to be well hydrated. No arrythmia was noted in the hospital # acute kidney injury due to pre renal azotemia, dehydration, resolved with IVF #Acute left foot fracture Lisfranc injury with multiple fractures -Immobilize in splint in ED. Ortho recommend conservative management with splint for now and to follow up on outpatient basis. Oxycodone for pain # depression/anxiety/PTSD evaluated by psychiatry team who felt the patient is restless and sjivering suggestive of possible serotonergic overload. decision was made to DC Remeron, Doxepine and Mertazapine with decreasing the dose of Lexapro to 10 mg daily. To continue Depakote and Seroquel. # hypertensive urgency started on Clonidine and Norvasc along the MEtoprolol XL #Thyroid nodule Large 1.8cm calcified nodule left thyroid lobe TSH within normal for further follow up by PCP Dispo: To STR for less than 30 days Discharge plan Discontinue Citalopram, Doxepin, Mertazapine Decrese Gabapentin dosage to 200 mg twice daily Oxycodone for pain PRN Start Amlodipine and Clonidine for blood pressure control Ativan PRN for anxiety To short term rehab for less than 30 days, follow upw with [place] [facility] on September 28, at 1 pm (Dr. Clare Figueredo) Time Spent with Patient Time attestation: Total time managing care of this patient today ____ minutes. Discharge coordination time: Greater than 30 minutes Quality: Safe Use of Opioids Does Pt have an Active Cancer Diagnosis on the Problem List?: No Quality: Stroke Does the patient have a stroke diagnosis?: No Physical Exam Vital Signs: Vital Signs: Last Vital Signs Temp 97.3 F 09/23/22 07:28 Pulse 84 09/23/22 07:28 Resp 18 09/23/22 07:28 BP 188/86 H 09/23/22 07:28 Pulse Ox 96 09/23/22 07:28 O2 Del Method Room Air 09/23/22 07:28 BMI result Body Mass Index 27.7 Discharge Plan Discharge Anticipated Discharge Date/Time: 09/27/22 12:14 Patient Disposition: Xfer SNF Discharge Diagnosis: Syncope, fall, Lisfranc fracture of left Referrals: [facility] [Outside] - 1 Day (SHORT TERM REHAB) Clare Alvarado MD [Physician] - 1 Week (PT HAS AN APPT AT [facility] ON 10/03 AT 10AM) Eileen Yu MD [Primary Care Provider] - 1 Week Discharge Medications: New docusate sodium 100 mg Capsule 100 mg PO DAILY PRN (Reason: Constipation) Qty: 14 0RF lorazepam 1 mg Tablet 1 mg PO Q6H PRN (Reason: Anxiety) Qty: 20 0RF oxycodone 5 mg Tablet 5 mg PO Q6H PRN (Reason: Pain, Moderate(Pain Scale 4-6)) Qty: 20 0RF Rx Instructions: Partial Fill upon patient request. acetaminophen 325 mg Tablet 650 mg PO Q6H PRN (Reason: Pain, Mild (Pain Scale 1-3)) Qty: 30 0RF clonidine HCl 0.1 mg Tablet 0.1 mg PO TID Qty: 90 0RF Protocol: Hold for SBP< HOLD for SBP < : 90 amlodipine 10 mg Tablet 10 mg PO DAILY Qty: 30 0RF Protocol: Hold for SBP< HOLD for SBP < : 90 gabapentin 100 mg Capsule 200 mg PO BID Qty: 60 0RF escitalopram oxalate 10 mg Tablet 10 mg PO DAILY Qty: 30 0RF Continued quetiapine 100 mg tablet 1 tab PO BEDTIME divalproex 500 mg tablet,delayed release (DR/EC) 500 mg PO BID epinephrine 0.3 mg/0.3 mL auto-injector 0.3 mg IM DAILY PRN (Reason: Allergic Reaction) finasteride 5 mg tablet 5 mg PO DAILY atorvastatin 80 mg tablet 80 mg PO DAILY metoprolol succinate 25 mg tablet extended release 24 hr 25 mg PO DAILY Discontinued gabapentin 400 mg capsule 800 mg PO BEDTIME mirtazapine 45 mg tablet 45 mg PO BEDTIME doxepin 25 mg capsule 25 mg PO BEDTIME citalopram 40 mg tablet 40 mg PO BEDTIME gabapentin 300 mg capsule 600 mg PO DAILY Discharge Orders: Discharge Order (Routine); Ordered 09/27/22 Ordered By: Kimberly Ohara Diet: Advance to usual diet Activity on Discharge: As tolerated Stand Alone Forms: Patient Portal Discharge page Care Plan Goals: fall prevention, and recovery from foot fracture Health Concerns: syncopes, fall, foot fracture Plan of Treatment: Discontinue Citalopram, Doxepin, Mertazapine Decrese Gabapentin dosage to 200 mg twice daily Oxycodone for pain PRN Start Amlodipine and Clonidine for blood pressure control Ativan PRN for anxiety To short term rehab for less than 30 days, follow upw with [place] on Oct 03, at 1 pm (Dr. Clare Figueredo) Assessment: as above Discharge Date/Time: 09/27/22 17:00
[2022-09-23] MEDS: cloNIDine HCL 0.1 MG TABLET PO ×3 (08:32→20:28)
[2022-09-23] MEDS: Divalproex Sodium 500 MG TABLET.DR PO ×2 (08:32→20:29)
[2022-09-23] MEDS: Atorvastatin Calcium 80 MG TABLET PO (08:32)
[2022-09-23] MEDS: amLODIPine Besylate 5 MG TABLET PO (09:35)
--- NOTE | 2022-09-23 10:19 | MHC.CM.PN ---
This CM received an angry phone call from pts HCP Erlinda, she reports being concerned with the quality of care the patient has received while being at this hospital. This CM gave Erlinda the number for reporting quality of care concerns. CM will continue to follow.
--- NOTE | 2022-09-23 11:28 | MHC.CM.PN ---
Addendum entered by Smita Chisholm 09/23/22 12:04: CM informed by hospitalist that the pt will not be discharging today due to high blood pressure readings and the need for medication adjustments. [facility] updated. [facility] was called to cancel ride. CM will continue to follow. Original Note: Pt medically cleared for D/C to [facility] for STR. Transportation booked via [facility] for 2pm today.
--- NOTE | 2022-09-23 11:46 | P.PNIM_ITS ---
Subjective Subjective Date of Service: 09/23/22 Interval History: Intermittent periods of agiation, anxiety and even confusion, presently lucid, calm no confusion, BP on high side Physical Exam Vital Signs: Vital Signs: Last Vital Signs Temp 97.3 F 09/23/22 07:28 Pulse 85 09/23/22 09:35 Resp 18 09/23/22 07:28 BP 185/83 H 09/23/22 09:35 Pulse Ox 96 09/23/22 07:28 O2 Del Method Room Air 09/23/22 07:28 BMI result Body Mass Index 27.7 Const: Other: General: AO X 3, no acute distress Resp: CTA bilateral CVS: S1,S2,RRR GI: +BS, NT, no distention Skin: No rash MSK: Left splint in place Neuro: motor grossly intact Psych: appropriate affect Objective Data Active Medications Acetaminophen (Acetaminophen 325 Mg Tablet) 650 mg PO Q6H PRN PRN Reason: Pain, Mild (Pain Scale 1-3) Amlodipine Besylate (Amlodipine Besylate 5 Mg Tablet) 5 mg PO DAILY [facility]; Protocol Last Admin: 09/23/22 09:35 Dose: 5 mg Documented By: LUZ Atorvastatin Calcium (Atorvastatin Calcium 80 Mg Tablet) 80 mg PO DAILY [facility] Last Admin: 09/23/22 08:32 Dose: 80 mg Documented By: LUZ Clonidine HCl (Clonidine Hcl 0.1 Mg Tablet) 0.1 mg PO TID [facility]; Protocol Last Admin: 09/23/22 08:32 Dose: 0.1 mg Documented By: LUZ Divalproex Sodium (Divalproex Sodium 500 Mg Tablet.) 500 mg PO BID [facility] Last Admin: 09/23/22 08:32 Dose: 500 mg Documented By: LUZ Docusate Sodium (Docusate Sodium 100 Mg Capsule) 100 mg PO DAILY PRN PRN Reason: Constipation Doxepin HCl (Doxepin Hcl 25 Mg Capsule) 25 mg PO BEDTIME [facility] Last Admin: 09/22/22 19:44 Dose: 25 mg Documented By: PORTILLO Enoxaparin Sodium (Enoxaparin Sodium 40 Mg/0.4 Ml Syringe) 40 mg SUBCUT Q24H [facility] Last Admin: 09/22/22 19:45 Dose: 40 mg Documented By: PORTILLO Escitalopram Oxalate (Escitalopram Oxalate 20 Mg Tablet) 20 mg PO BEDTIME [facility] Last Admin: 09/22/22 19:45 Dose: 20 mg Documented By: PORTILLO Hydromorphone HCl (Hydromorphone Hcl 0.5 Mg/0.5 Ml Syringe) 0.5 mg IVPUSH Q4H PRN; Protocol PRN Reason: Pain, Severe (Pain Scale 7-10) Last Admin: 09/22/22 10:49 Dose: 0.5 mg Documented By: ANNE Lorazepam (Lorazepam 1 Mg Tablet) 1 mg PO Q6H PRN PRN Reason: Anxiety Last Admin: 09/22/22 15:00 Dose: 1 mg Documented By: ANNE Mirtazapine (Mirtazapine 15 Mg Tablet) 45 mg PO BEDTIME [facility] Last Admin: 09/22/22 19:45 Dose: 45 mg Documented By: PORTILLO Ondansetron HCl (Ondansetron Hcl 4 Mg/2 Ml Vial) 4 mg IVPUSH Q8H PRN PRN Reason: Nausea and Vomiting Oxycodone HCl (Oxycodone Hcl Immed Release 5 Mg Tablet) 5 mg PO Q6H PRN PRN Reason: Pain, Moderate(Pain Scale 4-6) Last Admin: 09/22/22 09:03 Dose: 5 mg Documented By: ANNE Pharmacy Consult (Consult Rx Perform Med Rec) 1 each MISCELLANE ONCE PRN PRN Reason: Consult order Quetiapine Fumarate (Quetiapine Fumarate 100 Mg Tablet) 100 mg PO BEDTIME [facility] Last Admin: 09/22/22 19:45 Dose: 100 mg Documented By: PORTILLO Labs 09/21/22 06:15 09/21/22 06:15 Assessment and Plan (1) Syncope: Status: Acute (2) Foot fracture, left: Status: Acute (3) Acute kidney injury: Status: Acute Plan 67-year-old male with history depression/anxiety, PTSD, history of PRESS at [facility], prostate cancer currently under surveillance, history TIA, history of hepatitis- C treated with interferon, hyperlipidemia, hypertension, coronary artery disease H/O NSTEMI, chronic resting tremor, and BPH admitted for syncope with EYAL. # recurrent Syncopes now believed to be likely micturation related to avoid voiding in standing position, EEG done result pending # acute kidney injury, improved with iVF 1.26 from 2 -avoid nephrotoxins -follow BMP #Acute left foot fracture -Lisfranc injury with multiple fractures -Immobilize in splint in ED -Pain management using pain scale -Ortho recommend splint, no surgery at this time and outpatient follow up with [facility] # depression/anxiety/PTSD -continue home meds # hypertension--Uncotnrolled, is supposed to be on Toprol 25 daily and Norvasc 5, probably needs meds adjustment for better control, high BPs could be contributing to confusion as he has history of PRESS # BPH -hold finasteride # hyperlipidemia/CAD -no anginal chest pain -continue statin, metoprolol #Thyroid nodule -Large 1.8cm calcified nodule left thyroid lobe -TSH is normal at 0.69 -Needs outpt follow up DVT prophylaxis-Lovenox Full code PT is recommending STR Time Spent With Patient Time: Total time managing care of this patient today ____ minutes. Quality Stroke Does the patient have a stroke diagnosis?: No VTE Prior VTE?: No VTE Risk Level:: Medical - moderate - high VTE Device Contraindication: Treatment Not Indicated VTE Drug Contraindication: N/A - Med Ordered
[2022-09-23] MEDS: oxyCODONE HCl Immed Release 5 MG TABLET PO (12:01)
[2022-09-23] MEDS: Metoprolol Succinate ER 25 MG TAB.ER.24H PO (12:02)
[2022-09-23] MEDS: LORazepam 1 MG TABLET PO ×2 (12:02→20:28)
[2022-09-23] MEDS: Acetaminophen 325 MG TABLET 650 MG PO (20:29)
[2022-09-23] MEDS: Doxepin HCl 25 MG CAPSULE PO (20:29)
[2022-09-23] MEDS: QUEtiapine Fumarate 100 MG TABLET PO (20:29)
[2022-09-23] MEDS: Escitalopram Oxalate 20 MG TABLET PO (20:29)
[2022-09-23] MEDS: Mirtazapine 15 MG TABLET 45 MG PO (20:29)
[2022-09-23] MEDS: Enoxaparin Sodium 40 MG/0.4 ML SYRINGE SUBCUT (20:32)
[2022-09-23] MEDS: HYDROmorphone HCl 0.5 MG/0.5 ML SYRINGE IVPUSH (21:01)
[2022-09-23] MEDS: OLANZapine 10 MG VIAL 5 MG IM (21:07)
[2022-09-24] VITALS (9 sets, daily range): BP systolic 118–173; BP diastolic 64–89; PULSE 51–81; RESP 13–20; TEMP 36–36.9; O2SAT 94–100
[2022-09-24] MEDS: cloNIDine HCL 0.1 MG TABLET PO ×3 (08:26→20:10)
[2022-09-24] MEDS: Divalproex Sodium 500 MG TABLET.DR PO ×2 (08:26→20:10)
[2022-09-24] MEDS: Atorvastatin Calcium 80 MG TABLET PO (08:26)
[2022-09-24] MEDS: amLODIPine Besylate 5 MG TABLET PO ×2 (08:26→10:19)
[2022-09-24] MEDS: Metoprolol Succinate ER 25 MG TAB.ER.24H PO (08:26)
--- NOTE | 2022-09-24 09:38 | P.PNIM_ITS ---
Subjective Subjective Date of Service: 09/24/22 Interval History: Seems fine this morning, alert and oriented, cooperative, no distress. Did get Xyprexa overnight Physical Exam Vital Signs: Vital Signs: Last Vital Signs Temp 98.5 F 09/24/22 07:45 Pulse 81 09/24/22 08:26 Resp 20 09/24/22 07:45 BP 173/89 H 09/24/22 08:26 Pulse Ox 96 09/24/22 07:45 O2 Del Method Room Air 09/24/22 07:45 BMI result Body Mass Index 27.7 Const: Other: General: AO X 3, no acute distress Resp: CTA bilateral CVS: S1,S2,RRR GI: +BS, NT, no distention Skin: No rash MSK: Left splint in place Neuro: motor grossly intact Psych: appropriate affect Objective Data Active Medications Acetaminophen (Acetaminophen 325 Mg Tablet) 650 mg PO Q6H PRN PRN Reason: Pain, Mild (Pain Scale 1-3) Last Admin: 09/23/22 20:29 Dose: 650 mg Documented By: PORTILLO Amlodipine Besylate (Amlodipine Besylate 5 Mg Tablet) 5 mg PO DAILY [facility]; Protocol Last Admin: 09/24/22 08:26 Dose: 5 mg Documented By: LUZ Atorvastatin Calcium (Atorvastatin Calcium 80 Mg Tablet) 80 mg PO DAILY [facility] Last Admin: 09/24/22 08:26 Dose: 80 mg Documented By: LUZ Clonidine HCl (Clonidine Hcl 0.1 Mg Tablet) 0.1 mg PO TID [facility]; Protocol Last Admin: 09/24/22 08:26 Dose: 0.1 mg Documented By: LUZ Divalproex Sodium (Divalproex Sodium 500 Mg Tablet.Dr) 500 mg PO BID [facility] Last Admin: 09/24/22 08:26 Dose: 500 mg Documented By: LUZ Docusate Sodium (Docusate Sodium 100 Mg Capsule) 100 mg PO DAILY PRN PRN Reason: Constipation Doxepin HCl (Doxepin Hcl 25 Mg Capsule) 25 mg PO BEDTIME [facility] Last Admin: 09/23/22 20:29 Dose: 25 mg Documented By: PORTILLO Enoxaparin Sodium (Enoxaparin Sodium 40 Mg/0.4 Ml Syringe) 40 mg SUBCUT Q24H [facility] Last Admin: 09/23/22 20:32 Dose: 40 mg Documented By: PORTILLO Escitalopram Oxalate (Escitalopram Oxalate 20 Mg Tablet) 20 mg PO BEDTIME [facility] Last Admin: 09/23/22 20:29 Dose: 20 mg Documented By: PORTILLO Hydromorphone HCl (Hydromorphone Hcl 0.5 Mg/0.5 Ml Syringe) 0.5 mg IVPUSH Q4H [facility]; Protocol PRN Reason: Pain, Severe (Pain Scale 7-10) Last Admin: 09/23/22 21:01 Dose: 0.5 mg Documented By: PORTILLO Metoprolol Succinate (Metoprolol Succinate Er 25 Mg Tab.Er.24h) 25 mg PO DAILY [facility]; Protocol Last Admin: 09/24/22 08:26 Dose: 25 mg Documented By: LUZ Mirtazapine (Mirtazapine 15 Mg Tablet) 45 mg PO BEDTIME [facility] Last Admin: 09/23/22 20:29 Dose: 45 mg Documented By: PORTILLO Ondansetron HCl (Ondansetron Hcl 4 Mg/2 Ml Vial) 4 mg IVPUSH Q8H PRN PRN Reason: Nausea and Vomiting Oxycodone HCl (Oxycodone Hcl Immed Release 5 Mg Tablet) 5 mg PO Q6H PRN PRN Reason: Pain, Moderate(Pain Scale 4-6) Last Admin: 09/23/22 12:01 Dose: 5 mg Documented By: LUZ Pharmacy Consult (Consult Rx Perform Med Rec) 1 each MISCELLANE ONCE PRN PRN Reason: Consult order Quetiapine Fumarate (Quetiapine Fumarate 100 Mg Tablet) 100 mg PO BEDTIME [facility] Last Admin: 09/23/22 20:29 Dose: 100 mg Documented By: PORTILLO Labs 09/21/22 06:15 09/21/22 06:15 Assessment and Plan (1) Syncope: Status: Acute (2) Foot fracture, left: Status: Acute (3) Acute kidney injury: Status: Acute Plan 67-year-old male with history depression/anxiety, PTSD, history of PRESS at [facility], prostate cancer currently under surveillance, history TIA, history of hepatitis- C treated with interferon, hyperlipidemia, hypertension, coronary artery disease H/O NSTEMI, chronic resting tremor, and BPH admitted for syncope with EYAL. # recurrent Syncopes now believed to be likely micturation (vasovagal) related to avoid voiding in standing position, EEG done result pending but episode not believed to syncope # acute kidney injury, improved with iVF 1.26 from 2 -avoid nephrotoxins -follow BMP #Acute left foot fracture -Lisfranc injury with multiple fractures -Immobilize in splint in ED -Pain management using pain scale -Ortho recommend splint, no surgery at this time and outpatient follow up with [facility] # depression/anxiety/PTSD, peirods of confusion, delusion, don't think related to deliriu--Psych consult and for med maagement # hypertension--Uncotnrolled, on toprolol 25, Norvasc adjusted to 10 mg now, continue clonidine as well # BPH -hold finasteride # hyperlipidemia/CAD -no anginal chest pain -continue statin, metoprolol #Thyroid nodule -Large 1.8cm calcified nodule left thyroid lobe -TSH is normal at 0.69 -Needs outpt follow up DVT prophylaxis-Lovenox Full code PT is recommending STR Time Spent With Patient Time: Total time managing care of this patient today ____ minutes. Quality Stroke Does the patient have a stroke diagnosis?: No VTE Prior VTE?: No VTE Risk Level:: Medical - moderate - high VTE Device Contraindication: Treatment Not Indicated VTE Drug Contraindication: N/A - Med Ordered
[2022-09-24] MEDS: ondansetron HCL 4 MG/2 ML VIAL IVPUSH (11:07)
[2022-09-24] MEDS: oxyCODONE HCl Immed Release 5 MG TABLET PO (11:25)
[2022-09-24] MEDS: LORazepam 1 MG TABLET PO (11:25)
[2022-09-24] MEDS: Mirtazapine 15 MG TABLET 45 MG PO (20:10)
[2022-09-24] MEDS: Escitalopram Oxalate 20 MG TABLET PO (20:10)
[2022-09-24] MEDS: QUEtiapine Fumarate 100 MG TABLET PO (20:10)
[2022-09-24] MEDS: Doxepin HCl 25 MG CAPSULE PO (20:10)
[2022-09-24] MEDS: Enoxaparin Sodium 40 MG/0.4 ML SYRINGE SUBCUT (20:10)
[2022-09-25 03:48] VITALS: BP 143/63; PULSE 59; RESP 18; TEMP 36.3; O2SAT 96
--- NOTE | 2022-09-25 07:00 | CA_ITS ---
Transthoracic Echocardiogram Patient (Last, First, Middle): Gallito Gong, Gender: Male Date of : 1955 Age: 67 Procedure Date: 09/25/2022 Procedure Type: Transthoracic Echocardiogram Location: [facility] [place] Height: 185.42 cm Weight: 95.26 kg BSA: 2.20 m2 Heart Rate: bpm BP: 171 / 77 mmHg Exhibits Curator: JULIAN Referring MD: Pete Us MD Cell Room Supervisor: Franck Whitfield MD Symptoms: syncope Study Quality: Fair ECG Rhythm: Sinus with extra beats Conclusions: - 1. Normal LV ejection fraction with LVEF of 55-60% with moderate LVH 2. Mildly dilated left atrium 3. Normal cardiac valvular Dopplers 4. No gross pericardial effusion Findings Left Ventricle Normal left ventricular size and systolic function. There is moderately increased left ventricular wall thickness. The visually estimated ejection fraction is between 55-60%. Spectral Doppler is indicative of an impaired relaxation filling pattern. E/E prime ratio is between 8 and 15 consistent with indeterminate filling pressures. Right Ventricle Normal right ventricular cavity size and systolic function. Atria The left atrium is mildly dilated. There is lipomatous hypertrophy of the interatrial septum. The right atrium is normal in size. Aortic Valve The aortic valve structure and function is likely normal. There is no aortic valve stenosis. There is no aortic valve regurgitation. Mitral Valve Normal mitral valve structure and function. There is trace mitral valve regurgitation. There is no mitral valve stenosis. Pulmonic Valve The pulmonic valve was not well visualized. Tricuspid Valve Likely normal tricuspid valve structure and function. Great Vessels All visible segments of the aorta are normal in size. The pulmonary artery was not well visualized. Venous The inferior vena cava was not well visualized. Pericardium/Pleural There is no evidence of pericardial effusion. Prior Study Comparison Changes noted compared to prior study dated: 07/02/2019. LVH is at least moderate Measurements 2D Linear Measurements IVSd: 1.77 0.6-0.9/0.6-1.0 cm LVIDd: 5.11 3.9-5.3/4.2-5.9 cm LVIDd Index: 2.32 2.4-3.2/2.2-3.1 cm/m2 LVIDs: 3.51 2.0-3.6 cm LVPWd: 1.54 0.7-1.1 cm Ao Root: 3.50 2.1-3.5 cm LA Diam: 4.10 2.7-3.8/3.0-4.0 cm LAIDs Index: 1.86 1.5-2.3 cm/m2 LV Mass: 482.06 67-162/88-224 g LV Mass Index: 219.12 43-95/49-115 g/m2 LVOT Diam: 2.40 3.0+(-)1.3 cm 2D Systolic Function EF 4C: 59.10 >55% Mitral Valve MV Pk E: 0.72 MV PK A: 1.28 MV Decel Time: 202.00 E/A: 0.60 E'Lateral: 6.20 E'Medial: 5.77 E/E' Med: 12.50 E/E' Lat: 11.60 PHT: 59.00 MVA PHT: 3.73 Decel [place]: 3.56 LVOT LVOT Diam: 2.40 LVOT Area: 4.52 Diastolic Function MV Pk E: 0.72 MV Pk A: 1.28 E/A: 0.60 E'Medial: 5.77 E/E' Med: 12.50 E' Laterial: 6.20 E/E' Lat: 11.60 Great Vessels Aorta Ao Root-2D: 3.50 2.0-3.7 cm Ao Asc: 3.40 2.1-3.4 cm Pulmonary Valve PV Pk [place]: 1.14 Peak PV Grad: 5.00 Updated in Other Vendor System with Status of Final Franck Whitfield MD electronically signed on 09/25/2022 4:11:55 PM with status of Final
[2022-09-25 07:21] VITALS: BP 132/76; PULSE 77; RESP 20; TEMP 36.6; O2SAT 98
[2022-09-25] MEDS: Atorvastatin Calcium 80 MG TABLET PO (07:58)
[2022-09-25] MEDS: Docusate Sodium 100 MG CAPSULE PO (07:58)
[2022-09-25] MEDS: amLODIPine Besylate 10 MG TABLET PO (07:58)
[2022-09-25] MEDS: Divalproex Sodium 500 MG TABLET.DR PO ×2 (07:58→20:26)
[2022-09-25] MEDS: Metoprolol Succinate ER 25 MG TAB.ER.24H PO (07:58)
[2022-09-25] MEDS: cloNIDine HCL 0.1 MG TABLET PO ×3 (07:59→20:26)
[2022-09-25 11:19] VITALS: BP 159/72; PULSE 76; RESP 20; TEMP 36.6; O2SAT 96
--- NOTE | 2022-09-25 11:47 | MHC.CM.PN ---
EMR REVIEWED, PER HOSPITALIST PLAN FOR NEURO AND CERVICAL SPINE MRI PRIOR TO D/C, [facility] UPDATED AND CM WILL CONT TO FOLLOW D/C NEEDS.
[2022-09-25 15:20] VITALS: BP 142/69; PULSE 82; RESP 20; TEMP 36.6; O2SAT 96
[2022-09-25 19:43] VITALS: BP 160/80; PULSE 71; RESP 18; TEMP 36.2; O2SAT 98
[2022-09-25] MEDS: Doxepin HCl 25 MG CAPSULE PO (20:26)
[2022-09-25] MEDS: Escitalopram Oxalate 20 MG TABLET PO (20:26)
[2022-09-25] MEDS: Acetaminophen 325 MG TABLET 650 MG PO (20:26)
[2022-09-25] MEDS: QUEtiapine Fumarate 100 MG TABLET PO (20:26)
[2022-09-25] MEDS: Mirtazapine 15 MG TABLET 45 MG PO (20:26)
[2022-09-25] MEDS: Enoxaparin Sodium 40 MG/0.4 ML SYRINGE SUBCUT (20:26)
[2022-09-25 23:32] VITALS: BP 140/77; PULSE 63; RESP 18; TEMP 36.1; O2SAT 97
[2022-09-26] VITALS (7 sets, daily range): BP systolic 113–154; BP diastolic 57–91; PULSE 54–62; RESP 18–20; TEMP 36.2–36.9; O2SAT 97–99
[2022-09-26] MEDS: cloNIDine HCL 0.1 MG TABLET PO ×3 (10:19→21:25)
[2022-09-26] MEDS: Divalproex Sodium 500 MG TABLET.DR PO ×2 (10:19→21:25)
[2022-09-26] MEDS: Metoprolol Succinate ER 25 MG TAB.ER.24H PO (10:19)
[2022-09-26] MEDS: Atorvastatin Calcium 80 MG TABLET PO (10:20)
[2022-09-26] MEDS: amLODIPine Besylate 10 MG TABLET PO (10:20)
[2022-09-26] MEDS: HYDROmorphone HCl 0.5 MG/0.5 ML SYRINGE IVPUSH (10:22)
[2022-09-26 11:12] LABS: Ammonia 32 umol/L (13-55)
--- NOTE | 2022-09-26 11:52 | MHC.CM.PN ---
Addendum entered by Missy Jeronimo RN 09/26/22 12:32: CM RECEIVED MESSAGE FROM HOSPITALIST, PT NOT DISCHARGING TODAY, DONOVAN D/C TOMORROW, CM WILL CONT TO FOLLOW D/C NEEDS. Original Note: IMM 09/26/22, DON[facility] PT MAY BE MEDICALLY CLEARED FOR [facility] PENDING PSYCH CONSULT TO REVIEW/VERIFY MED LIST, ÁNGEL FOR BLS TRANSPORT
--- NOTE | 2022-09-26 11:55 | P.CNPS_ITS ---
History of Present Illness Date of Service: 09/26/2022 Chief Complaint: syncope,eyal,foot fracture Requesting physician: Kimberly Ohara Discussed with referring provider: Yes Sources of Information: patient interviewed, chart reviewed and crisis/core team assessment reviewed HPI Narrative: Mr. Gong is a 67 year-old male who presented to [facility] ED after syncope episode and found to have multiple fractures in left foot and EYAL. Pt seen by ortho, recommended splint no further recommendations. Pt noted to have episodes of shivering, shaking, sweating, reporting feeling restless/anxious. Pt also noted to not be oriented at all times. Psychiatry consult to evaluate these symptoms. Pt is seen in his room. Pt lying in bed in no acute distress. Pt reports feeling anxious at times, increase tremors, sweating. Pt reports this morning is not as bad as other times, but asks this feature writer to touch his chest and feel sweat- which is noticeable by observation. Pt denies visual or auditory hallucinations. He does not report any delusions. He denies suicidal or homicidal ideation. When asked about psychiatric history, pt reports he does not know name of psychiatrist. He states he is not sure who prescribes psychiatric medications. He states he thinks is his PCP. He reports he does not know how long he has been on such medications. He knows this is [facility]. He is not sure about month. He does know the year. Past Psychiatric History: [facility] Past medication trials: depakote, latuda, seroquel, lexapro, doxepin, gabapentin Medical Evaluation Reviewed: Yes [facility] Medical History Acidosis, lactic Anxiety BPH without obstruction/lower urinary tract symptoms CAD (coronary artery disease) CAD (coronary artery disease) COVID-19 Depression Diverticulosis Elevated cholesterol Elevated PSA Encephalopathy acute REBECA (generalized anxiety disorder) Hepatitis C History of prostate cancer HLD (hyperlipidemia) HTN (hypertension) HTN (hypertension) Hx of hepatitis C Hx of non-ST elevation myocardial infarction (NSTEMI) Hx of renal calculi Hypertensive encephalopathy Hypertensive encephalopathy NSTEMI (non-ST elevated myocardial infarction) Prostate cancer PTSD (post-traumatic stress disorder) TIA (transient ischemic attack) Tubulovillous adenoma Surgical History H/O heart artery stent History of surgery on wrist Hx of appendectomy Hx of cardiac catheterization Hx of colonoscopy Hx of left knee surgery Hx of tonsillectomy Diagnostics Vital Signs (24Hr): Vital Signs - 24 hr 09/25/22 15:20 09/25/22 19:43 09/25/22 23:32 Temperature 97.9 F 97.1 F 97 F Pulse Rate 82 71 63 Respiratory Rate 20 18 18 Blood Pressure 142/69 H 160/80 H 140/77 H Pulse Oximetry 96 98 97 Oxygen Delivery Method Room Air Room Air Room Air 09/26/22 03:32 09/26/22 07:16 09/26/22 09:48 Temperature 97.2 F 98.1 F Pulse Rate 58 59 59 Respiratory Rate 18 20 Blood Pressure 136/91 H 154/68 H 154/68 H Pulse Oximetry 98 97 97 Oxygen Delivery Method Room Air Room Air 09/26/22 11:10 Temperature 97.9 F Pulse Rate 58 Respiratory Rate 20 Blood Pressure 139/76 Pulse Oximetry 98 Oxygen Delivery Method Room Air BMI result Body Mass Index 27.7 Labs 09/21/22 06:15 09/21/22 06:15 Labs: Laboratory Results - last 48 hr 09/26/22 10:58 Ammonia 32 Imaging Radiology Impressions: ITS Impressions Foot X-Ray 09/20/22 14:00 IMPRESSION: Lisfranc injury with multiple fractures of the foot and lateral dislocation of the second through fifth metatarsals at the metatarsal tarsal joints. Fracture of the proximal lateral first metatarsal. CT can be helpful for further evaluation. Knee X-Ray 09/20/22 16:35 IMPRESSION: 1. No acute fractures or subluxation. 2. Moderate tricompartmental degenerative osteoarthritis. 3. Moderate chondrocalcinosis. 4. Small joint effusion. Cervical Spine CT 09/20/22 17:07 IMPRESSION: Head: No acute intracranial hemorrhage. There are scattered chronic small vessel ischemic changes within the periventricular white matter. Grossly no evidence of acute territorial infarct. Cervical spine: No acute cervical spine fracture and no posttraumatic spinal subluxation. There is advanced multilevel degenerative spondylosis of the cervical spine. Grossly no evidence of canal compromise. There is a calcified nodule within the left lobe of the thyroid gland that measures up to 1.8 cm in diameter. Based on the recommendations of the ACR Incidental Thyroid Findings Committee (JACR 2014; 12(2):143-50), further evaluation by thyroid ultrasound is recommended for solitary incidental thyroid nodules greater than or equal to 1.5 cm in largest axial dimension in patients age 35 years and older who do not have limited life expectancy or significant morbidities, unless clinically warranted. Foot CT 09/20/22 17:07 IMPRESSION: Lisfranc fracture dislocation of the second through fifth metatarsal bones and MTT joints. Minimally displaced fracture of the first cuneiform bone intra-articular with the first MTT joint and mild subluxation at the first MTT joint . Head CT 09/20/22 17:07 IMPRESSION: Head: No acute intracranial hemorrhage. There are scattered chronic small vessel ischemic changes within the periventricular white matter. Grossly no evidence of acute territorial infarct. Cervical spine: No acute cervical spine fracture and no posttraumatic spinal subluxation. There is advanced multilevel degenerative spondylosis of the cervical spine. Grossly no evidence of canal compromise. There is a calcified nodule within the left lobe of the thyroid gland that measures up to 1.8 cm in diameter. Based on the recommendations of the ACR Incidental Thyroid Findings Committee (JACR 2014; 12(2):143-50), further evaluation by thyroid ultrasound is recommended for solitary incidental thyroid nodules greater than or equal to 1.5 cm in largest axial dimension in patients age 35 years and older who do not have limited life expectancy or significant morbidities, unless clinically warranted. Mental Status Exam Mental Status Exam Narrative: Appearance:tall, wearing hospital gown, in NAD Behavior:cooperative Psychomotor: action tremors, mild myoclonus Speech:clear, regular rate/rhythm/volume, spontaneous TP: mostly linear, no derailment or loose associations TC:sweating, not feeling well Mood: better but now well Affect:somewhat anxious SI:none HI:none Delusions:none Insight/judgment:fair x 2. Memory/cog:alert, oriented to place, somewhat to situation but not sure how long he has been here, not to month. He is oriented to year. attention is fairly intact. Medications Medications Current Medications Acetaminophen (Acetaminophen 325 Mg Tablet) 650 mg PO Q6H PRN PRN Reason: Pain, Mild (Pain Scale 1-3) Last Admin: 09/25/22 20:26 Dose: 650 mg Amlodipine Besylate (Amlodipine Besylate 10 Mg Tablet) 10 mg PO DAILY [facility]; Protocol Last Admin: 09/26/22 10:20 Dose: 10 mg Atorvastatin Calcium (Atorvastatin Calcium 80 Mg Tablet) 80 mg PO DAILY [facility] Last Admin: 09/26/22 10:20 Dose: 80 mg Clonidine HCl (Clonidine Hcl 0.1 Mg Tablet) 0.1 mg PO TID [facility]; Protocol Last Admin: 09/26/22 10:19 Dose: 0.1 mg Divalproex Sodium (Divalproex Sodium 500 Mg Tablet.Dr) 500 mg PO BID [facility] Last Admin: 09/26/22 10:19 Dose: 500 mg Docusate Sodium (Docusate Sodium 100 Mg Capsule) 100 mg PO DAILY PRN PRN Reason: Constipation Last Admin: 09/25/22 07:58 Dose: 100 mg Enoxaparin Sodium (Enoxaparin Sodium 40 Mg/0.4 Ml Syringe) 40 mg SUBCUT Q24H [facility] Last Admin: 09/25/22 20:26 Dose: 40 mg Escitalopram Oxalate (Escitalopram Oxalate 10 Mg Tablet) 10 mg PO DAILY [facility] Hydromorphone HCl (Hydromorphone Hcl 0.5 Mg/0.5 Ml Syringe) 0.5 mg IVPUSH Q4H [facility]; Protocol PRN Reason: Pain, Severe (Pain Scale 7-10) Last Admin: 09/26/22 10:22 Dose: 0.5 mg Lorazepam (Lorazepam 1 Mg Tablet) 1 mg PO Q6H PRN PRN Reason: Anxiety Last Admin: 09/24/22 11:25 Dose: 1 mg Metoprolol Succinate (Metoprolol Succinate Er 25 Mg Tab.Er.24h) 25 mg PO DAILY [facility]; Protocol Last Admin: 09/26/22 10:19 Dose: 25 mg Ondansetron HCl (Ondansetron Hcl 4 Mg/2 Ml Vial) 4 mg IVPUSH Q8H PRN PRN Reason: Nausea and Vomiting Last Admin: 09/24/22 11:07 Dose: 4 mg Pharmacy Consult (Consult Rx Perform Med Rec) 1 each MISCELLANE ONCE PRN PRN Reason: Consult order Quetiapine Fumarate (Quetiapine Fumarate 100 Mg Tablet) 100 mg PO BEDTIME [facility] Last Admin: 09/25/22 20:26 Dose: 100 mg Allergies Allergies Allergy/AdvReac Type Severity Reaction Status Date / Time bee pollen [BEE STINGS] Allergy Severe Anaphylaxis Verified 09/20/22 13:24 Iodinated Contrast Media Allergy Severe Anaphylaxis Verified 09/20/22 13:24 [IV CONTRAST] zoster vaccine live Allergy Intermediate Shortness Verified 09/20/22 13:24 [SHINGLES VACCINE] of Breath codeine Allergy Severe Itching,hiv Uncoded 10/18/21 12:05 es shellfish Allergy Severe anaphylaxis Uncoded 10/18/21 12:05 Assessment & Plan Assessment & Plan (1) Syncope: Status: Acute Code(s): R55 - Syncope and collapse Plan Mr. Gong is a 67 year-old male came to ED due to syncopal episode. Pt found t o have left foot fractures and EYAL. Pt has been noted to have episodes of shivering, sweating, restlessness. He has also been found to have fluctuation in orientation. Of note, pt currently on 3 different antidepressants, including lexapro, remeron and doxepine. Both lexapro and remeron at high doses. Pt showing some degree (not full spectrum) of serotonergic overload including sweatiness, myoclonus, restless/anxious mood, difficulty with balance and confusion. No hyperthermia. Probably exacerbated by opioid pain medication. we discussed stop remeron, and doxepine. Will reduce dose of lexapro to 10mg po daily- pt was taking it at bedtime but it can disrupt sleep. Will continue seroquel. Will also continue depakote 500mg po BID- will check ammonia levels and depakote level tomorrow morning. PLAN 1. d/c remeron, doxepin. Lower dose of lexapro to 10mg po daily. 2. Continue depakote- unclear psychiatric hx. Per significant other, Erlinda Eaton ([phone]), no hx of psychosis, no inpatient psych hospitalizations. Continue seroquel- which will provide some sedation and mood stabilization now that two other antidepressants are being discontinued. Total time managing care of this patient today ____ minutes.
[2022-09-26] MEDS: Gabapentin 100 MG CAPSULE 200 MG PO ×2 (13:40→21:24)
[2022-09-26] MEDS: Cyproheptadine HCl 4 MG TABLET 6 MG PO (13:40)
--- NOTE | 2022-09-26 16:04 | P.PNIM_ITS ---
Subjective Subjective Date of Service: 09/26/22 Interval History: Seen and evaluated complaining of anxieety and restlessness pain under fair control no other overnight events Review of Systems Review of Systems: Yes all other systems are reviewed and are negative Physical Exam Vital Signs: Vital Signs: Last Vital Signs Temp 98.4 F 09/26/22 15:22 Pulse 56 09/26/22 15:22 Resp 20 09/26/22 15:22 BP 137/69 09/26/22 15:22 Pulse Ox 99 09/26/22 15:22 O2 Del Method Room Air 09/26/22 15:22 BMI result Body Mass Index 27.7 Const: Other: General: AO X 3, no acute distress Resp: CTA bilateral CVS: S1,S2,RRR GI: +BS, NT, no distention Skin: No rash MSK: Left splint in place Neuro: motor grossly intact Psych: appropriate affect , mildly anxious Objective Data Active Medications Acetaminophen (Acetaminophen 325 Mg Tablet) 650 mg PO Q6H PRN PRN Reason: Pain, Mild (Pain Scale 1-3) Last Admin: 09/25/22 20:26 Dose: 650 mg Documented By: JJ Amlodipine Besylate (Amlodipine Besylate 10 Mg Tablet) 10 mg PO DAILY [facility]; Protocol Last Admin: 09/26/22 10:20 Dose: 10 mg Documented By: ANNE Atorvastatin Calcium (Atorvastatin Calcium 80 Mg Tablet) 80 mg PO DAILY [facility] Last Admin: 09/26/22 10:20 Dose: 80 mg Documented By: ANNE Clonidine HCl (Clonidine Hcl 0.1 Mg Tablet) 0.1 mg PO TID [facility]; Protocol Last Admin: 09/26/22 15:40 Dose: 0.1 mg Documented By: ANNE Divalproex Sodium (Divalproex Sodium 500 Mg Tablet.Dr) 500 mg PO BID [facility] Last Admin: 09/26/22 10:19 Dose: 500 mg Documented By: ANNE Docusate Sodium (Docusate Sodium 100 Mg Capsule) 100 mg PO DAILY PRN PRN Reason: Constipation Last Admin: 09/25/22 07:58 Dose: 100 mg Documented By: ANNE Enoxaparin Sodium (Enoxaparin Sodium 40 Mg/0.4 Ml Syringe) 40 mg SUBCUT Q24H [facility] Last Admin: 09/25/22 20:26 Dose: 40 mg Documented By: JJ Escitalopram Oxalate (Escitalopram Oxalate 10 Mg Tablet) 10 mg PO DAILY [facility] Gabapentin (Gabapentin 100 Mg Capsule) 200 mg PO BID [facility] Last Admin: 09/26/22 13:40 Dose: 200 mg Documented By: ANNE Lorazepam (Lorazepam 1 Mg Tablet) 1 mg PO Q6H PRN PRN Reason: Anxiety Last Admin: 09/24/22 11:25 Dose: 1 mg Documented By: LUZ Metoprolol Succinate (Metoprolol Succinate Er 25 Mg Tab.Er.24h) 25 mg PO DAILY [facility]; Protocol Last Admin: 09/26/22 10:19 Dose: 25 mg Documented By: ANNE Ondansetron HCl (Ondansetron Hcl 4 Mg/2 Ml Vial) 4 mg IVPUSH Q8H PRN PRN Reason: Nausea and Vomiting Last Admin: 09/24/22 11:07 Dose: 4 mg Documented By: LUZ Pharmacy Consult (Consult Rx Perform Med Rec) 1 each MISCELLANE ONCE PRN PRN Reason: Consult order Quetiapine Fumarate (Quetiapine Fumarate 100 Mg Tablet) 100 mg PO BEDTIME [facility] Last Admin: 09/25/22 20:26 Dose: 100 mg Documented By: JJ Labs 09/21/22 06:15 09/21/22 06:15 Labs: Laboratory Results - last 24 hr 09/26/22 10:58 Ammonia 32 Assessment and Plan (1) Syncope: Status: Acute (2) Foot fracture, left: Status: Acute (3) Acute kidney injury: Status: Acute Plan 67-year-old male with history depression/anxiety, PTSD, history of PR[place] at [facility] [place], prostate cancer currently under surveillance, history TIA, history of hepatitis- C treated with interferon, hyperlipidemia, hypertension, coronary artery disease H/O NSTEMI, chronic resting tremor, and BPH admitted for syncope with EYAL. # recurrent Syncopes believed to be likely micturation (vasovagal) related to avoid voiding in standing position, EEG done result pending but episode not believed to seizure # acute kidney injury, improving with iVF 1.26 from 2 avoid nephrotoxins Follow BMP #Acute left foot fracture Lisfranc injury with multiple fractures Immobilize in splint in ED Pain management using pain scale Ortho recommend splint, no surgery at this time and outpatient follow up with [facility] # depression/anxiety/PTSD, reported confusion, delusion Psych consult and for med management appreciated, will DC Dexepin and Mirtazapine restart low dose Gabapentin # hypertension Better controlled toprolol 25, Norvasc adjusted to 10 mg , continue clonidine as well # BPH finasteride # hyperlipidemia/CAD no anginal chest pain continue statin, metoprolol #Thyroid nodule Large 1.8cm calcified nodule left thyroid lobe TSH is normal at 0.69 Needs outpt follow up DVT prophylaxis-Lovenox Pending clinical clearance post psych medications changes pending safe discharge plan to SNF Time Spent With Patient Time: Total time managing care of this patient today ____ minutes. Quality Stroke Does the patient have a stroke diagnosis?: No VTE Prior VTE?: No VTE Risk Level:: Medical - moderate - high VTE Device Contraindication: Treatment Not Indicated VTE Drug Contraindication: N/A - Med Ordered
[2022-09-26] MEDS: Enoxaparin Sodium 40 MG/0.4 ML SYRINGE SUBCUT (21:24)
[2022-09-26] MEDS: QUEtiapine Fumarate 100 MG TABLET PO (21:25)
[2022-09-26] MEDS: Acetaminophen 325 MG TABLET 650 MG PO (21:25)
[2022-09-27 03:58] VITALS: BP 112/72; PULSE 58; RESP 18; TEMP 36.1; O2SAT 96
[2022-09-27 07:26] VITALS: BP 150/77; PULSE 66; RESP 20; TEMP 36.2; O2SAT 98
[2022-09-27 08:44] LABS: Valproate 55.5 mcg/mL (50.0-100.0)
[2022-09-27] MEDS: Gabapentin 100 MG CAPSULE 200 MG PO (10:14)
[2022-09-27] MEDS: Divalproex Sodium 500 MG TABLET.DR PO (10:14)
[2022-09-27] MEDS: Metoprolol Succinate ER 25 MG TAB.ER.24H PO (10:14)
[2022-09-27] MEDS: cloNIDine HCL 0.1 MG TABLET PO ×2 (10:14→16:34)
[2022-09-27] MEDS: amLODIPine Besylate 10 MG TABLET PO (10:14)
[2022-09-27] MEDS: Atorvastatin Calcium 80 MG TABLET PO (10:15)
[2022-09-27] MEDS: Escitalopram Oxalate 10 MG TABLET PO (10:15)
[2022-09-27 11:15] VITALS: BP 153/78; PULSE 75; RESP 20; TEMP 36.4; O2SAT 98
--- NOTE | 2022-09-27 11:27 | PM.PSYCN ---
History of Present Illness Date of Service: 09/27/2022 Chief Complaint: syncope,eyal,foot fracture Requesting physician: Kimberly Ohara Discussed with referring provider: Yes Sources of Information: patient interviewed, chart reviewed and crisis/core team assessment reviewed HPI Narrative: Interim Hx: Pt presents as much more clear. He reports feeling less anxious, less sweatiness. He reports he is surprise that he did not realized how long he had been here in the hospital. Pt asks appropriate questions about treatment and disposition. Pt does have bilat action tremor, no mild myoclonus today. Pt did receive dose of periactin with good effect. No VH/VH. Much more aware of surrounding and treatment. Past Psychiatric History: [facility] Past medication trials: depakote, latuda, seroquel, lexapro, doxepin, gabapentin Hx of alcohol use but per significant other, no alcohol use in more than 30 years. Review of Systems Review of Systems Trauma as described above Yes all other systems are reviewed and are negative Constitutional: Reports no additional constitutional complaints, Denies chills, Denies fever(s) and Denies night sweats Eyes: Reports no additional eye complaints, Denies blurry vision, Denies change in vision, Denies diplopia, Denies eye discharge, Denies loss of vision and Denies eye pain Denies dizziness Cardiovascular: Reports no additional cardiovascular complaints, Denies chest pain, Reports syncope (last night), Denies lightheadedness, Denies Loss of Consciousness and Denies dyspnea Respiratory: Reports no additional respiratory complaints and Denies dyspnea Gastrointestinal: Reports no additional gastrointestinal complaints, Denies abdominal pain, Denies melena, Denies hematochezia, Denies change in bowel habits and Denies change in stool character Genitourinary: Reports no additional male genitourinary complaints, Denies hematuria, Denies oliguria, Denies difficulty urinating, Denies dysuria, Denies urinary frequency, Denies urinary hesitancy, Denies urinary incontinence and Denies urinary urgency Musculoskeletal: Reports no additional musculoskeletal complaints, Denies numbness and Denies tingling Denies dizziness, Reports syncope (last night), Denies loss of vision, Denies numbness and Denies tingling Psychiatric: Reports no additional psychiatric complaints Endocrine: Reports no additional endocrine complaints Hematologic/Lymphatic: Reports no additional hematologic/lymphatic complaints Allergic/Immunologic: Reports no additional allergic/immunologic complaints [facility] Medical History Acidosis, lactic Anxiety BPH without obstruction/lower urinary tract symptoms CAD (coronary artery disease) CAD (coronary artery disease) COVID-19 Depression Diverticulosis Elevated cholesterol Elevated PSA Encephalopathy acute REBECA (generalized anxiety disorder) Hepatitis C History of prostate cancer HLD (hyperlipidemia) HTN (hypertension) HTN (hypertension) Hx of hepatitis C Hx of non-ST elevation myocardial infarction (NSTEMI) Hx of renal calculi Hypertensive encephalopathy Hypertensive encephalopathy NSTEMI (non-ST elevated myocardial infarction) Prostate cancer PTSD (post-traumatic stress disorder) TIA (transient ischemic attack) Tubulovillous adenoma Surgical History H/O heart artery stent History of surgery on wrist Hx of appendectomy Hx of cardiac catheterization Hx of colonoscopy Hx of left knee surgery Hx of tonsillectomy Diagnostics Vital Signs (24Hr): Vital Signs - 24 hr 09/26/22 15:22 09/26/22 19:31 09/26/22 23:35 Temperature 98.4 F 98.1 F 97.7 F Pulse Rate 56 54 62 Respiratory Rate 20 20 18 Blood Pressure 137/69 135/72 113/57 L Pulse Oximetry 99 97 98 Oxygen Delivery Method Room Air Room Air Room Air 09/27/22 03:58 09/27/22 07:26 09/27/22 11:15 Temperature 96.9 F 97.2 F 97.5 F Pulse Rate 58 66 75 Respiratory Rate 18 20 20 Blood Pressure 112/72 150/77 H 153/78 H Pulse Oximetry 96 98 98 Oxygen Delivery Method Room Air Room Air Room Air BMI result Body Mass Index 27.7 Labs 09/21/22 06:15 09/21/22 06:15 Labs: Laboratory Results - last 48 hr 09/26/22 09/27/22 10:58 06:57 Ammonia 32 Valproic Acid 55.5 Imaging Radiology Impressions: ITS Impressions Foot X-Ray 09/20/22 14:00 IMPRESSION: Lisfranc injury with multiple fractures of the foot and lateral dislocation of the second through fifth metatarsals at the metatarsal tarsal joints. Fracture of the proximal lateral first metatarsal. CT can be helpful for further evaluation. Knee X-Ray 09/20/22 16:35 IMPRESSION: 1. No acute fractures or subluxation. 2. Moderate tricompartmental degenerative osteoarthritis. 3. Moderate chondrocalcinosis. 4. Small joint effusion. Cervical Spine CT 09/20/22 17:07 IMPRESSION: Head: No acute intracranial hemorrhage. There are scattered chronic small vessel ischemic changes within the periventricular white matter. Grossly no evidence of acute territorial infarct. Cervical spine: No acute cervical spine fracture and no posttraumatic spinal subluxation. There is advanced multilevel degenerative spondylosis of the cervical spine. Grossly no evidence of canal compromise. There is a calcified nodule within the left lobe of the thyroid gland that measures up to 1.8 cm in diameter. Based on the recommendations of the ACR Incidental Thyroid Findings Committee (JACR 2014; 12(2):143-50), further evaluation by thyroid ultrasound is recommended for solitary incidental thyroid nodules greater than or equal to 1.5 cm in largest axial dimension in patients age 35 years and older who do not have limited life expectancy or significant morbidities, unless clinically warranted. Foot CT 09/20/22 17:07 IMPRESSION: Lisfranc fracture dislocation of the second through fifth metatarsal bones and MTT joints. Minimally displaced fracture of the first cuneiform bone intra-articular with the first MTT joint and mild subluxation at the first MTT joint . Head CT 09/20/22 17:07 IMPRESSION: Head: No acute intracranial hemorrhage. There are scattered chronic small vessel ischemic changes within the periventricular white matter. Grossly no evidence of acute territorial infarct. Cervical spine: No acute cervical spine fracture and no posttraumatic spinal subluxation. There is advanced multilevel degenerative spondylosis of the cervical spine. Grossly no evidence of canal compromise. There is a calcified nodule within the left lobe of the thyroid gland that measures up to 1.8 cm in diameter. Based on the recommendations of the ACR Incidental Thyroid Findings Committee (JACR 2014; 12(2):143-50), further evaluation by thyroid ultrasound is recommended for solitary incidental thyroid nodules greater than or equal to 1.5 cm in largest axial dimension in patients age 35 years and older who do not have limited life expectancy or significant morbidities, unless clinically warranted. Mental Status Exam Mental Status Exam Narrative: Appearance:tall, wearing hospital gown, in NAD Behavior:cooperative Psychomotor: action tremors, mild myoclonus Speech:clear, regular rate/rhythm/volume, spontaneous TP: mostly linear, no derailment or loose associations TC:feeling better, asking appropriate questions about medical tx and aftercare. Mood: better Affect:brighter, non labile. SI:none HI:none Delusions:none Insight/judgment:fair x 2. Memory/cog:alert, oriented x 3. attention is fairly intact. Medications Medications Current Medications Acetaminophen (Acetaminophen 325 Mg Tablet) 650 mg PO Q6H PRN PRN Reason: Pain, Mild (Pain Scale 1-3) Last Admin: 09/26/22 21:25 Dose: 650 mg Amlodipine Besylate (Amlodipine Besylate 10 Mg Tablet) 10 mg PO DAILY [facility]; Protocol Last Admin: 09/27/22 10:14 Dose: 10 mg Atorvastatin Calcium (Atorvastatin Calcium 80 Mg Tablet) 80 mg PO DAILY [facility] Last Admin: 09/27/22 10:15 Dose: 80 mg Clonidine HCl (Clonidine Hcl 0.1 Mg Tablet) 0.1 mg PO TID [facility]; Protocol Last Admin: 09/27/22 10:14 Dose: 0.1 mg Divalproex Sodium (Divalproex Sodium 500 Mg Tablet.Dr) 500 mg PO BID [facility] Last Admin: 09/27/22 10:14 Dose: 500 mg Docusate Sodium (Docusate Sodium 100 Mg Capsule) 100 mg PO DAILY PRN PRN Reason: Constipation Last Admin: 09/25/22 07:58 Dose: 100 mg Enoxaparin Sodium (Enoxaparin Sodium 40 Mg/0.4 Ml Syringe) 40 mg SUBCUT Q24H [facility] Last Admin: 09/26/22 21:24 Dose: 40 mg Escitalopram Oxalate (Escitalopram Oxalate 10 Mg Tablet) 10 mg PO DAILY [facility] Last Admin: 09/27/22 10:15 Dose: 10 mg Gabapentin (Gabapentin 100 Mg Capsule) 200 mg PO BID [facility] Last Admin: 09/27/22 10:14 Dose: 200 mg Lorazepam (Lorazepam 1 Mg Tablet) 1 mg PO Q6H PRN PRN Reason: Anxiety Last Admin: 09/24/22 11:25 Dose: 1 mg Metoprolol Succinate (Metoprolol Succinate Er 25 Mg Tab.Er.24h) 25 mg PO DAILY [facility]; Protocol Last Admin: 09/27/22 10:14 Dose: 25 mg Ondansetron HCl (Ondansetron Hcl 4 Mg/2 Ml Vial) 4 mg IVPUSH Q8H PRN PRN Reason: Nausea and Vomiting Last Admin: 09/24/22 11:07 Dose: 4 mg Pharmacy Consult (Consult Rx Perform Med Rec) 1 each MISCELLANE ONCE PRN PRN Reason: Consult order Quetiapine Fumarate (Quetiapine Fumarate 100 Mg Tablet) 100 mg PO BEDTIME [facility] Last Admin: 09/26/22 21:25 Dose: 100 mg Allergies Allergies Allergy/AdvReac Type Severity Reaction Status Date / Time bee pollen [BEE STINGS] Allergy Severe Anaphylaxis Verified 09/20/22 13:24 Iodinated Contrast Media Allergy Severe Anaphylaxis Verified 09/20/22 13:24 [IV CONTRAST] zoster vaccine live Allergy Intermediate Shortness Verified 09/20/22 13:24 [SHINGLES VACCINE] of Breath codeine Allergy Severe Itching,hiv Uncoded 10/18/21 12:05 es shellfish Allergy Severe anaphylaxis Uncoded 10/18/21 12:05 Assessment & Plan Assessment & Plan (1) Syncope: Status: Acute Code(s): R55 - Syncope and collapse Plan Mr. Gong is a 67 year-old male came to ED due to syncopal episode. Pt found to have left foot fractures and EYAL. Pt has been noted to have episodes of shivering, sweating, restlessness. He has also been found to have fluctuation in orientation. Of note, pt currently on 3 different antidepressants, including lexapro, remeron and doxepine. Both lexapro and remeron at high doses. Pt showing some degree (not full spectrum) of serotonergic overload including sweatiness, myoclonus, restless/anxious mood, difficulty with balance and confusion. No hyperthermia. Probably exacerbated by opioid pain medication. we discussed stop remeron, and doxepine. Will reduce dose of lexapro to 10mg po daily- pt was taking it at bedtime but it can disrupt sleep. Will give dose of perictin- to block serotonin overload. Will continue seroquel. Will also continue depakote 500mg po BID- will check ammonia levels and depakote level tomorrow morning. PLAN 1. d/c remeron, doxepin. Lower dose of lexapro to 10mg po daily. 2. Continue depakote- unclear psychiatric hx. Per significant other, Erlinda Eaton ([phone]), no hx of psychosis, no inpatient psych hospitalizations. Continue seroquel- which will provide some sedation and mood stabilization now that two other antidepressants are being discontinued. 09/27 pt appears much clear today. Less anxious, no myoclonus but action tremor. Less sweatiness. Continue current medications. Total time managing care of this patient today ____ minutes.
[2022-09-27] MEDS: Acetaminophen 325 MG TABLET 650 MG PO (12:02)
--- NOTE | 2022-09-27 12:43 | MHC.CM.PN ---
PT MEDICALLY CLEARED FOR D/C TO STR AT [facility], PER PT REQUEST FRIEND/HCP [facility] CONTACTED AT 12:38PM AT NUMBER ON FILE AND WAS PROVIDED NAME/ADDRESS/PHONE NUMBER FOR [facility] FOR TRANSPORT AT 5PM, THEY ARE UNABLE TO TRANSPORT EARLIER.
--- NOTE | 2022-09-27 13:19 | PM.DS ---
DS: Providers Provider Date of Service: 09/27/22 Date of admission: 09/20/22 18:59 Primary care physician: Eileen Yu MD Consults: 09/20/22 19:04 Consult to Neurology Routine Consulting Provider: [facility] Reason for consultation: sycope, ?seizure 09/20/22 19:21 Consult to Orthopedics Routine Consulting Provider: [facility] Reason for consultation: lisfranc injury with multiple fractures left foot 09/21/22 08:44 Consult to Cardiology Routine Consulting Provider: [facility] [place] Reason for consultation: recurrent syncopes, eval before surgery Has provider been notified: Yes 09/23/22 12:28 Consult to Psychiatry Routine Consulting Provider: [facility] Reason for consultation: PTSD, anxiety uncontrolled and period delusion 09/25/22 16:42 Consult to Psychiatry Routine Consulting Provider: [facility] Reason for consultation: Psychosis symptoms, not delirium DS: Diagnosis Discharge Diagnosis (1) Syncope: Status: Acute (2) Foot fracture, left: Status: Acute (3) Acute kidney injury: Status: Acute (4) Hypertensive urgency: Status: Acute DS: Summary Hospital Course Hospital Course: Chief complaint: syncope,gustavo,foot fracture Chief Complaint: syncope 67-year-old male with history depression/anxiety, PTSD, prostate cancer currently under surveillance, history TIA, history of hepatitis-C treated with interferon, hyperlipidemia, hypertension, coronary artery disease H/O NSTEMI, chronic resting tremor, and BPH presents to the ED earlier today for evaluation of right knee and left foot pain ongoing since the syncopal episode occurred in the middle of the night.? The patient states he has had multiple syncopal episodes that occur about monthly ongoing since February after having COVID-19.? States he woke up in the middle of the night to urinate and when he turned around he collapsed with loss of consciousness for unknown duration.? He was able to crawl to bed and called his friend this morning.? He states prior to this syncopal episodes he felt shaky and when he awoke he was confused, stating he felt foggy and had a frontal headache.? Denies any nausea or vomiting.? Denies any prodrome including visual changes, palpitations, lightheadedness, shortness of breath, or chest pain.? No focal weakness or paresthesias. Denies any known history of seizures. He does report he does not drink much water. On arrival, vital stable, no hypotension or tachycardia.? No leukocytosis, mild normocytic anemia with H/H 13.0/40.0%.? Creatinine 2.10 (baseline 1.3-1.4), BUN 42, electrolytes largely within normal limits.? Head CT is negative for any acute intracranial abnormality but shows scattered chronic small vessel ischemic changes in the periventricular white matter.? Cervical spine CT is negative for any acute cervical spine fracture or subluxation however does show multilevel advanced degenerative spondylosis of the cervical spine with no canal compromise.? Incidentally found 1.8 cm calcified thyroid nodule within the left lobe of the thyroid gland.? X-ray of the right knee shows moderate osteoarthritis but no acute fractures or subluxation.? There is a small joint effusion.? X-ray of the left foot shows Lisfranc injury with multiple fractures of the foot and lateral dislocation of the 2nd through 5th metatarsals at the metatarsal tarsal joint space.? Follow-up for CT of the left foot with similar findings as well as showing a minimally displaced fracture of the 1st cuneiform bone intra-articular with the 1st MTP joint and mild subluxation at the 1st MTP joint.? In the ED, he has been treated with 1 L IV NS, 4 mg ondansetron, and morphine.? ED provider did discuss case with orthopedics recommending posterior short-leg splint which has been applied and will follow in the morning. Hospital course: # Recurrent Syncopes believed to be likely micturation related, and dehydration related. Neurology is recommending for him to avoid standing to void, and to be well hydrated. No arrythmia was noted in the hospital # acute kidney injury due to pre renal azotemia, dehydration, resolved with IVF #Acute left foot fracture Lisfranc injury with multiple fractures -Immobilize in splint in ED. Ortho recommend conservative management with splint for now and to follow up on outpatient basis. Oxycodone for pain # depression/anxiety/PTSD evaluated by psychiatry team who felt the patient is restless and sjivering suggestive of possible serotonergic overload. decision was made to DC Remeron, Doxepine and Mertazapine with decreasing the dose of Lexapro to 10 mg daily. To continue Depakote and Seroquel. # hypertensive urgency started on Clonidine and Norvasc along the MEtoprolol XL #Thyroid nodule Large 1.8cm calcified nodule left thyroid lobe TSH within normal for further follow up by PCP Dispo: To STR for less than 30 days Discharge plan Discontinue Citalopram, Doxepin, Mertazapine Decrese Gabapentin dosage to 200 mg twice daily Oxycodone for pain PRN Start Amlodipine and Clonidine for blood pressure control Ativan PRN for anxiety To short term rehab for less than 30 days, follow upw with [facility] on September 28, at 1 pm (Dr. Clare Figueredo) Time Spent with Patient Time attestation: Total time managing care of this patient today ____ minutes. Discharge coordination time: Greater than 30 minutes Quality: Safe Use of Opioids Does Pt have an Active Cancer Diagnosis on the Problem List?: No Quality: Stroke Does the patient have a stroke diagnosis?: No Physical Exam Vital Signs: Vital Signs: Last Vital Signs Temp 97.5 F 09/27/22 11:15 Pulse 75 09/27/22 11:15 Resp 20 09/27/22 11:15 BP 153/78 H 09/27/22 11:15 Pulse Ox 98 09/27/22 11:15 O2 Del Method Room Air 09/27/22 11:15 BMI result Body Mass Index 27.7 Const: Other: General: AO X 3, no acute distress Resp: CTA bilateral CVS: S1,S2,RRR GI: +BS, NT, no distention Skin: No rash MSK: Left lower extrimity splint in place Neuro: motor grossly intact Psych: appropriate affect , alert, interactive , no focal weakness DS: Data Data Completed and Pending Labs on day of discharge: Laboratory Results - last 24 hr 09/27/22 06:57 Valproic Acid 55.5 Imaging Chest x-ray: Radiologist's impression: ITS Impressions Foot X-Ray 09/20/22 14:00 IMPRESSION: Lisfranc injury with multiple fractures of the foot and lateral dislocation of the second through fifth metatarsals at the metatarsal tarsal joints. Fracture of the proximal lateral first metatarsal. CT can be helpful for further evaluation. Knee X-Ray 09/20/22 16:35 IMPRESSION: 1. No acute fractures or subluxation. 2. Moderate tricompartmental degenerative osteoarthritis. 3. Moderate chondrocalcinosis. 4. Small joint effusion. Cervical Spine CT 09/20/22 17:07 IMPRESSION: Head: No acute intracranial hemorrhage. There are scattered chronic small vessel ischemic changes within the periventricular white matter. Grossly no evidence of acute territorial infarct. Cervical spine: No acute cervical spine fracture and no posttraumatic spinal subluxation. There is advanced multilevel degenerative spondylosis of the cervical spine. Grossly no evidence of canal compromise. There is a calcified nodule within the left lobe of the thyroid gland that measures up to 1.8 cm in diameter. Based on the recommendations of the ACR Incidental Thyroid Findings Committee (JACR 2014; 12(2):143-50), further evaluation by thyroid ultrasound is recommended for solitary incidental thyroid nodules greater than or equal to 1.5 cm in largest axial dimension in patients age 35 years and older who do not have limited life expectancy or significant morbidities, unless clinically warranted. Foot CT 09/20/22 17:07 IMPRESSION: Lisfranc fracture dislocation of the second through fifth metatarsal bones and MTT joints. Minimally displaced fracture of the first cuneiform bone intra-articular with the first MTT joint and mild subluxation at the first MTT joint . Head CT 09/20/22 17:07 IMPRESSION: Head: No acute intracranial hemorrhage. There are scattered chronic small vessel ischemic changes within the periventricular white matter. Grossly no evidence of acute territorial infarct. Cervical spine: No acute cervical spine fracture and no posttraumatic spinal subluxation. There is advanced multilevel degenerative spondylosis of the cervical spine. Grossly no evidence of canal compromise. There is a calcified nodule within the left lobe of the thyroid gland that measures up to 1.8 cm in diameter. Based on the recommendations of the ACR Incidental Thyroid Findings Committee (JACR 2014; 12(2):143-50), further evaluation by thyroid ultrasound is recommended for solitary incidental thyroid nodules greater than or equal to 1.5 cm in largest axial dimension in patients age 35 years and older who do not have limited life expectancy or significant morbidities, unless clinically warranted. Discharge Plan Discharge Anticipated Discharge Date/Time: 09/27/22 12:14 Patient Disposition: er SNF Discharge Diagnosis: Syncope, fall, Lisfranc fracture of left Referrals: [facility] [Outside] - 1 Day (SHORT TERM REHAB) Eileen Yu MD [Primary Care Provider] - 1 Week Discharge Medications: New docusate sodium 100 mg Capsule 100 mg PO DAILY PRN (Reason: Constipation) Qty: 14 0RF lorazepam 1 mg Tablet 1 mg PO Q6H PRN (Reason: Anxiety) Qty: 20 0RF oxycodone 5 mg Tablet 5 mg PO Q6H PRN (Reason: Pain, Moderate(Pain Scale 4-6)) Qty: 20 0RF Rx Instructions: Partial Fill upon patient request. acetaminophen 325 mg Tablet 650 mg PO Q6H PRN (Reason: Pain, Mild (Pain Scale 1-3)) Qty: 30 0RF clonidine HCl 0.1 mg Tablet 0.1 mg PO TID Qty: 90 0RF Protocol: Hold for SBP< HOLD for SBP < : 90 amlodipine 10 mg Tablet 10 mg PO DAILY Qty: 30 0RF Protocol: Hold for SBP< HOLD for SBP < : 90 gabapentin 100 mg Capsule 200 mg PO BID Qty: 60 0RF escitalopram oxalate 10 mg Tablet 10 mg PO DAILY Qty: 30 0RF Continued quetiapine 100 mg tablet 1 tab PO BEDTIME divalproex 500 mg tablet,delayed release (DR/EC) 500 mg PO BID epinephrine 0.3 mg/0.3 mL auto-injector 0.3 mg IM DAILY PRN (Reason: Allergic Reaction) finasteride 5 mg tablet 5 mg PO DAILY atorvastatin 80 mg tablet 80 mg PO DAILY metoprolol succinate 25 mg tablet extended release 24 hr 25 mg PO DAILY Discontinued gabapentin 400 mg capsule 800 mg PO BEDTIME mirtazapine 45 mg tablet 45 mg PO BEDTIME doxepin 25 mg capsule 25 mg PO BEDTIME citalopram 40 mg tablet 40 mg PO BEDTIME gabapentin 300 mg capsule 600 mg PO DAILY Discharge Orders: Discharge Order (Routine); Ordered 09/27/22 Ordered By: Kimberly Ohara Diet: Advance to usual diet Activity on Discharge: As tolerated Stand Alone Forms: Patient Portal Discharge page Care Plan Goals: fall prevention, and recovery from foot fracture Health Concerns: syncopes, fall, foot fracture Plan of Treatment: Discontinue Citalopram, Doxepin, Mertazapine Decrese Gabapentin dosage to 200 mg twice daily Oxycodone for pain PRN Start Amlodipine and Clonidine for blood pressure control Ativan PRN for anxiety To short term rehab for less than 30 days, follow upw with [facility] on September 28, at 1 pm (Dr. Clare Figueredo) Assessment: as above
--- NOTE | 2022-09-27 14:48 | MHC.CM.PN ---
CM RECEIVED MESSAGE FROM GABINO CM, PT'S FOLLOW-UP APPT W/[facility] RESCHEDULED TO 10/03 AT 10AM W/DR CAROL WISEMAN, APPT ADDED TO DC PACKETS, MESSAGE SENT TO [facility] AND PT'S HCP COLEMAN NOTIFIED AT TIME OF THIS NOTE
[2022-09-27 15:10] VITALS: BP 138/79; PULSE 68; RESP 18; TEMP 35.9; O2SAT 98
== END 2022-09-27 17:00 | disposition skilled nursing facility (03) | DRG 684 ==
LOC: HO.ED 18:31 → HO.EDOVER 19:12 → HO.IMC 19:41
PROVIDERS: Internal Medicine; Physician Assistant; Social Worker; Admitting Provider Physician Assistant; Emergency Provider Emergency Medicine; PCP Family Medicine; Visit Provider Student in an Organized Health Care Education/Training Program
DX: N17.9 Acute kidney failure, unspecified (principal); S93.325A Dislocation of tarsometatarsal joint of left foot, initial encounter; I25.10 Atherosclerotic heart disease of native coronary artery without angina pectoris; E86.0 Dehydration; M47.812 Spondylosis without myelopathy or radiculopathy, cervical region; N40.0 Benign prostatic hyperplasia without lower urinary tract symptoms; I16.0 Hypertensive urgency; W19.XXXA Unspecified fall, initial encounter; E04.1 Nontoxic single thyroid nodule; F32.A Depression, unspecified; D64.9 Anemia, unspecified; F43.10 Post-traumatic stress disorder, unspecified; E78.00 Pure hypercholesterolemia, unspecified; F41.1 Generalized anxiety disorder; I25.2 Old myocardial infarction; Z91.041 Radiographic dye allergy status; Z79.899 Other long term (current) drug therapy
CPT/HCPCS: 36415; 70450; 72125; 73564; 73630; 73700; 80048; 80076; 80164; 82140; 82607; 82746; 82947; 83735; 84443; 85025; 93005; 93306; 95816; 97162; 97530; 99285; J1170; J1650; J2270; J2405; Q9957

== ENCOUNTER 2022-09-20 18:59 | Outpatient (BNV) | payer MEDICARE, OTHER, SELFPAY | END 2022-09-25 07:00 | PROVIDERS: Admitting Provider Physician Assistant; Emergency Provider Emergency Medicine; PCP Family Medicine; Visit Provider Internal Medicine Cardiovascular Disease | DX: I51.7 Cardiomegaly (principal) | CPT/HCPCS: 93306 ==

== ENCOUNTER → 2022-09-20 18:59 | Outpatient (BNV) | payer MEDICARE, OTHER, SELFPAY | PROVIDERS: Admitting Provider Physician Assistant; Emergency Provider Emergency Medicine; PCP Family Medicine; Visit Provider Physician Assistant | DX: R55 Syncope and collapse (principal); S92.902A Unspecified fracture of left foot, initial encounter for closed fracture; N17.9 Acute kidney failure, unspecified | CPT/HCPCS: 99221 ==

== ENCOUNTER → 2022-09-20 18:59 | Outpatient (BNV) | payer MEDICARE, OTHER, SELFPAY | PROVIDERS: Admitting Provider Physician Assistant; Emergency Provider Emergency Medicine; PCP Family Medicine; Visit Provider Social Worker | DX: F41.1 Generalized anxiety disorder (principal); R55 Syncope and collapse | CPT/HCPCS: 99231; 99232 ==

== ENCOUNTER → 2022-09-20 18:59 | Outpatient (BNV) | payer MEDICARE, OTHER, SELFPAY | PROVIDERS: Admitting Provider Physician Assistant; Emergency Provider Emergency Medicine; PCP Family Medicine; Visit Provider Internal Medicine Cardiovascular Disease | DX: R55 Syncope and collapse (principal) | CPT/HCPCS: 93010; 99222 ==

== ENCOUNTER → 2022-09-20 18:59 | Outpatient (BNV) | payer MEDICARE, OTHER, SELFPAY | PROVIDERS: Admitting Provider Physician Assistant; Emergency Provider Emergency Medicine; PCP Family Medicine; Visit Provider Physician Assistant | DX: R55 Syncope and collapse (principal); S92.902A Unspecified fracture of left foot, initial encounter for closed fracture; N17.9 Acute kidney failure, unspecified; I16.0 Hypertensive urgency | CPT/HCPCS: 99223; 99232; 99239; 99499 ==

== ENCOUNTER 2023-05-02 11:30 | Outpatient (REF) | payer MEDICARE, OTHER, SELFPAY ==
[2023-05-02 17:52] LABS: Valproate 58.9 mcg/mL (50.0-100.0)
== END 2023-05-02 11:31 | disposition home or self-care (01) ==
LOC: HO.CHCLDS 11:30
PROVIDERS: Visit Provider Family Medicine
DX: F39 Unspecified mood [affective] disorder (principal); Z79.899 Other long term (current) drug therapy
CPT/HCPCS: 36415; 80164

== ENCOUNTER 2023-05-08 13:48 | Outpatient (AMB) | payer MEDICARE, OTHER, SELFPAY ==
[2023-05-08 13:49] VITALS: BP 130/70; PULSE 90; O2SAT 95; BMI 23.3
--- NOTE | 2023-05-08 13:49 | HO.NEPHOV_ITS ---
HPI HPI Comments History of Present Illness Details 68-year-old man with a history of hypert ension and prostate cancer referred for evaluation of renal insufficiency. Back in September he had a syncopal episode and fell in the bathroom. He was admitted to the hospital with a foot injury. He had acute kidney injury with a creatinine of 2.5. Up start IV hydration and optimizing blood pressure renal function improved creatinine is 1.3. He has been referred for evaluation of the same. History of prostate cancer seen by Dr. Fabrice Higgins in the past and has had no further follow-up. [facility] Medical History (Updated 05/08/23 @ 14:05 by Nhan Vega MD) HTN (hypertension) CAD (coronary artery disease) NSTEMI (non-ST elevated myocardial infarction) HLD (hyperlipidemia) Hepatitis C REBECA (generalized anxiety disorder) Depression BPH without obstruction/lower urinary tract symptoms Diverticulosis Tubulovillous adenoma Elevated cholesterol HTN (hypertension) Hx of non-ST elevation myocardial infarction (NSTEMI) Hx of hepatitis C Hx of renal calculi PTSD (post-traumatic stress disorder) Prostate cancer History of prostate cancer Elevated PSA Hypertensive encephalopathy Acidosis, lactic Encephalopathy acute COVID-19 Anxiety CAD (coronary artery disease) Hypertensive encephalopathy TIA (transient ischemic attack) Surgical History (Updated 05/08/23 @ 13:52 by Alejandra Hernandez) S/P foot surgery, left Hx of cardiac catheterization H/O heart artery stent History of surgery on wrist Hx of left knee surgery Hx of tonsillectomy Hx of appendectomy Hx of colonoscopy Family History Mother Heart disease Father No problems noted. Social History Household Members: None Housing: Apartment Are you a primary intensive care anaesthetist to a significant other at home: No Do you presently have visiting nurse or other home services: No Alcohol intake: former Year quit: 1988 Patient Tobacco Use Status: Former Tobacco user Quit Date: 30 yrs ago Tobacco use type: Cigarette Substance Use Type: Marijuana service: No Vital Signs 05/08/23 13:49 Height 6 ft 1 in Weight 177 lb BMI 23.3 BP 130/70 Blood Pressure Location Rt brachial Position Sitting Pulse 90 Pulse Source Pulse Oximeter Pulse Oximetry (%) 95 Oxygen Delivery Method Room Air Physical Exam Vital Signs: Last Vital Signs Pulse 90 05/08/23 13:49 BP 130/70 05/08/23 13:49 Pulse Ox 95 05/08/23 13:49 Oxygen Delivery Method Room Air 05/08/23 13:49 BMI result Body Mass Index 23.3 Const General: comfortable; No acute distress Orientation/consciousness: patient oriented x3 Eyes General: appearance normal, both eyes and all related structures Visual Abad: normal visual abad by confrontation Neck Neck: Yes supple and Yes no JVD Resp Effort & Inspection: normal respiratory effort and respiratory effort not decreased Auscultation: rhonchi Cardio Palpation: no palpable S3 and no palpable S4 Heart sounds: no rubs GI Inspection: Yes normal to inspection Palpation (GI): Soft to palpation Percussion: Yes normal to percussion Auscultation: normal bowel sounds General: Yes no CVA tenderness Back/Spine/Pelvis Back: no CVA tenderness Skin General skin exam: no petechiae and no purpura Neuro General: patient oriented x3 and no focal motor deficits Extrem General: No clubbing and No edema Assessment & Plan Assessment & Plan (1) HTN (hypertension): Code(s): I10 - Essential (primary) hypertension (2) CKD (chronic kidney disease): Code(s): N18.9 - Chronic kidney disease, unspecified (3) Prostate cancer: Comment: low-grade prostate cancer diagnosed 2017 1 core Deep 3 + 3 Code(s): C61 - Malignant neoplasm of prostate Plan Elderly man with prostate CA and hypertension with CKD. He would acute kidney injury in September 2022 due to hypoperfusion. Acute kidney injury has resolved. He has underlying chronic kidney disease. Baseline creatinine is unknown at this time. Last blood work was about 8 months ago. I have initiated a workup including basic metabolic panel and renal ultrasonogram. Blood pressure is well controlled. Encouraged him to stand low- sodium diet and increase his fluid intake. Continue to avoid nephrotoxic agents including NSAIDs. I have taken liberty of referring for urology follow-up due to the history of prostate CA. Orders: Orders Complete Blood Count Auto Diff Today N18.30 - Chronic kidney disease, stage 3 unspecified, N18.9 - Chronic kidney disease, unspecified PSA,Total (Free>4and<10) Today C61 - Malignant neoplasm of prostate US renal BI Today N18.9 - Chronic kidney disease, unspecified Comprehensive Met. Panel Today N18.9 - Chronic kidney disease, unspecified UA and rflx microscopic Today N18.9 - Chronic kidney disease, unspecified Referrals Urology Referral C61 - Malignant neoplasm of prostate Coding Level of Care Code New Pt Level 4 (65700) Diagnoses HTN (hypertension) I10 CKD (chronic kidney disease) N18.9 Prostate cancer C61 Results Reviewed Nephrology Results: Hgb 13.2 g/dl (14.0-18.0) L 09/21/22 WBC 15.2 X10*3/uL (4.8-10.8) H 09/21/22 Plt Count 131 X10*3/uL (160-400) L 09/21/22 Sodium 142 mmol/L (135-145) 09/21/22 Potassium 4.5 mmol/L (3.3-5.1) 09/21/22 Chloride 113 mmol/L (96-108) H 09/21/22 Carbon Dioxide 21 mmol/L (22-29) L 09/21/22 BUN 28 mg/dL (9-16) H 09/21/22 Creatinine 1.26 mg/dL (0.5-1.4) 09/21/22 Calcium 8.3 mg/dL (8.4-10.2) L 09/21/22
== END 2023-05-08 14:10 | disposition home or self-care (01) ==
PROVIDERS: PCP Family Medicine; Visit Provider Internal Medicine Hypertension Specialist
DX: I12.9 Hypertensive chronic kidney disease with stage 1 through stage 4 chronic kidney disease, or unspecified chronic kidney disease (principal); N18.9 Chronic kidney disease, unspecified; C61 Malignant neoplasm of prostate
CPT/HCPCS: 99204; 99214

== ENCOUNTER 2023-05-08 13:48 | Outpatient (REF) | payer MEDICARE, OTHER, SELFPAY ==
[2023-05-08 14:27] LABS: MANUAL DIFF FLAG NO
[2023-05-08 16:04] LABS: Appearance Urine Clear; Color Urine Dark Yellow; Glucose Urine UA Negative (Negative); Leukocyte Esterase Urine Trace (Negative); Nitrite Urine Negative (Negative); PH 5.5 (5.0-9.0); Specific Gravity - Urine >= 1.030 (1.005-1.025); UMIC TRIGGER UA YES; Urine Blood Negative (Negative); Urine Ketones Trace mg/dL (Negative); Urine Protein 30 (1+) mg/dL (Neg-Trace)
[2023-05-08 16:12] LABS: Basophils Absolute Auto 0.1 X10*3/uL (0.0-0.2); Basophils Percent Auto 0.5 % (0-2); Eosinophils Percent Auto 0.4 % (0-4); Hematocrit 36.7 % (42.0-52.0); Hemoglobin 11.4 g/dl (14.0-18.0); Imm Gran Abs Auto 0.05 X10*3/uL (0.00-0.03); Imm Gran Pct Auto 0.5 % (0.0-0.4); Lymphocytes Absolute Auto 2.3 X10*3/uL (1.2-4.9); Lymphocytes Percent Auto 23.3 % (20-40); Mean Corpuscular HGB Conc 31.1 g/dl (31.0-36.0); Mean Corpuscular Hemoglobin 24.7 pg (27.0-33.0); Mean Corpuscular Volume 79.6 fL (80.0-98.0); Mean Platelet Volume 9.2 fL (9.4-12.4); Monocytes Absolute Auto 1.3 X10*3/uL (0.1-1.2); Monocytes Percent Auto 12.7 % (2-11); Neutrophils Absolute Auto 6.3 x10*3/uL (2.0-8.3); Neutrophils Percent Auto 62.6 % (45-73); Platelet Count 152 X10*3/uL (160-400); Red Blood Count 4.61 X10*6/uL (4.60-5.80); Red Cell Distribution Width 17.8 % (11.0-16.0)
[2023-05-08 16:27] LABS: Bacteria Urine None Seen (None Seen); RBC Urine 0-2 /HPF (0-2); Squamous Epithelial Cell Urine 0-2 /HPF (0-2); WBC Urine 0-5 /HPF (0-5)
[2023-05-08 16:42] LABS: Alanine Aminotransferase 6 U/L (0-40); Albumin Level 3.7 g/dL (3.5-5.0); Alkaline Phosphatase 67 U/L (39-117); Anion Gap 11 (12-20); Aspartate Amino Transferase 14 U/L (5-37); Bilirubin Total 0.4 mg/dL (0.0-1.0); Blood Urea Nitrogen 26 mg/dL (9-16); Calcium 8.8 mg/dL (8.4-10.2); Carbon Dioxide 28 mmol/L (22-29); Chloride 109 mmol/L (96-108); Estimated Glomerular Filt Rate > 60; Glucose Random 84 mg/dL (60-115); Potassium 4.9 mmol/L (3.3-5.1); Sodium 143 mmol/L (135-145); Total Protein 6.7 g/dL (6.5-8.0)
[2023-05-08 17:18] LABS: PSA,Total (Free>4and<10) 0.97 ng/mL (0.00-4.00)
== END 2023-05-08 13:49 | disposition home or self-care (01) ==
LOC: HO.LAB 13:48
PROVIDERS: PCP Family Medicine; Visit Provider Internal Medicine Hypertension Specialist
DX: Z12.5 Encounter for screening for malignant neoplasm of prostate (principal); N18.30 Chronic kidney disease, stage 3 unspecified; C61 Malignant neoplasm of prostate
CPT/HCPCS: 36415; 80053; 81001; 81003; 84153; 85025; 99202

== ENCOUNTER 2023-05-10 09:59 | Outpatient (REF) | payer MEDICARE, OTHER, SELFPAY ==
[2023-05-10 14:06] LABS: Appearance Urine Clear; Color Urine Yellow; Glucose Urine UA Negative (Negative); Leukocyte Esterase Urine Negative (Negative); Nitrite Urine Negative (Negative); Specific Gravity - Urine 1.015 (1.005-1.025); UMIC TRIGGER UA YES; Urine Blood Trace (Negative); Urine Ketones Negative (Negative); Urine Protein Negative (Neg-Trace)
[2023-05-10 14:11] LABS: Bacteria Urine None Seen (None Seen); Hyaline Casts Urine 0-2 /LPF (0-2); Squamous Epithelial Cell Urine 0-2 /HPF (0-2); WBC Urine 0-5 /HPF (0-5)
[2023-05-10 14:53] LABS: Cholesterol 87 mg/dL (<200); HDL Cholesterol 30 mg/dL (>40); LDL Cholesterol Calculated 46 mg/dL (<100); Triglycerides 55 mg/dL (<150)
== END 2023-05-10 10:00 | disposition home or self-care (01) ==
LOC: HO.CHCLDS 09:59
PROVIDERS: Referring Provider Internal Medicine Hypertension Specialist; Visit Provider Family Medicine
DX: E78.2 Mixed hyperlipidemia (principal)
CPT/HCPCS: 36415; 80061; 81001

== ENCOUNTER 2023-05-21 15:23 | Outpatient (REF) | payer MEDICARE, OTHER, SELFPAY ==
--- NOTE | ~2023-05-21 | US_ITS ---
EXAMINATION: US RETROPERITONEAL LIMITED (RENAL ONLY) CLINICAL INFORMATION: Chronic kidney disease, unspecified. COMPARISON: None available. TECHNIQUE: Real-time imaging of the kidneys. FINDINGS: RIGHT KIDNEY: 9.9 x 5.4 x 6.3 cm (SAG x AP x TRV). The kidney is normal in size and contour. Increased echogenicity of the renal parenchyma. Renal cortical thickness is normal. No calculi or focal parenchymal lesions. No hydronephrosis. LEFT KIDNEY: 10.2 x 4.2 x 6.0 cm (SAG x AP x TRV). The kidney is normal in size, contour, and echogenicity. Renal cortical thickness is normal. No hydronephrosis. Multiple benign-appearing cysts measuring up to 1.8 cm. Nonobstructing 3 mm stone. US/US renal BI IMPRESSION: * Increased echogenicity of the right renal parenchyma likely reflects medical renal disease. * Nonobstructing left renal nephrolithiasis. * Benign-appearing left renal cysts. Followup imaging is not routinely recommended for benign appearing cysts.
== END 2023-05-21 15:24 | disposition home or self-care (01) ==
LOC: HO.HMGCX 15:23
PROVIDERS: PCP Family Medicine; Visit Provider Internal Medicine Hypertension Specialist
DX: N18.9 Chronic kidney disease, unspecified (principal)
CPT/HCPCS: 76775

== ENCOUNTER 2023-06-27 15:02 | Outpatient (REF) | payer MEDICARE, OTHER, SELFPAY ==
[2023-06-27 16:34] LABS: Urine Cytology See Pathology rpt
== END 2023-06-27 15:03 | disposition home or self-care (01) ==
LOC: HO.LNP 15:02
PROVIDERS: PCP Family Medicine; Visit Provider Nurse Practitioner Family
DX: C61 Malignant neoplasm of prostate (principal); N40.1 Benign prostatic hyperplasia with lower urinary tract symptoms; R35.0 Frequency of micturition; R31.29 Other microscopic hematuria; R35.1 Nocturia; Z79.899 Other long term (current) drug therapy
CPT/HCPCS: 81003; 88112; 99212

== ENCOUNTER 2023-06-27 15:02 | Outpatient (AMB) | payer MEDICARE, OTHER, SELFPAY ==
--- NOTE | 2023-06-27 14:59 | A.OFFVIS_ITS ---
Intake Visit Reasons: prostate cancer Intake Note: New Patient presents for initial visit for prostate cancer Urology Medications: finasteride Blood Thinner: none Supervisor Communications And Signals Required: No Accompanied by: Self / Same As Patient Allergies bee pollen [BEE STINGS] Allergy (Severe, Verified 06/27/23 15:24) Anaphylaxis Iodinated Contrast Media [IV CONTRAST] Allergy (Severe, Verified 06/27/23 15:24) Anaphylaxis zoster vaccine live [SHINGLES VACCINE] Allergy (Intermediate, Verified 06/27/23 15:24) Shortness of Breath codeine Allergy (Severe, Uncoded 06/27/23 15:24) Itching,hives shellfish Allergy (Severe, Uncoded 06/27/23 15:24) anaphylaxis Medication List - Last Reconciled 06/27/23 by HEATHER Lacey acetaminophen 650 mg (2 x 325 mg) PO Q6H PRN amlodipine 10 mg See Protocol PO DAILY aspirin 1 tab PO QAM atorvastatin 80 mg PO DAILY clonidine HCl 0.1 mg See Protocol PO TID divalproex 500 mg PO BID epinephrine 0.3 mg IM DAILY PRN escitalopram oxalate 10 mg PO DAILY finasteride 5 mg PO DAILY gabapentin 100 mg PO BID metoprolol succinate ER 25 mg PO DAILY olanzapine 10 mg PO BEDTIME quetiapine 50 mg PO BEDTIME tamsulosin 0.4 mg PO BEDTIME 30 days trazodone 50 mg PO BEDTIME HPI Comments Details: Quentin is a very pleasant 68-year-old male patient of Dr. Yu. He has a past medical history of hypertension, coronary artery disease, NSTEMI, hyperlipidemia, hep C, anxiety, depression, BPH, diverticulosis, nephrolithiasis, PTSD, prostate cancer diagnosed in 2016, and TIA. He presents to the office today for follow-up of his prostate cancer. In discussion with the patient today he reports to be doing and feeling well. He was last seen by Dr. Oswald approximately 2 years ago at which time recommendations were made for MRI of the prostate for further assessment evaluation. However in discussion with the patient today he reports he is unsure if he had this performed. Call to [facility] as well as [facility] and no MRI of the prostate has been completed. Discussed most recent PSA results with the patient today. As noted and trended below. PSA 01/20 3.77, 05/21 4.8, 09/20 6.1, 01/21 5.5, 03/24 5.6, 05/26 1.0 When asked he does report compliance with 5 mg of finasteride daily. Discussed significant drop in PSA. When asked he does report noting urinary frequency and episodes of nocturia up to 3 times per night. He otherwise denies incontinence, nocturia, hematuria, dysuria, foul smelling urine, changes to urinary stream, flank pain, fever, and or chills. In office urinalysis results reviewed with the patient today. Microscopic hematuria noted. When asked he does report a previous history of nicotine dependence however quit proximally 30 years ago. Does report smoking recreational marijuana daily. He denies any known previous workplace chemical exposures. He otherwise offers no other issues or concerns at this time. Prostate cancer grade group [address] Higgins Prostate biopsy showed Deep 3 + 3 single core 10% Currently under surveillance protocol Alternative treatment options have been discussed Continue surveillance [facility] Medical History HTN (hypertension) CAD (coronary artery disease) NSTEMI (non-ST elevated myocardial infarction) HLD (hyperlipidemia) Hepatitis C REBECA (generalized anxiety disorder) Depression BPH without obstruction/lower urinary tract symptoms Diverticulosis Tubulovillous adenoma Elevated cholesterol HTN (hypertension) Hx of non-ST elevation myocardial infarction (NSTEMI) Hx of hepatitis C Hx of renal calculi PTSD (post-traumatic stress disorder) Prostate cancer History of prostate cancer Elevated PSA Hypertensive encephalopathy Acidosis, lactic Encephalopathy acute COVID-19 Anxiety CAD (coronary artery disease) Hypertensive encephalopathy TIA (transient ischemic attack) Surgical History S/P foot surgery, left Hx of cardiac catheterization H/O heart artery stent History of surgery on wrist Hx of left knee surgery Hx of tonsillectomy Hx of appendectomy Hx of colonoscopy Family History Mother Heart disease Father No problems noted. Social History Household Members: None Housing: Apartment Are you a primary customer care assistant to a significant other at home: No Do you presently have visiting nurse or other home services: No Alcohol intake: former Year quit: 1988 Patient Tobacco Use Status: Former Tobacco user Quit Date: 30 yrs ago Tobacco use type: Cigarette Substance Use Type: Marijuana service: No Review of Systems Const Reports no additional complaints Eyes Reports no additional complaints ENT Reports no additional complaints Card Reports as per HPI Resp Reports as per HPI GI Reports as per HPI Reports as per HPI Musc Reports no additional complaints Neuro Reports as per HPI Psych Reports as per HPI Endo Reports no additional complaints Stuart/Lymph Reports no additional complaints Aller/Immun Reports no additional complaints Physical Exam Const General: cooperative, healthy appearing, comfortable, no acute distress, well developed, alert and awake Orientation/consciousness: patient oriented x3 Limitations: no limitations HEENT Head: Yes normal to inspection, Yes normocephalic and Yes atraumatic Ears: hearing grossly normal bilaterally Eyes General: appearance normal, both eyes and all related structures Neck Neck: Yes normal visual inspection and Yes trachea midline Chest Chest palpation & inspection: normal inspection of the chest Resp Effort & Inspection: normal respiratory effort and able to speak in complete sentences Cardio Rate: regular rate GI Inspection: Yes normal to inspection General: Yes no CVA tenderness Back/Spine/Pelvis Back: no CVA tenderness Skin General skin exam: no rashes or lesions noted Neuro General: patient oriented x3 Extrem General: Yes normal to inspection Psych Appearance: grossly normal and well kempt Mental Status: mental status grossly normal Speech and movement: Normal speech and movement present and Clear speech present Affect: normal affect Attitude: cooperative Thought process: Normal thought process present Thought content: Normal thought content present Insight: Fair insight present (Psych) Judgement: Fair judgement present (Psych) Results AMB Urinalysis, Automated UA Leukoctes 0 Tarik/uL Last Edit by mNectar on 06/27/23 15:16 UA Nitrite Negative Last Edit by mNectar on 06/27/23 15:16 UA Urobilinogen 0.2 mg/dL Last Edit by mNectar on 06/27/23 15:16 UA Protein 15 mg/dL Last Edit by mNectar on 06/27/23 15:16 UA pH 6.5 Last Edit by mNectar on 06/27/23 15:16 UA Blood 25 Hussein/uL Last Edit by mNectar on 06/27/23 15:16 UA Specific [place] 1.015 Last Edit by Lalo Mayes on 06/27/23 15:16 UA Ketone Positive Last Edit by Lalo Mayes on 06/27/23 15:16 UA Bilirubin 0 mg/dL Last Edit by Lalo Mayes on 06/27/23 15:16 UA Glucose 0 mg/dL Last Edit by Lalo Mayes on 06/27/23 15:16 Results Reviewed Results Reviewed: Laboratory Last Values Urine pH (Auto) 6.5 06/27/23 15:02 Specific [place] (Auto) 1.015 06/27/23 15:02 Urine Protein (Auto) 15 mg/dL 06/27/23 15:02 Glucose (UA)(Auto) 0 mg/dL 06/27/23 15:02 Urine Ketones (Auto) Positive 06/27/23 15:02 Urine Blood (Auto) 25 Hussein/uL 06/27/23 15:02 Urine Nitrite (Auto) Negative 06/27/23 15:02 Urine Bilirubin (Auto) 0 mg/dL 06/27/23 15:02 Urine Urobilinogen (Auto) 0.2 mg/dL 06/27/23 15:02 Leukocyte Esterase (Auto) 0 Tarik/uL 06/27/23 15:02 Assessment & Plan Assessment & Plan (1) Urinary frequency: Code(s): R35.0 - Frequency of micturition Category: Medical (2) Microscopic hematuria: Code(s): R31.29 - Other microscopic hematuria Category: Medical (3) Prostate cancer: Comment: low-grade prostate cancer diagnosed 2017 1 core [place] 3 + 3 Code(s): C61 - Malignant neoplasm of prostate Category: Medical Plan In office urinalysis results reviewed with the patient today; as noted above; will send for urine cytology Recent PSA results reviewed and trended with the patient today; as noted above. Continue finasteride as discussed and prescribed. Start Flomax as discussed and prescribed. Discussed importance of limiting fluids 2-3 hours prior to bed to assist with decreasing episodes of nocturia. Will obtain retroperitoneal ultrasound for assessment evaluation. Discussed at length potential causes of microscopic hematuria Discussed further microscopic hematuria workup to include CT urogram, urine cytology, in office cystoscopy versus surveillance monitoring; risks and benefits of these interventions were discussed at length. Follow-up in 1-2 months with imaging to be completed prior and PVR at next office visit; or sooner with any issues, concerns, and or questions. Orders: Orders AMB Urinalysis Automated Today Z13.9 - Encounter for screening, unspecified US retroperitoneal comp Today R35.0 - Frequency of micturition Urine Cytology Today C61 - Malignant neoplasm of prostate Medications: New tamsulosin 0.4 mg PO BEDTIME 30 caps 1RF 30 days N40.1 - Benign prostatic hyperplasia with lower urinary tract symptoms, R35.1 - Nocturia Patient Instructions: The patient had an opportunity to ask questions regarding the treatment plan. All questions were answered. Physical exam, labs, and imaging were discussed and reviewed in detail. As well as risks, benefits, and discussion of treatment choices. No major barriers to understanding were identified. The patient expressed understanding and agreement with the above treatment plan. The patient was made aware they should contact our office by phone for worsening of their current condition, the appearance of new symptoms, or with any ques tions or concerns. Compliance is encouraged with any medications and follow up testing that is ordered. It is a privilege to be allowed the opportunity to participate in? your urological care.? Again, if you have any questions or concerns If you have any questions or concerns please do not hesitate to contact me. The office is [phone]. This note is constructed using voice recognition software. While every effort has been made to ensure accuracy vessel traffic officer errors may have been included. Yours sincerely, HEATHER Lacey Coding Level of Care Code Est Pt Level 4 (87588) Diagnoses Urinary frequency R35.0 Microscopic hematuria R31.29 Prostate cancer C61
== END 2023-06-27 15:29 | disposition home or self-care (01) ==
PROVIDERS: PCP Family Medicine; Visit Provider Nurse Practitioner Family
DX: R35.0 Frequency of micturition (principal); R31.29 Other microscopic hematuria; C61 Malignant neoplasm of prostate
CPT/HCPCS: 99214

== ENCOUNTER 2023-08-06 13:13 | Outpatient (REF) | payer MEDICARE, OTHER, SELFPAY ==
[2023-08-06 14:39] LABS: Appearance Urine Clear; Color Urine Yellow; Glucose Urine UA Negative (Negative); Leukocyte Esterase Urine Negative (Negative); Nitrite Urine Negative (Negative); PH 7.5 (5.0-9.0); UMIC TRIGGER UA YES; Urine Blood Trace (Negative); Urine Ketones Negative (Negative); Urine Protein Negative (Neg-Trace)
[2023-08-06 14:44] LABS: Bacteria Urine None Seen (None Seen); Hyaline Casts Urine 0-2 /LPF (0-2); Squamous Epithelial Cell Urine 0-2 /HPF (0-2); WBC Urine 0-5 /HPF (0-5)
[2023-08-06 14:53] LABS: MANUAL DIFF FLAG NO
[2023-08-06 14:58] LABS: Basophils Percent Auto 0.8 % (0-2); Eosinophils Absolute Auto 0.1 X10*3/uL (0.0-0.4); Eosinophils Percent Auto 2.2 % (0-4); Hematocrit 36.9 % (42.0-52.0); Hemoglobin 11.4 g/dl (14.0-18.0); Imm Gran Abs Auto 0.01 X10*3/uL (0.00-0.03); Imm Gran Pct Auto 0.2 % (0.0-0.4); Lymphocytes Absolute Auto 1.5 X10*3/uL (1.2-4.9); Lymphocytes Percent Auto 31.2 % (20-40); Mean Corpuscular HGB Conc 30.9 g/dl (31.0-36.0); Mean Corpuscular Hemoglobin 24.2 pg (27.0-33.0); Mean Corpuscular Volume 78.3 fL (80.0-98.0); Monocytes Absolute Auto 0.5 X10*3/uL (0.1-1.2); Monocytes Percent Auto 10.1 % (2-11); Neutrophils Absolute Auto 2.7 x10*3/uL (2.0-8.3); Neutrophils Percent Auto 55.5 % (45-73); Red Blood Count 4.71 X10*6/uL (4.60-5.80); Red Cell Distribution Width 17.6 % (11.0-16.0); White Blood Count 4.9 X10*3/uL (4.8-10.8)
[2023-08-06 15:17] LABS: Alanine Aminotransferase 7 U/L (0-40); Albumin Level 3.6 g/dL (3.5-5.0); Alkaline Phosphatase 50 U/L (39-117); Amylase 39 U/L (28-100); Anion Gap 13 (12-20); Aspartate Amino Transferase 16 U/L (5-37); Bilirubin Total 0.4 mg/dL (0.0-1.0); Blood Urea Nitrogen 23 mg/dL (9-16); Calcium 8.7 mg/dL (8.4-10.2); Carbon Dioxide 25 mmol/L (22-29); Chloride 110 mmol/L (96-108); Estimated Glomerular Filt Rate 58; Glucose Random 114 mg/dL (60-115); Lipase 15 U/L (8-78); Potassium 4.7 mmol/L (3.3-5.1); Sodium 143 mmol/L (135-145); Total Protein 6.4 g/dL (6.5-8.0)
[2023-08-06 15:19] LABS: Platelet Count 84 X10*3/uL (160-400)
[2023-08-06 15:20] LABS: Mean Platelet Volume 9.8 fL (9.4-12.4)
[2023-08-06 15:26] LABS: Valproate 89.4 mcg/mL (50.0-100.0)
[2023-08-06 15:27] LABS: PSA,Total (Free>4and<10) 0.83 ng/mL (0.00-4.00)
[2023-08-06 15:36] LABS: TSH reflex Free T4 1.46 uIU/mL (0.32-4.0)
== END 2023-08-06 13:14 | disposition home or self-care (01) ==
LOC: HO.CHCLDS 13:13
PROVIDERS: Internal Medicine Hypertension Specialist; Visit Provider Family Medicine
DX: Z51.81 Encounter for therapeutic drug level monitoring (principal); Z79.899 Other long term (current) drug therapy; C61 Malignant neoplasm of prostate; Z12.5 Encounter for screening for malignant neoplasm of prostate
CPT/HCPCS: 36415; 80053; 80164; 81001; 82150; 83690; 84153; 84443; 85025

== ENCOUNTER 2023-08-07 11:40 | Outpatient (REF) | payer MEDICARE, OTHER, SELFPAY ==
[2023-08-07 12:13] LABS: Ammonia 16 umol/L (13-55)
== END 2023-08-07 11:41 | disposition home or self-care (01) ==
LOC: HO.LAB 11:40
PROVIDERS: PCP Family Medicine; Visit Provider Family Medicine
DX: D69.6 Thrombocytopenia, unspecified (principal); Z51.81 Encounter for therapeutic drug level monitoring
CPT/HCPCS: 36415; 82140

== ENCOUNTER 2023-08-22 15:32 | Outpatient (REF) | payer MEDICARE, OTHER, SELFPAY ==
--- NOTE | ~2023-08-22 | US_ITS ---
EXAMINATION: US PELVIS LIMITED (BLADDER) CLINICAL INFORMATION: Frequency of micturition. COMPARISON: Renal ultrasound 05/21/2023. TECHNIQUE: Real-time imaging of the bladder. FINDINGS: BLADDER: Well distended. Bilateral ureteral jets are demonstrated. Prevoid bladder volume is 199.5 mL. There is no postvoid residual. ADDITIONAL FINDINGS: Prostate volume 29.5 mL, enlarged. Echogenic foci within the prostate are characteristic of calcifications. US/US bladder IMPRESSION: 1. Enlarged prostate with calcifications. 2. No significant postvoid bladder volume.
== END 2023-08-22 15:33 | disposition home or self-care (01) ==
LOC: HO.HMGCX 15:32
PROVIDERS: PCP Family Medicine; Visit Provider Nurse Practitioner Family
DX: R35.0 Frequency of micturition (principal)
CPT/HCPCS: 76857

== ENCOUNTER 2023-09-27 13:22 | Outpatient (AMB) | payer MEDICARE, OTHER, SELFPAY ==
--- NOTE | 2023-09-27 13:27 | MHC.OFFVIS ---
Intake Visit Reasons: 2m/US(set) Intake Note: Patient is Present for Follow Up Urology Medication: Finasteride, Tamsulosin Antibiotic Allergies: None Blood Thinners: Aspirin PVR: 23 [place] Required: No Allergies bee pollen [BEE STINGS] Allergy (Severe, Verified 09/27/23 14:04) Anaphylaxis Iodinated Contrast Media [IV CONTRAST] Allergy (Severe, Verified 09/27/23 14:04) Anaphylaxis zoster vaccine live [SHINGLES VACCINE] Allergy (Intermediate, Verified 09/27/23 14:04) Shortness of Breath codeine Allergy (Severe, Uncoded 09/27/23 14:04) Itching,hives shellfish Allergy (Severe, Uncoded 09/27/23 14:04) anaphylaxis Medication List - Last Reconciled 09/27/23 by HEATHER Lacey acetaminophen 650 mg (2 x 325 mg) PO Q6H PRN amlodipine 10 mg See Protocol PO DAILY aspirin 1 tab PO QAM atorvastatin 80 mg PO DAILY clonidine HCl 0.1 mg See Protocol PO TID divalproex 500 mg PO BID epinephrine 0.3 mg IM DAILY PRN escitalopram oxalate 10 mg PO DAILY finasteride 5 mg PO DAILY gabapentin 100 mg PO BID metoprolol succinate ER 25 mg PO DAILY olanzapine 10 mg PO BEDTIME quetiapine 50 mg PO BEDTIME tamsulosin 0.4 mg PO BEDTIME 30 days trazodone 50 mg PO BEDTIME HPI Comments Details: Quentin is a very pleasant 68-year-old male patient of Dr. Yu. He has a past medical history of hypertension, coronary artery disease, NSTEMI, hyperlipidemia, hep C, anxiety, depression, BPH, diverticulosis, nephrolithiasis, PTSD, prostate cancer diagnosed in 2017, and TIA. He presents to the office today for follow-up of his prostate cancer and his lower urinary tract symptoms. Of note, patient was seen three months ago at which time a bladder ultrasound was ordered for further assessment evaluation and the patient was started on tamsulosin. Recent bladder ultrasound results reviewed with the patient today. Bladder is well distended. Bilateral ureteral jets are demonstrated. Pre void bladder volume is approximately 200 mL. There is no postvoid residual. Prostate volume approximately 30 mLs. He reports never receiving Flomax from the pharmacy. Therefore, he continues with lower urinary tract symptoms of urinary urgency, urinary frequency, and episodes of incontinence if not near a bathroom. Recent PSA results reviewed with the patient today as noted and trended below: PSA 01/20 3.77, 05/21 4.8, 09/20 6.1, 01/21 5.5, 03/24 5.6, 05/26 1.0, 08/26 0.8 When asked he does report compliance with 5 mg of finasteride daily. He otherwise denies incontinence, nocturia, hematuria, dysuria, foul smelling urine, changes to urinary stream, flank pain, fever, and or chills. In office urinalysis results reviewed with the patient today. During last office visit microscopic hematuria was noted therefore urine was sent for cytology. These results reviewed with the patient today. 06/26 Negative for high-grade urothelial carcinoma. He otherwise offers no other issues or concerns at this time. Prostate cancer grade group [address] Higgins Prostate biopsy showed Deep 3 + 3 single core 10% Currently under surveillance protocol Alternative treatment options have been discussed Continue surveillance [facility] Medical History HTN (hypertension) CAD (coronary artery disease) NSTEMI (non-ST elevated myocardial infarction) HLD (hyperlipidemia) Hepatitis C REBECA (generalized anxiety disorder) Depression BPH without obstruction/lower urinary tract symptoms Diverticulosis Tubulovillous adenoma Elevated cholesterol HTN (hypertension) Hx of non-ST elevation myocardial infarction (NSTEMI) Hx of hepatitis C Hx of renal calculi PTSD (post-traumatic stress disorder) Prostate cancer History of prostate cancer Elevated PSA Hypertensive encephalopathy Acidosis, lactic Encephalopathy acute COVID-19 Anxiety CAD (coronary artery disease) Hypertensive encephalopathy TIA (transient ischemic attack) Surgical History S/P foot surgery, left Hx of cardiac catheterization H/O heart artery stent History of surgery on wrist Hx of left knee surgery Hx of tonsillectomy Hx of appendectomy Hx of colonoscopy Family History Mother Heart disease Father No problems noted. Social History Household Members: None Housing: Apartment Are you a primary critical care paramedic to a significant other at home: No Do you presently have visiting nurse or other home services: No Alcohol intake: former Year quit: 1988 Patient Tobacco Use Status: Former Tobacco user Tobacco use type: Cigarette Substance Use Type: Marijuana service: No Review of Systems Const Reports no additional complaints Eyes Reports no additional complaints ENT Reports no additional complaints Card Reports as per HPI Resp Reports as per HPI GI Reports as per HPI Reports as per HPI Musc Reports no additional complaints Neuro Reports as per HPI Psych Reports as per HPI Endo Reports no additional complaints Stuart/Lymph Reports no additional complaints Aller/Immun Reports no additional complaints Physical Exam Const General: cooperative, healthy appearing, comfortable, no acute distress, well developed, alert and awake Orientation/consciousness: patient oriented x3 Limitations: no limitations HEENT Head: Yes normal to inspection, Yes normocephalic and Yes atraumatic Ears: hearing grossly normal bilaterally Eyes General: appearance normal, both eyes and all related structures Neck Neck: Yes normal visual inspection and Yes trachea midline Chest Chest palpation & inspection: normal inspection of the chest Resp Effort & Inspection: normal respiratory effort and able to speak in complete sentences Cardio Rate: regular rate GI Inspection: Yes normal to inspection General: Yes no CVA tenderness Back/Spine/Pelvis Back: no CVA tenderness Skin General skin exam: no rashes or lesions noted Neuro General: patient oriented x3 Extrem General: Yes normal to inspection Psych Appearance: grossly normal and well kempt Mental Status: mental status grossly normal Speech and movement: Normal speech and movement present and Clear speech present Affect: normal affect Attitude: cooperative Thought process: Normal thought process present Thought content: Normal thought content present Insight: Fair insight present (Psych) Judgement: Fair judgement present (Psych) Office Procedures Post Void Residual Post Residual Void Post Void Residual (PVR): 23 [id number] Void Residual by ultrasound Results AMB Urinalysis, Automated UA Leukoctes 0 Tarik/uL Last Edit by VAL Branch on 09/27/23 13:46 UA Nitrite Negative Last Edit by VAL Branch on 09/27/23 13:46 UA Urobilinogen 0.2 mg/dL Last Edit by VAL Branch on 09/27/23 13:46 UA Protein 0 mg/dL Last Edit by VAL Branch on 09/27/23 13:46 UA pH 6.0 Last Edit by SHUKRI BranchA on 09/27/23 13:46 UA Blood 0 Hussein/uL Last Edit by Skye Trejo RMA on 09/27/23 13:46 UA Specific [place] 1.000 Last Edit by Skye Trejo, RMA on 09/27/23 13:46 UA Ketone Negative Last Edit by Skye Trejo RMA on 09/27/23 13:46 UA Bilirubin 0 mg/dL Last Edit by Skye Trejo RMA on 09/27/23 13:46 UA Glucose 0 mg/dL Last Edit by Skye Trejo A on 09/27/23 13:46 Results Reviewed Results Reviewed: Laboratory Last Values Urine pH (Auto) 6.0 09/27/23 13:31 Specific [place] (Auto) 1.000 09/27/23 13:31 Urine Protein (Auto) 0 mg/dL 09/27/23 13:31 Glucose (UA)(Auto) 0 mg/dL 09/27/23 13:31 Urine Ketones (Auto) Negative 09/27/23 13:31 Urine Blood (Auto) 0 Hussein/uL 09/27/23 13:31 Urine Nitrite (Auto) Negative 09/27/23 13:31 Urine Bilirubin (Auto) 0 mg/dL 09/27/23 13:31 Urine Urobilinogen (Auto) 0.2 mg/dL 09/27/23 13:31 Leukocyte Esterase (Auto) 0 Tarik/uL 09/27/23 13:31 Assessment & Plan Assessment & Plan (1) Urinary frequency: Code(s): R35.0 - Frequency of micturition Category: Medical (2) Prostate cancer: Comment: low-grade prostate cancer diagnosed 2017 1 core [place] 3 + 3 Code(s): C61 - Malignant neoplasm of prostate Category: Medical Plan In office urinalysis results reviewed with the patient today; as noted above PVR 23 mL Recent PSA results reviewed and trended with the patient today; as noted above. Continue finasteride as discussed and prescribed. Start Flomax as discussed and prescribed script resent. Recent bladder ultrasound results reviewed with the patient today; as noted above Discussed at length potential causes for lower urinary tract symptoms patient is experiencing. Follow-up in 1-3 months; or sooner with any issues, concerns, and or questions. Orders: Orders AMB Urinalysis Automated Today Z13.9 - Encounter for screening, unspecified AMB Post Void Residual by ultrasound Today R35.0 - Frequency of micturition Medications: Refilled tamsulosin 0.4 mg PO BEDTIME 30 caps 1RF 30 days N40.1 - Benign prostatic hyperplasia with lower urinary tract symptoms, R35.1 - Nocturia Patient Instructions: The patient had an opportunity to ask questions regarding the treatment plan. All questions were answered. Physical exam, labs, and imaging were discussed and reviewed in detail. As well as risks, benefits, and discussion of treatment choices. No major barriers to understanding were identified. The patient expressed understanding and agreement with the above treatment plan. The patient was made aware they should contact our office by phone for worsening of their current condition, the appearance of new symptoms, or with any questions or concerns. Compliance is encouraged with any medications and follow up testing that is ordered. It is a privilege to be allowed the opportunity to participate in? your urological care.? Again, if you have any questions or concerns If you have any questions or concerns please do not hesitate to contact me. The office is [phone]. This note is constructed using voice recognition software. While every effort has been made to ensure accuracy partition notcher errors may have been included. Yours sincerely, HEATHER Lacey Coding Level of Care Code Est Pt Level 3 (64728) Complex EM visit Add On G2211 Diagnoses Urinary frequency R35.0 Prostate cancer C61 CPT Codes Post Residual Void - PVR CPT Code: 89586-[place] Void Residual by ultrasound ([id number])
== END 2023-09-27 14:02 | disposition home or self-care (01) ==
PROVIDERS: PCP Family Medicine; Visit Provider Nurse Practitioner Family
DX: R35.0 Frequency of micturition (principal); C61 Malignant neoplasm of prostate; Z13.9 Encounter for screening, unspecified
CPT/HCPCS: 99213; G2211

== ENCOUNTER → 2023-09-27 13:22 | Outpatient (BNVA) | payer MEDICARE, OTHER, SELFPAY | PROVIDERS: PCP Family Medicine; Visit Provider Nurse Practitioner Family | DX: R35.0 Frequency of micturition (principal); C61 Malignant neoplasm of prostate | CPT/HCPCS: 51798; 81003; 99212 ==

== ENCOUNTER 2024-01-08 13:21 | Outpatient (AMB) | payer MEDICARE, OTHER, SELFPAY ==
--- NOTE | 2024-01-08 13:15 | MHC.OFFVIS ---
Intake Visit Reasons: 3m follow up Intake Note: Patient is present for 3m f/u Urology Medication:tamsulosin,finasteride, Antibiotic Allergy:none Blood Thinner:aspirin Algorithm Design Engineer Required: No Allergies bee pollen [BEE STINGS] Allergy (Severe, Verified 01/08/24 16:08) Anaphylaxis Iodinated Contrast Media [IV CONTRAST] Allergy (Severe, Verified 01/08/24 16:08) Anaphylaxis zoster vaccine live [SHINGLES VACCINE] Allergy (Intermediate, Verified 01/08/24 16:08) Shortness of Breath codeine Allergy (Severe, Uncoded 01/08/24 16:08) Itching,hives shellfish Allergy (Severe, Uncoded 01/08/24 16:08) anaphylaxis Medication List - Last Reconciled 01/08/24 by HEATHER Lacey acetaminophen 650 mg (2 x 325 mg) PO Q6H PRN amlodipine 10 mg See Protocol PO DAILY aspirin 1 tab PO QAM atorvastatin 80 mg PO DAILY clonidine HCl 0.1 mg See Protocol PO TID divalproex 500 mg PO BID epinephrine 0.3 mg IM DAILY PRN escitalopram oxalate 10 mg PO DAILY finasteride 5 mg PO DAILY gabapentin 100 mg PO BID metoprolol succinate ER 25 mg PO DAILY mirabegron ER (Myrbetriq) 25 mg PO DAILY 30 days olanzapine 10 mg PO BEDTIME quetiapine 50 mg PO BEDTIME trazodone 50 mg PO BEDTIME HPI Comments Details: Quentin is a very pleasant 68-year-old male patient of Dr. Yu. He has a past medical history of hypertension, coronary artery disease, NSTEMI, hyperlipidemia, hep C, anxiety, depression, BPH, diverticulosis, nephrolithiasis, PTSD, prostate cancer diagnosed in 2016, and TIA. He presents to the office today for follow-up of his prostate cancer and his lower urinary tract symptoms. In discussion with the patient today he reports no improvement in lower urinary tract symptoms with 0.4 mg of Flomax daily. He reports compliance with finasteride as prescribed. Previous workup has included a bladder ultrasound 08/26 the bladder is well distended. Bilateral ureteral jets are demonstrated. Pre void bladder volume is approximately 200 mL. There is no postvoid residual. Prostate volume approximately 30 mLs. He discusses continuing to experienced episodes of urinary urgency and frequency as well as stress/urge incontinence if not near a bathroom. We discussed at length potential causes of mixed urinary incontinence. PSAs are as follows: PSA 01/20 3.77, 05/21 4.8, 09/20 6.1, 01/21 5.5, 03/24 5.6, 05/26 1.0, 08/26 0.8 He otherwise denies nocturia, hematuria, dysuria, foul smelling urine, changes to urinary stream, flank pain, fever, and or chills. In office urinalysis results reviewed with the patient today. Patient with a history of microscopic hematuria previously at which time urine was sent for urine cytology 06/26 Negative for high-grade urothelial carcinoma. No microscopic hematuria noted on UA today. He otherwise offers no other issues or concerns at this time. Prostate cancer grade group [address] Higgins Prostate biopsy showed Howard 3 + 3 single core 10% Currently under surveillance protocol Alternative treatment options have been discussed Continue surveillance [facility] Medical History HTN (hypertension) CAD (coronary artery disease) NSTEMI (non-ST elevated myocardial infarction) HLD (hyperlipidemia) Hepatitis C REBECA (generalized anxiety disorder) Depression BPH without obstruction/lower urinary tract symptoms Diverticulosis Tubulovillous adenoma Elevated cholesterol HTN (hypertension) Hx of non-ST elevation myocardial infarction (NSTEMI) Hx of hepatitis C Hx of renal calculi PTSD (post-traumatic stress disorder) Prostate cancer History of prostate cancer Elevated PSA Hypertensive encephalopathy Acidosis, lactic Encephalopathy acute COVID-19 Anxiety CAD (coronary artery disease) Hypertensive encephalopathy TIA (transient ischemic attack) Surgical History S/P foot surgery, left Hx of cardiac catheterization H/O heart artery stent History of surgery on wrist Hx of left knee surgery Hx of tonsillectomy Hx of appendectomy Hx of colonoscopy Family History Mother Heart disease Father No problems noted. Social History Household Members: None Housing: Apartment Are you a primary care transition manager to a significant other at home: No Do you presently have visiting nurse or other home services: No Alcohol intake: former Year quit: 1988 Patient Tobacco Use Status: Former Tobacco user Tobacco use type: Cigarette Substance Use Type: Marijuana service: No Review of Systems Const Reports no additional complaints Eyes Reports no additional complaints ENT Reports no additional complaints Card Reports as per HPI Resp Reports as per HPI GI Reports as per HPI Reports as per HPI Musc Reports no additional complaints Neuro Reports as per HPI Psych Reports as per HPI Endo Reports no additional complaints Stuart/Lymph Reports no additional complaints Aller/Immun Reports no additional complaints Physical Exam Const General: cooperative, healthy appearing, comfortable, no acute distress, well developed, alert and awake Orientation/consciousness: patient oriented x3 Limitations: no limitations HEENT Head: Yes normal to inspection, Yes normocephalic and Yes atraumatic Ears: hearing grossly normal bilaterally Eyes General: appearance normal, both eyes and all related structures Neck Neck: Yes normal visual inspection and Yes trachea midline Chest Chest palpation & inspection: normal inspection of the chest Resp Effort & Inspection: normal respiratory effort and able to speak in complete sentences Cardio Rate: regular rate GI Inspection: Yes normal to inspection General: Yes no CVA tenderness Back/Spine/Pelvis Back: no CVA tenderness Skin General skin exam: no rashes or lesions noted Neuro General: patient oriented x3 Extrem General: Yes normal to inspection Psych Appearance: grossly normal and well kempt Mental Status: mental status grossly normal Speech and movement: Normal speech and movement present and Clear speech present Affect: normal affect Attitude: cooperative Thought process: Normal thought process present Thought content: Normal thought content present Insight: Fair insight present (Psych) Judgement: Fair judgement present (Psych) Results AMB Urinalysis, Automated UA Leukoctes 0 Tarik/uL Last Edit by BETHANIE Navarro on 01/08/24 13:44 UA Nitrite Last Edit by BETHANIE Navarro on 01/08/24 13:44 UA Urobilinogen 0.2 mg/dL Last Edit by BETHANIE Navarro on 01/08/24 13:44 UA Protein 0 mg/dL Last Edit by BETHANIE Navarro on 01/08/24 13:44 UA pH 6.0 Last Edit by BETHANIE Navarro on 01/08/24 13:44 UA Blood 0 Hussein/uL Last Edit by BETHANIE Navarro on 01/08/24 13:44 UA Specific [place] 1.010 Last Edit by BETHANIE Navarro on 01/08/24 13:44 UA Ketone Negative Last Edit by BETHANIE Navarro on 01/08/24 13:44 UA Bilirubin 0 mg/dL Last Edit by BETHANIE Navarro on 01/08/24 13:44 UA Glucose 0 mg/dL Last Edit by BETHANIE Navarro on 01/08/24 13:44 Results Reviewed Results Reviewed: Laboratory Last Values Urine pH (Auto) 6.0 01/08/24 13:43 Specific [place] (Auto) 1.010 01/08/24 13:43 Urine Protein (Auto) 0 mg/dL 01/08/24 13:43 Glucose (UA)(Auto) 0 mg/dL 01/08/24 13:43 Urine Ketones (Auto) Negative 01/08/24 13:43 Urine Blood (Auto) 0 Hussein/uL 01/08/24 13:43 Urine Bilirubin (Auto) 0 mg/dL 01/08/24 13:43 Urine Urobilinogen (Auto) 0.2 mg/dL 01/08/24 13:43 Leukocyte Esterase (Auto) 0 Tarik/uL 01/08/24 13:43 Assessment & Plan Assessment & Plan (1) Prostate cancer: Comment: low-grade prostate cancer diagnosed 2016 1 core Deep 3 + 3 Code(s): C61 - Malignant neoplasm of prostate Category: Medical (2) Urinary frequency: Code(s): R35.0 - Frequency of micturition Category: Medical Plan In office urinalysis results reviewed with the patient today; as noted above Continue finasteride as discussed and prescribed. Stop Flomax. Start Myrbetriq as discussed and prescribed. Discussed possible near future in office cystoscopy and or urodynamics for further assessment evaluation. Discussed bladder triggers/irritants. Discussed at length potential causes for lower urinary tract symptoms patient is experiencing. Will obtain PSA Follow-up in 1-3 months with PSA and PVR; or sooner with any issues, concerns, and or questions. Orders: Orders Prostate Specific Antigen Today C61 - Malignant neoplasm of prostate AMB Urinalysis Automated Today Z13.9 - Encounter for screening, unspecified Medications: New mirabegron ER (Myrbetriq) 25 mg PO DAILY 30 days 30 tabs 3RF N30.10 - Interstitial cystitis (chronic) without hematuria, N32.81 - Overactive bladder, R35.1 - Nocturia, R39.15 - Urgency of urination Discontinued tamsulosin Discontinued Reason: Doctor's Order 0.4 mg PO BEDTIME 30 days 30 caps 1RF N40.1 - Benign prostatic hyperplasia with lower urinary tract symptoms, R35.1 - Nocturia Patient Instructions: The patient had an opportunity to ask questions regarding the treatment plan. All questions were answered. Physical exam, labs, and imaging were discussed and reviewed in detail. As well as risks, benefits, and discussion of treatment choices. No major barriers to understanding were identified. The patient expressed understanding and agreement with the above treatment plan. The patient was made aware they should contact our office by phone for worsening of their current condition, the appearance of new symptoms, or with any questions or concerns. Compliance is encouraged with any medications and follow up testing that is ordered. It is a privilege to be allowed the opportunity to participate in? your urological care.? Again, if you have any questions or concerns If you have any questions or concerns please do not hesitate to contact me. The office is [phone]. This note is constructed using voice recognition software. While every effort has been made to ensure accuracy various exceptionalities teacher errors may have been included. Yours sincerely, HEATHER Lacey Coding Level of Care Code Est Pt Level 4 (22859) Complex EM visit Add On G2211 Diagnoses Prostate cancer C61 Urinary frequency R35.0
== END 2024-01-08 13:58 | disposition home or self-care (01) ==
PROVIDERS: PCP Family Medicine; Visit Provider Nurse Practitioner Family
DX: C61 Malignant neoplasm of prostate (principal); R35.0 Frequency of micturition; Z13.9 Encounter for screening, unspecified
CPT/HCPCS: 99214; G2211

== ENCOUNTER → 2024-01-08 13:21 | Outpatient (BNVA) | payer MEDICARE, OTHER, SELFPAY | PROVIDERS: PCP Family Medicine; Visit Provider Nurse Practitioner Family | DX: C61 Malignant neoplasm of prostate (principal); R35.0 Frequency of micturition | CPT/HCPCS: 81003; 99212 ==

== ENCOUNTER 2024-06-25 13:04 | Outpatient (REF) | payer MEDICARE, OTHER, SELFPAY ==
--- OUTSIDE RECORDS SUMMARY | 2024-06-25 15:31 | XMS_ITS | Encounter Summary ---
Author Organization [employer] Address [address] [facility] 7 [place] [address] Care Team Providers Care Cda Teacher Name Role Phone Eileen Yu MD Primary Care Provider [phone] Reason for Visit * Reason Onset Date Comments Error 02/22/2023 Encounter Details Date Type Department Care Team ([facility] Contact Info) Description 02/22/2023 Telephone [facility] MED & PEDS [address] [place], [place] [id number] Eileen Yu MD [address] [place] [address] Error Social History Tobacco Use Types Packs/Day Years Used Date Smoking Tobacco: Never Passive Smoke Exposure: Never Smokeless Tobacco: Never Alcohol Use Standard Drinks/Week Comments Defer 0 (1 standard drink = 0.6 oz pur e alcohol) Depression Answer Date Recorded Patient Health Questionnaire-9 Score 0 08/22/2022 Housing Stability Answer Date Recorded What is your housing situation today? I have cezar schmidt 12/19/[address] you li ve. Do you have problems with any of the following? None of the above 12/19/2022 Food Insecurity Answer Date Recorded Within the past 12 months, y ou worried that your food would run out before you got money to buy more: Never True 12/19/2022 Within the past 12 months,th e food you bought just didn't last and you didn't have enough money to get more: Never True Transportation Answer Date Recorded In the past 12 months, has l ack of transportation kept you from medical appts, meetings, work or from getting things needed for daily living? No 12/19/2022 Utilities Answer Date Recorded In the past 12 months, has t he electric, gas, oil or water company threatened to shut off services in your home? No 12/19/2022 Depression Answer Date Recorded Patient Health Questionnaire-2 Score 0 08/22/2022 Sex and Gender Information Value Date Recorded Sex Assigned at Male 01/02/2022 10:26 AM EDT Legal Sex Male 10:26 AM EDT Gender Identity Male 01/02/2022 10:26 AM EDT Sexual Orientation Don't know 03/28/2022 10 :29 AM EST Sexual Orientation Straight 03/28/2022 10 :29 AM EST documented as of this encounter Plan of Treatment Not on file documented as of this encounter Visit Diagnoses Not on filedocumented in this encounter Additional Health Concerns Assessment Noted Time PHQ-9 Depression Total Score: 0 08/23/19 23 2:01 PM EDT documented as of this encounter Care Teams Cda Teacher Relationship Specialty Start Date End Date Eileen Yu MD [address] [place] [id number] PCP - General Family Medicine 04/15/21 documented as of this encounter
--- OUTSIDE RECORDS SUMMARY | 2024-06-25 15:31 | XMS_ITS | Encounter Summary ---
Author Organization [employer] Address [address] [facility] [address] [place] [address] Care Team Providers Care Duct Installer Name Role Phone Eileen Yu MD Primary Care Provider [phone] Reason for Visit * Reason Onset Date Comments Lab Orders 06/25/2024 Encounter Details Date Type Department Care Team ([facility] Contact Info) Description 06/25/2024 Telephone [facility] CH[facility] MED & PEDS [address] [place], [place] [phone] Eileen Yu MD [address] [place], [place] [phone] Lab Orders Social History Tobacco Use Types Packs/Day Years [...] AM EST documented as of this encounter Miscellaneous Notes * Telephone Encounter - Odessa Abraham [place] - 06/25/2024 11:38 AM EDT Pt was seen in the office today. Called and LVM for pt. Per Dr Saavedra pt needs to go to the lab togive a urine sample due to the one given in the office was not enough to send out. documented in this encounter Plan of Treatment Not on file documented as of this encounter Goals Goal Patient Goal Type Associated Problems Recent Progress Patient-Stated? Author Patient will adhere to medication regimen General Esther Aldridge documented as of this encounter Visit Diagnoses Not on filedocumented in this encounter Additional Health Concerns Assessment Noted Time PHQ-9 Depression Total Score: 0 08/23/19 2:01 PM EDT documented as of this encounter Care Teams Duct Installer Relationship Specialty Start Date End Date Eileen Yu MD [address] [place] [address] PCP - General Family Medicine 04/15/21 documented as of this encounter
--- OUTSIDE RECORDS SUMMARY | 2024-06-25 15:31 | XMS_ITS | Encounter Summary ---
Author Organization [employer] Address [address] [facility] [address] [place] [address] Care Team Providers Care Water Hauler Name Role Phone Eileen Yu MD Primary Care Provider [phone] Encounter Details Date Type Department Care Team (Latest Contact Info) Description 06/25/2024 Travel Social History Tobacco Use Types Packs/Day Years [...] Patient will adhere to medication regimen General No Esther Gonzales documented as of this encounter Visit Diagnoses Not on filedocumented in this encounter Additional Health Concerns Assessment Noted Time PHQ-9 Depression Total Score: 0 08/23/19 23 2:01 PM EDT documented as of this encounter Care Teams Water Hauler Relationship Specialty Start Date End Date Eileen Yu MD [address] [place] [address] PCP - General Family Medicine 04/15/21 documented as of this encounter
--- OUTSIDE RECORDS SUMMARY | 2024-06-25 15:31 | XMS_ITS | Encounter Summary ---
Author Organization [employer] Address [address] [facility] [address] [place] [address] Care Team Providers Care Production Technologist Name Role Phone Eileen Yu MD Primary Care Provider [phone] Encounter Details Date Type Department Care Team (Late st Contact Info) Description 01/17/2023 Abstract [facility] MED[facility] [address] [place] [address] Eileen Yu MD [address] [place], [place] [phone] Social History Tobacco Use Types Packs/Day Years Used Date Smoking Tobacco: Never Passive Smoke Exposure: Never Smokeless Tobacco: Never Alcohol Use Standard Drinks/Week Comments Defer 0 (1 standard drink = 0.6 oz pur e alcohol) Depression Answer Date Recorded Patient Health Questionnaire-9 Score 0 08/22/2022 Housing Stability Answer Date Recorded What is your housing situation today? I have cezarcarolyn schmidt 12/19/[address] you [...] on file documented as of this encounter Procedures Procedure Name Priority Date/Time Associated Diagnosis Comments COLONOSCOPY Routine 11/04/2021 documented in this encounter Results * Hm Colonoscopy (11/04/2021) Colonoscopy Normal Normal Narrative Marley Davis - 11/04/2021 Repeat colonoscopy in 1-2 years Historical Provider HEALTH MAINTENANCE Final Result documented in this encounter Visit Diagnoses Not on filedocumented in this encounter Additional Health Concerns Assessment Noted Time PHQ-9 Depression Total Score: 0 08/23/19 23 2:01 PM EDT documented as of this encounter Care Teams Production Technologist Relationship Specialty Start Date End Date Eileen Yu MD [address] [place] [address] PCP - General Family Medicine 04/15/21 documented as of this encounter
--- OUTSIDE RECORDS SUMMARY | 2024-06-25 15:31 | XMS_ITS | Clinical Summary ---
Author Organization [facility] Address [address] [place] [address] [address] [place] [address] Phone Care Team Providers Care Museum Technician Name Role Phone Eileen Yu MD Primary Care Provider [phone] Allergies Active Allergy Reactions Criticality Noted Date Comments Bee Venom 09/16/2020 Codeine 09/16/2020 Iodinated Contrast Media Anaphylaxis High 10/27/2021 Shellfish-Derived Products Zoster Vaccine Live Hives 09/17/2020 Respiratory distress Medications gabapentin (NEURONTIN) 300 MG capsule Take 300 mg by mouth in the morning and 300 mg in the evening and 300 mg before bedtime. Active citalopram (CeleXA) 40 MG tablet Take 40 mg by mouth 1 (one) time each day Active aspirin (ST CHELO) 81 MG EC tablet Take 81 mg by mouth 1 (one) time each day Active atorvastatin (LIPITOR) 80 MG tablet Take 80 mg by mouth 1 (one) time each day Active lurasidone (LATUDA) 20 MG tablet Take 20 mg by mouth 1 (one) time each day with breakfast Active metoprolol tartrate 25 MG tablet Take 25 mg by mouth 1 (one) time each day Active QUEtiapine (SEROquel) 100 MG tablet Take 100 mg by mouth every night Active terazosin (HYTRIN) 1 MG capsule Take 1 mg by mouth every night Active Multiple Vitamins-Minera ls (multivitamin with minerals) tablet Take 1 tablet by mouth 1 (one) time each day Active Active Problems Problem Noted Date Diagnosed Date Essential (primary) hypertension 09/26/2021 Resolved Problems Problem Noted Date Diagnosed Date Resolved Date Acute non-ST segment elevati on myocardial infarction 10/05/2022 10/05/2022 10/05/2022 Viral hepatitis C 10/05/2022 10/05/2022 10/05/2022 Overview (10/05/2022): s/p interferon treatment Coronary arteriosclerosis 09/17/2020 10/05/2022 Overview (10/05/2022): RCA angioplasty / stent 2016 Gastroesophageal reflux disease 09/17/2020 10/05/2022 History of hepatitis C 09/17/2020 10/05/202210/05 Overview (10/05/2022): Treated w/ interferon History of malignant neoplasm of prostate 09/17/2020 10/05/2022 10/05/2022 Overview (10/05/2022): Deep 6 on core Bx 08/2016 Hypercholesterolemia 09/17/2020 10/05/2022 023 Panic disorder (episodic paroxysmal anxiety) 10/05/2022 10/05/2022 Posttraumatic stress disorder 09/17/2020 10/05/2022 10/05/2022 Old myocardial infarction 09/17/2020 10/05/2022 Overview (10/05/2022): 2017 s/p PCTA RCA and stent Recurrent major depressive episodes, moderate 09/18/19 21 10/05/2022 10/05/2022 Transient cerebral ischemia 09/17/2020 10/05/2022 10/05/2022 Overview (10/05/2022): Admitted to [facility] 06/16/19 Immunizations Immunization Administration Dates Next Due Pneumococcal Polysaccharide 04/23/2019 Tdap 12/30/2010 Zoster 07/28/2011 Social History Tobacco Use Types Packs/Day Years Used Date Smoking Tobacco: Former Cigarettes Smokeless Tobacco: Never Tobacco Cessation:Counseling Given: Not Answered Alcohol Use Standard Drinks/Week Comments Never 0 (1 standard drink = 0.6 oz pur e alcohol) Sex and Gender Information Value Date Recorded Sex Assigned at Not on file Legal Sex Male 3:57 PM EDT Gender Identity Not on file Sexual Orientation Not on file Last Filed Vital Signs Vital Sign Reading Time Taken Comments Blood Pressure 152/80 02/02/2022 3:01 PM EST Pulse 76 02/02/2022 3:01 PM EST Temperature - - Respiratory Rate - - Oxygen Saturation 99% 02/02/2022 3:01 PM EST Inhaled Oxygen Concentration - - Weight 94.1 kg (207 lb 6.4 oz) 02/02/2022 3:01 P M EST Height 190.5 cm (6' 3 ) 10/27/2021 4:11 PM EDT Body Mass Index 25.92 10/27/2021 4:11 PM EDT Plan of Treatment Health Maintenance Due Date Last Done Comments Colorectal Cancer Screening: Annual FOBT 2002 Colorectal Cancer Screening: Colonoscopy 2002 Colorectal Cancer Screening: Sigmoidoscopy 2002 Pneumococcal Vaccine: 50+ Ye ars (2 of 2 - PCV) 04/23/2020 04/23/2019 Influenza Vaccine (Season Ended) 2024 Hepatitis B Vaccine Aged Out No longe r eligible based on patient's age [place] [id number] Medicare [facility] [place] Medicare [facility] [place] Care Teams Museum Technician Relationship Specialty Start Date End Date Eileen Yu MD PCP - General Family Medicine 09/13/21
--- OUTSIDE RECORDS SUMMARY | 2024-06-25 15:31 | XMS_ITS | Clinical Summary ---
Author Organization [employer] Address [address] [place] [address] 7 [place] [address] Care Team Providers Care Band Sawing Machine Operator Name Role Phone Eileen Yu MD Primary Care Provider [phone] Allergies Active Allergy Reactions Criticality Noted Date Comments Bee Pollen Anaphylaxis High 09/20/2022 Bee Venom Anaphylaxis High 03/28/2022 Codeine Itching 03/28/2022 Hydrochlorothiazide 04/29/2013 Other reaction(s): Increased frequency of urination Iodinated Contrast Media Anaphylaxis High 10/27/2021 Lisinopril Cough 12/18/2013 Metronidazole 05/20/2012 Other reaction(s): Burning sensation Shellfish-Derived Products Anaphylaxis,Unknown High 03/28/2022 Zoster Vac Recomb Adjuvanted Shortness of breath High 03/28/2022 Medications * This document contains information received from the source organization and may not represent a complete record from that organization. docusate sodium (Colace) 100 MG capsule Take 1 capsule (100 mg) by mouth if needed in the morning and at bedtime for constipation. 180 capsule 1 Active tamsulosin (Flomax) 0.4 MG 24 hr capsule Active divalproex (Depakote) 250 MG EC tablet 2 tablets BID for 1 week, then decrease to 1 tablet BID and then 1 tablet daily and then discontinue valproic acid.Do not crush, chew, or split. 60 tablet Active EPINEPHrine (EpiPen 2-Tyrone) 0.3 MG/0.3ML injection syringe INJECT 0.3ML BY INTRAMUSCULAR ROUTE ONCE NEEDED FOR ANAPHYLAXIS 2 each Active mirabegron ER (Myrbetriq) 50 MG 24 hr tablet Take 1 tablet (50 mg) by mouth at bedtime. Do not crush, chew, or split. 30 tablet 11 024 2024 Active solifenacin (VESIcare) 5 MG tablet Take 1 tablet (5 mg) by mouth Once per day. Swallow tablet whole; do not crush, chew, or split. 30 tablet 11 024 2024 Active finasteride (Proscar) 5 MG tablet TAKE ONE TABLET EVERY MORNING 90 tablet 1 Active aspirin (Aspirin Low Dose) 81 MG chewable tablet CHEW ONE TABLET EVERY MORNING 90 tablet Active atorvastatin (Lipitor) 80 MG tabletIndications :Mixed hyperlipidemia TAKE ONE TABLET EVERY NIGHT AT BEDTIME 90 tablet Active traZODone (Desyrel) 50 MG tablet TAKE ONE TABLET EVERY NIGHT AT BEDTIME 90 tablet Active gabapentin (Neurontin) 100 MG capsule Take 1 capsule (100 mg) by mouth 2 times daily. 60 capsule 2 Active OLANZapine zydis (ZyPREXA) 20 MG disintegrating tablet TAKE ONE TABLET EVERY NIGHT AT BEDTIME 30 tablet Active cloNIDine (Catapres) 0.1 MG tablet TAKE ONE TABLET EVERY NIGHT AT BEDTIME 30 tablet Active amLODIPine (Norvasc) 10 MG tablet TAKE 1 TABLET EVERY MORNING 90 tablet 1 Active escitalopram (Lexapro) 10 MG tablet TAKE ONE TABLET EVERY MORNING 90 tablet 1 Active metoprolol succinate XL (Toprol-XL) 25 MG 24 hr tablet TAKE ONE TABLET EVERY MORNING 90 tablet 1 Active nitrofurantoin, macrocrystal-mono hydrate, (Macrobid) 100 MG capsuleIndication s:Urinary tract infection with hematuria, site unspecified Take 1 capsule (100 mg) by mouth 2 times daily for 7 days. 14 capsule 025 2024 Active escitalopram (Lexapro) 10 MG tablet TAKE ONE TABLET EVERY MORNING 90 tablet 1 024 2024 Discontinued amLODIPine (Norvasc) 10 MG tablet TAKE ONE EVERY MORNING 90 tablet 1 024 2024 Discontinued metoprolol succinate XL (Toprol XL) 25 MG 24 hr tablet Take 1 tablet (25 mg) by mouth Once per day. Do not crush or chew. 90 tablet 1 024 2024 Discontinued cloNIDine (Catapres) 0.1 MG tablet Take 1 tablet (0.1 mg) by mouth at bedtime. 30 tablet 025 2024 Discontinued OLANZapine zydis (ZyPREXA) 20 MG disintegrating tablet Take 1 tablet (20 mg) by mouth at bedtime. 30 tablet 025 2024 Discontinued Active Problems Problem Noted Date Diagnosed Date Encounter for therapeutic drug level monitoring 05/21/2023 Diabetes due to undrl condition w oth diabetic n euro comp 05/21/2023 Assessment & Plan (05/21/2023 11:59 PM EDT): Continue treatment plan. On valproic acid therapy 05/21/2023 Assessment & Plan (05/21/2023 11:58 PM EDT): Discussed the importance of monitoring valproic acid levels and platelets, with a plan to recheck levels and ensure the patient takes the medication as directed, especially in relation to blood work timing. Labs: TSH w/ reflex to FT4 Mood disorder 04/27/2023 Assessment & Plan (08/06/2023 3:24 AM EDT): Pt is experiencing increased shakiness, anxiety and irritability. Prescribed: Olanzapine zydis (ZyPREXA ZYDIS) 20 MG disintegrating tablet -Referred to Behavioralist -Notified pt of the importance of obtaining a psychiatrist to mange his meds properly. Assessment & Plan (05/22/2023 12:01 AM EDT): Ordered Valproic acid to reassess if we have to increase dosage or leave as is. Assessment & Plan (04/27/2023 11:22 AM EST): Patient comes in for F/U on new medication. He has been sleeping better. I have increased Depakote and ordered Valproic Acid he will get done on Sunday. He will be called with test results and at that time we will assess if we have to increase dose of new medication or leave as is. Labs: valproic acid Cannabis dependence, continuous use 04/25/2023 Foot fracture, left 02/15/2023 02/15/2023 Hypertensive encephalopathy 02/15/202302/02 Hypertensive urgency 02/15/2023 02/15/2023 Tubulovillous adenoma 02/15/2023 02/15/2023 Syncope 02/15/2023 02/15/2023 Assessment & Plan (04/05/2023 11:49 AM EST): Recommended patient to speak with therapist since it would benefit with current medications and conditions: patient accepted. Therefore, patient will be redirected to Behavior Health for further assistance. In addition, patient requested another medications, however, will hold off to make any changes at this time. Advised to notify office if prescribed medication makes symptoms worse. In addition, patient will be referred to Neurology. Follow up in 1-2 months. Prostate cancer 02/15/2023 02/15/2023 Diverticulosis 02/15/2023 02/15/2023 Cervical spondylitic cord compression 02/15/2023 02/15/2023 Acute kidney injury 02/15/2023 02/15/2023 Memory deficits 02/15/2023 Assessment & Plan (04/05/2023 11:50 AM EST): Patient presented visit requesting a new referral for Neurologist. Therefore, patient will be provided with a referral to Neurology. Assessment & Plan (02/15/2023 12:07 PM EST): Patient that presented visit with complaints of memory deficits will have a decrease of medication. In addition, patient will be referred to Neurology. Recommended to follow up within 1-2 months. Encounter for medication adjustment 02/15/2023 Skin rash 08/22/2022 Assessment & Plan (08/22/2022 2:32 PM EDT): DDx Actinic Keratosis. Patient with history of skin cancer with scaly rash present upon examination. Likely AK's. Will refer to derm for removal. Hypophosphatemia 07/04/2022 Assessment & Plan (07/04/2022 8:58 AM EDT): BP controlled, doing well with change in medication. Reports saw neurologist who told him that likely culprit of his AMS was med interactions. Still does not have followup with psychiatrist. Hold off any further medication changes without input from psychiatry. Acute non-ST elevation myocardial infarction (NS [place]) 06/12/2022 Assessment & Plan (12/24/2022 7:34 PM EDT): ?? Referral placed to re-establish care with Cards - Dr. Ambriz at [facility] BPH without obstruction/lower urinary tract symp toms 06/12/2022 Assessment & Plan (04/05/2023 11:48 AM EST): Patient that presented visit with complaints of BPH will be referred to Urology. Assessment & Plan (12/24/2022 7:36 PM EDT): ?? Continues with finasteride 5mg daily ?? Referral to re-establish with Urology placed on 12/24/22 REBECA (generalized anxiety disorder) 06/12/2022 Hepatitis C virus infection 06/12/2022 Overview (06/12/2022): s/p interferon treatment HLD (hyperlipidemia) 06/12/2022 Transient alteration of awareness 06/12/2022 Assessment & Plan (12/24/2022 7:45 PM EDT): ?? Pt/friend will confirm if still active with Neurology. If not, plan to call PCP office for referral. CAD (coronary artery disease) 09/17/2020 Overview (12/24/2022): ?? RCA angioplasty / stent 2017 Panic disorder 09/17/2020 PTSD (post-traumatic stress disorder) 09/17/2020 Transient cerebral ischemia 09/17/2020 Overview (06/12/2022): Admitted to [facility] 06/16/19 Recurrent major depressive episodes, moderate Assessment & Plan (12/24/2022 7:41 PM EDT): With associated diagnoses of PTSD and panic disorder Current medication regimen includes: ?? Escitalopram 10mg daily ?? Depakote 500mg BID ?? Quetiapine 25mg in the AM and 125mg at bedtime Medications discontinued during hospitalization with suspected serotonergic overload: mirtazapine, doxepin, and citalopram -Self-discontinued lorazepam following discharge from rehab ?? Pt previously following with psychiatrist (Dr. Rosas). He will call office to confirm if still active patient. If not, will inform PCP office if new referral needed. ?? Denies SI/HI/thoughts of self harm Old [place] (myocardial infarction) 09/17/2020 Overview (06/12/2022): 2017 s/p PCTA RCA and stent Essential hypertension 09/17/2020 Assessment & Plan (05/21/2023 11:55 PM EDT): Uncontrolled: Patient attributed high reading to recent caffeine consumption. Advised to continue treatment regiment and continue monitoring. F/U in a couple of weeks to reassess. Assessment & Plan (12/24/2022 7:35 PM EDT): Current med regimen: ?? Amlodipine 10mg daily ?? Clonidine 0.1mg TID PRN hypertension (hold for SBP <90 mmHg - reports have been using 1-2x/day) ?? Metoprolol succinate XL 25mg daily -Metoprolol sent to pharmacy, did not have upon discharge from rehab. Hopefully will be able to slowly decrease clonidine use as metoprolol levels become therapeutic -Referral to re-establish with cardiology - Dr. Ambriz at [facility] 12/24/22 -ED/urgent care precautions reviewed Encounters Date Type Department Care Team Description 06/25/2024 9:40 AM EDT Office Visit [facility] [address] [place] [address] Lenore Saavedra MD Urinary frequency (Primary Dx); Urinary tract infection with hematuria, site unspecified 06/25/2024 Telephone [facility] [address] [place] [address] Eileen Yu MD Lab Orders 06/25/2024 Travel 06/25/2024 Refill [facility] [address] [place] [address] Eileen Yu MD 06/24/2024 Telephone [facility] [address] [place] [address] Eileen Yu MD Nurse Triage 06/05/2024 Telephone [facility] [address] [place] [address] Eileen Yu MD 05/28/2024 Refill [facility] [address] [place] [address] Willard Thomas MD 05/16/2024 Population Health Risk Score Community [facility] () Department [address] [place] [id number] Provider, Population Health Generic 05/13/2024 Patient Outreach [facility] [address] [place] [address] Eileen Yu MD Pre-visit Planning ([facility]OH unable to reach [facility] ) 04/30/2024 Refill [facility] [address] [place] [address] Eileen Yu MD 04/25/2024 Refill [facility] [address] [place] [address] Eileen Yu MD Mixed hyperlipidemia 04/03/2024 Telephone [facility] [address] [place] [address] Eileen Yu MD chronic conditions tracking 03/28/2024 Refill [facility] [address] [place] [address] Eileen Yu MD from Last 3 Months Immunizations Name Administration Dates Next Due INFLUENZA INJECTABLE QUADRIV ALANT CCIIV4 MDCK Multi-dose vial 12/11/2018 Influenza High-dose Quadriva lent Preservative Free 10/18/2021,11/30/2020,10/16/2019,12/23 Influenza Quadrivalent Adjuvanted 11/21/2022 Influenza injectable quadriv alent IIV4 with preservative 12/08/2016 Influenza injectable quadriv alent preservative free 12/10/2017,10/11/2016,11/22/2015 Influenza, IIV3, injectable 10/18/2021,0 11/30/2020,10/16/2019,12/23,12/11/2018,12/10/2017,12/08/2016 ,10/11/2016,11/22/2015,12/25/2014,02/02,12/30/2010 Influenza, Unspecified 11/19/2012,12/16/2002, Influenza, seasonal, injecta ble, preservative free 12/25/2014 Influenza, seasonal, intrade rmal, preservative free 02/20/2012 Moderna Covid-19 Vaccine 12+ 10/17/2020,06/11/19 21,05/13/2020 Pneumococcal Conjugate PCV 13 02/19/2017 Pneumococcal Polysaccharide PPSV23 04/23/2019, RSV Adjuvant 03/02/2023 Tdap 10/11/2016,12/30/2010 Zoster, live 07/28/2011 Social History Tobacco Use Types Packs/Day Years Used Date Smoking Tobacco: Never Passive Smoke Exposure: Never Smokeless Tobacco: Never Tobacco Cessation:Counseling Given: Not Answered Alcohol Use Standard Drinks/Week Comments Defer 0 [...] Orientation Straight 03/28/2022 10 :29 AM EST Last Filed Vital Signs Vital Sign Reading Time Taken Comments Blood Pressure 150/88 06/25/2024 9:45 AM EDT Pulse 98 06/25/2024 9:45 AM EDT Temperature 36.3 ??C (97.4 ??F) 06/25/2024 9:45 AM ED T Respiratory Rate 20 06/25/2024 9:45 AM EDT Oxygen Saturation 97% 06/25/2024 9:45 AM EDT Inhaled Oxygen Concentration - - Weight 79.4 kg (175 lb) 06/25/2024 9:45 AM EDT Height 185.4 cm (6' 1 ) 06/25/2024 9:45 AM EDT Body Mass Index 23.09 06/25/2024 9:45 AM EDT Plan of Treatment Health Maintenance Due Date Last Done Comments CT Colonography 1953 Dental Oral Exam 1953 Dental Prophylaxis 1953 Dental X-Ray: Bitewings 1953 Dental X-Ray: Full Mouth 1953 FIT DNA/Cologuard 1953 FIT 1953 FOBT 1953 Sigmoidoscopy 1953 Derm Melanoma Skin Check 1953 Diabetes: Foot Exam 1963 Eye Exam 1963 Alcohol/Substance Use Screening 1965 Zoster Vaccines (2 of 3) 09/22/2011 07/28/2011 Diabetes: Hemoglobin A1C 07/19/2021 04/21/2021 Diabetes: Urine Protein Screening 09/08/2022 09/08/2021, 04/21/2021 Depression Screening 08/23/2023 08/22/2022, 08/23/19 SDOH Screening 08/23/2023 08/22/2022 Colonoscopy 11/05/2023 11/04/2021 Colorectal Cancer Screening 11/05/2023 Lipid Panel 05/09/2024 05/10/2023, 07/0 09/2021, 04/21/2021 Tobacco Screening 06/25/2025 06/25/2024 DTaP/Tdap/Td Vaccines (3 - Td or Tdap) 10/11/2026 10/11/2016, 12/30/2010 Hepatitis A Vaccines Completed 10/15/2012, 05/17/2012, 04/19/2012 Hepatitis B Vaccines Completed 10/15/2012, 05/17/2012, 04/19/2012 Pneumococcal Vaccine: 50+ Years Completed 04/23/2019, 04/12/2018, 02/19/2017, Additional history exists RSV Patients and Patients Aged 60 years or older Completed 03/02/2023 COVID-19 Vaccine Completed 11/21/2023, , 01/24/2022, Additional history exists Influenza Vaccine Completed 11/21/2023, , 10/18/2021, Additional history exists HIB Vaccines Aged Out No longer eligi ble based on patient's age to complete this topic HPV Vaccines Aged Out No longer eligi ble based on patient's age to complete this topic IPV Vaccines Aged Out No longer eligi ble based on patient's age to complete this topic Meningococcal Vaccine Aged Out No alejandra tamar eligible based on patient's age to complete this topic RSV under 20 months Aged Out No longe r eligible based on patient's age to complete this topic Rotavirus Vaccines Aged Out No longer eligible based on patient's age to complete this topic Goals Goal Patient Goal Type Associated Problems Recent Progress Patient-Stated? Author Patient will adhere to medication regimen General No Esther Gonzales Procedures Procedure Name Priority Date/Time Associated Diagnosis Comments POCT URINALYSIS DIPSTICK Routine 06/25/2024 11:06 AM EDT Urinary frequency LIPID PANEL, STANDARD Routine 05/10/2023 10:02 AM EST HM COLONOSCOPY Routine 11/04/2021 ALBUMIN, RANDOM URINE W/CREATININE Routine 09/08/2021 11:20 AM EDT HEMOGLOBIN A1C Routine 04/21/2021 10:47 AM EST from Last 3 Months or Most Recently Relevant to Health Maintenance Results * (ABNORMAL) POCT Urinalysis (06/25/2024 11:06 AM EDT) Color, UA Light Yellow Clarity, UA Turbid Glucose, UA Negative Bilirubin, UA Negative Ketones, UA Negative Spec Grav, UA 1.020 Blood, UA Positive(A) Negative, None Detected Comment:large pH, UA 7.0 Protein, UA Many Comment:100mg/dL Urobilinogen, UA 0.2 Leukocytes, UA Many(A) Negative, Rare, Trace Comment:large Nitrite, UA Negative Negative, None Detected Appearance, UA turbid QC Media Lot # [id number] Lot# Expiration Date Urine 06/25/2024 11:0 6 AM EDT Lenore Saavedra MD POINT OF CARE TEST ENTER/EDIT ORDERABLES Final Result * (ABNORMAL) Lipid Panel, Standard (05/10/2023 10:02 AM EST) Triglycerides 55 <150 mg/dL [facility] Comment:Desirable Triglyceri de: less than 150 mg/dLBorderline High Triglyceride 150-199 mg/dLHigh Triglyceride: 200-499 mg/dLVery High Triglyceride: greater than or equal to 5OO mg/dL Cholesterol 87 <200 mg/dL [facility] Comment:Desirable Cholestero l: less than 200 mg/dLBorderline High Cholesterol: 200-239 mg/dLHigh Cholesterol: greater than 239 mg/dL LDL Cholesterol Calculated 46 <100 mg/dL [facility] Comment:Desirable LDL: less than 100 mg/dLNear Optimal/Above Optimal LDL: 110- 129 mg/dLBorderline High LDL: 130-159 mg/dLHigh LDL: 160-189 mg/dLVery High LDL: greater than or equal to 190 mg/dL HDL Cholesterol 30(L) >40 mg/dL [facility] Comment:Desirable HDL: great er than 40 mg/dL Note: This HDL assay may give artificially low results in patients with liver disease. 05/10/2023 10:0 2 AM EST 05/10/2023 1:55 PM EST Eileen Yu MD LAB BLOOD ORDERABLES Final Re sult [facility] [address] [place] [phone] * Hm Colonoscopy (11/04/2021) Colonoscopy Normal Normal Narrative Marley Davis - 11/04/2021 Repeat colonoscopy in 1-2 years Historical Provider HEALTH MAINTENANCE Final Result * ALBUMIN, RANDOM URINE W/CREATININE (09/08/2021 11:20 AM EDT) Microalbumin Urine 0.3 See Note: mg/dL [facility] Comment: Reference Range: ?? Reference Range Not established Microalb/Creat Ratio 3 <30 mcg/mg creat [facility] Comment: ?? The ADA defines abnormalities in albumin excretion as follows: ?? Albuminuria Category ?Result (mcg/mg creatinine) ?? Normal to Mildly increased ?? <30 Moderately increased ? 30-299 ?? Severely increased ? > OR = 300 ?? The ADA recommends that at least two of three specimens collected within a 3-6 month period be abnormal before considering a patient to be within a diagnostic category. Creatinine, Urine 93 20 - 320 mg/dL [facility] 09/08/2021 11:2 0 AM EDT us Eileen Yu MD LAB URINE ORDERABLES Final Re sult Performing Organization Address [facility] de Phone Number [facility] [address] * HEMOGLOBIN A1c (04/21/2021 10:47 AM EST) Hemoglobin A1c 5.5 <5.7 % of total Hgb [facility] Comment: For the purpose of screening for the presence of diabetes: ?? <5.7% ? Consistent with the absence of diabetes 5.7-6.4% ?Consistent with increased risk for diabetes ? (prediabetes) > or =6.5% ??Consistent with diabetes ?? This assay result is consistent with a decreased risk of diabetes. ?? Currently, no consensus exists regarding use of hemoglobin A1c for diagnosis of diabetes in children. ?? According to [place] Diabetes Association (ADA) guidelines, hemoglobin A1c <7.0% represents optimal control in non- diabetic patients. Different metrics may apply to specific patient populations. ?? Standards of Medical Care in Diabetes(ADA). ?? 04/21/2021 10:4 7 AM EST us Eileen Yu MD LAB BLOOD ORDERABLES Final Re sult Performing Organization Address [facility] de Phone Number [facility] [address] from Last 3 Months or Most Recently Relevant to Health [place] [id number] MEDICARE [facility] FULL Care Teams Band Sawing Machine Operator Relationship Specialty Start Date End Date Eileen Yu MD [address] [place] [phone] PCP - General Family Medicine 04/15/21
--- OUTSIDE RECORDS SUMMARY | 2024-06-25 15:31 | XMS_ITS | Encounter Summary ---
Author Organization [employer] Address [address] [facility] [address] [place] [address] Care Team Providers Care Loop Sewer Name Role Phone Eileen Yu MD Primary Care Provider [phone] Reason for Visit * Reason Comments Med Refill Encounter Details Date Type Department Care Team ([facility] Contact Info) Description 06/25/2024 Refill [facility] [address] [place], [place] [phone] Eileen Yu MD [address] [place], [place] [phone] Social History Tobacco Use Types Packs/Day Years [...] documented as of this encounter Care Teams Loop Sewer Relationship Specialty Start Date End Date Eileen Yu MD [address] [place] [address] PCP - General Family Medicine 04/15/21 documented as of this encounter
--- OUTSIDE RECORDS SUMMARY | 2024-06-25 15:31 | XMS_ITS | Encounter Summary ---
Author Organization [employer] Address [address] [facility] [address] [place] [address] Care Team Providers Care Video Games Mechanic Name Role Phone Eileen Yu MD Primary Care Provider [phone] Encounter Details Date Type Department Care Team ([facility] st Contact Info) Description 01/09/2023 Abstract [facility] [address] [place] [address] Eileen Yu MD [address] [place], [place] [phone] Social History Tobacco Use Types Packs/Day Years [...] documented as of this encounter Care Teams Video Games Mechanic Relationship Specialty Start Date End Date Eileen Yu MD [address] [place] [phone] PCP - General Family Medicine 04/15/21 documented as of this encounter
--- OUTSIDE RECORDS SUMMARY | 2024-06-25 15:31 | XMS_ITS | Encounter Summary ---
Author Organization [employer] Address [address] [facility] 7 [place] [address] Care Team Providers Care Machine Packager Name Role Phone Eileen Yu MD Primary Care Provider [phone] Encounter Details Date Type Department Care Team ([facility] Contact Info) Description 06/25/2024 9:40 AM EDT Office Visit [facility] CHC MED & PEDS [address] [place], [place] [phone] Lenore Saavedra MD 505 [place], [place] [phone] Urinary frequency (Primary Dx); Urinary tract infection with hematuria, site unspecified Social History Tobacco Use Types Packs/Day Years [...] AM EST documented as of this encounter Last Filed Vital Signs Vital Sign Reading [...] Mass Index 23.09 06/25/2024 9:45 AM EDT documented in this encounter Progress Notes * Lenore Saavedra MD - 06/25/2024 9:40 AM EDT Subjective Patient ID: Gallito Gong is a 69 y.o. male who presents for urinry frequency x 3 days. is a 69 y/o patient of here for Urinary frequency x 3 days.No associated symptoms except frequency and maybe hematuria.Not A.Has hx of early prostate cancer ( not treatment. LastPSA normal 10 months ago. Patient has been in the [employer] and exposed to lots of toxic fumes and radiation in his life for which this is a bit concerning. Patient denies any penile discharge, abdominal pain, fever, chills, nausea, vomiting, weight loss, bone pain, etc. Urinary Frequency This is a new problem. The current episode started yesterday. The problem occurs every urination. The problem has been unchanged. The pain is at a severity of 0/10. The patient is experiencing no pain. There has been no fever. He is Not sexually active. There is No history of pyelonephritis. Associated symptoms include frequency, hematuria and urgency. Pertinent negatives include no chills, discharge, flank pain, nausea, sweats or vomiting. He has tried nothing for the symptoms. The treatment provided no relief. There is no history of catheterization, kidney stones, recurrent UTIs, a single kidney or a urological procedure. Review of Systems Constitutional: Negative for chills. Gastrointestinal: Negative for nausea and vomiting. Genitourinary: Positive for frequency, hematuria and urgency. Negative for decreased urine volume, difficulty urinating, dysuria, flank pain, penile pain, penile swelling, scrotal swelling and testicular pain. Musculoskeletal: Negative for arthralgias and back pain. Objective BP (!) 150/88 (BP Location: Left arm, Patient Position: Sitting, BP Cuff Size: Adult) Pulse 98 Temp 97.4 ??F (36.3 ??C) (Oral) Resp 20 Ht 6' 1 (1.854 m) Wt 175 lb (79.4 kg) SpO2 97% BMI 23.09 kg/m?? Physical Exam Vitals reviewed. Constitutional: Appearance: Normal appearance. He is normal weight. Cardiovascular: Rate and Rhythm: Normal rate and regular rhythm. Heart sounds: Normal heart sounds. Pulmonary: Effort: Pulmonary effort is normal. No respiratory distress. Breath sounds: Normal breath sounds. Abdominal: Palpations: Abdomen is soft. Skin: Capillary Refill: Capillary refill takes less than 2 seconds. Neurological: Mental Status: He is oriented to person, place, and time. Psychiatric: Mood and Affect: Mood normal. Assessment/Plan Diagnoses and all orders for this visit: Urinary frequency Comments: Urine dip done today shows leukocyte Estrace and microscopic hematuria. Urine culture sent and patient will be treated. Orders: - POCT Urinalysis - Culture, Urine, Routine Urinary tract infection with hematuria, site unspecified Comments: Macrobid twice daily x 7 days started. Advised to hydrate well and drink cranberry juice. Urine culture and urine cytology sent. Call with results. Follow up with PCP set up. Return to clinic sooner if needed. Referred to urology if urine cytology positive. Orders: - nitrofurantoin, macrocrystal-monohydrate, (Macrobid) 100 MG capsule; Take 1 capsule (100 mg) by mouth 2 times daily for 7 days. - Cytology, urine; Future documented in this encounter Plan of Treatment Scheduled Orders Name Type Priority Associated Diagnoses Orde r Schedule Culture, Urine, Routine Microbiology Routine Urinary frequency Ordered: 06/25/2024 Cytology, urine Pathology and Cytology Routine Urinary tract infection with hematuria, site unspecified Expected: 06/25/2024 (Approximate), Expires: 06/25/2025 documented as of this encounter Goals Goal Patient Goal Type Associated Problems Recent Progress Patient-Stated? Author Patient will adhere to medication regimen General Esther Aldridge documented as of this encounter Procedures Procedure Name Priority Date/Time Associated Diagnosis Comments POCT URINALYSIS DIPSTICK Routine 06/25/2024 11:06 AM EDT Urinary frequency documented in this encounter Results * (ABNORMAL) POCT Urinalysis (06/25/2024 11:06 [...] Media Lot # [id number] Lot# Expiration Date ,025 Urine 06/25/2024 11:0 6 AM EDT us Lenore Saavedra MD POINT OF CARE TEST ENTER/EDIT ORDERABLES Final Result documented in this encounter Visit Diagnoses Diagnosis Urinary frequency- Primary Urinary tract infection with hematuria, site unspecified documented in this encounter Additional Health Concerns Assessment Noted Time PHQ-9 Depression Total Score: 0 06/20/20 23 2:01 PM EDT documented as of this encounter Care Teams Machine Packager Relationship Specialty Start Date End Date Eileen Yu MD [address] [place] [address] PCP - General Family Medicine 04/15/21 documented as of this encounter
--- OUTSIDE RECORDS SUMMARY | 2024-06-25 15:31 | XMS_ITS | Encounter Summary ---
Author Organization [employer] Address [address] [facility] 7t [place] [address] Care Team Providers Care Spring Intern Name Role Phone Eileen Yu MD Primary Care Provider [phone] Reason for Visit * Reason Onset Date Comments Nurse Triage 06/24/2024 Encounter Details Date Type Department Care Team ([facility] Contact Info) Description 06/24/[address] [facility] MEDICINE [address] [place] [address] Eileen Yu MD [address] [place] [address] Nurse Triage Social History Tobacco Use Types Packs/Day Years [...] encounter Miscellaneous Notes * Telephone Encounter - Maggie Jones RN - 06/24/2024 4:29 PM EDT called pt to triage, spoke to pt. pt states 2 days duration of urinary frequency, urgency, light blood, and incontinence. pt denies fever, back pain, strong odor, or other associated symptoms. given appt tomorrow with [facility] at 9:40 for exam. advised home care: rest, fluids, monitor temperature, and call back if worsening or new concerns. pt understands and agrees with plan. insurance verified. Protocol Used: Urinary Symptoms (Adult) Protocol-Based Disposition: See in Office or Video Visit Today or Tomorrow Video visit offer not recorded Positive Triage Question: * Patient wants to be seen * All higher-acuity triage questions were negative Care Advice Discussed: * Reassurance and Education - Urinary Incontinence * Pads and Underwear for Incontinence * Caffeine, Alcohol, and Foods * Skin Care * Reasons To Call Back - You become worse * Reasons To Call Back - Fever occurs - Pain or burning with urination - Unable to urinate and bladder feels full - You become worse * Telephone Encounter - Kellie White - 06/24/2024 1:31 PM EDT TC from pt returning call * Telephone Encounter - Susan Santa RN - 06/24/2024 12:56 PM EDT Call returned to patient. No answer, Voicemail left with [facility] contact information. Patient to f/u PRN. Message also sent to team nurses for status check. * Telephone Encounter - Patience Villegas - 06/24/2024 12:52 PM EDT Tc from pt returning phone call. * Telephone Encounter - Susan Santa RN - 06/24/2024 11:57 AM EDT Call returned to patient. No answer, voicemail left with [facility] contact information requesting call back. Will also forward to team for follow up. * Telephone Encounter - Shane Spears - 06/24/2024 10:46 AM EDT Symptoms: Urine - Blood In, Urine Symptoms Outcome: Schedule an urgent appointment (within 1 hour) or talk to a nurse or provider soon Reason: Caller denied all higher acuity questions The caller accepted this outcome. Contact pt at [phone] documented in this encounter Plan of Treatment [...] documented as of this encounter Care Teams Spring Intern Relationship Specialty Start Date End Date Eileen Yu MD [address] [place] [address] PCP - General Family Medicine 04/15/21 documented as of this encounter
--- OUTSIDE RECORDS SUMMARY | 2024-06-25 15:31 | XMS_ITS | Encounter Summary ---
Author Organization [employer] Address [address] [facility] 7t [place] [address] Care Team Providers Care Radio Interference Supervisor Name Role Phone Eileen Yu MD Primary Care Provider [phone] Encounter Details Date Type Department Care Team ([facility] st Contact Info) Description 03/24/2022 Telephone [facility] CHC MED & PEDS [address] [place], [place] [phone] Eileen Yu MD 505 [place] [address] Social History Tobacco Use Types Packs/Day Years Used Date Smoking Tobacco: Never Assessed Sex and Gender Information Value Date Recorded [...] Diagnoses Not on filedocumented in this encounter Care Teams Radio Interference Supervisor Relationship Specialty Start Date End Date Eileen Yu MD [address] [place] [address] PCP - General Family Medicine 04/15/21 documented as of this encounter
--- OUTSIDE RECORDS SUMMARY | 2024-06-25 15:31 | XMS_ITS | Encounter Summary ---
Author Organization [facility] Address [address] [place] [address] Phone Care Team Providers Care Patient Access Specialist Name Role Phone Eileen Yu MD Primary Care Provider [phone] Encounter Details Date Type Department Care Team (Late st Contact Info) Description 10/25/2021 Documentation Only [facility] [address] [place] [address] Nhan Vega MD Social History Tobacco Use Types Packs/Day Years Used Date Smoking Tobacco: Former Cigarettes Smokeless Tobacco: Never Alcohol Use Standard Drinks/Week Comments Never 0 (1 standard drink = 0.6 oz pur e alcohol) Sex and Gender Information Value Date Recorded Sex Assigned at Not on file Legal Sex Male 3:57 PM EDT Gender Identity Not on file Sexual Orientation Not on file COVID-19 Exposure Response Date Recorded In the last 10 days, have yo u been in contact with someone who was confirmed or suspected to have Coronavirus/COVID-19? No / Unsure 10/04/2021 7:48 AM EDT documented as of this encounter Plan of Treatment Not on file documented as of this encounter Visit Diagnoses Not on filedocumented in this encounter Care Teams Patient Access Specialist Relationship Specialty Start Date End Date Eileen Yu MD PCP - General Family Medicine 09/13/21 documented as of this encounter
--- OUTSIDE RECORDS SUMMARY | 2024-06-25 15:31 | XMS_ITS | Encounter Summary ---
Author Organization [employer] Address [address] [facility] 7t [place] [address] Care Team Providers Care High School Counselor Name Role Phone Eileen Yu MD Primary Care Provider [phone] Encounter Details Date Type Department Care Team (Latest Contact Info) Description 05/29/2018 Abstract [facility] CONVERSIONS Dental, Provider, DDS Social History Tobacco Use Types Packs/Day Years [...] on filedocumented in this encounter Care Teams High School Counselor Relationship Specialty Start Date End Date Eileen Yu MD [address] [place] [address] PCP - General Family Medicine 04/15/21 documented as of this encounter
--- OUTSIDE RECORDS SUMMARY | 2024-06-25 15:31 | XMS_ITS | Encounter Summary ---
Author Organization [employer] Address [address] [facility] 7t [place] [address] Care Team Providers Care Rip And Groove Machine Operator Name Role Phone Eileen Yu MD Primary Care Provider [phone] Reason for Visit * Reason Comments Med Refill Encounter Details Date Type Department Care Team ([facility] Contact Info) Description 07/20/2023 Refill [facility] CHC MED & PEDS [address] [place] [address] Muriel Mello FNP 505 [place] [address] Social History Tobacco Use Types Packs/Day Years [...] documented as of this encounter Care Teams Rip And Groove Machine Operator Relationship Specialty Start Date End Date Eileen Yu MD [address] [place] [address] PCP - General Family Medicine 04/15/21 documented as of this encounter
--- OUTSIDE RECORDS SUMMARY | 2024-06-25 15:31 | XMS_ITS | Encounter Summary ---
Author Organization [employer] Address [address] [facility] 7 [place] [address] Care Team Providers Care Lump Inspector Name Role Phone Eileen Yu MD Primary Care Provider [phone] Reason for Visit * Reason Comments Med Refill Encounter Details Date Type Department Care Team ([facility] Contact Info) Description 12/10/2023 Refill [facility] CHC MED & PEDS [address] [place], [place] [phone] Lenore Saavedra MD [address] [place], [place] [phone] Social History Tobacco Use Types Packs/Day Years [...] documented as of this encounter Care Teams Lump Inspector Relationship Specialty Start Date End Date Eileen Yu MD [address] [place] [address] PCP - General Family Medicine 04/15/21 documented as of this encounter
--- OUTSIDE RECORDS SUMMARY | 2024-06-25 15:31 | XMS_ITS | Encounter Summary ---
Author Organization [employer] Address [address] [facility] 7t [place] [address] Care Team Providers Care Zigzag Stitcher Name Role Phone Eileen Yu MD Primary Care Provider [phone] Reason for Visit * Reason Comments Med Refill Encounter Details Date Type Department Care Team ([facility] Contact Info) Description 11/07/2023 Refill [facility] CHC MED & PEDS [address] [place], [place] [phone] Eileen Yu MD [address] [place], [place] [phone] Social History Tobacco Use Types Packs/Day Years [...] documented as of this encounter Care Teams Zigzag Stitcher Relationship Specialty Start Date End Date Eileen Yu MD [address] [place] [address] PCP - General Family Medicine 04/15/21 documented as of this encounter
--- OUTSIDE RECORDS SUMMARY | 2024-06-25 15:31 | XMS_ITS | Encounter Summary ---
Author Organization [employer] Address [address] [place] [address] [address] [place] [address] Care Team Providers Care Shoe Caser Name Role Phone Eileen Yu MD Primary Care Provider [phone] Encounter Details Date Type Department Care Team ([facility] st Contact Info) Description 02/06/2022 [facility] Information Management [address] [place] [address] Eileen Yu MD [address] [place], [place] [phone] Social History Tobacco Use Types Packs/Day Years [...] on filedocumented in this encounter Care Teams Shoe Caser Relationship Specialty Start Date End Date Eileen Yu MD [address] [place] [address] PCP - General Family Medicine 04/15/21 documented as of this encounter
--- OUTSIDE RECORDS SUMMARY | 2024-06-25 15:31 | XMS_ITS | Encounter Summary ---
Author Organization [employer] Address [address] [facility] 7t [place] [address] Care Team Providers Care Statistical Financial Analyst Name Role Phone Eileen Yu MD Primary Care Provider [phone] Reason for Visit * Reason Onset Date Comments Assistance Request 12/21/2022 Encounter Details Date Type Department Care Team ([facility] Contact Info) Description 12/21/2022 Telephone [facility] CHC MED & PEDS [address] [place], [place] [phone] Eileen Yu MD 505 [place], [place] [phone] Assistance Request Social History Tobacco Use Types Packs/Day Years [...] encounter Miscellaneous Notes * Telephone Encounter - Winnie Souza - 12/21/2022 11:25 AM EDT Tc from pt requesting wheelchair assistance to get out and in to the car for tomorrows 12/22/2022 appt on [facility] at 2:00PM documented in this encounter Plan of Treatment Not on file documented as of this encounter Visit Diagnoses Not on filedocumented in this encounter Additional Health Concerns Assessment Noted Time PHQ-9 Depression Total Score: 0 08/23/19 23 2:01 PM EDT documented as of this encounter Care Teams Statistical Financial Analyst Relationship Specialty Start Date End Date Eileen Yu MD [address] [place] [address] PCP - General Family Medicine 04/15/21 documented as of this encounter
== END 2024-06-25 13:05 | disposition home or self-care (01) ==
LOC: HO.CHCLNP 13:04
PROVIDERS: Visit Provider Pediatrics
DX: R35.0 Frequency of micturition (principal)
CPT/HCPCS: 87086; 87088; 87186

== ENCOUNTER 2024-06-26 13:21 | Outpatient (REF) | payer MEDICARE, OTHER, SELFPAY ==
[2024-06-26 14:12] LABS: Urine Cytology See Pathology rpt
[2024-06-26 14:17] LABS: Appearance Urine Clear; Color Urine Yellow; Glucose Urine UA Negative (Negative); Leukocyte Esterase Urine Trace (Negative); Nitrite Urine Negative (Negative); PH 7.5 (5.0-9.0); UMIC TRIGGER UA YES; Urine Blood Negative (Negative); Urine Ketones Negative (Negative); Urine Protein Negative (Neg-Trace)
[2024-06-26 15:41] LABS: Bacteria Urine None Seen (None Seen); Hyaline Casts Urine 0-2 /LPF (0-2); RBC Urine 0-2 /HPF (0-2); Squamous Epithelial Cell Urine 0-2 /HPF (0-2)
--- OUTSIDE RECORDS SUMMARY | 2024-06-26 15:42 | XMS_ITS | Encounter Summary ---
Author Organization [email or web address] Address 75 [facility] 7t [place] [address] Care Team Providers Care Admissions Assistant Name Role Phone Eileen Yu MD Primary Care Provider [phone] Reason for Visit * Reason Comments Med Refill Encounter Details Date Type Department Care Team ([facility] Contact Info) Description 11/07/2023 Refill [facility] CHC MED & PEDS [address] [place], [place] [phone] Eileen Yu MD [address] [place], [place] [phone] Social History Tobacco Use Types Packs/Day Years [...] documented as of this encounter Care Teams Admissions Assistant Relationship Specialty Start Date End Date Eileen Yu MD [address] [place] [address] PCP - General Family Medicine 04/15/21 documented as of this encounter
--- OUTSIDE RECORDS SUMMARY | 2024-06-26 15:42 | XMS_ITS | Encounter Summary ---
Author Organization [employer] Address 75 [facility] 7t [place] [address] Care Team Providers Care Slot Operations Director Name Role Phone Eileen Yu MD Primary Care Provider [phone] Encounter Details Date Type Department Care Team (Late st Contact Info) Description 01/17/2023 Abstract [facility] MEDICINE [address] [place] [address] Eileen Yu MD [address] [place], [place] [phone] Social History Tobacco Use Types Packs/Day Years [...] documented as of this encounter Care Teams Slot Operations Director Relationship Specialty Start Date End Date Eileen Yu MD [address] [place] [address] PCP - General Family Medicine 04/15/21 documented as of this encounter
--- OUTSIDE RECORDS SUMMARY | 2024-06-26 15:42 | XMS_ITS | Encounter Summary ---
Author Organization [employer] Address 75 [facility] 7t [place] [address] Care Team Providers Care Residential Gas Heat Technician Name Role Phone Eileen Yu MD Primary Care Provider [phone] Reason for Visit * Reason Onset Date Comments Assistance Request 12/21/2022 Encounter Details Date Type Department Care Team ([facility] Contact Info) Description 12/21/2022 Telephone [facility] CHC MED & PEDS [address] [place], [place] [phone] Eileen Yu MD [address] [place], [place] [phone] Assistance Request Social History Tobacco Use Types [...] the car for tomorrows 12/22/2022 appt on [facility] at 2:00PM documented in this encounter Plan of Treatment Not on file documented as of this encounter Visit Diagnoses Not on filedocumented in this encounter Additional Health Concerns Assessment Noted Time PHQ-9 Depression Total Score: 0 08/23/19 23 2:01 PM EDT documented as of this encounter Care Teams Residential Gas Heat Technician Relationship Specialty Start Date End Date Eileen Yu MD [address] [place] [address] PCP - General Family Medicine 04/15/21 documented as of this encounter
--- OUTSIDE RECORDS SUMMARY | 2024-06-26 15:42 | XMS_ITS | Encounter Summary ---
Author Organization [employer] Address 75 [facility] 7t [place] [address] Care Team Providers Care Corporate Vp Advertising & Online Name Role Phone Eileen Yu MD Primary Care Provider [phone] Reason for Visit * Reason Comments Med Refill Encounter Details Date Type Department Care Team ([facility] Contact Info) Description 07/20/2023 Refill [facility] CHC MED & PEDS [address] [place] [address] Muriel Mello FNP [address] [place] [address] Social History Tobacco Use Types Packs/Day Years [...] documented as of this encounter Care Teams Corporate Vp Advertising & Online Relationship Specialty Start Date End Date Eileen Yu MD [address] [place] [address] PCP - General Family Medicine 04/15/21 documented as of this encounter
--- OUTSIDE RECORDS SUMMARY | 2024-06-26 15:42 | XMS_ITS | Encounter Summary ---
Author Organization [employer] Address 75 [facility] 7t [place] [address] Care Team Providers Care Professor Of German Name Role Phone Eileen Yu MD Primary Care Provider [phone] Reason for Visit * Reason Onset Date Comments Nurse Triage 06/24/2024 Encounter Details Date Type Department Care Team ([facility] Contact Info) Description 06/24/2024 Telephone [facility] MEDICINE [address] [place] [address] Eileen Yu MD [address] [place] [address] Nurse Triage Social History Tobacco Use Types [...] other associated symptoms. given appt tomorrow with [facility] at 9:40 for exam. advised [...] to patient. No answer, Voicemail left with [facility] contact information. Patient to f/u PRN. Message also sent to team nurses for status check. * Telephone Encounter - Patience Villegas - 06/24/2024 12:52 PM EDT Tc from pt returning phone call. * Telephone Encounter - Susan Santa RN - 06/24/2024 11:57 AM EDT Call returned to patient. No answer, voicemail left with [facility] contact information requesting call back. Will also forward to team for follow up. * Telephone Encounter - Shane Spears - 06/24/2024 10:46 AM EDT Symptoms: Urine - Blood In, Urine Symptoms Outcome: Schedule an urgent appointment (within 1 hour) or talk to a nurse or provider soon Reason: Caller denied all higher acuity questions The caller accepted this outcome. Contact pt at [phone] documented in this encounter Plan of Treatment [...] documented as of this encounter Care Teams Professor Of German Relationship Specialty Start Date End Date Eileen Yu MD [address] [place] [address] PCP - General Family Medicine 04/15/21 documented as of this encounter
--- OUTSIDE RECORDS SUMMARY | 2024-06-26 15:42 | XMS_ITS | Encounter Summary ---
Author Organization [employer] Address [address] [place] [address] [address] [place] [address] Care Team Providers Care Cash Room Clerk Name Role Phone Eileen Yu MD Primary Care Provider Encounter Details Date Type Department Care Team ([facility] st Contact Info) Description 02/06/2022 [facility] Information Management [address] [place] [address] Eileen Yu MD [address] [place], [place] [phone] Social History Tobacco Use Types Packs/Day Years [...] on filedocumented in this encounter Care Teams Cash Room Clerk Relationship Specialty Start Date End Date Eileen Yu MD [address] [place] [address] PCP - General Family Medicine 04/15/21 documented as of this encounter
--- OUTSIDE RECORDS SUMMARY | 2024-06-26 15:42 | XMS_ITS | Encounter Summary ---
Author Organization [employer] Address 75 [facility] 7t [place] [address] Care Team Providers Care Adjunct Physics Instructor Name Role Phone Eileen Yu MD Primary Care Provider [phone] Encounter Details Date Type Department Care Team ([facility] st Contact Info) Description 03/24/2022 Telephone [facility] CHC MED & PEDS [address] [place], [place] [phone] Eileen Yu MD [address] [place] [address] Social History Tobacco Use Types Packs/Day Years [...] on filedocumented in this encounter Care Teams Adjunct Physics Instructor Relationship Specialty Start Date End Date Eileen Yu MD [address] [place] [address] PCP - General Family Medicine 04/15/21 documented as of this encounter
--- OUTSIDE RECORDS SUMMARY | 2024-06-26 15:42 | XMS_ITS | Clinical Summary ---
Author Organization [facility] Address [address] [place] [address] [address] [place] [address] Phone Care Team Providers Care Baker Bench Name Role Phone Eileen Yu MD Primary Care Provider [phone] Allergies Active Allergy Reactions Criticality Noted Date [...] 09/17/2020 10/05/2022 10/05/2022 Overview (10/05/2022): Admitted to [facility] 06/16/19 Immunizations Immunization Administration Dates Next [...] patient[place] [id number] Medicare [facility] [place] [facility] [place] Care Teams Baker Bench Relationship Specialty Start Date End Date Eileen Yu MD PCP - General Family Medicine 09/13/21
--- OUTSIDE RECORDS SUMMARY | 2024-06-26 15:42 | XMS_ITS | Encounter Summary ---
Author Organization [employer] Address [address] [facility] 7 [place] [address] Care Team Providers Care Talent Sourcer Name Role Phone Eileen Yu MD Primary Care Provider [phone] Reason for Visit * Reason Comments Med Refill Encounter Details Date Type Department Care Team ([facility] Contact Info) Description 12/10/2023 Refill [facility] CHC MED & PEDS [address] [place], [place] [phone] Lenore Saavedra MD 505 [place], [place] [phone] Social History Tobacco Use Types Packs/Day Years [...] documented as of this encounter Care Teams Talent Sourcer Relationship Specialty Start Date End Date Eileen Yu MD [address] [place] [address] PCP - General Family Medicine 04/15/21 documented as of this encounter
--- OUTSIDE RECORDS SUMMARY | 2024-06-26 15:42 | XMS_ITS | Clinical Summary ---
Author Organization [employer] Address [address] [place] [address] 7 [place] [address] Care Team Providers Care Body Builder Name Role Phone Eileen Yu MD Primary Care Provider [phone] Allergies Active Allergy Reactions Criticality Noted Date [...] care with Cards - Dr. 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 Denies SI/HI/thoughts of self harm Old CA (myocardial infarction) 09/17/2020 Overview (06/12/2022): 2017 s/p [...] re-establish with cardiology - Dr. Ambriz at [facility] 12/24/22 -ED/urgent care precautions reviewed Encounters Date Type Department Care Team Description 06/25/2024 9:40 AM EDT Office Visit [facility] MED & PEDS [address] [place] [address] Lenore Saavedra MD Urinary frequency (Primary Dx); Urinary tract infection with hematuria, site unspecified 06/25/2024 Telephone [facility] MED & PEDS [address] [place] [address] Eileen Yu MD Lab Orders 06/25/2024 Travel 06/25/2024 Refill [facility] P[facility] [address] [place] [address] Eileen Yu MD 06/24/2024 Telephone [facility] [address] [place] [address] Eileen Yu MD Nurse Triage 06/05/2024 Telephone [facility] [address] [place] [address] Eileen Yu MD 05/28/2024 Refill [facility] PEDS [address] [place] [address] Willard Thomas MD 05/16/2024 Population Health Risk Score Community [facility] () Department [address] [place] [id number] Provider, Population Health Generic 05/13/2024 Patient Outreach [facility] MED & PEDS [address] [place] [address] Eileen Yu MD Pre-visit Planning (SDOH unable to reach [facility] ) 04/30/2024 Refill [facility] PED[facility] [address] [place] [address] Eileen Yu MD 04/25/2024 Refill [facility] [address] [place] [address] Eileen Yu MD Mixed hyperlipidemia 04/03/2024 Telephone [facility] [address] [place] [address] Eileen Yu MD chronic conditions tracking 03/28/2024 Refill [facility] P[facility] [address] [place] [address] Eileen Yu MD from Last 3 Months [...] Procedure Name Priority Date/Time Associated Diagnosis Comments URINALYSIS, COMPLETE Routine 06/26/2024 1:00 PM EDT POCT URINALYSIS DIPSTICK Routine 06/25/2024 11:06 AM EDT Urinary frequency CULTURE, URINE, ROUTINE Routine 06/25/2024 10:00 AM EDT Urinary frequency LIPID PANEL, STANDARD Routine 05/10/2023 10:02 AM EST HM COLONOSCOPY Routine 11/04/2021 ALBUMIN, RANDOM URINE W/CREATININE Routine 09/08/2021 11:20 AM EDT HEMOGLOBIN A1C Routine 04/21/2021 10:47 AM EST from Last 3 Months or Most Recently Relevant to Health Maintenance Results * (ABNORMAL) Urinalysis Complete (06/26/2024 1:00 PM EDT) Color Urine Yellow [facility] Appearance Urine Clear [facility] PH 7.5 5.0 - 9.0 [facility] Glucose Urine UA Negative Negative mg/dL [facility] Urine Blood Negative Negative [facility] Specific [place] - Urine 1.010 1.005 - 1.025 [facility] Urine Protein Negative Neg-Trace mg/dL [facility] Urine Ketones Negative Negative mg/dL [facility] Nitrite Urine Negative Negative [facility] Leukocyte Esterase Urine Trace(A) Negative [facility] 06/26/2024 1:00 PM EDT 06/26/2024 2:08 PM EDT us Generic External Data Provider LAB URINE ORDERAB LES Final Result [facility] [address] [place] [address] [phone] * (ABNORMAL) POCT Urinalysis (06/25/2024 11:06 AM [...] Date Urine 06/25/2024 11:0 6 AM EDT us Lenore Saavedra MD POINT OF CARE TEST ENTER/EDIT ORDERABLES Final Result * (ABNORMAL) Lipid Panel, Standard (05/10/2023 10:02 AM EST) Triglycerides 55 <150 mg/dL [facility] Comment:Desirable Triglyceri de: less than 150 mg/dLBorderline High Triglyceride 150-199 mg/dLHigh Triglyceride: 200-499 mg/dLVery High Triglyceride: greater than or equal to 5OO mg/dL Cholesterol 87 <200 mg/dL [facility] Comment:Desirable Cholestero l: less than 200 mg/dLBorderline High Cholesterol: 200-239 mg/dLHigh Cholesterol: greater than 239 mg/dL LDL Cholesterol Calculated 46 <100 mg/dL [facility] Comment:Desirable LDL: less than 100 mg/dLNear Optimal/Above Optimal LDL: 110- 129 mg/dLBorderline High LDL: 130-159 mg/dLHigh LDL: 160-189 mg/dLVery High LDL: greater than or equal to 190 mg/dL HDL Cholesterol 30(L) >40 mg/dL [facility] Comment:Desirable HDL: great er than 40 mg/dL Note: This HDL assay may give artificially low results in patients with liver disease. 05/10/2023 10:0 2 AM EST 05/10/2023 1:55 PM EST us Eileen Yu MD LAB BLOOD ORDERABLES Final Re sult Performing Organization Address [facility] Co de Phone Number [facility] [address] [place] [address] [phone] * Hm Colonoscopy (11/04/2021) Colonoscopy Normal [...] LAB SYSTEM 09/08/2021 11:2 0 AM EDT Eileen Yu MD LAB URINE ORDERABLES Final Re sult [facility] [address] * HEMOGLOBIN A1c (04/21/2021 10:47 AM EST) Hemoglobin A1c 5.5 <5.7 % of total Hgb [facility] Comment: For the purpose of [...] of diabetes in children. ?? According to [place] Diabetes Association (ADA) guidelines, hemoglobin A1c <7.0% represents optimal control in non- diabetic patients. Different metrics may apply to specific patient populations. ?? Standards of Medical Care in Diabetes(ADA). ?? 04/21/2021 10:4 7 AM EST us Eileen Yu MD LAB BLOOD ORDERABLES Final Re sult [facility] [address] from Last 3 Months or Most Recently Relevant to [place] [address] [place] [id number] [facility] , [address] [place] [address] [facility] Care Teams Body Builder Relationship Specialty Start Date End Date Eileen Yu MD [address] [place] [address] PCP - General Family Medicine 04/15/21
--- OUTSIDE RECORDS SUMMARY | 2024-06-26 15:42 | XMS_ITS | Encounter Summary ---
Author Organization [employer] Address [address] [facility] 7t [place] [address] Care Team Providers Care Cable Splicer Assistant Name Role Phone Eileen Yu MD Primary Care Provider [phone] Reason for Visit * Reason Comments Med Refill Encounter Details Date Type Department Care Team ([facility] Contact Info) Description 06/25/2024 Refill [facility] CHC MED & PEDS [address] [place], [place] [phone] Eileen Yu MD 505 [place], [place] [phone] Social History Tobacco Use Types Packs/Day Years [...] documented as of this encounter Care Teams Cable Splicer Assistant Relationship Specialty Start Date End Date Eileen Yu MD [address] [place] [address] PCP - General Family Medicine 04/15/21 documented as of this encounter
--- OUTSIDE RECORDS SUMMARY | 2024-06-26 15:42 | XMS_ITS | Encounter Summary ---
Author Organization [facility] Address [address] [place] [address] Phone Care Team Providers Care Restaurant Team Member Name Role Phone Eileen Yu MD Primary Care Provider [phone] Encounter Details Date Type Department Care Team (Late st Contact Info) Description 10/25/2021 Documentation Only [facility] [address] [place] [address] Nhan Vega MD Social History Tobacco [...] on filedocumented in this encounter Care Teams Restaurant Team Member Relationship Specialty Start Date End Date Eileen Yu MD PCP - General Family Medicine 09/13/21 documented as of this encounter
--- OUTSIDE RECORDS SUMMARY | 2024-06-26 15:42 | XMS_ITS | Encounter Summary ---
Author Organization [employer] Address [address] [facility] 7t [place] [address] Care Team Providers Care Bootmaker Name Role Phone Eileen Yu MD Primary Care Provider [phone] Encounter Details Date Type Department Care Team [...] documented as of this encounter Care Teams Bootmaker Relationship Specialty Start Date End Date Eileen Yu MD [address] [place] [address] PCP - General Family Medicine 04/15/21 documented as of this encounter
--- OUTSIDE RECORDS SUMMARY | 2024-06-26 15:42 | XMS_ITS | Encounter Summary ---
Author Organization [employer] Address [address] [facility] 7t [place] [address] Care Team Providers Care Dental Equipment Technician Name Role Phone Eileen Yu MD Primary Care Provider [phone] Reason for Visit * Reason Onset Date Comments Lab Orders 06/25/2024 Encounter Details Date Type Department Care Team ([facility] Contact Info) Description 06/25/2024 Telephone [facility] CHC MED & PEDS [address] [place], [place] [phone] Eileen Yu MD [address] [place], [place] [phone] Lab Orders Social History Tobacco Use Types [...] documented as of this encounter Care Teams Dental Equipment Technician Relationship Specialty Start Date End Date Eileen Yu MD [address] [place] [address] PCP - General Family Medicine 04/15/21 documented as of this encounter
--- OUTSIDE RECORDS SUMMARY | 2024-06-26 15:42 | XMS_ITS | Encounter Summary ---
Author Organization [employer] Address [address] [facility] 7t [place] [address] Care Team Providers Care Tank Car Inspector Name Role Phone Eileen Yu MD Primary Care Provider [phone] Encounter Details Date Type Department Care Team ([facility] st Contact Info) Description 01/09/2023 Abstract [facility] [address] [place] [address] Eileen Yu MD [address] [place], [place] [phone] Social History Tobacco Use Types Packs/Day Years [...] documented as of this encounter Care Teams Tank Car Inspector Relationship Specialty Start Date End Date Eileen uY MD [address] [place] [address] PCP - General Family Medicine 04/15/21 documented as of this encounter
--- OUTSIDE RECORDS SUMMARY | 2024-06-26 15:42 | XMS_ITS | Encounter Summary ---
Author Organization [employer] Address 75 [facility] 7t [place] [address] Care Team Providers Care Rocket Motor Tester Name Role Phone Eileen Yu MD Primary Care Provider [phone] Encounter Details Date Type Department Care Team (Latest Contact Info) Description 05/29/2018 Abstract [facility] CONVERSIONS Dental, Provider, DDS Social History Tobacco [...] on filedocumented in this encounter Care Teams Rocket Motor Tester Relationship Specialty Start Date End Date Eileen Yu MD [address] [place] [address] PCP - General Family Medicine 04/15/21 documented as of this encounter
--- OUTSIDE RECORDS SUMMARY | 2024-06-26 15:42 | XMS_ITS | Encounter Summary ---
Author Organization [employer] Address [address] [facility] 7 [place] [address] Care Team Providers Care Solar Manager Name Role Phone Eileen Yu MD Primary Care Provider [phone] Reason for Visit * Reason Onset Date Comments Error 02/22/2023 Encounter Details Date Type Department Care Team ([facility] Contact Info) Description 02/22/2023 Telephone [facility] CHC MED & PEDS [address] [place], [place] [phone] Eileen Yu MD 505 [place] [address] Error Social History Tobacco Use Types Packs/Day [...] documented as of this encounter Care Teams Solar Manager Relationship Specialty Start Date End Date Eileen Yu MD [address] [place] [address] PCP - General Family Medicine 04/15/21 documented as of this encounter
--- OUTSIDE RECORDS SUMMARY | 2024-06-26 15:42 | XMS_ITS | Encounter Summary ---
Author Organization [employer] Address [address] [place] [address] 7 [place] [address] Care Team Providers Care Photolith Operator Name Role Phone Eileen Yu MD Primary Care Provider [phone] Encounter Details Date Type Department Care Team ([facility] Contact Info) Description 06/25/2024 9:40 AM EDT Office Visit [facility] CHC MED & PEDS [address] [place], [place] [phone] Lenore Saavedra MD [address] [place] [address] Urinary frequency (Primary Dx); Urinary tract infection [...] documented in this encounter Plan of Treatment Pending Results Name Type Priority Associated Diagnoses Date /Time Culture, Urine, Routine Microbiology Routine Urinary frequency 06/25/2024 10:00 AM EDT Scheduled Orders Name Type Priority Associated Diagnoses Orde r Schedule Cytology, urine Pathology and Cytology Routine Urinary [...] Routine 06/25/2024 10:00 AM EDT Urinary frequency documented in this [...] documented as of this encounter Care Teams Photolith Operator Relationship Specialty Start Date End Date Eileen Yu MD [address] [place] [address] PCP - General Family Medicine 04/15/21 documented as of this encounter
== END 2024-06-26 13:22 | disposition home or self-care (01) ==
LOC: HO.CHCLNP 13:21
PROVIDERS: Internal Medicine Hypertension Specialist; Visit Provider Pediatrics
DX: R39.0 Extravasation of urine (principal); R31.9 Hematuria, unspecified
CPT/HCPCS: 81001; 88112

== ENCOUNTER 2024-07-30 15:13 | Outpatient (REF) | payer MEDICARE, OTHER, SELFPAY ==
--- OUTSIDE RECORDS SUMMARY | 2024-07-30 15:55 | XMS_ITS | Encounter Summary ---
Author Organization [employer] Address [address] [facility] 7t [place] [address] Care Team Providers Care Returns Supervisor Name Role Phone Eileen Yu MD Primary Care Provider [phone] Reason for Visit * Reason Onset Date Comments Error 02/22/2023 Encounter Details Date Type Department Care Team ([facility] Contact Info) Description 02/22/2023 Telephone [facility] CHC MED & PEDS [address] [place], [place] [phone] Eileen Yu MD 505 [place], [place] [phone] Error Social History Tobacco Use Types Packs/Day [...] documented as of this encounter Care Teams Returns Supervisor Relationship Specialty Start Date End Date Eileen Yu MD [address] [place] [address] PCP - General Family Medicine 04/15/21 documented as of this encounter
[2024-07-30 18:10] LABS: PSA,Total (Free>4and<10) 1.63 ng/mL (0.00-4.00)
== END 2024-07-30 15:14 | disposition home or self-care (01) ==
LOC: HO.CHCLDS 15:13
PROVIDERS: Visit Provider Student in an Organized Health Care Education/Training Program
DX: R31.9 Hematuria, unspecified (principal); Z12.5 Encounter for screening for malignant neoplasm of prostate
CPT/HCPCS: 36415; 84153

== ENCOUNTER 2024-07-31 13:14 | Outpatient (REF) | payer MEDICARE, OTHER, SELFPAY ==
--- OUTSIDE RECORDS SUMMARY | 2024-07-31 13:18 | XMS_ITS | Encounter Summary ---
Author Organization [employer] Address [address] [facility] 7t [place] [address] Care Team Providers Care Photo Intern Name Role Phone Eileen Yu MD Primary Care Provider Reason for Visit * Reason Onset Date Comments Error 02/22/2023 Encounter Details Date Type Department Care Team ([facility] Contact Info) Description 02/22/2023 Telephone [facility] CHC MED & PEDS [address] [place], [place] [phone] Eileen Yu MD 505 [place], [place] [phone] Error Social History Tobacco Use Types Packs/Day [...] documented as of this encounter Care Teams Photo Intern Relationship Specialty Start Date End Date Eileen Yu MD [address] [place] [address] PCP - General Family Medicine 04/15/21 documented as of this encounter
[2024-07-31 14:21] LABS: Appearance Urine Cloudy; Color Urine Yellow; Glucose Urine UA Negative (Negative); Leukocyte Esterase Urine Large (3+) (Negative); Nitrite Urine Negative (Negative); UMIC TRIGGER UACC YES; Urine Blood Small (1+) (Negative); Urine Ketones Negative (Negative); Urine Protein Negative (Neg-Trace)
[2024-07-31 14:28] LABS: Bacteria Urine 3+ (None Seen); Hyaline Casts Urine 0-2 /LPF (0-2); RBC Urine 0-2 /HPF (0-2); Squamous Epithelial Cell Urine 0-2 /HPF (0-2); UACC Culture Trigger YES; WBC Urine >50 /HPF (0-5)
== END 2024-07-31 13:15 | disposition home or self-care (01) ==
LOC: HO.CHCLNP 13:14
PROVIDERS: PCP Student in an Organized Health Care Education/Training Program; Visit Provider Student in an Organized Health Care Education/Training Program
DX: R31.9 Hematuria, unspecified (principal)
CPT/HCPCS: 81001; 87086; 87088; 87186

== ENCOUNTER 2024-08-07 10:24 | Outpatient (REF) | payer MEDICARE, OTHER, SELFPAY ==
--- OUTSIDE RECORDS SUMMARY | 2024-08-07 12:15 | XMS_ITS | Encounter Summary ---
Author Organization [employer] Address 75 [facility] 7t [place] [address] Care Team Providers Care Gambling Box Person Name Role Phone Eileen Yu MD Primary Care Provider [phone] Reason for Visit * Reason Onset Date Comments Error 02/22/2023 Encounter Details Date Type Department Care Team ([facility] Contact Info) Description 02/22/2023 Telephone [facility] CHC MED & PEDS 505 [place], [place] [phone] Eileen Yu MD 505 [place], [place] [phone] Error Social History Tobacco Use Types Packs/Day [...] documented as of this encounter Care Teams Gambling Box Person Relationship Specialty Start Date End Date Eileen Yu MD [address] [place] [address] PCP - General Family Medicine 04/15/21 documented as of this encounter
[2024-08-07 14:31] LABS: Urine Cytology See Pathology rpt
[2024-08-07 14:58] LABS: Appearance Urine Clear; Color Urine Yellow; Glucose Urine UA Negative (Negative); Leukocyte Esterase Urine Small (1+) (Negative); Nitrite Urine Negative (Negative); UMIC TRIGGER UA YES; Urine Blood Negative (Negative); Urine Ketones Negative (Negative); Urine Protein Negative (Neg-Trace)
[2024-08-07 15:05] LABS: Bacteria Urine None Seen (None Seen); Hyaline Casts Urine 0-2 /LPF (0-2); RBC Urine 0-2 /HPF (0-2); Squamous Epithelial Cell Urine 0-2 /HPF (0-2)
== END 2024-08-07 10:25 | disposition home or self-care (01) ==
LOC: HO.CHCLDS 10:24
PROVIDERS: Internal Medicine Hypertension Specialist; Visit Provider Nurse Practitioner Family
DX: R89.6 Abnormal cytological findings in specimens from other organs, systems and tissues (principal)
CPT/HCPCS: 81001; 88112

== ENCOUNTER 2024-12-29 09:40 | Outpatient (REF) | payer MEDICARE, OTHER, SELFPAY ==
--- OUTSIDE RECORDS SUMMARY | 2024-12-29 11:01 | XMS_ITS | Encounter Summary ---
Author Organization [employer] Address [address] [facility] 7[address] [place] [address] Care Team Providers Care Cash Surrender Calculator Name Role Phone Eileen Yu MD Primary Care Provider [phone] Reason for Visit * Reason Onset Date Comments Error 02/22/2023 Encounter Details Date Type Department Care Team ([facility] Contact Info) Description 02/22/2023 Telephone [facility] CHC MED & PEDS [address] [place], [place] [phone] Eileen Yu MD [address] [place], [place] [phone] Error Social History Tobacco Use Types Packs/Day [...] as of this encounter Plan of Treatment Upcoming Encounters Date Type Department Care Team (Late st Contact Info) Description 01/05/2025 2:00 PM EST Office Visit [facility] CHC MED & PEDS [address] [place] [address] Eileen Yu MD [address] [place] [address] documented as of this encounter Visit Diagnoses Not on filedocumented in this encounter Additional Health Concerns Assessment Noted Time PHQ-9 Depression Total Score: 0 08/23/19 23 2:01 PM EDT documented as of this encounter Care Teams Cash Surrender Calculator Relationship Specialty Start Date End Date Eileen Yu MD [address] [place] [address] PCP - General Family Medicine 04/15/21 documented as of this encounter
--- OUTSIDE RECORDS SUMMARY | 2024-12-29 11:01 | XMS_ITS | Encounter Summary ---
Author Organization [employer] Address 75 [facility] 7t [place] [address] Care Team Providers Care Media Relations Director Name Role Phone Eileen Yu MD Primary Care Provider [phone] Encounter Details Date Type Department Care Team (Late st Contact Info) Description 01/17/2023 Abstract [facility] MEDICINE [address] [place] [address] Eileen Yu MD [address] [place], [place] [phone] Social History Tobacco Use Types Packs/Day Years [...] t he electric, gas, oil or water [employer] threatened to shut off services in your [...] Description 01/05/2025 2:00 PM EST Office Visit [facility] CHC MED & PEDS [address] [place], [place] [phone] Eileen Yu MD 505 [place] [address] documented as of this encounter Procedures Procedure Name Priority Date/Time Associated Diagnosis Comments HM COLONOSCOPY Routine 11/04/2021 documented in this encounter [...] documented as of this encounter Care Teams Media Relations Director Relationship Specialty Start Date End Date Eileen Yu MD [address] [place] [address] PCP - General Family Medicine 04/15/21 documented as of this encounter
--- OUTSIDE RECORDS SUMMARY | 2024-12-29 11:01 | XMS_ITS | Encounter Summary ---
Author Organization [employer] Address 75 [facility] 7 [place] [address] Care Team Providers Care Facing Grinder Name Role Phone Eileen Yu MD Primary Care Provider [phone] Reason for Visit * Reason Comments Med Refill Encounter Details Date Type Department Care Team ([facility] Contact Info) Description 08/04/2024 Refill [facility] CHC MED & PEDS [address] [place], [place] [phone] Lenore Saavedra MD 505 [place], [place] [phone] Social History Tobacco Use Types Packs/Day Years [...] Description 01/05/2025 2:00 PM EST Office Visit [facility] CHC MED & PEDS 505 [place] [address] Eileen Yu MD 505 [place] [address] documented as of this encounter Goals Goal Patient Goal Type Associated Problems Recent Progress Patient-Stated? Author Patient will adhere to medication regimen General No Esther Gonzales documented as of this encounter Visit Diagnoses Not on filedocumented in this encounter Additional Health Concerns Assessment Noted Time PHQ-9 Depression Total Score: 0 08/23/19 23 2:01 PM EDT documented as of this encounter Care Teams Facing Grinder Relationship Specialty Start Date End Date Eileen Yu MD [address] [place] [address] PCP - General Family Medicine 04/15/21 documented as of this encounter
--- OUTSIDE RECORDS SUMMARY | 2024-12-29 11:01 | XMS_ITS | Encounter Summary ---
Author Organization [employer] Address 75 [facility] 7t [place] [address] Care Team Providers Care Dairy Nutrition Consultant Name Role Phone Eileen Yu MD Primary Care Provider Reason for Visit * Reason Onset Date Comments Assistance Request 12/21/2022 Encounter Details Date Type Department Care Team ([facility] Contact Info) Description 12/21/2022 Telephone [facility] CHC MED & PEDS [address] [place], [place] [phone] Eileen Yu MD 505 [place], [place] [phone] Assistance Request Social History Tobacco Use Types [...] the car for tomorrows 12/22/2022 appt on [facility] at 2:00PM documented in this encounter Plan of Treatment Upcoming Encounters Date Type Department Care Team (Late st Contact Info) Description 01/05/2025 2:00 PM EST Office Visit [facility] MED & PEDS [address] [place] [address] Eileen Yu MD [address] [place] [address] documented as of this encounter Visit Diagnoses Not on filedocumented in this encounter Additional Health Concerns Assessment Noted Time PHQ-9 Depression Total Score: 0 08/23/19 23 2:01 PM EDT documented as of this encounter Care Teams Dairy Nutrition Consultant Relationship Specialty Start Date End Date Eileen Yu MD 230 [place] [address] PCP - General Family Medicine 04/15/21 documented as of this encounter
--- OUTSIDE RECORDS SUMMARY | 2024-12-29 11:01 | XMS_ITS | Encounter Summary ---
Author Organization [employer] Address [address] [facility] 7t [place] [address] Care Team Providers Care Power Transformer Inspector Name Role Phone Eileen Yu MD Primary Care Provider [phone] Reason for Visit * Reason Comments Med Refill Encounter Details Date Type Department Care Team ([facility] Contact Info) Description 07/20/2023 Refill [facility] [address] [place], [place] [phone] Muriel Mello FNP [address] [place] [address] Social History Tobacco Use Types Packs/Day Years [...] Description 01/05/2025 2:00 PM EST Office Visit [facility] [address] [place] [address] Eileen Yu MD [address] [place] [address] documented as of this encounter Goals Goal Patient Goal Type Associated Problems Recent Progress Patient-Stated? Author Patient will adhere to medication regimen General No Esther Gonzales documented as of this encounter Visit Diagnoses Not on filedocumented in this encounter Additional Health Concerns Assessment Noted Time PHQ-9 Depression Total Score: 0 08/23/19 23 2:01 PM EDT documented as of this encounter Care Teams Power Transformer Inspector Relationship Specialty Start Date End Date Eileen Yu MD [address] [place] [address] PCP - General Family Medicine 04/15/21 documented as of this encounter
--- OUTSIDE RECORDS SUMMARY | 2024-12-29 11:01 | XMS_ITS | Encounter Summary ---
Author Organization [employer] Address [address] [facility] [address] [place] [address] Care Team Providers Care Keysmith Name Role Phone Eileen Yu MD Primary Care Provider [phone] Encounter Details Date Type Department Care Team ([facility] st Contact Info) Description 01/09/2023 Abstract [facility] [address] [place] [address] Eileen Yu MD [address] [place], [place] [phone] Social History Tobacco Use Types Packs/Day Years [...] Description 01/05/2025 2:00 PM EST Office Visit [facility]EDS [address] [place] [address] Eileen Yu MD 505 [place] [address] documented as of this encounter Visit Diagnoses Not on filedocumented in this encounter Additional Health Concerns Assessment Noted Time PHQ-9 Depression Total Score: 0 08/23/19 23 2:01 PM EDT documented as of this encounter Care Teams Keysmith Relationship Specialty Start Date End Date Eileen Yu MD [address] [place] [address] PCP - General Family Medicine 04/15/21 documented as of this encounter
--- OUTSIDE RECORDS SUMMARY | 2024-12-29 11:02 | XMS_ITS | Clinical Summary ---
Author Organization [employer] Address [address] [facility] 7t [place] [address] Care Team Providers Care Engineering Assistant Name Role Phone Eileen Yu MD Primary Care Provider [phone] Allergies Active Allergy Reactions Criticality Noted Date Comments Bee Pollen Anaphylaxis High 09/20/2022 Bee Venom Anaphylaxis High 03/28/2022 Codeine Itching 03/28/2022 Hydrochlorothiazide 04/29/2013 Other reaction(s): Increased frequency of urination Iodinated Contrast Media Anaphylaxis,Unknown High Lisinopril Cough 12/18/2013 Metronidazole 05/20/2012 Other reaction(s): Burning sensation Shellfish Protein-Containing Drug Products Anaphylaxis,Unknown High 03/28/2022 Zoster Vac Recomb Adjuvanted Shortness of breath High 03/28/2022 Medications * This document contains information received from the source organization and may not represent a complete record from that organization. docusate sodium (Colace) 100 MG capsule Take 1 capsule (100 mg) by mouth if needed in the morning and at bedtime for constipation. 180 capsule 1 05/09/19 24 Active tamsulosin (Flomax) 0.4 MG 24 hr capsule 07/27/19 24 Active divalproex (Depakote) 250 MG EC tablet 2 tablets BID for 1 week, then decrease to 1 tablet BID and then 1 tablet daily and then discontinue valproic acid.Do not crush, chew, or split. 60 tablet 08/09/19 24 Active mirabegron ER (Myrbetriq) 50 MG 24 hr tablet Take 1 tablet (50 mg) by mouth at bedtime. Do not crush, chew, or split. 30 tablet 11 02/15/20 24 025 Active solifenacin (VESIcare) 5 MG tablet Take 1 tablet (5 mg) by mouth Once per day. Swallow tablet whole; do not crush, chew, or split. 30 tablet 02/15/20 24 025 Active amLODIPine (Norvasc) 10 MG tablet TAKE 1 TABLET EVERY MORNING 90 tablet 1 06/26/19 25 Active escitalopram (Lexapro) 10 MG tablet TAKE ONE TABLET EVERY MORNING 90 tablet 1 06/26/19 25 Active metoprolol succinate XL (Toprol-XL) 25 MG 24 hr tablet TAKE ONE TABLET EVERY MORNING 90 tablet 1 06/26/19 25 Active finasteride (Proscar) 5 MG tablet TAKE ONE TABLET EVERY MORNING 90 tablet 1 08/23/19 25 Active EPINEPHrine (EpiPen 2-Tyrone) 0.3 MG/0.3ML injection syringe INJECT 0.3ML BY INTRAMUSCULAR ROUTE ONCE NEEDED FOR ANAPHYLAXIS 2 each 09/23/19 25 Active traZODone (Desyrel) 50 MG tablet TAKE ONE TABLET EVERY NIGHT AT BEDTIME 90 tablet 10/30/19 25 Active cloNIDine (Catapres) 0.1 MG tablet TAKE ONE TABLET EVERY NIGHT AT BEDTIME 90 tablet 10/30/19 25 Active OLANZapine zydis (ZyPREXA) 20 MG disintegrating tablet TAKE ONE TABLET EVERY NIGHT AT BEDTIME 90 tablet 10/30/19 25 Active Aspirin Low Dose 81 MG chewable tablet TAKE ONE TABLET EVERY MORNING 90 tablet 10/30/19 25 Active gabapentin (Neurontin) 100 MG capsule TAKE ONE CAPSULE TWICE DAILY IN THE MORNING AND AT BEDTIME 60 capsule 2 11/06/19 25 Active atorvastatin (Lipitor) 80 MG tabletIndications: Mixed hyperlipidemia TAKE ONE TABLET EVERY NIGHT AT BEDTIME 90 tablet 1 11/11/19 25 Active meloxicam (Mobic) 15 MG tabletIndications: Left foot pain Take 1 tablet (15 mg) by mouth Once per day. 30 tablet 11/29/19 25 026 Active Active Problems Problem Noted Date Diagnosed Date GERD without esophagitis 07/03/2024 Recurrent major depressive disorder, in partial remission 07/03/2024 Encounter for therapeutic drug level monitoring 05/21/2023 [...] Labs: valproic acid Cannabis dependence, continuous use (CMS/[facility]) Foot fracture, left 02/15/2023 02/15/2023 Hypertensive encephalopathy [...] Follow up in 1-2 months. Prostate cancer (CMS/HCC) 02/15/20232022 Diverticulosis 02/15/2023 02/15/2023 Cervical spondylitic cord compression [...] Assessment & Plan (12/24/2022 7:34 PM EDT): Referral placed to re-establish care with Cards - Dr. Ambriz at [facility] BPH without obstruction/lower urinary tract symp toms 06/12/2022 Assessment & Plan (04/05/2023 11:48 AM EST): Patient that presented visit with complaints of BPH will be referred to Urology. Assessment & Plan (12/24/2022 7:36 PM EDT): Continues with finasteride 5mg daily Referral to re-establish with Urology placed on 12/24/22 Generalized anxiety disorder with panic attacks 06/12/2022 Hepatitis C virus infection 06/12/2022 Overview (06/12/2022): s/p interferon treatment HLD (hyperlipidemia) 06/12/2022 Transient alteration of awareness 06/12/2022 Assessment & Plan (12/24/2022 7:45 PM EDT): Pt/friend will confirm if still active with Neurology. If not, plan to call PCP office for referral. Coronary artery disease of n ative heart with stable angina pectoris 09/17/2020 Overview (12/24/2022): RCA angioplasty / stent 2017 Panic disorder 09/17/2020 PTSD (post-traumatic stress disorder) 09/17/2020 Transient cerebral ischemia 09/17/2020 Overview (06/12/2022): Admitted to [facility] 06/16/19 Recurrent major depressive episodes, moderate (C MS/HCC) 09/17/2020 Assessment & Plan (12/24/2022 7:41 PM EDT): With associated diagnoses of PTSD and panic disorder Current medication regimen includes: Escitalopram 10mg daily Depakote 500mg BID Quetiapine 25mg in the AM and 125mg at bedtime Medications discontinued during hospitalization with suspected serotonergic overload: mirtazapine, doxepin, and citalopram -Self-discontinued lorazepam following discharge from rehab Pt previously following with psychiatrist (Dr. Rosas). He will call office to confirm if still active patient. If not, will inform PCP office if new referral needed. Denies SI/HI/thoughts of self harm [facility] (myocardial infarction) 09/17/2020 Overview (06/12/2022): 2017 s/p PCTA RCA and stent Essential hypertension 09/17/2020 Assessment & Plan (05/21/2023 11:55 PM EDT): Uncontrolled: Patient attributed high reading to recent caffeine consumption. Advised to continue treatment regiment and continue monitoring. F/U in a couple of weeks to reassess. Assessment & Plan (12/24/2022 7:35 PM EDT): Current med regimen: Amlodipine 10mg daily Clonidine 0.1mg TID PRN hypertension (hold for SBP <90 mmHg - reports have been using 1-2x/day) Metoprolol succinate XL 25mg daily -Metoprolol sent to pharmacy, did not have upon discharge from rehab. Hopefully will be able to slowly decrease clonidine use as metoprolol levels become therapeutic -Referral to re-establish with cardiology - Dr. Ambriz at [facility] 12/24/22 -ED/urgent care precautions reviewed Encounters Date Type Department Care Team Description 12/09/2024 2:00 PM EDT Clinical Support [facility] [address] [place] [address] Ebony Aleman RN Memory deficits 12/09/2024 Travel 11/28/2024 1:45 PM EDT Office Visit [facility] [address] [place] [address] Eileen Yu MD Left foot pain (Primary Dx); Memory deficit; On valproic acid therapy; Hypertensive urgency 11/28/2024 Travel 11/07/2024 Refill [facility] [address] [place] [address] Eileen Yu MD Mixed hyperlipidemia 11/04/2024 Refill [facility] [address] [place] [address] Eileen Yu MD 10/29/2024 Refill [facility] [address] [facility] [place] [address] Eileen Yu MD 10/01/2024 Telephone [facility] [address] [place] [address] Eileen Yu MD from Last 3 Months Immunizations Immunization Administration Dates Next Due Hep A / Hep B 10/15/2012,05/17/2012,04/19/2012 INFLUENZA INJECTABLE QUADRIV ALANT CCIIV4 MDCK Multi-dose vial 12/11/2018 Influenza High-dose Quadriva lent Preservative Free 10/18/2021,11/30/2020,10/16/2019,12/23 Influenza Quadrivalent Adjuvanted 11/21/2022 Influenza injectable quadriv alent IIV4 with preservative 12/08/2016 Influenza injectable quadriv alent preservative free 12/10/2017,10/11/2016,11/22/2015 Influenza, High Dose Seasona l, Preservative Free 11/21/2023 Influenza, IIV3, injectable 10/18/2021,0 11/30/2020,10/16/2019,12/23,12/11/2018,12/10/2017,12/08/2016 ,10/11/2016,11/22/2015,12/25/2014,02/02,12/30/2010 Influenza, Unspecified 11/19/2012,12/16/2002, Influenza, seasonal, injecta ble, preservative free 12/25/2014 Influenza, seasonal, intrade rmal, preservative free 02/20/2012 Moderna Covid-19 Vaccine 12+ 10/17/2020,06/11/19 21,05/13/2020 Pneumococcal Conjugate PCV 13 02/19/2017 Pneumococcal Polysaccharide PPSV23 04/23/2019, Pneumococcal, Unspecified 05/02/2010 RSV Adjuvant 03/02/2023 Tdap 10/11/2016,12/30/2010 Zoster, live [...] Sign Reading Time Taken Comments Blood Pressure 158/94 11/28/2024 2:15 PM EDT Pulse 82 11/28/2024 1:38 PM EDT Temperature 36.6 C (97.8 F) 11/28/2024 1:38 PM EDT Respiratory Rate 20 11/28/2024 1:38 PM EDT Oxygen Saturation 98% 11/28/2024 1:38 PM EDT Inhaled Oxygen Concentration - - Weight 76.6 kg (168 lb 12.8 oz) 11/28/2024 1:38 PM EDT Height 185.4 cm (6' 1 ) 11/28/2024 1:38 PM EDT Body Mass Index 22.27 11/28/2024 1:38 PM EDT Plan of Treatment Upcoming Encounters Date Type Department Care Team (Late st Contact Info) Description 01/05/2025 2:00 PM EST Office Visit [facility] PEDS [address] [place] [address] Eileen Yu MD [address] [place] [address] Health Maintenance Due Date Last Done Comments CT Colonography 1953 Dental Oral Exam 1953 Dental Prophylaxis 1953 Dental X-Ray: Bitewings 1953 Dental X-Ray: Full Mouth 1953 FIT DNA/Cologuard 1953 FIT 1953 FOBT 1953 Sigmoidoscopy 1953 Derm Melanoma Skin Check 1953 Diabetes: Foot Exam 1963 Eye Exam 1963 Alcohol/Substance Use Screening 1965 Zoster Vaccines (2 of 3) 09/22/2011 07/28/2011, 03/2010 Diabetes: Hemoglobin A1C 07/19/2021 04/21/2021 Diabetes: Urine Protein Screening 09/08/2022 09/08/2021, 04/21/2021 Depression Screening 08/23/2023 08/22/2022, 08/23/19 23 SDOH Screening 08/23/2023 08/22/2022 Colonoscopy 11/05/2023 11/04/2021 Lipid Panel 05/09/2024 05/10/2023, 07/0 09/2021, 04/21/2021 Colorectal Cancer Screening 11/28/2025 Postponed from 1953 (Patient Refused) Tobacco Screening 11/28/2025 11/28/2024 DTaP/Tdap/Td Vaccines (4 - Td or Tdap) 10/11/2026 10/11/2016, 03/05/2011, 12/30/2010 Hepatitis A Vaccines Completed 10/15/2012, 05/17/2012, 04/19/2012 Hepatitis B Vaccines Completed 10/15/2012, 05/17/2012, 04/19/2012 Pneumococcal Vaccine: 50+ Years Completed 04/23/2019, 04/12/2018, 02/19/2017, Additional history exists RSV Patients and Patients Aged 60 years or older Completed 03/02/2023 COVID-19 Vaccine Completed 10/26/2024, , 03/23/2023, Additional history exists Influenza Vaccine Completed 10/26/2024, , 11/21/2022, Additional history exists HIB Vaccines Aged Out No longer eligi ble based on patient's age to complete this topic HPV Vaccines Aged Out No longer eligi ble based on patient's age to complete this topic IPV Vaccines Aged Out No longer eligi ble based on patient's age to complete this topic Meningococcal B Vaccine Aged Out No l onger eligible based on patient's age to complete [...] Procedure Name Priority Date/Time Associated Diagnosis Comments LIPID PANEL, STANDARD Routine 05/10/2023 10:02 AM EST HM COLONOSCOPY Routine 11/04/2021 ALBUMIN, RANDOM URINE W/CREATININE Routine 09/08/2021 11:20 AM EDT HEMOGLOBIN A1C Routine 04/21/2021 10:47 AM EST from Last 3 Months or Most Recently Relevant to Health Maintenance Results * (ABNORMAL) Lipid Panel, Standard (05/10/2023 10:02 AM EST) Triglycerides 55 <150 mg/dL [facility] Comment:Desirable Triglyceri de: less than 150 mg/dLBorderline High Triglyceride 150-199 mg/dLHigh Triglyceride: 200-499 mg/dLVery High Triglyceride: greater than or equal to 5OO mg/dL Cholesterol 87 <200 mg/dL [facility] Comment:Desirable Cholestero l: less than 200 mg/dLBorderline High Cholesterol: 200-239 mg/dLHigh Cholesterol: greater than 239 mg/dL LDL Cholesterol Calculated 46 <100 mg/dL [facility] Comment:Desirable LDL: less than 100 mg/dLNear Optimal/Above Optimal LDL: 110- 129 mg/dLBorderline High LDL: 130-159 mg/dLHigh LDL: 160-189 mg/dLVery High LDL: greater than or equal to 190 mg/dL HDL Cholesterol 30(L) >40 mg/dL [facility] Comment:Desirable HDL: great er than 40 mg/dL Note: This HDL assay may give artificially low results in patients with liver disease. 05/10/2023 10:0 2 AM EST 05/10/2023 1:55 PM EST Eileen Yu MD LAB BLOOD ORDERABLES Final Re sult [facility] [address] [place] [phone] * Hm Colonoscopy (11/04/2021) Colonoscopy Normal Normal Narrative Susan, Marley - 11/04/2021 Repeat colonoscopy in 1-2 years Historical Provider HEALTH MAINTENANCE Final Result * ALBUMIN, RANDOM URINE W/CREATININE (09/08/2021 11:20 AM EDT) Microalbumin Urine 0.3 See Note: mg/dL [facility] Comment: Reference Range: Reference Range Not established Microalb/Creat Ratio 3 <30 mcg/mg creat [facility] Comment: The ADA defines abnormalities in albumin excretion as follows: Albuminuria Category Result (mcg/mg creatinine) Normal to Mildly increased <30 Moderately increased 30-299 Severely increased > OR = 300 The ADA recommends that at least two of three specimens collected within a 3-6 month period be abnormal before considering a patient to be within a diagnostic category. Creatinine, Urine 93 20 - 320 mg/dL [facility] 09/08/2021 11:2 0 AM EDT Eileen Yu MD LAB URINE ORDERABLES Final Re sult Performing Organization Address [facility] Phone Number [facility] [address] * HEMOGLOBIN A1c (04/21/2021 10:47 AM EST) Hemoglobin A1c 5.5 <5.7 % of total Hgb [facility] Comment: For the purpose of screening for the presence of diabetes: <5.7% Consistent with the absence of diabetes 5.7-6.4% Consistent with increased risk for diabetes (prediabetes) > or =6.5% Consistent with diabetes This assay result is consistent with a decreased risk of diabetes. Currently, no consensus exists regarding use of hemoglobin A1c for diagnosis of diabetes in children. According to [place] Diabetes Association (ADA) guidelines, hemoglobin A1c <7.0% represents optimal control in non- diabetic patients. Different metrics may apply to specific patient populations. Standards of Medical Care in Diabetes(ADA). 04/21/2021 10:4 7 AM EST Eileen Yu MD LAB BLOOD ORDERABLES Final Re sult Performing Organization Address [facility] Phone Number [facility] [address] [place] [address] from Last 3 Months or Most Recently Relevant to Health Maintenance Insurance [employer] [id number] MEDICARE [facility] , [address] [place] [address] Care Teams Engineering Assistant Relationship Specialty Start Date End Date Eileen Yu MD [address] [place] [id number] PCP - General Family Medicine 04/15/21
--- OUTSIDE RECORDS SUMMARY | 2024-12-29 11:02 | XMS_ITS | Encounter Summary ---
Author Organization [employer] Address [address] [facility] [address] [place] [address] Care Team Providers Care Body Hanger Name Role Phone Eileen Yu MD Primary Care Provider [phone] Reason for Visit * Reason Comments Med Refill Encounter Details Date Type Department Care Team ([facility] Contact Info) Description 12/10/2023 Refill [facility] [address] [place], [place] [phone] Lenore Saavedra MD [address] [place], [place] [phone] Social History Tobacco Use Types Packs/Day Years [...] Description 01/05/2025 2:00 PM EST Office Visit [facility] [address] [place] [address] Eileen uY MD [address] [place] [address] documented as of this encounter Goals Goal Patient Goal Type Associated Problems Recent Progress Patient-Stated? Author Patient will adhere to medication regimen General No Esther Gonzales documented as of this encounter Visit Diagnoses Not on filedocumented in this encounter Additional Health Concerns Assessment Noted Time PHQ-9 Depression Total Score: 0 08/23/19 23 2:01 PM EDT documented as of this encounter Care Teams Body Hanger Relationship Specialty Start Date End Date Eileen Yu MD [address] [place] [id number] PCP - General Family Medicine 04/15/21 documented as of this encounter
--- OUTSIDE RECORDS SUMMARY | 2024-12-29 11:02 | XMS_ITS | Clinical Summary ---
Author Organization [facility] Address [address] [place] [phone] Phone Care Team Providers Care Cupola Liner Name Role Phone Eileen Yu MD Primary Care Provider [phone] Allergies Active Allergy Reactions Criticality Noted Date Comments Iodinated Contrast Media Unknown 07/02/2024 Shellfish Derived Unknown 07/02/2024 Medications amLODIPine (NORVASC) 10 mg tablet Take 1 tablet (10 mg total) by mouth 1 (one) time each day in the morning. 5 Active aspirin 81 mg chewable tablet Chew 1 tablet (81 mg total) 1 (one) time each day in the morning. Active atorvastatin (LIPITOR) 80 mg tablet Take 1 tablet (80 mg total) by mouth at bedtime. 1 Active cloNIDine (CATAPRES) 0.1 mg tablet Take 1 tablet (0.1 mg total) by mouth daily. 5 Active docusate sodium (COLACE) 100 mg capsule Take 1 capsule (100 mg total) by mouth 2 times daily as needed. 4 Active escitalopram (LEXAPRO) 10 mg tablet Take 1 tablet (10 mg total) by mouth 1 (one) time each day in the morning. 5 Active finasteride (PROSCAR) 5 mg tablet Take 1 tablet (5 mg total) by mouth 1 (one) time each day. 4 Active gabapentin (NEURONTIN) 100 mg capsule Take 1 capsule (100 mg total) by mouth 2 times daily. 5 Active metoprolol succinate (TOPROL-XL) 25 mg 24 hr tablet Take 1 tablet (25 mg total) by mouth 1 (one) time each day. 0 Active mirabegron (MYRBETRIQ) 50 mg tablet extended release 24 hr 24 hr tablet Take 1 tablet (50 mg total) by mouth at bedtime. 4 02/15/20 25 Active OLANZapine (ZyPREXA ZYDIS) 20 mg disintegrating tablet Take 1 tablet (20 mg total) by mouth at bedtime. 5 Active solifenacin (VESICARE) 5 mg tablet Take 1 tablet (5 mg total) by mouth daily. 4 02/15/20 25 Active traZODone (DESYREL) 50 mg tablet Take 1 tablet (50 mg total) by mouth at bedtime. 5 Active Active Problems Problem Noted Date Diagnosed Date Chest pain 07/03/2024 Assessment & Plan (07/03/2024 4:52 AM EDT): - Being hospitalized for chest pain worrisome for ACS - 69-year-old man with multiple medical and psychiatric problems including known CAD requiring stent; hyperlipidemia; hypertension; daily marijuana smoking; GERD; recurrent major depression; and generalized anxiety disorder with panic attack is being hospitalized - Came to the ED with complaint of pressure-like chest pain accompanied by shortness of breath and vague dizziness, but no nausea, vomiting, focal weakness, or visual changes - In the ED, initial vital signs significant for elevated blood pressures; specifically blood pressure was 140/75 mmHg, pulse 79 bpm, respiration 20 bpm, temperature 37.2 C, O2 sat 96% on room air; BMI is documented 23.2 kg/m ; twelve-lead EKG shows sinus rhythm at 77 bpm with 4 degree AV block and no significant ST-T wave changes screening blood test beginning from high- sensitivity cardiac troponin returned within normal limits at 13 initially and increased to 16 an hour later; CBC significant for mild peripheral leukocytosis with WBC 11.8, mild anemia to H/H 10.2/33.5, and normal platelet count of 217; CMP significant hyponatremia to sodium of 148 and elevated serum bicarb to 34; BNP, PTT, and PT are within normal limits; she remained chest pain-free in the ED; hospital medicine was asked admit for substernal chest pain worrisome for ACS but this further evaluation - Would admit to hospital medicine for substernal chest pain with risk factors of CAD; completely exclude ischemia as underlying cause; interval echo; cardiology consult first thing in the morning; continuation of secondary coronary ischemia prevention regimen unchanged Elevated blood pressure read ing with diagnosis of hypertension 07/03/2024 Assessment & Plan (07/03/2024 4:47 AM EDT): - Continue outpatient antihypertensive regimen; monitor BP control - BP elevated in the ED, warrants continued monitoring, and considerations for medication adjustment GERD without esophagitis 07/03/2024 Assessment & Plan (07/03/2024 4:54 AM EDT): - Continue outpatient PPI unchanged Generalized anxiety disorder with panic attacks 07/03/2024 Assessment & Plan (07/03/2024 4:54 AM EDT): - Continue outpatient regimen for known generalized anxiety with panic disorder unchanged - Consider to level extent his panic attack and/or GERD may be contributing to presenting chest discomfort Coronary artery disease of n ative heart with stable angina pectoris ([facility] V24) 07/03/2024 Assessment & Plan (07/03/2024 4:53 AM EDT): - Known CAD significant for remote ND and maintenance and secondary prevention regimen - Clinical course significant for presenting substernal chest pain worrisome for ACS - Being hospitalized to telemetry; continued on secondary prevention regimen; completely exclude ACS as a cause of underlying chest pain - Cardiology consult first thing in the morning Recurrent major depressive d isorder, in partial remission ([facility] V24) 07/03/2024 Assessment & Plan (07/03/2024 4:52 AM EDT): - Continue outpatient regimen for known recurrent major depression unchanged and follow-up alcohol Surgical History Surgery Date Site/Laterality Comments WRIST SURGERY Right PROCEDURE: HISTORICAL WRIST SURGERY; COMMENT: median nerve neurolysis wrist fusion Medical History Medical History Date Comments History of hepatitis C DX:Histor y of hepatitis C History of prostate cancer DX:Hi story of prostate cancer CAD (coronary artery disease) 09/17/2020 DX :CAD (coronary artery disease); COMMENT: RCA angioplasty / stent 2017 Essential hypertension 09/17/2020 DX:Essent ial hypertension GERD (gastroesophageal reflux disease) 09/17/2020 DX:GERD (gastroesophageal reflux disease) Old ND (myocardial infarction) 09/17/2020 D X:Old ND (myocardial infarction); COMMENT: 2017 s/p PCTA RCA and stent Panic disorder 09/17/2020 DX:Panic disorde r PTSD (post-traumatic stress disorder) 09/17/2020 DX:PTSD (post-traumatic stress disorder) Recurrent major depressive e pisodes, moderate (CMS/HCC V24, CMS/HCC V28) 09/17/2020 DX:Recurrent major depressive episodes, moderate ([facility]) Transient cerebral ischemia 09/17/2020 DX:T ransient cerebral ischemia; COMMENT: Admitted to [facility] 06/16/19 Hypercholesterolemia 09/17/2020 DX:Hypercho lesterolemia Family History Medical History Relation Name Comments Hypertension Maternal Grandmother Heart attack Mother thyroid dysfunc tion Relation Name Status Comments Maternal Grandmother Mother Social History Tobacco Use Types Packs/Day Years Used Date Smoking Tobacco: Never Smokeless Tobacco: Never Alcohol Use Standard Drinks/Week Comments Not Currently 0 (1 standard drink = 0.6 oz pur e alcohol) Sex and Gender Information Value Date Recorded Sex Assigned at Not on file Legal Sex Male 2:51 PM EST Gender Identity Not on file Sexual Orientation Not on file Obstetrics History Last Filed Vital Signs Vital Sign Reading Time Taken Comments Blood Pressure 189/66 07/03/2024 11:04 AM EDT Pulse 86 07/03/2024 11:04 AM EDT Temperature 36.7 C (98.1 F) 07/03/2024 11:04 AM EDT Respiratory Rate 12 07/03/2024 11:04 AM EDT Oxygen Saturation 96% 07/03/2024 11:04 AM EDT Inhaled Oxygen Concentration - - Weight 79.8 kg (176 lb) 07/02/2024 9:16 PM EDT Height 185.4 cm (6' 1 ) 07/02/2024 9:16 PM EDT Body Mass Index 23.22 07/02/2024 9:16 PM EDT Plan of Treatment Health Maintenance Due Date Last Done Comments Colorectal Cancer Screening: Colonoscopy 1953 Diabetes: Annual Foot Exam 1963 Diabetes: Annual Retina Eye Exam 1963 Zoster Vaccines (2 of 3) 09/22/2011 07/28/2011, 03/2010 Falls Risk Assessment 02/01/2022 Hepatitis C Screening 02/01/2022 Medicare Annual Wellness Visit 02/01/2022 Social Influencers of Health Screening 02/01/2022 Depression Screening 03/05/2024 Diabetes: Annual Urine Albumin-Creatinine Ratio (uACR) 07/03/2024 Diabetes: Blood Sugar Control Test (HGBA1C) 07/03/2024 04/21/2021 COVID-19 Vaccine ( season) 2024 11/21/2023, 03/23/2023, 01/24/2022, Additional history exists Influenza Vaccine (#1) 2024 , 11/21/2022, 10/18/2021, Additional history exists Diabetes: Annual GFR (Glomerular Filtration Rate) 07/02/2025 07/02/2024 Hypertension/CHF/CAD Annual BMP Blood Test 07/02/2025 07/02/2024 DTaP,Tdap,and Td Vaccines (4 - Td or Tdap) 10/11/2026 10/11/2016, 03/05/2011, 12/30/2010 Cholesterol Screening (Lipid Panel) 05/09/2028 05/10/2023 Hepatitis A Vaccines Completed 10/15/2012, 05/17/2012, 04/19/2012 Hepatitis B Vaccines Completed 10/15/2012, 05/17/2012, 04/19/2012 Pneumococcal Vaccine: 50+ Years Completed 04/23/2019, 04/12/2018, 02/19/2017, Additional history exists RSV Immunization Adult Patients Completed 03/02/2023 HIB Vaccines Aged Out No longer eligi ble based on patient's age to complete this topic HPV Vaccines Aged Out No longer eligi ble based on patient's age to complete this topic IPV Vaccines Aged Out No longer eligi ble based on patient's age to complete this topic MMR Vaccines Aged Out No longer eligi ble based on patient's age to complete this topic Meningococcal ACWY Vaccine Aged Out N o longer eligible based on patient's age to complete this topic Meningococcal B Vaccine Aged Out No l onger eligible based on patient's age to complete this topic RSV Immunization Patients Under 20 months Aged Out No longer eligible based on patient's age to complete this topic Varicella Vaccines Aged Out No longer eligible based on patient's age to complete this topic Procedures Procedure Name Priority Date/Time Associated Diagnosis Comments COMPREHENSIVE METABOLIC PANEL STAT 07/02/2024 9:26 PM EDT from Last 3 Months or Most Recently Relevant to Health Maintenance Results * (ABNORMAL) Comprehensive metabolic panel (07/02/2024 9:26 PM EDT) Sodium 148(H) 133 - 145 mmol/L LAB CHEMISTRY METHOD 07/02/2024 10:44 PM [facility] Potassium 3.8 3.5 - 5.5 mmol/L LAB CHEMISTRY METHOD 07/02/2024 10:44 PM [facility] Chloride 109 96 - 110 mmol/L LAB CHEMISTRY METHOD 07/02/2024 10:44 PM [facility] CO2 34(H) 21 - 32 mmol/L LAB CHEMISTRY METHOD 07/02/2024 10:44 PM [facility] Anion Gap 5 3 - 11 LAB CHEMISTRY METHOD 07/02/2024 10:44 PM [facility] Glucose 77 70 - 100 mg/dL LAB CHEMISTRY METHOD 07/02/2024 10:44 PM [facility] BUN 12 5 - 25 mg/dL LAB CHEMISTRY METHOD 07/02/2024 10:44 PM [facility] Creatinine 1.02 0.70 - 1.30 mg/dL LAB CHEMISTRY METHOD 07/02/2024 10:44 PM [facility] eGFR 79 >=60 mL/min/1. 73m2 LAB CHEMISTRY METHOD 07/02/2024 10:44 PM [facility] Comment:Calculation based on the Chronic Kidney Disease Epidemiology Collaboration (CKD-EPI) equation refit without adjustment for race. BUN/Creatinine Ratio 11.8 LAB CHEMISTRY METHOD [facility]/02[facility]24 10:[facility] Calcium 8.2(L) 8.5 - 10.5 mg/dL LAB CHEMISTRY METHOD 07/02/2024 10:[facility] AST (SGOT) 14 10 - 42 unit/L LAB CHEMISTRY METHOD 07/02/2024 10:44 PM [facility] ALT (SGPT) 17 10 - 60 unit/L LAB CHEMISTRY METHOD 07/02/2024 10:44 [facility] Alkaline Phosphatase 76 42 - 121 unit/L LAB CHEMISTRY METHOD 07/02/2024 10:44 PM [facility] Total Protein 6.5 6.0 - 8.0 g/dL LAB CHEMISTRY METHOD 07/02/2024 10:44 PM [facility] Albumin 3.6 3.2 - 5.0 g/dL LAB CHEMISTRY METHOD 07/02/2024 10:44 PM [facility] Total Bilirubin 0.4 0.0 - 1.4 mg/dL LAB CHEMISTRY METHOD 07/02/2024 10:44 PM [facility] Blood Venous blood specimen / Unknown Venipuncture / Unknown 07/02/2024 9:26 PM EDT 07/02/2024 10:13 PM EDT us Zev B Johan SMITH LAB BLOOD ORDERABLES Final Resu lt [facility] [address] [place] [address], from Last 3 Months or Most Recently Relevant to Health [place] [address] MEDICARE [facility] Advance Directives * Full Code - Default (Latest Code Status on File) Date Activated Date Inactivated Comments 07/03/2024 12:24 AM 07/03/2024 1:59 PM This is order is used when code status has not been discussed with the patient, or code status is otherwise unknown/unconfirmed To update the patient's code status, place a code status order. Do not modify or discontinue any currently active code status orders. Care Teams Cupola Liner Relationship Specialty Start Date End Date Eileen Yu MD [address] [place] [address] PCP - General Family Medicine 07/02/24
--- OUTSIDE RECORDS SUMMARY | 2024-12-29 11:02 | XMS_ITS | Encounter Summary ---
Author Organization [facility] Address [address] [facility] [address] [place] [address] Care Team Providers Care Retail Account Manager Name Role Phone Eileen Yu MD Primary Care Provider [phone] Encounter Details Date Type Department Care Team (Latest Contact Info) Description 05/29/2018 Abstract [facility] CONVERSIONS Dental, Provider, DDS Social History Tobacco [...] Description 01/05/2025 2:00 PM EST Office Visit [facility] MED & PEDS [address] [place] [address] Eileen Yu MD [address] [place] [address] documented as of this encounter Visit Diagnoses Not on filedocumented in this encounter Care Teams Retail Account Manager Relationship Specialty Start Date End Date Eileen Yu MD [address] [place] [address] PCP - General Family Medicine 04/15/21 documented as of this encounter
--- OUTSIDE RECORDS SUMMARY | 2024-12-29 11:02 | XMS_ITS | Encounter Summary ---
Author Organization [employer] [facility] Address [address] [facility] [address] [place] [address] Care Team Providers Care Circuit Clerk Name Role Phone Eileen Yu MD Primary Care Provider [phone] Encounter Details Date Type Department Care Team (Late st Contact Info) Description 07/03/2024 Orders Only [facility] [address] [place], [place] [phone] ProviderEric MD Social History Tobacco Use Types Packs/Day [...] Description 01/05/2025 2:00 PM EST Office Visit [facility] MED & PEDS [address] [place] [address] Eileen Yu MD [address] [place] [address] documented as of this encounter Goals Goal Patient Goal Type Associated Problems Recent Progress Patient-Stated? Author Patient will adhere to medication regimen General No Esther Gonzales documented as of this encounter Procedures Procedure Name Priority Date/Time Associated Diagnosis Comments XR CHEST 2 VIEWS Routine 07/02/2024 3:18 PM EDT documented in this encounter Results * XR Chest 2 Views (07/02/2024 3:18 PM EDT) Anatomical Region Laterality Modality Chest Radiographic Laquita ging us Historical Provider MD DUKE XR PROCEDURES Final R esult documented in this encounter Visit Diagnoses Not on filedocumented in this encounter Additional Health Concerns Assessment Noted Time PHQ-9 Depression Total Score: 0 08/23/19 23 2:01 PM EDT documented as of this encounter Care Teams Circuit Clerk Relationship Specialty Start Date End Date Eileen Yu MD [address] [place] [address] PCP - General Family Medicine 04/15/21 documented as of this encounter
--- OUTSIDE RECORDS SUMMARY | 2024-12-29 11:02 | XMS_ITS | Encounter Summary ---
Author Organization [employer] Address [address] [facility] [address] [place] [address] Care Team Providers Care Field Irrigation Worker Name Role Phone Eileen Yu MD Primary Care Provider Encounter Details Date Type Department Care Team (Late st Contact Info) Description 07/04/2024 Orders Only [facility] MED & PEDS [address] [place] [address] ProviderEric MD Social History Tobacco Use Types [...] Description 01/05/2025 2:00 PM EST Office Visit [facility] MED & PEDS [address] [place] [address] Eileen Yu MD [address] [place] [address] documented as of this encounter Goals Goal Patient Goal Type Associated Problems Recent Progress Patient-Stated? Author Patient will adhere to medication regimen General No Esther Gonzales documented as of this encounter Procedures Procedure Name Priority Date/Time Associated Diagnosis Comments ECG 12-LEAD Routine 07/02/2024 10:11 AM EDT ECG 12-LEAD Routine 07/02/2024 10:09 AM EDT documented in this encounter Results * ECG 12 lead (07/02/2024 10:11 AM EDT) us Historical Provider ECG ORDERABLES Final Res ult * ECG 12 lead (07/02/2024 10:09 AM EDT) us Historical Provider ECG ORDERABLES Final Res ult documented in this encounter Visit Diagnoses Not on filedocumented in this encounter Additional Health Concerns Assessment Noted Time PHQ-9 Depression Total Score: 0 08/23/19 23 2:01 PM EDT documented as of this encounter Care Teams Field Irrigation Worker Relationship Specialty Start Date End Date Eileen Yu MD [address] [place] [address] PCP - General Family Medicine 04/15/21 documented as of this encounter
--- OUTSIDE RECORDS SUMMARY | 2024-12-29 11:02 | XMS_ITS | Encounter Summary ---
Author Organization [employer] Address [address] [facility] [address] [place] [address] Care Team Providers Care Ware Finisher Name Role Phone Eileen Yu MD Primary Care Provider [phone] Encounter Details Date Type Department Care Team ([facility] Contact Info) Description 03/24/2022 Telephone [facility] MED & PEDS [address] [place], [place] [phone] Eileen Yu MD [address] [place], [place] [phone] Social History Tobacco Use Types Packs/Day Years [...] Encounters Date Type Department Care Team (Late Contact Info) Description 01/05/2025 2:00 PM EST Office Visit [facility] MED & PEDS [address] [place] [address] Eileen Yu MD [address] [place], [place] [phone] documented as of this encounter Visit Diagnoses Not on filedocumented in this encounter Care Teams Ware Finisher Relationship Specialty Start Date End Date Eileen Yu MD [address] [place] [id number] PCP - General Family Medicine 04/15/21 documented as of this encounter
--- OUTSIDE RECORDS SUMMARY | 2024-12-29 11:02 | XMS_ITS | Encounter Summary ---
Author Organization [employer] Address [address] [facility] [address] [place] [address] Care Team Providers Care Technical Supervisor Name Role Phone Eileen Yu MD Primary Care Provider Reason for Visit * Reason Comments Med Refill Encounter Details Date Type Department Care Team ([facility] Contact Info) Description 11/07/2023 Refill [facility] MED & PEDS [address] [place], [place] [phone] Eileen Yu MD [address] [place], [place] [phone] Social History Tobacco Use Types Packs/Day Years [...] Description 01/05/2025 2:00 PM EST Office Visit [facility] CH[facility] MED & PEDS [address] [place] [address] Eileen Yu MD [address] [place] [address] documented as of this encounter Goals Goal Patient Goal Type Associated Problems Recent Progress Patient-Stated? Author Patient will adhere to medication regimen General No Esther Gonzales documented as of this encounter Visit Diagnoses Not on filedocumented in this encounter Additional Health Concerns Assessment Noted Time PHQ-9 Depression Total Score: 0 08/23/19 23 2:01 PM EDT documented as of this encounter Care Teams Technical Supervisor Relationship Specialty Start Date End Date Eileen Yu MD [address] [place] [id number] PCP - General Family Medicine 04/15/21 documented as of this encounter
--- OUTSIDE RECORDS SUMMARY | 2024-12-29 11:02 | XMS_ITS | Encounter Summary ---
Author Organization [employer] Address [address] [place] [address] Care Team Providers Care Cheesemaking Laborer Name Role Phone Eileen Yu MD Primary Care Provider [phone] Encounter Details Date Type Department Care Team ([facility] Contact Info) Description 02/06/2022 [facility] Information Management [address] [place], [place] [phone] Eileen Yu MD [address] [place], [place] [phone] Social History Tobacco Use Types Packs/Day Years [...] Description 01/05/2025 2:00 PM EST Office Visit [facility] MED & PEDS [address] [place], [place] [phone] Eileen Yu MD [address] [place], [place] [phone] documented as of this encounter Visit Diagnoses Not on filedocumented in this encounter Care Teams Cheesemaking Laborer Relationship Specialty Start Date End Date Eileen Yu MD [address] [place] [address] PCP - General Family Medicine 04/15/21 documented as of this encounter
[2024-12-29 13:58] LABS: MANUAL DIFF FLAG NO
[2024-12-29 14:02] LABS: Appearance Urine Cloudy; Glucose Urine UA Negative (Negative); PH 6.5 (5.0-9.0); Specific Gravity - Urine 1.010 (1.005-1.025); UMIC TRIGGER UACC YES
[2024-12-29 14:05] LABS: UACC Culture Trigger YES
[2024-12-29 14:21] LABS: Hematocrit 36.2 % (42.0-52.0); Hemoglobin 10.8 g/dl (14.0-18.0); Imm Gran Abs Auto 0.02 X10*3/uL (0.00-0.03); Imm Gran Pct Auto 0.3 % (0.0-0.4); Lymphocytes Absolute Auto 2.3 X10*3/uL (1.2-4.9); Mean Corpuscular HGB Conc 29.8 g/dl (31.0-36.0); Mean Corpuscular Hemoglobin 22.5 pg (27.0-33.0); Mean Corpuscular Volume 75.3 fL (80.0-98.0); NRBC Abs Auto 0.000 X10*3/uL (0.0-0.012); NRBC Pct Auto 0.0 /100WBC (0.0-0.2); Platelet Count 245 X10*3/uL (160-400); Red Blood Count 4.81 X10*6/uL (4.60-5.80); White Blood Count 7.1 X10*3/uL (4.8-10.8)
[2024-12-29 15:00] LABS: Syphilis Screen Nonreactive (Nonreactive)
[2024-12-29 15:12] LABS: Microalbum/Creatinine Ratio Ur 38.9 ug/mg cr (<30)
[2024-12-29 15:14] LABS: Alanine Aminotransferase 14 U/L (0-40); Albumin Level 4.3 g/dL (3.5-5.0); Alkaline Phosphatase 72 U/L (39-117); Aspartate Amino Transferase 24 U/L (5-37); Blood Urea Nitrogen 12 mg/dL (9-16); Calcium 8.7 mg/dL (8.4-10.2); Cholesterol 109 mg/dL (<200); Estimated Glomerular Filt Rate > 60; HDL Cholesterol 38 mg/dL (>40); Total Protein 6.9 g/dL (6.5-8.0); Triglycerides 98 mg/dL (<150)
[2024-12-29 15:21] LABS: Anion Gap 11 (12-20); Carbon Dioxide 25 mmol/L (22-29); Chloride 112 mmol/L (96-108); Potassium 4.3 mmol/L (3.3-5.1); Sodium 144 mmol/L (135-145)
[2024-12-30 13:08] LABS: Lyme Blot 1.25 index
[2024-12-31 15:14] LABS: Lyme Abs Screen POSITIVE
[2024-12-31 22:49] LABS: 39KD (IgG) Band REACTIVE; 41KD (IgG) Band NON-REACTIVE; Lyme IgG Blot Interp NEGATIVE (NEGATIVE); Lyme IgM Blot Interp POSITIVE (NEGATIVE)
== END 2024-12-29 09:41 | disposition home or self-care (01) ==
LOC: HO.CHCLDS 09:40
PROVIDERS: Visit Provider Family Medicine
DX: Z01.84 Encounter for antibody response examination (principal); I16.0 Hypertensive urgency; R41.3 Other amnesia; Z79.899 Other long term (current) drug therapy
CPT/HCPCS: 36415; 80053; 80061; 80164; 81001; 82043; 82570; 84443; 85025; 86617; 86618; 86780; 87086; 87088; 87186